=== PATIENT | male | born 1960 | race Caucasian/White ===

== ENCOUNTER → 2021-06-18 09:34 | Outpatient (CLI) | payer MEDICARE, MEDICAID, SELFPAY ==
--- NOTE | 2021-06-18 10:00 | CT_ITS ---
PROCEDURE: CT ABDOMEN PELVIS WO CON CLINICAL INDICATION: incarcerated umbilical hernia COMPARISON: No exams were available for comparison TECHNIQUE: Axial images obtained with sagittal and coronal reformats. All CT scans at the facility use one or more dose reduction, viz: automated exposure control, ma/kV adjustment per patient size (including targeted exams where dose is matched to indication, i.e. head), or iterative reconstruction technique. FINDINGS: LOWER THORAX: Coronary artery calcifications noted.4 mm noncalcified nodule right middle lobe posteriorly. The 5 mm noncalcified nodule right lower lobe laterally. 4 mm noncalcified nodule left lower lobe. ABDOMEN & PELVIS: Liver margin is somewhat irregular suggesting cirrhosis. Spleen is enlarged at 16 cm. There has been a prior cholecystectomy with intra and extrahepatic biliary ductal dilatation. Nodular opacities are present in the paraesophageal region suggesting varices. Numerous nodular opacities are present in the perigastric region and within the mesenteries suggestive collateral vessels which could be confirmed with enhanced CT. No renal or ureteral calculi. No hydronephrosis. No intestinal obstruction or free air. No evidence of appendicitis. There is thickening of the gastric wall proximally which could be due to nondistention or underlying gastritis. There is mild diffuse haziness of the peritoneal fat and there is a small amount of ascites. The haziness of the fat could be related to portal venous hypertension. There is mild thickening of the rectosigmoid. There is a small umbilical hernia containing fat there is mild haziness of the fat within the hernia and focal thickening along the anterior wall the hernia. The hernia does not contain bowel. The haziness of the fat within the hernia is not greater than the remaining peritoneum. There are osteoarthritic changes of the hips right greater than left. Degenerative changes of the spine. IMPRESSION: 1. Cirrhosis with findings consistent with portal hypertension with splenomegaly and numerous varices along with a small amount of ascites and mild edematous appearance of the peritoneal fat 2. Small umbilical hernia containing fat with some thickening of the wall the hernia anteriorly. No bowel evident within the hernia. There is some edema of the fat within the hernia however this is not greater than the remaining peritoneal fat 3. Nonspecific gastric wall thickening 4. Other nonacute findings as described above. Dictated by: Roberto Cortes MD 06/18/2021 10:48 Roberto Cortes MD in [place] 06/18/2021 10:48
== END ==
PROVIDERS: PCP Family Medicine; Visit Provider Family Medicine
DX: K42.0 Umbilical hernia with obstruction, without gangrene (principal)
CPT/HCPCS: 74176

== ENCOUNTER 2021-07-23 15:41 | Inpatient (IN) | payer MEDICARE, MEDICAID, SELFPAY ==
[2021-07-23] VITALS (18 sets, daily range): BP systolic 134–158; BP diastolic 88–102; PULSE 90–130; RESP 12–22; TEMP 36.4–36.9; O2SAT 94–100; BMI 32.5; BMI 31.6
--- NOTE | 2021-07-23 15:38 | ECG_ITS ---
APPROVED REPORT Exam: Resting ECG HR:132 bpm ECG Measurements Heart Rate 132 AXES QRSd 92 QRS 77 QT 300 T -14 QTc 444 Conclusion Atrial fibrillation with rapid ventricular response with premature ventricular or aberrantly conducted complexes Late R wave progression Isolated Q wave in III Abnormal ECG Electronically signed by : Alex Durham MD 07/23/2021 17:29:40
--- NOTE | 2021-07-23 15:46 | XR_ITS ---
FINAL REPORT TECHNIQUE: Single view chest CLINICAL HISTORY: chest pain FINDINGS: A single view of the chest was obtained. The heart is enlarged. The lungs are clear. There is no pneumothorax. Osseous structures are unremarkable. IMPRESSION: No acute cardiopulmonary process. Reviewed, Interpreted and Dictated by Alton Leach III, MD Transcribed by Janay Herrera Authenticated by Alton Leach III, MD on 07/23/2021 04:53:02 PM [facility]
[2021-07-23 16:01] LABS: Basophils # 0.1 K/mm3 (0-0.2); Basophils % 0.9 % (0.1-2.0); Eosinophils # 0.1 K/mm3 (0.0-0.4); Eosinophils % 1.1 % (0.1-12.0); Hematocrit 44.1 % (42.0-52.0); Hemoglobin 15.2 g/dL (14.1-18.0); Lymphocytes # 1.3 K/mm3 (0.7-4.5); Lymphocytes % 19.7 % (10-50); Mean Corpuscular HGB Conc 34.4 g/dL (31.8-35.4); Mean Corpuscular Hemoglobin 34.2 pg (27.0-31.2); Mean Corpuscular Volume 99.3 fl (80-94); Mean Platelet Volume 8.7 fl (7.4-10.4); Monocytes # 0.4 K/mm3 (0.1-1.0); Monocytes % 5.7 % (1.7-9.3); Neutrophils # 4.8 K/mm3 (1.8-7.8); Neutrophils % 72.6 % (37.0-80.0); Platelet Count 131 K/mm3 (142-424); Red Blood Count 4.44 M/mm3 (4.60-6.20); Red Cell Distribution Width 14.7 % (11.5-17.5); White Blood Count 6.6 K/mm3 (4.8-10.8)
[2021-07-23 16:09] LABS: Anion Gap 11.6 mEq/L (5-15); Blood Urea Nitrogen 10 mg/dl (9-20); Calcium 9.4 mg/dl (8.4-10.2); Carbon Dioxide 29 mmol/L (22.0-30.0); Chloride 102 mmol/L (98-107); Creatinine Clearance Estimated 202 mL/min (50-200); Estimated Glomerular Filt Rate 137 ml/min (>60); GFR (African American) 166 ML/MIN (>60); Glucose 91 mg/dl (74-100); Potassium 3.6 mmoL/L (3.5-5.1); Sodium 139 mmol/L (136-145)
--- NOTE | 2021-07-23 16:13 | HMH.EDGENADL ---
ED Disposition Clinical Impression: Atrial fibrillation, new onset, Atrial fibrillation with rapid ventricular response, Hypomagnesemia Disposition: Admitted as Observation Condition on Discharge: Fair Referrals: Yunier Barrett MD [Primary Care Provider] - - Critical Care Critical Care Time: Yes Attestation: On 07/23/21, the high probability of a clinically significant, sudden or life threatening deterioration of the following system(s) required my full and direct attention, intervention and personal management. The time I documented below is in addition to time spent performing reported procedures but includes the following listed in this critical care notation. Total Critical Care Time: 30 Vital system(s) involved:: Circulatory Failure My critical care processes included: Assessment & monitoring of V/S, Initial and Re-exams, Data Review/Interpretation, Coordinating Care, Medication Orders and management, Documentation Medical Decision Making - Marshal Inquiry Pt receiving controlled substance: No Vital Signs: 07/23/21 15:44 07/23/21 16:31 07/23/21 16:50 Temperature 98.5 F Temperature Source Oral Pulse Rate 103 H 91 H Pulse Rate [Right] 125 H Respiratory Rate 16 22 21 Blood Pressure 146/95 H 134/93 H Blood Pressure [Right Arm] 136/92 H Blood Pressure Mean [Right Arm] 106 Blood Pressure Source [Right Arm] Automatic Cuff Blood Pressure Position [Right Arm] Sitting 02 Sat by Pulse Oximetry 98 98 98 Oxygen Delivery Method Room Air - Lab Data Lab Results 07/23/21 15:45: WBC 6.6, RBC 4.44 L, Hgb 15.2, Hct 44.1, MCV 99.3 H, MCH 34.2 H, MCHC 34.4, RDW 14.7, Plt Count 131 L, MPV 8.7, Neut % (Auto) 72.6, Lymph % (Auto) 19.7, [place] % (Auto) 5.7, Eos % (Auto) 1.1, Baso % (Auto) 0.9, Neut # (Auto) 4.8, Lymph # (Auto) 1.3, [place] # (Auto) 0.4, Eos # (Auto) 0.1, Baso # (Auto) 0.1 07/23/21 15:45: Sodium 139, Potassium 3.6, Chloride 102, Carbon Dioxide 29, Anion Gap 11.6, BUN 10, Creatinine 0.60 L, Estimated Creat Clear 202, Estimated GFR 137, Est GFR ( Amer) 166, Glucose 91, Calcium 9.4, Troponin I < 0.01 07/23/21 15:59: Magnesium 1.4 L, NT-Pro-B Natriuret Pep 548 H 07/23/21 15:59: TSH 0.84, Free T4 Index 2.3 L, Thyroxine (T4) 8.5, T3 Uptake 27 07/23/21 15:59: PT 13.4 H, INR 1.20 H, APTT 27.7 07/23/21 16:57: SARS-CoV-2 (PCR) Not detected, Influenza A Untype (PCR) Not detected, Influenza Type B (PCR) Not detected Result diagrams: 07/23/21 15:45 07/23/21 15:45 Orders (Tests/Meds): ED MEDICATIONS Generic Name Dose Route Start Last Admin Trade Name Freq PRN Reason Stop Dose Admin Diltiazem HCl 100 mg/ Sodium 100 mls @ 10 mls/hr 07/23/21 16:30 07/23/21 16:34 Chloride IV 08/22/21 16:29 10 mls/hr .Q10H RADHA Administration Protocol Magnesium Sulfate 2 gm/ Sodium 104 mls @ 100 mls/hr 07/23/21 17:07 Chloride IV 07/23/21 18:09 ONCE ONE Discontinued Medications Generic Name Dose Route Start Last Admin Trade Name Freq PRN Reason Stop Dose Admin Diltiazem HCl 20 mg 07/23/21 16:21 07/23/21 16:33 Diltiazem 25mg/5ml Vial IV 07/23/21 16:22 20 mg ONCE ONE Administration ORDERS Category Date Time Status Troponin I Q3H Lab 07/23/21 19:00 Ordered Troponin I Q3H Lab 07/23/21 22:00 Ordered - Radiology Data #1 Image(s): Chest Image Reviewed: Yes I reviewed the patient's radiology image, Yes I have reviewed radiologist's interpretation Preliminary Findings: Normal/NAD Patient: Liz Ruiz#: [id number] : 1960 Acct:[id number] Age/Sex: 60 / M ADM Date: 07/23/21 Loc: ER Attending Dr: Ordering Physician: Lior Hill MD Date of Service: 07/23/21 Procedure(s): XR chest portable Accession Number(s): [id number] cc: Alton Leach MD; Yunier Barrett MD~ FINAL REPORT TECHNIQUE: Single view chest CLINICAL HISTORY: chest pain FINDINGS: A single view of the chest was obtained. The heart is enl
[2021-07-23 16:31] LABS: Troponin I < 0.01 ng/ml (0.00-0.034)
[2021-07-23 16:48] LABS: Magnesium 1.4 mg/dl (1.6-2.3)
[2021-07-23 16:53] LABS: Activated Partial Thrombo Time 27.7 seconds (22.8-30.6); Prothrombin Time 13.4 seconds (10.1-12.5)
[2021-07-23 16:59] LABS: NT Pro Brain Natriuretic Pep. 548 pg/mL (0-125)
[2021-07-23 17:03] LABS: Coronavirus 19, PCR Not Detected (NotDetected); Influenza A, PCR Not Detected (NotDetected); Influenza B, PCR Not Detected (NotDetected)
[2021-07-23 17:06] LABS: Free Thyroxine Index 2.3 ug/dL (5.93-13.13); T4 (Thyroxine) 8.5 ug/dl (5.53-11.0); Triiodothryronine (T3) Uptake 27 % (23.5-40.5)
[2021-07-23 17:20] LABS: Thyroid Stimulating Hormone 0.84 uIU/mL (0.465-4.68)
--- NOTE | 2021-07-23 17:39 | PC.NURSE ---
notified powerhouse operator
--- NOTE | 2021-07-23 18:05 | PC.NURSE ---
1740 bed assignment requested, room 219SD, all staff notified
--- NOTE | 2021-07-23 19:13 | PC.NURSE ---
drip rate up to chair heart rate up to 140s drip turned up to 15
[2021-07-23 19:36] LABS: Troponin I < 0.01 ng/ml (0.00-0.034)
--- NOTE | 2021-07-23 21:55 | PC.NURSE ---
PT ARRIVED TO FLOOR VIA W/C FROM ED W/STAFF @ [id number]
[2021-07-23 23:08] LABS: Troponin I < 0.01 ng/ml (0.00-0.034)
[2021-07-24] VITALS (14 sets, daily range): BP systolic 119–148; BP diastolic 78–95; PULSE 77–110; RESP 10–22; TEMP 36.6–37.2; O2SAT 93–98; BMI 31.5; BMI 31.3
--- NOTE | 2021-07-24 05:33 | PC.NURSE ---
pt has rested intermittently t/o shift, cardizem at 15 upon arrival to floor, cardizem currently infusing at 5, no complaints of chest pain or SOA since arriving to floor, has ambulated to with a standby assist, BM this shift, remains on room air
[2021-07-24 07:39] LABS: Magnesium 1.7 mg/dl (1.6-2.3)
--- NOTE | 2021-07-24 11:31 | PC.NURSE ---
Notified Dr. Cain about consult on patient.
--- NOTE | 2021-07-24 13:20 | HMH.HP ---
*Admission Date: 07/23/21 *Chief complaint: new onset afib *History of present illness: Patient presented to the office for follow-up from [place]. On examination he was found to be in atrial fib with a rapid response. He was unable to be directly admitted from the office, he had to go home and take care of his children and subsequently returned to the emergency room. At that point KG showed A. fib with a rapid response. Initial steps included Cardizem for rate control. He was found to have low magnesium, normal thyroid function, normal troponins. Patient has no history of arrythmia, was having no ischemic chest pain but did notice dyspnea on exertion. He had recently been discharged from [place] few days prior to this admission. Patient was recently diagnosed with cirrhosis. He had experienced some rectal bleeding prompting his valuation at [place]. He underwent EGD, some esophageal varices were noted not ligated. He has had no further bleeding. His abdomen is distended, there is some ascites. There is no jaundice. I do not know the extent of his work-up to date, but he has not yet had a liver biopsy. [facility] History Medical History: Reports:: Cerebrovascular Accident, Deep Vein Thrombosis, Hyperlipidemia, Hypertension, Myocardial Infarction Denies:: Cancer, Diabetes Mellitus Type 1, Diabetes Mellitus Type 2, MRSA *Have you ever received a pneumonia vaccine?: No *Have you received a flu vaccine this season?: No Laterality Cases: Left: Arthroscopy Knee Other Surgeries: Yes: No Previous Surgery, Colonoscopy Amputation: No Fractures: No - *Social History Last grade of school completed: 9th or 10th Smoking Status: Never smoker Alcohol Intake: never Substance Use Type: denies use *Occupational Status:: disabled Housing: other Household Members: children *Travel in the last 8 weeks: None Family Hx:: Cancer, Heart Attack Review of Systems - Constitutional Reports lack of energy, Reports weakness - Eyes Denies change in vision - ENT Denies abnormal hearing Meds Home Medications Medication Instructions Recorded Confirmed Type aspirin 325 mg tablet 325 mg PO HS 08/15/19 07/23/21 History chlordiazepoxide-clidinium 5 1 cap PO BID PRN #60 cap 07/05/21 07/23/21 Rx mg-2.5 mg capsule oxycodone-acetaminophen 10 mg-325 1 tab PO QID PRN #28 tab 07/16/21 07/23/21 Rx mg tablet Rosuvastatin Calcium 20 mg PO HS 07/23/21 07/23/21 History lisinopriL [Lisinopril] 10 mg PO HS 07/23/21 07/23/21 History Allergies Allergy/AdvReac Type Severity Reaction Status Date / Time morphine Allergy hives Verified 07/23/21 22:11 codeine AdvReac Vomiting/Na Verified 07/23/21 22:11 usea cortisone AdvReac Hives Verified 07/23/21 22:11 Iodinated Contrast Media AdvReac Swelling Verified 07/23/21 22:11 Exam Vital signs and Labs for Last 24 Hours: Temp Pulse Resp BP Pulse Ox 97.9 F 93 H 16 127/85 94 L 07/24/21 04:00 07/24/21 06:00 07/24/21 06:00 07/24/21 06:00 07/24/21 06:00 Laboratory Results - last 24 hr 07/23/21 15:45: WBC 6.6, RBC 4.44 L, Hgb 15.2, Hct 44.1, MCV 99.3 H, MCH 34.2 H, MCHC 34.4, RDW 14.7, Plt Count 131 L, MPV 8.7, Neut % (Auto) 72.6, Lymph % (Auto) 19.7, [place] % (Auto) 5.7, Eos % (Auto) 1.1, Baso % (Auto) 0.9, Neut # (Auto) 4.8, Lymph # (Auto) 1.3, [place] # (Auto) 0.4, Eos # (Auto) 0.1, Baso # (Auto) 0.1 07/23/21 15:45: Sodium 139, Potassium 3.6, Chloride 102, Carbon Dioxide 29, Anion Gap 11.6, BUN 10, Creatinine 0.60 L, Estimated Creat Clear 202, Estimated GFR 137, Est GFR ( Amer) 166, Glucose 91, Calcium 9.4, Troponin I < 0.01 07/23/21 15:59: Magnesium 1.4 L, NT-Pro-B Natriuret Pep 548 H 07/23/21 15:59: TSH 0.84, Free T4 Index 2.3 L, Thyroxine (T4) 8.5, T3 Uptake 27 07/23/21 15:59: PT 13.4 H, INR 1.20 H, APTT 27.7 07/23/21 16:57: SARS-CoV-2 (PCR) Not detected, Influenza A Untype (PCR) Not detected, Influenza Type B (PCR) Not detected 07/23/21 19:00: Troponin I < 0.01
--- NOTE | 2021-07-24 13:44 | CT_ITS ---
PROCEDURE INFORMATION: Exam: CT Abdomen Without Contrast Exam date and time: 07/24/2021 1:44 PM Age: 60 years old Clinical indication: Bloating; Additional info: Cirrhosis, ascites TECHNIQUE: Imaging protocol: Computed tomography images of the abdomen without contrast. Radiation optimization: All CT scans at this facility use at least one of these dose optimization techniques: automated exposure control; mA and/or kV adjustment per patient size (includes targeted exams where dose is matched to clinical indication); or iterative reconstruction. COMPARISON: CT ABDOMEN PELVIS WO CON 06/18/2021 10:19 AM FINDINGS: Liver: Cirrhotic changes of the liver present. Gallbladder and bile ducts: There has been a cholecystectomy. Pancreas: Normal. No ductal dilation. Spleen: Mild splenomegaly. The spleen demonstrates punctate calcifications, consistent with remote granulomatous organism exposure. Adrenals: Normal. No mass. Kidneys and ureters: Normal. No hydronephrosis. Stomach and bowel: Thickening of the ellison of the stomach and duodenum consistent with gastroduodenitis. Intraperitoneal space: There is a moderate amount of free intraperitoneal fluid present. Lymph nodes: There are multiple nonspecific nonpathologic but prominent lymph nodes in the mesentery. There are no mesenteric lymph nodes of pathologic dimensions. Vasculature: Gastroesophageal varices are present. Haziness of the peritoneal fat is again noted which may be related to portal venous hypertension. Bones/joints: The lumbar spine demonstrates moderate degenerative changes at multiple levels. Soft tissues: There is a fat-containing umbilical hernia. Fluid filled left inguinal hernia. Other findings: Lack of IV contrast limits the study as well as decreases sensitivity and specificity. IMPRESSION: 1. There is a moderate amount of free intraperitoneal fluid present. 2. Cirrhotic changes of the liver present. 3. Mild splenomegaly. 4. Gastroesophageal varices are present. 5. Thickening of the ellison of the stomach and duodenum consistent with gastroduodenitis.
--- NOTE | 2021-07-24 13:45 | CT_ITS ---
PROCEDURE INFORMATION: Exam: CT Head Without Contrast Exam date and time: 07/24/2021 1:45 PM Age: 60 years old Clinical indication: Other: Afib; Additional info: New onset afib, history of stroke TECHNIQUE: Imaging protocol: Computed tomography of the head without contrast. Radiation optimization: All CT scans at this facility use at least one of these dose optimization techniques: automated exposure control; mA and/or kV adjustment per patient size (includes targeted exams where dose is matched to clinical indication); or iterative reconstruction. COMPARISON: No relevant prior studies available. FINDINGS: Brain: Normal. No hemorrhage. Unremarkable white matter. No mass effect. Cerebral ventricles: No ventriculomegaly. Paranasal sinuses: Visualized sinuses are unremarkable. No fluid levels. Mastoid air cells: Visualized mastoid air cells are well aerated. Bones/joints: No acute fracture. Soft tissues: No acute changes IMPRESSION: No acute intracranial abnormality.
--- NOTE | 2021-07-24 15:08 | P.CONPHA_ITS ---
[facility] Pharm[facility] VTE Monitoring - Patient Demographics Admission date: 07/24/21 Report Date: 07/24/21 Time: 15:09 Allergies/Adverse Reactions: Patient Allergies morphine Allergy (Verified 07/23/21 22:11) hives codeine Adverse Reaction (Verified 07/23/21 22:11) Vomiting/Nausea cortisone Adverse Reaction (Verified 07/23/21 22:11) Hives Iodinated Contrast Media Adverse Reaction (Verified 07/23/21 22:11) Swelling Height: 1.83 m Weight: 105.715 kg Patient Problems: Current Active Problems Atrial fibrillation, new onset (Acute) Atrial fibrillation with rapid ventricular response (Acute) Hypomagnesemia (Acute) Cirrhosis (Acute) Abdominal pain (Acute) Hyperlipidemia (Acute) Chronic back pain greater than 3 months duration (Acute) Family history of heart disease (Acute) History of CVA (cerebrovascular accident) (Acute) HTN (hypertension) (Acute) Hx of myocardial infarction (Acute) Dyspnea (Acute) - VTE Risk Labs: VTE Related Lab Results Hgb 15.2 g/dL (14.1-18.0) 07/23/21 15:45 Hct 44.1 % (42.0-52.0) 07/23/21 15:45 Plt Count 131 K/mm3 (142-424) L 07/23/21 15:45 PT 13.4 seconds (10.1-12.5) H 07/23/21 15:59 INR 1.20 (0.9-1.1) H 07/23/21 15:59 APTT 27.7 seconds (22.8-30.6) 07/23/21 15:59 BUN 10 mg/dl (9-20) 07/23/21 15:45 Creatinine 0.60 mg/dl (0.66-1.25) L 07/23/21 15:45 Estimated Creat Clear 202 mL/min (50-200) 07/23/21 15:45 Was VTE Risk Assessment Performed: Yes VTE Score: 3 VTE Risk Level: Low Risk - Prophylaxis Location of Applied Device: Refused Pharmacologic Type: Enoxaparin (LOVENOX)
[2021-07-24 16:20] LABS: Ammonia < 9 umol/L (9-30)
[2021-07-25] VITALS (12 sets, daily range): BP systolic 110–136; BP diastolic 70–91; PULSE 76–100; RESP 13–19; TEMP 36.8–37.2; O2SAT 92–96; BMI 31.3
[2021-07-25 06:35] LABS: Basophils % 0.3 % (0.1-2.0); Eosinophils # 0.1 K/mm3 (0.0-0.4); Eosinophils % 1.8 % (0.1-12.0); Hematocrit 38.5 % (42.0-52.0); Hemoglobin 12.8 g/dL (14.1-18.0); Lymphocytes # 1.3 K/mm3 (0.7-4.5); Lymphocytes % 22.7 % (10-50); Mean Corpuscular HGB Conc 33.2 g/dL (31.8-35.4); Mean Corpuscular Hemoglobin 33.7 pg (27.0-31.2); Mean Corpuscular Volume 101.5 fl (80-94); Mean Platelet Volume 8.3 fl (7.4-10.4); Monocytes # 0.4 K/mm3 (0.1-1.0); Monocytes % 6.5 % (1.7-9.3); Neutrophils # 3.9 K/mm3 (1.8-7.8); Neutrophils % 68.6 % (37.0-80.0); Platelet Count 97 K/mm3 (142-424); Red Blood Count 3.79 M/mm3 (4.60-6.20); Red Cell Distribution Width 14.8 % (11.5-17.5); White Blood Count 5.6 K/mm3 (4.8-10.8)
[2021-07-25 07:13] LABS: Alanine Aminotransferase 26 U/L (12-78); Albumin Level 3.3 g/dl (3.5-5.0); Albumin/Globulin Ratio 1.3 (1.1-1.8); Alkaline Phosphatase 133 U/L (38-126); Anion Gap 6.3 mEq/L (5-15); Aspartate Amino Transferase 44 U/L (17-59); Bilirubin,Total 1.7 mg/dl (0.2-1.3); Blood Urea Nitrogen 14 mg/dl (9-20); Calcium 8.6 mg/dl (8.4-10.2); Carbon Dioxide 32 mmol/L (22.0-30.0); Chloride 102 mmol/L (98-107); Creatinine Clearance Estimated 194 mL/min (50-200); Estimated Glomerular Filt Rate 137 ml/min (>60); GFR (African American) 166 ML/MIN (>60); Globulin 2.6 g/dL (1.3-3.2); Glucose 91 mg/dl (74-100); Magnesium 1.5 mg/dl (1.6-2.3); Potassium 3.3 mmoL/L (3.5-5.1); Sodium 137 mmol/L (136-145); Total Protein,Serum 5.9 g/dl (6.3-8.2)
--- NOTE | 2021-07-25 12:20 | HMH.ACPN2 ---
Internal Medicine - PN: Subj *Date: 07/25/21 *Time: 12:21 Interval history: Patient remains in A. fib on the monitor. Good rate control he is in the 80s. Echo is planned for tomorrow. CT of the brain showed no acute changes CT of the abdomen showed cirrhosis, esophageal varices, and some ascites. We will consider ultrasound-guided paracentesis tomorrow. Is having some increased back and leg pain from laying in the bed. He is having no active chest pain. His potassium is a little low today at 3.3, magnesium still a little low at 1.5. Cardiology is on the case. Exam Vital signs and Labs for Last 24 Hours: Temp Pulse Resp BP Pulse Ox 98.6 F 88 14 110/76 95 07/25/21 08:00 07/25/21 10:00 07/25/21 10:00 07/25/21 10:00 07/25/21 10:00 Laboratory Results - last 24 hr 07/24/21 15:40: Ammonia < 9 L 07/25/21 05:28: WBC 5.6, RBC 3.79 L, Hgb 12.8 L, Hct 38.5 L, MCV 101.5 H, MCH 33.7 H, MCHC 33.2, RDW 14.8, Plt Count 97 L D, MPV 8.3, Neut % (Auto) 68.6, Lymph % (Auto) 22.7, [place] % (Auto) 6.5, Eos % (Auto) 1.8, Baso % (Auto) 0.3, Neut # (Auto) 3.9, Lymph # (Auto) 1.3, [place] # (Auto) 0.4, Eos # (Auto) 0.1, Baso # (Auto) 0.0 07/25/21 05:28: Sodium 137, Potassium 3.3 L, Chloride 102, Carbon Dioxide 32 H, Anion Gap 6.3, BUN 14 D, Creatinine 0.60 L, Estimated Creat Clear 194, Estimated GFR 137, Est GFR ( Amer) 166, Glucose 91, Calcium 8.6, Magnesium 1.5 L D, Total Bilirubin 1.7 H, AST 44, ALT 26, Alkaline Phosphatase 133 H, Total Protein 5.9 L, Albumin 3.3 L, Globulin 2.6, Albumin/Globulin Ratio 1.3 I & O for Last 24 hours: Intake & Output 07/22/21 07/23/21 07/24/21 07/25/21 23:59 23:59 23:59 23:59 Intake Total 1359 / 1359 480 / 480 Balance 1359 / 1359 480 / 480 Weight 233 lb 1.6 oz 231 lb 7.766 oz 231 lb 7.766 oz - Constitutional no acute distress - *Routine HEENT Exam Head: Present: normocephalic Eye: Present: EOMI, PERRL ENT: Present: mucous membranes moist - *Routine Neck Exam Present: supple. Absent: lymphadenopathy - *Routine Respiratory Exam Present: CTA bilaterally - *Routine Cardiovascular Exam Present: RRR, irregularly irregular. Absent: murmur - *Routine Abdominal Exam Present: soft, distended, obese. Absent: tenderness, guarding - *Routine Extremities Exam Absent: cyanosis, clubbing, edema - *Routine Skin Exam Present: warm. Absent: jaundice, rash - *Routine Neurological Exam Present: alert, oriented X3 Assessment and Plan (1) Atrial fibrillation with rapid ventricular response Status: Acute Category: Medical Code(s): I48.91 - Unspecified atrial fibrillation (2) Atrial fibrillation, new onset Status: Acute Category: Medical Code(s): I48.91 - Unspecified atrial fibrillation (3) Hypomagnesemia Status: Acute Category: Medical Code(s): E83.42 - Hypomagnesemia (4) Abdominal pain Status: Acute Qualifiers: Abdominal location: periumbilical Qualified Code(s): R10.33 - Periumbilical pain Category: Medical Code(s): R10.9 - Unspecified abdominal pain (5) Chronic back pain greater than 3 months duration Status: Acute Category: Medical Code(s): M54.9 - Dorsalgia, unspecified; G89.29 - Other chronic pain (6) Cirrhosis Status: Acute Qualifiers: Hepatic cirrhosis type: unspecified hepatic cirrhosis Ascites presence: unspecified Qualified Code(s): K74.60 - Unspecified cirrhosis of liver Category: Medical Code(s): K74.60 - Unspecified cirrhosis of liver (7) Dyspnea Status: Acute Qualifiers: Dyspnea type: dyspnea on exertion Qualified Code(s): R06.09 - Other forms of dyspnea Category: Medical Code(s): R06.00 - Dyspnea, unspecified (8) Family history of heart disease Status: Acute Category: Medical Code(s): Z82.49 - Family history of ischemic heart disease and other diseases of the circulatory system (9) HTN (hypertension) Status: Acute Qualifiers: Hypertension type: primary h
--- NOTE | 2021-07-25 12:50 | HMH.ITSTN ---
spoke to second floor Carissa she spoke to Dr. Barrett he is aware this has to be done tomorrow with a radiologist. He just put the order in for today. Advised I will modify to tomorrows date.
[2021-07-26] VITALS (7 sets, daily range): BP systolic 119–150; BP diastolic 74–92; PULSE 80–97; RESP 17–24; TEMP 36.7–37; O2SAT 93–97
--- NOTE | 2021-07-26 05:56 | PC.NURSE ---
PA. JOSHI NOTIFIED OF CONSULT
--- NOTE | 2021-07-26 08:00 | US_ITS ---
FINAL REPORT CLINICAL HISTORY: ascites -- performed by jevon 1650 ml FINDINGS: ULTRASOUND-GUIDED PARACENTESIS HISTORY:Ascites ATTENDING PHYSICIAN:Dr. Leach PHYSICIAN TURBINE ATTENDANT: Caleb Phillips PA-C FINDINGS: After informed consent was obtained and timeout procedure performed, fluid was localized in the right lower quadrant under ultrasound guidance and marked on the skin appropriately. The patient was then prepped and draped in the usual sterile fashion and the skin was anesthetized with 1% lidocaine. An ultrasound guided paracentesis was then performed using a Turkel needle. Approximately 1.6 liters of clear yellow fluid was removed. No fluid was sent to lab. The patient tolerated the procedure well and there were no immediate complications. IMPRESSION: Ultrasound guided right lower quadrant 1.6 liters of Clear yellow fluid was removed. Films reviewed , interpreted and dictated by Dr. Leach Transcribed by Caleb Phillips PA-C. Reviewed, Interpreted and Dictated by Alton Leach III, MD Transcribed by JOHN Fragoso Authenticated by Alton Leach III, MD on 07/26/2021 12:29:00 PM [facility]
--- NOTE | 2021-07-26 08:15 | CT_ITS ---
FINAL REPORT TECHNIQUE: Axial imaging of the chest was obtained without contrast. Reformatted images were also obtained and reviewed.This study was performed with techniques to keep radiation doses as low as reasonably achievable, (ALARA). Individualized dose reduction technique using automated exposure control or adjustment of mA and/or kV according to the patient's size were employed. CLINICAL HISTORY: Constrictive pericarditis. COMPARISON: 07/24/2021 FINDINGS: There are severe coronary artery calcifications. There is no pericardial thickening, pericardial fluid or pericardial calcification. There is no axillary adenopathy. There is no hilar or mediastinal mass or adenopathy. There is no pleural effusion. Several calcified granulomas are seen in the left lung base. There are small pulmonary nodules measuring less than 5 mm, unchanged from prior exam. There is a small to moderate amount of ascites. The spleen is enlarged. Presumed paraesophageal varices are present. Liver is mildly lobular which could represent cirrhosis. There is mild anasarca. Patient is status post cholecystectomy. IMPRESSION: Severe coronary artery calcifications. No pericardial thickening, pericardial fluid or pericardial calcification. Small to moderate ascites, paraesophageal varices and mild anasarca. Reviewed, Interpreted and Dictated by Alton Leach III, MD Transcribed by Janay Herrera Authenticated by Alton Leach III, MD on 07/26/2021 10:29:50 AM [facility]
--- NOTE | 2021-07-26 08:18 | HMH.CNCARD ---
History of Present Illness Consult date: 07/26/21 Requesting physician: Yunier Barrett Consult reason: atrial fibrillation Chief complaint: Shortness of breath Additional Medical History:: 1. Remote history of MD x2 in his 20s treated medically A. Preliminary echocardiogram 07/26/2021, normal ejection fraction with only mild valvular insufficiencies. 2. Coronary artery calcifications noted on abdominal CT, 06/2021 3. Cirrhosis of the liver with no history of significant alcohol use or illegal drug use per patient 4. Hypertension 5. Hyperlipidemia 6. History of CVA 7. History of DVT History of present illness: Patient presented to the office for follow-up from [place]. On examination he was found to be in atrial fib with a rapid response. He was unable to be directly admitted from the office, he had to go home and take care of his children and subsequently returned to the emergency room. At that point EKG showed A. fib with a rapid response. Initial steps included Cardizem for rate control. He was found to have low magnesium, normal thyroid function, normal troponins. Patient has no history of arrythmia, was having no ischemic chest pain but did notice dyspnea on exertion. He had recently been discharged from [place] few days prior to this admission. Patient was recently diagnosed with cirrhosis. He had experienced some rectal bleeding prompting his valuation at [place]. He underwent EGD, some esophageal varices were noted not ligated. He has had no further bleeding. His abdomen is distended, there is some ascites. There is no jaundice. I do not know the extent of his work-up to date, but he has not yet had a liver biopsy. The above per Dr. Barrett Patient confirms above events. He denies any recent cardiac evaluation. He does relate having 2 MIs in his 20s which was treated medically. He has no prior history of atrial fibrillation to his knowledge. Denies significant alcohol use or illegal drug use. No history of tobacco use or diabetes cirrhosis of the liver diagnosis is new. He has 2 children living at home ages 5 and 7 that he takes care of. 1 has Down syndrome. [facility] History Medical History: Reports:: Cerebrovascular Accident, Deep Vein Thrombosis, Hyperlipidemia, Hypertension, Myocardial Infarction Denies:: Cancer, Diabetes Mellitus Type 1, Diabetes Mellitus Type 2, MRSA *Have you ever received a pneumonia vaccine?: No *Have you received a flu vaccine this season?: No Laterality Cases: Left: Arthroscopy Knee Other Surgeries: Yes: No Previous Surgery, Colonoscopy Amputation: No Fractures: No - *Social History Last grade of school completed: 9th or 10th Smoking Status: Never smoker Alcohol Intake: never Substance Use Type: denies use *Occupational Status:: employed, disabled Housing: other Household Members: children *Travel in the last 8 weeks: None Family Hx:: Cancer, Heart Attack Meds Home Medications Medication Instructions Recorded Confirmed Type aspirin 325 mg tablet 325 mg PO HS 08/15/19 07/23/21 History Rosuvastatin Calcium 20 mg PO HS 07/23/21 07/23/21 History lisinopriL [Lisinopril] 10 mg PO HS 07/23/21 07/23/21 History Chlordiazepoxide/Clidinium Br 1 each PO BIDP PRN 07/25/21 07/25/21 History [Librax Capsule] Oxycodone HCl/Acetaminophen 1 each PO QIDP PRN 07/25/21 07/25/21 History [Oxycodone-Acetaminophen 10-325] Allergies Allergy/AdvReac Type Severity Reaction Status Date / Time morphine Allergy hives Verified 07/23/21 22:11 codeine AdvReac Vomiting/Na Verified 07/23/21 22:11 usea cortisone AdvReac Hives Verified 07/23/21 22:11 Iodinated Contrast Media AdvReac Swelling Verified 07/23/21 22:11 Exam Vital signs and Labs for Last 24 Hours: Temp Pulse Resp BP Pulse Ox 98.6 F 91 H 19 142/81 H 93 L 07/26/21 04:00 07/26/21 07:50 07/26/21 06:00 07/26/21 06:00 07/26/21 07:50 I & O for Last 24 hours: Intake & Output 07/23/21
--- NOTE | 2021-07-26 09:07 | PC.NURSE ---
Off unit at 0903 for paracentesis with Radiology. Diltiazem drip dc by Peace Adam RN at 0900, 30 minutes after po Diltiazem given
[2021-07-26 09:59] LABS: Appearance,Body Fld. Normal; Source, Body Fld. Paracentesis Fluid
[2021-07-26 10:08] LABS: RBC,Body Fluid < 10 cells/uL (< 10 X 10^3); TNC,Body Fluid 149 cells/uL (< 1000)
[2021-07-26 10:19] LABS: Chloride 102 mmol/L (98-107); Potassium 3.9 mmoL/L (3.5-5.1); Sodium 138 mmol/L (136-145)
[2021-07-26 10:21] LABS: Alanine Aminotransferase 32 U/L (12-78); Aspartate Amino Transferase 52 U/L (17-59); Blood Urea Nitrogen 13 mg/dl (9-20); Creatinine Clearance Estimated 194 mL/min (50-200); Estimated Glomerular Filt Rate 137 ml/min (>60); GFR (African American) 166 ML/MIN (>60)
[2021-07-26 10:22] LABS: Albumin Level 3.9 g/dl (3.5-5.0); Albumin/Globulin Ratio 1.2 (1.1-1.8); Alkaline Phosphatase 158 U/L (38-126); Anion Gap 11.9 mEq/L (5-15); Calcium 9.2 mg/dl (8.4-10.2); Carbon Dioxide 28 mmol/L (22.0-30.0); Globulin 3.3 g/dL (1.3-3.2); Glucose 98 mg/dl (74-100); Total Protein,Serum 7.2 g/dl (6.3-8.2)
[2021-07-26 10:32] LABS: Lactate Dehydrogenase 216 U/L (313-618)
[2021-07-26 11:13] LABS: Mononuclear WBCs,Body Fluid 93 %; Polynuclear WBC,Body Fluid 7 %
[2021-07-26 11:14] LABS: Volume,Body Fld. 1672 mL
--- NOTE | 2021-07-26 13:01 | HMH.DCSUM ---
General - General Admission date:: 07/24/21 Discharge date: 07/26/21 HPI HPI: Patient presented to the office for follow-up from [place]. On examination he was found to be in atrial fib with a rapid response. He was unable to be directly admitted from the office, he had to go home and take care of his children and subsequently returned to the emergency room. At that point KG showed A. fib with a rapid response. Initial steps included Cardizem for rate control. He was found to have low magnesium, normal thyroid function, normal troponins. Patient has no history of arrythmia, was having no ischemic chest pain but did notice dyspnea on exertion. He had recently been discharged from [place] few days prior to this admission. Patient was recently diagnosed with cirrhosis. He had experienced some rectal bleeding prompting his valuation at [place]. He underwent EGD, some esophageal varices were noted not ligated. He has had no further bleeding. His abdomen is distended, there is some ascites. There is no jaundice. I do not know the extent of his work-up to date, but he has not yet had a liver biopsy. Hospital Course Hospital Course: Laboratory Tests 07/23/21 07/23/21 07/23/21 15:45 15:45 15:59 WBC 6.6 RBC 4.44 L Hgb 15.2 Hct 44.1 MCV 99.3 H MCH 34.2 H MCHC 34.4 RDW 14.7 Plt Count 131 L MPV 8.7 Neut % (Auto) 72.6 Lymph % (Auto) 19.7 [place] % (Auto) 5.7 Eos % (Auto) 1.1 Baso % (Auto) 0.9 Neut # (Auto) 4.8 Lymph # (Auto) 1.3 [place] # (Auto) 0.4 Eos # (Auto) 0.1 Baso # (Auto) 0.1 PT INR APTT Sodium 139 Potassium 3.6 Chloride 102 Carbon Dioxide 29 Anion Gap 11.6 BUN 10 Creatinine 0.60 L Estimated Creat Clear 202 Estimated GFR 137 Est GFR ( Amer) 166 Glucose 91 Calcium 9.4 Magnesium 1.4 L Total Bilirubin AST ALT Alkaline Phosphatase Ammonia Lactate Dehydrogenase Troponin I < 0.01 NT-Pro-B Natriuret Pep 548 H Total Protein Albumin Globulin Albumin/Globulin Ratio TSH Free T4 Index Thyroxine (T4) T3 Uptake Fluid Source Fluid Volume Fluid Appearance Fluid RBC (Auto) Fld Tot Nucleated Cell Fld Polynuclear WBCs % Fld Mononuclear WBCs % SARS-CoV-2 (PCR) Influenza A Untype (PCR) Influenza Type B (PCR) 07/23/21 07/23/21 07/23/21 15:59 15:59 16:57 WBC RBC Hgb Hct MCV MCH MCHC RDW Plt Count MPV Neut % (Auto) Lymph % (Auto) [place] % (Auto) Eos % (Auto) Baso % (Auto) Neut # (Auto) Lymph # (Auto) [place] # (Auto) Eos # (Auto) Baso # (Auto) PT 13.4 H INR 1.20 H APTT 27.7 Sodium Potassium Chloride Carbon Dioxide Anion Gap BUN Creatinine Estimated Creat Clear Estimated GFR Est GFR ( Amer) Glucose Calcium Magnesium Total Bilirubin AST ALT Alkaline Phosphatase Ammonia Lactate Dehydrogenase Troponin I NT-Pro-B Natriuret Pep Total Protein Albumin Globulin Albumin/Globulin Ratio TSH 0.84 Free T4 Index 2.3 L Thyroxine (T4) 8.5 T3 Uptake 27 Fluid Source Fluid Volume Fluid Appearance Fluid RBC (Auto) Fld Tot Nucleated Cell Fld Polynuclear WBCs % Fld Mononuclear WBCs % SARS-CoV-2 (PCR) Not detected Influenza A Untype (PCR) Not detected Influenza Type B (PCR) Not detected 07/23/21 07/23/21 07/24/21 19:00 22:18 05:44 WBC RBC Hgb Hct MCV MCH MCHC RDW Plt Count MPV Neut % (Auto) Lymph % (Auto) [place] % (Auto) Eos % (Auto) Baso % (Auto) Neut # (Auto) Lymph # (Auto) [place] # (Auto) Eos # (Auto) Baso # (Auto) PT INR APTT Sodium Potassium Chloride Carbon Dioxide Anion Gap BUN
--- NOTE | 2021-07-26 13:21 | CA_ITS ---
APPROVED REPORT EXAM: Comprehensive 2D, Doppler, and color-flow Echocardiogram [employer] Tractor Operator: Catherine Pa CRT Ht: 6 ft 0 in Wt: 233lbs BSA: 2.27 BP: 142/81 mmHg Indications: Shortness of Breath, CVA/TIA, Hyperlipidemia, Hypertension/HDD, DVT, OLD NE, CIRRHOSIS 2D Dimensions LVOT 1.82 cm (M/F) 1.5-2.5 LA Volume 89.70 mL LA Volume Index 39.50 mL/m2 (M/F) 16-34 M-Mode Dimensions RVDd 3.75 cm (0.9-2.6) LA Diam 5.04 cm (1.9-4.0) LVDd 5.04 cm (3.5-5.7) Ao Diam 4.04 cm (2.0-3.7) LVDs 3.29 cm (3.5-5.7) IVSd 1.68 cm (0.6-1.1) PWd 1.25 cm (0.6-1.1) EF (Teich) 63.70% FS 34.70% EDV (Teich) 120.50 mL TAPSE 2.73 (<1.7) ESV (Teich) 43.80 mL LV Diastology E Decel Time 177.00 (160-240 msec) E/A Ratio 0.34 Aortic Valve AO Peak GR. 10.50 mmHg Mitral Valve MV E Max Jaime. 100.00 (40-130 cm/s) MV A Velocity 295.00 (40-130 cm/s) E/A Ratio 0.34 MV Decel. Time 177.00 (160-240 ms) MV PHT 52.00 ms Pulmonary Valve PV Peak Velocity 119.00 (50-150 cm/s) Tricuspid Valve TR P. Velocity 289.00 cm/s RAP Estimate 10.00 mmHg RVSP 43.30 mmHg Left Ventricle Technically difficult study because of the patient factors and poor acoustic windows, left atrium is mildly enlarged, left ventricle is normal size, mild concentric left ventricular hypertrophy, visually estimated ejection fraction 55% with no regional wall motion abnormality, endocardial surfaces are poorly visualized, diastolic parameters are inconclusive. Right Ventricle Right atrium and right ventricle are mildly enlarged with normal contractility. Aortic Valve Aortic valve is thickened and calcified without Doppler evidence of aortic stenosis or significant aortic insufficiency. Mitral Valve Mitral valve is grossly normal, there is mild mitral regurgitation. Tricuspid Valve Tricuspid valve is grossly normal, there is mild tricuspid regurgitation, tricuspid regurgitation jet velocity is inadequate for calculation of the right ventricular systolic pressure. Pulmonic Valve Pulmonic valve is poorly visualized. Great Vessels Aortic root is normal size. Inferior vena cava is normal size with normal inspiratory collapse. Pericardium No significant pericardial effusion noted. Conclusion 1. Mild biatrial enlargement, normal left ventricular size, mild concentric left ventricular hypertrophy, visually estimated ejection fraction 55% with no regional wall motion abnormality, diastolic parameters are inconclusive. Endocardial surfaces are poorly visualized. 2. Mildly enlarged right ventricle with normal contractility. 3. Thickened and calcified aortic valve without significant aortic stenosis or aortic insufficiency. 4. Mild mitral and tricuspid regurgitation. 5. No significant pericardial effusion noted. 6. Inferior vena cava is normal size with normal inspiratory collapse. 7. No acute echocardiographic findings to suggest constrictive pericarditis. Electronically signed by : Kumar James MD 07/26/2021 12:35:32
--- NOTE | 2021-07-26 14:45 | HMH.PHAINT ---
DISCHARGE MEDICATION COUNSELING PROVIDED. DISCUSSED THE DILTIAZEM AND XARLETO, HOW TO TAKE, POSSIBLE SIDE EFFECTS. BRUISING RISK AND BLEED RISK WITH XARELTO, WHEN TO SEEK CARE, IF YOU BUMP HEAD NEED TO BE SEEN TO RULE OUT HEAD BLEED. PATIENT RECEPTIVE AND ENDORSED NO QUESTIONS AT THIS TIME.
[2021-07-27 06:12] LABS: Hep A Ab, IgM Negative (Negative); Hepatitis B Core Antibody IgM Negative (Negative); Hepatitis B Surface Antigen Negative (Negative); Hepatitis C Antibody <0.1 s/co ratio (0.0-0.9)
[2021-07-27 10:12] LABS: Albumin, Body Fluid 0.4 g/dL (Not Estab.); Glucose, Body Fluid 102 mg/dL (.); LD, Body Fluid 31 IU/L (.); Protein, Body Fluid 0.6 g/dL (.)
== END 2021-07-26 15:25 | disposition home or self-care (01) | DRG 309 ==
LOC: ER 17:09 → 2ND 18:16
PROVIDERS: Nurse Practitioner Family; Admitting Provider Family Medicine; Emergency Provider Emergency Medicine; PCP Family Medicine; Visit Provider Family Medicine
DX: I48.91 Unspecified atrial fibrillation (principal); I85.10 Secondary esophageal varices without bleeding; K74.60 Unspecified cirrhosis of liver; E83.42 Hypomagnesemia; Z86.73 Personal history of transient ischemic attack (TIA), and cerebral infarction without residual deficits; Z20.822 Contact with and (suspected) exposure to COVID-19; E78.5 Hyperlipidemia, unspecified; I10 Essential (primary) hypertension; I25.2 Old myocardial infarction; G89.29 Other chronic pain; M54.9 Dorsalgia, unspecified; Z86.718 Personal history of other venous thrombosis and embolism; I25.10 Atherosclerotic heart disease of native coronary artery without angina pectoris; Z79.01 Long term (current) use of anticoagulants
CPT/HCPCS: 49083; 36415; 70450; 71045; 71250; 74150; 80048; 80053; 80074; 82042; 82140; 82945; 83615; 83735; 83880; 84155; 84436; 84443; 84479; 84484; 85025; 85610; 85730; 87070; 87205; 89051; 93005; 93306; 96365; 96375; 99284; C9803; G0378; U0003; U0005

== ENCOUNTER 2021-09-03 07:50 | Day surgery (SDC) | payer MEDICARE, MEDICAID, SELFPAY ==
[2021-09-03 08:01] VITALS: BMI 30.5
[2021-09-03 08:47] VITALS: BP 117/63; PULSE 100; RESP 17; TEMP 36.7; O2SAT 98
--- NOTE | 2021-09-03 08:54 | ECG_ITS ---
APPROVED REPORT Exam: Resting ECG HR:73 bpm ECG Measurements Heart Rate 73 AXES MD 165 P 74 QRSd 99 QRS 35 QT 407 T 31 QTc 433 Conclusion SINUS RHYTHM POSSIBLE LEFT ATRIAL abnormality BORDERLINE ECG UNCONFIRMED REPORT Electronically signed by : Alex Durham MD 09/03/2021 19:18:18
[2021-09-03 09:17] VITALS: BP 113/63; PULSE 68; RESP 20; O2SAT 99
--- NOTE | 2021-09-03 12:05 | HMH.CARDIO ---
[facility] Cardioversion Date: 09/03/21 Provider:: JOHN Rodríguez Procedure Performed:: Synchronized electrical cardioversion Diagnosis:: Atrial fibrillation Procedure Summary:: Patient was brought to the cardiac Lead Network Architect as an outpatient. After informed consent was obtained, patient received combination of Versed and fentanyl for sedation prior to receiving 3 separate 200 J shocks to convert and maintain sinus rhythm from atrial fibrillation. Patient tolerated the procedure without complications. Complications:: None Conculsion:: Successful electrical cardioversion from atrial fibrillation to normal sinus rhythm.
== END 2021-09-03 09:21 | disposition home or self-care (01) ==
LOC: CATHLAB 07:51
PROVIDERS: PCP Family Medicine; Visit Provider Internal Medicine
PROC: 5A2204Z Restoration of Cardiac Rhythm, Single (ICD-10-PCS; principal; 2021-09-03 08:15)
DX: I48.0 Paroxysmal atrial fibrillation (principal); I10 Essential (primary) hypertension; Z82.49 Family history of ischemic heart disease and other diseases of the circulatory system; I25.10 Atherosclerotic heart disease of native coronary artery without angina pectoris; K74.60 Unspecified cirrhosis of liver; M54.50 Low back pain, unspecified; Z79.899 Other long term (current) drug therapy
CPT/HCPCS: 92960; 93005; 99152

== ENCOUNTER → 2021-09-07 07:21 | Outpatient (CLI) | payer MEDICARE, MEDICAID, SELFPAY ==
--- NOTE | 2021-09-07 | CA_ITS ---
APPROVED REPORT Exam: Pharmacologic Technologist: Ning Villagomez Ht: 6 ft 0 in Wt: 222 lbs BSA: 2.23 m2 HR: 85 bpm BP: 124/103 mmHg Indications: Atrial Fibrillation, Abnormal CT Medical History Medications: Lisinopril,,,,, Aspirin,,,,, PERCOCET,,,,, XaRELTO,,,,, RoSUVASTATIN,,,,, DilTiazem HCI,,,,, Stress Test Details Test: LEXISCAN HR Resting HR: 96 bpm Max Heart Rate (APMHR): 160.354241 bpm Max HR Achieved: 121 bpm Target HR (85% APMHR): 136.386915 bpm % of APMHR: 75.63 Recovery HR: 97 bpm BP Resting BP: 124.0/103.0 mmHg Max BP: 139.0/76.0 mmHg Recovery BP: 139.0/76.0 mmHg ECG Resting ECG: Atrial fibrillation with controlled Ventricular response, NS T wave abnormalities inferiorly. Clinical Exercise duration: 04:03 min Highest Stage Achieved: Stress ECG Conclusion Symptoms: Mild head discomfort. No other symptoms. Arrhythmias/Ectopy: Atrial fibrillation throught with some mild tachycardia. ST-T Changes: No significant changes. Conclusion: Non-diagnostic Lexiscan stress. Myoview images reported separately. Test Summary RECOVERY 03:00 . . 101 . 139/ 76 . . REST 03:52 . . 96 . 124/103 . . Stage 1 . . . . . . . Myoview Injected Stage 1 01:00 . . 105 . . . . Stage 2 01:00 . . 105 . . . . Stage 3 01:00 . . 109 . . . . Stage 4 01:00 . . 103 . 134/ 93 . . Stage 4 01:03 . . 105 . 134/ 93 . Stop exercise at 04:03 RECOVERY 01:00 . . 99 . 133/ 76 . . RECOVERY 02:00 . . 95 . 133/ 76 . . RECOVERY 03:00 . . 101 . 139/ 76 . . RECOVERY 03:20 . . 98 . 139/ 76 . . Electronically signed by : Kumar James MD 09/07/2021 19:23:25
--- NOTE | 2021-09-07 07:23 | NM_ITS ---
APPROVED REPORT Exam: Nuclear Stress Test Indication: CAD, Hx of AK, HTN, High cholesterol, Family history, Afib Patient Location: Outpatient Stress Tech: Ning Villagomez NM Tech:Nurys Allen, ARRT, RT (R)(N) Ht: 6 ft 0 in Wt: 220 lbs HR: 96 bpm BP: 124/103 mmHg BSA: 2.22 m2 History: CAD, Hx of [place], HTN, High cholesterol, Family history, Afib Procedure: Patient received a 0.4 mg of intravenous Lexiscan, resting heart rate 96 bpm, resting blood pressure 124/103 mmHg, with Lexiscan maximum heart rate achived was 121 bpm which is Less than 85 % of the maximum predicted heart rate and blood pressure was 139/76 mmHg. With Lexiscan, patient denied any complaint of chest pain. Electrocardiogram Resting electrocardiogram shows sinus rhythm, with Lexiscan there is less than 1.[address] segment depression noted from the baseline EKG. The EKG portion of the Lexiscan is nondiagnostic. Cardiac Stress and Resting SPECT Images: Cardiac Stress and Resting SPECT images were obtained using technetium 99m Myoview 32.7 mCi stress and 10.87 mCi at rest. Gated SPECT analysis of segmental wall motion and calculation of the ejection fraction also done. Cardiac stress and resting SPECT images show uniform myocardial activity without segmental perfusion abnormality, computer derived ejection fraction is 44% with no regional wall motion abnormality, right ventricle is mildly enlarged with normal contractility. Conclusion: 1. The EKG portion of the Lexiscan is nondiagnostic. 2. No scintigraphic evidence of reversible ischemia seen, compared right ejection fraction 44% with no regional wall motion abnormality, right ventricle is mildly enlarged with normal contractility. Electronically signed by : Kumar James MD 09/07/2021 19:34:25
--- NOTE | 2021-09-07 09:13 | HMH.ITSHM ---
Current Home Medications as stated by this patient Brandyn Ruiz or front office representative. []RIVAROXABAN OXYCODONE LISINOPRIL DILTIAZEM ASA ROSUVASTATIN
== END ==
PROVIDERS: PCP Family Medicine; Visit Provider Urology
DX: E78.5 Hyperlipidemia, unspecified (principal); I10 Essential (primary) hypertension; I25.10 Atherosclerotic heart disease of native coronary artery without angina pectoris; I25.2 Old myocardial infarction; I48.20 Chronic atrial fibrillation, unspecified; K74.60 Unspecified cirrhosis of liver; Z82.49 Family history of ischemic heart disease and other diseases of the circulatory system; Z86.73 Personal history of transient ischemic attack (TIA), and cerebral infarction without residual deficits
CPT/HCPCS: 78452; 93017; A9502; J2785

== ENCOUNTER 2021-11-23 12:07 | Emergency (ER) | payer MEDICARE, MEDICAID, SELFPAY ==
[2021-11-23 12:08] VITALS: BP 155/101; PULSE 72; RESP 18; TEMP 36.8; O2SAT 98; BMI 30.5
--- NOTE | 2021-11-23 12:19 | XR_ITS ---
FINAL REPORT CLINICAL HISTORY: injury x 2 days ago. large object fell on foot. FINDINGS: RIGHT ANKLE 3 views of the right ankle were obtained. There is no acute fracture or dislocation. The mortise is intact. There is mild degenerative change. Calcaneal spurs are identified. Soft tissues are unremarkable. IMPRESSION: Degenerative change with no acute bony abnormality. Reviewed, Interpreted and Dictated by Alton Leach III, MD Transcribed by Quiana Alva Authenticated by Alton Leach III, MD on 11/23/2021 01:36:[address] [facility]
--- NOTE | 2021-11-23 12:19 | XR_ITS ---
FINAL REPORT CLINICAL HISTORY: injury x 2 days ago. large object fell on foot. FINDINGS: RIGHT FOOT: Three views of the right foot were obtained. There is no acute fracture or dislocation. There are [id number] degenerative changes, worst at the 1st metatarsal/phalangeal joint. There is no soft tissue abnormality. IMPRESSION: Degenerative changes with no acute bony abnormality. Reviewed, Interpreted and Dictated by Alton Leach III, MD Transcribed by Quiana Alva Authenticated by Alton Leach III, MD on 11/23/2021 01:36:02 PM [facility]
--- NOTE | 2021-11-23 12:19 | HMH.EDGENADL ---
ED Disposition Clinical Impression: Contusion of right foot Qualifiers: Encounter type: initial encounter Qualified Code(s): S90.31XA - Contusion of right foot, initial encounter Disposition: Home, Self-Care Condition on Discharge: Good Instructions: DI for Foot Pain, How to Use a Walking Boot Additional Instructions: Continue ice 20 minutes 4 times a day to reduce swelling and pain. Continue to elevate foot. Orthopedic boot. Follow-up with podiatry, Dr. Carmona, call for appointment. Continue taking your usual pain medication. Referrals: Yunier Barrett MD [Primary Care Provider] - - Critical Care Critical Care Time: No Attestation: On 11/23/21, the high probability of a clinically significant, sudden or life threatening deterioration of the following system(s) required my full and direct attention, intervention and personal management. The time I documented below is in addition to time spent performing reported procedures but includes the following listed in this critical care notation. Medical Decision Making - Marshal Inquiry Pt receiving controlled substance: No Marshal was queried for this patient: Yes Vital Signs: 11/23/21 12:08 Temperature 98.2 F Temperature Source Oral Pulse Rate [Left Radial] 72 Respiratory Rate 18 Blood Pressure [Right Arm] 155/101 H Blood Pressure Mean [Right Arm] 119 Blood Pressure Source [Right Arm] Automatic Cuff Blood Pressure Position [Right Arm] Sitting 02 Sat by Pulse Oximetry 98 Oxygen Delivery Method Room Air Orders (Tests/Meds): ORDERS Category Date Time Status XR ankle RT min 3V Stat Exams 11/23/21 12:19 Taken XR foot RT min 3V Stat Exams 11/23/21 12:19 Taken - Radiology Data #1 Image(s): Ankle, Foot/Toes Image Reviewed: Yes I reviewed the patient's radiology image Preliminary Findings: Normal/NAD General Adult HPI - General Stated complaint: AO 11/23 lt foot injury Time Seen by Provider: 11/23/21 12:19 - History of Present Illness HPI narrative: Dropped a 600 pound trailer on his right foot on Monday 2 days ago. Complains of diffuse pain of the midfoot and forefoot, worse in the forefoot. Mild ankle pain. He is able to ambulate. He sent a picture to his primary care provider, Dr. Barrett, who advised him to come the emergency department. He has been icing and elevating his foot. He is on Xarelto for atrial fibrillation. - Related Data Home Medications Medication Instructions Recorded Confirmed aspirin 325 mg tablet 325 mg PO HS 08/15/19 11/16/21 dicyclomine 20 mg tablet 20 mg PO ONCE tab 10/27/21 11/16/21 Previous Rx's Medication Instructions Recorded diltiazem HCl 180 mg 180 mg PO DAILY #90 cap 11/16/21 capsule,extended release 24 hr lisinopril 10 mg tablet 10 mg PO HS #90 tab 11/16/21 oxycodone-acetaminophen 10 mg-325 1 tab PO QIDP PRN #60 tab 11/16/21 mg tablet rivaroxaban 20 mg tablet See Rx Instructions .ROUTE 11/16/21 .COMPLEX #30 tab rosuvastatin 20 mg tablet 20 mg PO HS #90 tab 11/16/21 spironolactone 50 mg tablet 50 mg PO DAILY #90 tab 11/16/21 Allergies Allergy/AdvReac Type Severity Reaction Status Date / Time morphine Allergy hives Verified 11/16/21 15:41 codeine AdvReac Vomiting/Na Verified 11/16/21 15:41 usea cortisone AdvReac Hives Verified 11/16/21 15:41 Iodinated Contrast Media AdvReac Swelling Verified 11/16/21 15:41 [facility] History - Hepatitis A Screen Attestation statement:: This patient has been screened for Hepatitis A risk factors. I have reviewed the patient's past medical history: Yes Medical History: Reports:: Atrial Fibrillation, Cerebrovascular Accident, Deep Vein Thrombosis, Hyperlipidemia, Hypertension, Myocardial Infarction Denies:: Cancer, Diabetes Mellitus Type 1, Diabetes Mellitus Type 2, MRSA Laterality Cases: Left: Arthroscopy Knee Other Surgeries: Yes: No Previous Surgery, Cardiac Catheterization, Colonoscopy Amputation: No Fractures: No - Social Hi
[2021-11-23 12:56] VITALS: BP 158/110; PULSE 100; RESP 18; TEMP 36.8; O2SAT 97
== END 2021-11-23 12:56 | disposition home or self-care (01) ==
PROVIDERS: Emergency Provider Emergency Medicine; PCP Family Medicine
DX: S90.31XA Contusion of right foot, initial encounter (principal); I48.91 Unspecified atrial fibrillation; Z79.01 Long term (current) use of anticoagulants; E78.5 Hyperlipidemia, unspecified; I10 Essential (primary) hypertension; I25.2 Old myocardial infarction; Z79.82 Long term (current) use of aspirin; Z79.899 Other long term (current) drug therapy; Z88.5 Allergy status to narcotic agent; Z88.8 Allergy status to other drugs, medicaments and biological substances; Z91.041 Radiographic dye allergy status; Z86.73 Personal history of transient ischemic attack (TIA), and cerebral infarction without residual deficits; Z86.718 Personal history of other venous thrombosis and embolism
CPT/HCPCS: 73610; 73630; 99283

== ENCOUNTER 2022-08-18 16:37 | Observation (INO) | payer MEDICARE, MEDICAID, SELFPAY ==
[2022-08-18] VITALS (22 sets, daily range): BP systolic 123–186; BP diastolic 79–119; PULSE 77–134; RESP 12–20; TEMP 36.5; O2SAT 97–99; BMI 30.5; BMI 67.2
--- NOTE | 2022-08-18 16:40 | ECG_ITS ---
APPROVED REPORT Exam: Resting ECG HR:126 bpm ECG Measurements Heart Rate 126 AXES QRSd 96 QRS 42 QT 308 T -5 QTc 383 Conclusion ATRIAL FIBRILLATION WITH RAPID VENTRICULAR RESPONSE NONSPECIFIC ST & T-WAVE ABNORMALITY ABNORMAL RHYTHM ECG UNCONFIRMED REPORT Electronically signed by : Alex Durham MD 08/20/2022 12:11:05
--- NOTE | 2022-08-18 16:48 | XR_ITS ---
FINAL REPORT TECHNIQUE: Single view chest CLINICAL HISTORY: Midsternal chest pain COMPARISON: 07/26/2021 FINDINGS: A single view of the chest was obtained. The heart and mediastinum are within normal limits. The lungs are clear. There is no pneumothorax. Osseous structures are unremarkable. IMPRESSION: No acute cardiopulmonary process. Reviewed, Interpreted and Dictated by Tello Reeves MD Transcribed by Janay Herrera Authenticated and [facility]
[2022-08-18 17:09] LABS: Basophils % 0.6 % (0.1-2.0); Eosinophils % 0.4 % (0.1-12.0); Hematocrit 42.9 % (42.0-52.0); Hemoglobin 13.8 g/dL (14.1-18.0); Lymphocytes # 0.9 K/mm3 (0.7-4.5); Lymphocytes % 14.5 % (10-50); Mean Corpuscular HGB Conc 32.2 g/dL (31.8-35.4); Mean Corpuscular Hemoglobin 31.4 pg (27.0-31.2); Mean Corpuscular Volume 97.6 fl (80-94); Mean Platelet Volume 8.5 fl (7.4-10.4); Monocytes # 0.3 K/mm3 (0.1-1.0); Monocytes % 5.5 % (1.7-9.3); Neutrophils # 4.8 K/mm3 (1.8-7.8); Neutrophils % 78.9 % (37.0-80.0); Platelet Count 109 K/mm3 (142-424); Red Cell Distribution Width 14.7 % (11.5-17.5); White Blood Count 6.1 K/mm3 (4.8-10.8)
--- NOTE | 2022-08-18 17:11 | PC.NURSE ---
7/10 midsternum chest pain. 9/10 RUQ abd pain. Hx of Liver cirrhosis. 10/10 general headache with blurred vision. Reduced environmental stimuli for comfort measures. No neuro deficits noted. PERRLA 2.5 mm.
[2022-08-18 17:17] LABS: Alanine Aminotransferase 36 U/L (12-78); Albumin Level 3.9 g/dl (3.5-5.0); Albumin/Globulin Ratio 1.1 (1.1-1.8); Alkaline Phosphatase 265 U/L (38-126); Anion Gap 9.2 mEq/L (5-15); Aspartate Amino Transferase 54 U/L (17-59); Bilirubin,Total 1.1 mg/dl (0.2-1.3); Blood Urea Nitrogen 14 mg/dl (9-20); Calcium 8.9 mg/dl (8.4-10.2); Carbon Dioxide 27 mmol/L (22.0-30.0); Chloride 109 mmol/L (98-107); Creatinine Clearance Estimated 85 mL/min (50-200); Estimated Glomerular Filt Rate 86 ml/min (>60); GFR (African American) 104 ML/MIN (>60); Globulin 3.5 g/dL (1.3-3.2); Glucose 179 mg/dl (74-100); Potassium 3.2 mmoL/L (3.5-5.1); Sodium 142 mmol/L (136-145); Total Protein,Serum 7.4 g/dl (6.3-8.2)
[2022-08-18 17:30] LABS: Troponin I < 0.01 ng/ml (0.00-0.034)
--- NOTE | 2022-08-18 18:05 | HMH.EDGENADL ---
Discharge Plan Disposition Patient Disposition: Admitted as Observation Condition: Fair Prescriptions Prescriptions: No Action aspirin [Cynthia Aspirin] 325 mg tablet 325 mg PO HS lactulose [Enulose] 10 gram/15 mL solution 15 ml PO Q8H Xifaxan 550 mg tablet 550 mg PO BID oxycodone-acetaminophen 10-325 mg tablet 1 tab PO QIDP PRN (Reason: PAIN) Qty: 60 0RF diltiazem HCl 180 mg capsule,extended release 24hr 180 mg PO DAILY Qty: 90 3RF lisinopril 10 mg tablet 10 mg PO HS Qty: 90 3RF Xarelto 20 mg tablet See Rx Instructions .ROUTE .COMPLEX Qty: 30 10RF Dose Instruction: TAKE 1 TABLET BY MOUTH ONCE A DAY Rx Instructions: TAKE 1 TABLET BY MOUTH ONCE A DAY rosuvastatin 20 mg tablet 20 mg PO HS Qty: 90 3RF spironolactone [Aldactone] 50 mg tablet 50 mg PO DAILY Qty: 90 3RF dicyclomine 20 mg tablet See Rx Instructions .ROUTE .COMPLEX Qty: 90 0RF Dose Instruction: TAKE 1 TABLET BY MOUTH 3 TIMES A DAY NEEDED FOR ABDOMINAL DISCOMFORT Rx Instructions: TAKE 1 TABLET BY MOUTH 3 TIMES A DAY NEEDED FOR ABDOMINAL DISCOMFORT oxycodone 10 mg tablet 10 mg PO Q8H PRN (Reason: pain) Qty: 45 0RF Clinical Impressions Clinical Impression: Abdominal pain, Chest pain, Cirrhosis, Atrial fibrillation with rapid ventricular response, Headache, Acute hypokalemia Discharge ED Provider: [facility] HPI General Chief complaint: Chest Pain Stated complaint: chest pain Time Seen by Provider: 08/18/22 18:04 Mode of Arrival: Ambulatory Source of Information: Patient Limitations: No Limitations Description of Symptoms (Recalled from ER Triage Doc. by RN): Presents via POV d/t onset of RUQ abd pain (Hx of liver cirrosis) accompanied by a 10/10 general headache with blurred vision that started earlier today. Pt called a friend which encouraged to check BP; home BP 207/146. +Xarelto and Asa 325mg. Pt also reports 8/10 midsternum stabbing cp. No neuro deficits noted. History of Present Illness HPI narrative: The patient has multiple complaints. States that his liver is hurting for the past several days. Also states that he has a severe headache that started today. Accompanied by blurry vision. Also states that his blood pressure was high at home. He has a history of atrial fibrillation and is on Xarelto and aspirin. He has failed cardioversion. He has cirrhosis. He says he gets severe pain in his liver from time to time. The last time he was treated was at [facility] and he said he received Dilaudid which worked well. Says that he cannot take morphine or codeine. He is requesting Dilaudid. I reviewed the patient's most recent primary care provider note and cardiology clinic note it appears he is supposed to be on diltiazem for rate control, but I do not see that on his current medication list. The patient says he has been compliant with all of his medications. Related Data Home Medications Medication Instructions Recorded Confirmed aspirin 325 mg tablet (Cynthia 325 mg PO HS Blood thinner 08/15/19 06/09/22 Aspirin) lactulose 10 gram/15 mL oral 15 ml PO Q8H 03/17/22 06/09/22 solution (Enulose) rifaximin 550 mg tablet (Xifaxan) 550 mg PO BID 03/17/22 06/09/22 Previous Rx's Medication Instructions Recorded oxycodone-acetaminophen 10 mg-325 1 tab PO QIDP PRN PAIN #60 tabs 11/16/21 mg tablet dicyclomine 20 mg tablet See Rx Instructions .Route 12/14/21 .COMPLEX #90 tabs oxycodone 10 mg tablet 10 mg PO Q8H PRN pain #45 tabs 04/14/22 diltiazem HCl 180 mg 180 mg PO DAILY #90 caps 06/09/22 capsule,extended release 24 hr lisinopril 10 mg tablet 10 mg PO HS bp #90 tabs 06/09/22 rivaroxaban 20 mg tablet (Xarelto) See Rx Instructions .Route 06/09/22 .COMPLEX #30 tabs rosuvastatin 20 mg tablet 20 mg PO HS Cholesterol #90 tabs 06/09/22 spironolactone 50 mg tablet 50 mg PO DAILY #90 tabs 06/09/22 (Aldactone)
[2022-08-18 18:19] LABS: Magnesium 1.8 mg/dl (1.6-2.3)
--- NOTE | 2022-08-18 18:27 | CT_ITS ---
PROCEDURE INFORMATION: Exam: CT Head Without Contrast Exam date and time: 08/18/2022 6:41 PM Age: 61 years old Clinical indication: Pain; Headache not specified TECHNIQUE: Imaging protocol: Computed tomography of the head without contrast. Radiation optimization: All CT scans at this facility use at least one of these dose optimization techniques: automated exposure control; mA and/or kV adjustment per patient size (includes targeted exams where dose is matched to clinical indication); or iterative reconstruction. Other protocol: This patient has received [address] and 0 known cardiac nuclear medicine studies in the 12 months prior to the current study. COMPARISON: CT HEAD/BRAIN WO CON 07/24/2021 2:18 PM FINDINGS: Brain: Normal. No hemorrhage. Unremarkable white matter. No mass effect. Cerebral ventricles: No ventriculomegaly. Paranasal sinuses: Visualized sinuses are unremarkable. No fluid levels. Mastoid air cells: Small right mastoid effusion unchanged. Bones/joints: Unremarkable. No acute fracture. Soft tissues: Unremarkable. IMPRESSION: No acute intracranial abnormality.
--- NOTE | 2022-08-18 18:28 | CT_ITS ---
PROCEDURE INFORMATION: Exam: CT Abdomen And Pelvis Without Contrast Exam date and time: 08/18/2022 6:44 PM Age: 61 years old Clinical indication: Abdominal pain; Other: Liver hurts TECHNIQUE: Imaging protocol: Computed tomography of the abdomen and pelvis without contrast. Radiation optimization: All CT scans at this facility use at least one of these dose optimization techniques: automated exposure control; mA and/or kV adjustment per patient size (includes targeted exams where dose is matched to clinical indication); or iterative reconstruction. Other protocol: This patient has received [address] and 0 known cardiac nuclear medicine studies in the 12 months prior to the current study. COMPARISON: CT ABDOMEN WO CON 07/24/2021 2:23 PM FINDINGS: Lungs: 4 mm solid nodule lateral right lower lobe series 3 image 7 unchanged. Calcified granuloma medial left lower lobe unchanged. Mediastinal space: There is reflux of oral contrast or hyperdense food into the lower thoracic esophagus. Liver: Cirrhotic morphology of the liver is unchanged. Gallbladder and bile ducts: Stable post cholecystectomy changes. Pancreas: Normal. No ductal dilation. Spleen: Mild splenomegaly with 16.6 cm spleen is similar to previous study. Splenic granulomata are also unchanged. Adrenal glands: Normal. No mass. Kidneys and ureters: Normal. No hydronephrosis. Stomach and bowel: Scattered bowel wall thickening is seen, likely secondary to the ascites. Appendix: No evidence of appendicitis. Intraperitoneal space: Small volume ascites is similar to the previous study. Vasculature: Paraesophageal varices are unchanged. Lymph nodes: Multiple subcentimeter mesenteric lymph nodes and retroperitoneal lymph nodes are again present, which are nonspecific and may be reactive. Urinary bladder: Unremarkable as visualized. Reproductive: Unremarkable as visualized. Bones/joints: Unremarkable. No acute fracture. Soft tissues: Left-sided large inguinal hernia with fluid in the hernia sac and fat, increased since previous. Small fat containing umbilical hernia is also unchanged. IMPRESSION: 1. Stable liver cirrhosis with stable findings of portal hypertension including paraesophageal varices small volume ascites and splenomegaly. 2. Scattered bowel wall thickening is seen, likely secondary to ascites. Correlate for possible enterocolitis which could appear similar. No obstruction. 3. Increasing large fluid containing left inguinal hernia.
--- NOTE | 2022-08-18 18:38 | PC.NURSE ---
Patient to CT.
[2022-08-18 19:30] LABS: INR 1.32 (0.9-1.1)
--- NOTE | 2022-08-18 19:45 | PC.NURSE ---
speaking to hospitalist for pt admission
[2022-08-18 19:47] LABS: Coronavirus 19, PCR Not Detected (NotDetected); Influenza A, PCR Not Detected (NotDetected); Influenza B, PCR Not Detected (NotDetected)
--- NOTE | 2022-08-18 20:37 | EXP.HP ---
History of Present Illness *Admission Date: 08/18/22 *Reason for visit:: Elevated blood pressures, headache, blurred vision *History of present illness: Mr. 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 He presents to [facility] ER due to several days abdominal pain, 1 day of high blood pressure readings associated with chest pain, dizziness and blurred vision. In the ER he underwent a CT of the head that showed no acute intracranial abnormalities. EKG showed Atrial Fibrillation with rate of [address] segment elevation or depression. Troponin was <0.01. CT of the abdomen and pelvis showed a large inguinal hernia on the left and thickening of the bowel and small amount of ascites. In the ER the patient was given Cardizem 10 mg iv followed by a Cardizem gtt at 10ml/hr. The patient was also noted to have blood pressure readings in the 180 range systolic. The patient will be admitted with initial impression: Atrial Fibrillation with rapid ventricular response, HTN urgency. Cardiology will be consulted to see the patient. The plan of care was discussed with the patient and on admission. Both verbalized understanding and agreement with the plan of care. [facility] Disclaimer: The information contained in this section may have been updated after the patient was seen, as this information can be updated by other users. Medical History (Updated 08/18/22 @ 20:56 by Pelon Sandoval DNP) Atrial fibrillation Chest pain Dyspnea Esophageal varices Family history of heart disease History of cardioversion History of CVA (cerebrovascular accident) HTN (hypertension) Hx of myocardial infarction Liver cirrhosis secondary to SORENSON Surgical History (Updated 08/18/22 @ 20:53 by Pelon Sandoval DNP) Knee joint replacement status Social History Smoking Status: Never smoker alcohol intake: never substance use type: denies use current occupational status: disabled Travel in the last 8 weeks: None household members: children housing: other caffeine: Yes Review of Systems Review of Systems Review of systems:: pertinent systems reviewed and negative unless documented below Constitutional Constitutional: Reports headache(s) and Denies weakness Eyes Eyes: Reports blurry vision and Reports change in vision ENT Ears, Nose, Mouth, and Throat: Reports system reviewed and no additional complaints, except as documented and Reports headache(s) *Cardiovascular Cardiovascular: Reports system reviewed and no additional complaints, except as documented *Respiratory Respiratory: Reports system reviewed and no additional complaints, except as documented *Gastrointestinal Gastrointestinal: Reports system reviewed and no additional complaints, except as documented *Genitourinary Genitourinary: Reports system reviewed and no additional complaints, except as documented *Musculoskeletal Musculoskeletal: Reports system reviewed and no additional complaints, except as documented and Denies numbness Integumentary/Breasts Skin/Breast: Reports system reviewed and no additional complaints, except as documented *Neurologic Neurologic: Reports headache(s), Denies numbness and Denies weakness Psychiatric Psychiatric: Reports system reviewed and no additional complaints, except as documented Endocrine Endocrine: Reports system reviewed and no additional complaints, except as documented Hematologic/Lymphatic Hematologic/Lymphatic: Reports system reviewed and no additional complaints, except as documented Allergic/Immunologic Allergic/Immunologic: Reports system reviewed and no additional complaints, except as documented Meds Home Medications and Allergies Home Medications Medication Instructio
--- NOTE | 2022-08-18 20:43 | PC.NURSE ---
Cardizem increased to 15ml/hr
[2022-08-18 21:30] LABS: Troponin I < 0.01 ng/ml (0.00-0.034)
--- NOTE | 2022-08-18 23:55 | PC.NURSE ---
Report called to Delmy Moscoso RN at this time
[2022-08-19] VITALS (12 sets, daily range): BP systolic 125–136; BP diastolic 63–97; PULSE 70–90; RESP 16–20; TEMP 36.6–36.9; O2SAT 94–99; BMI 30.2
[2022-08-19 00:06] LABS: Troponin I < 0.01 ng/ml (0.00-0.034)
--- NOTE | 2022-08-19 00:20 | PC.NURSE ---
Verbal orders form Pelon to give 180mg cardizem PO then wait 30 min to turn cardizem gtt off.
--- NOTE | 2022-08-19 01:07 | PC.NURSE ---
PT IN ROOM FROM ED
[2022-08-19 06:59] LABS: Basophils % 0.3 % (0.1-2.0); Eosinophils # 0.1 K/mm3 (0.0-0.4); Hematocrit 37.2 % (42.0-52.0); Lymphocytes # 1.1 K/mm3 (0.7-4.5); Neutrophils % 72.3 % (37.0-80.0)
[2022-08-19 07:07] LABS: Chloride 111 mmol/L (98-107); Potassium 3.6 mmoL/L (3.5-5.1); Sodium 143 mmol/L (136-145)
[2022-08-19 07:10] LABS: Alanine Aminotransferase 28 U/L (12-78); Albumin Level 3.3 g/dl (3.5-5.0); Alkaline Phosphatase 243 U/L (38-126); Anion Gap 8.6 mEq/L (5-15); Aspartate Amino Transferase 44 U/L (17-59); Bilirubin,Total 1.2 mg/dl (0.2-1.3); Blood Urea Nitrogen 17 mg/dl (9-20); Calcium 8.4 mg/dl (8.4-10.2); Carbon Dioxide 27 mmol/L (22.0-30.0); Creatinine Clearance Estimated 111 mL/min (50-200); Estimated Glomerular Filt Rate 98 ml/min (>60); GFR (African American) 119 ML/MIN (>60); Globulin 3.3 g/dL (1.3-3.2); Glucose 107 mg/dl (74-100); Total Protein,Serum 6.6 g/dl (6.3-8.2)
[2022-08-19 07:14] LABS: Eosinophils % 1.4 % (0.1-12.0); Lymphocytes % 20.2 % (10-50); Mean Corpuscular HGB Conc 33.1 g/dL (31.8-35.4); Mean Corpuscular Hemoglobin 31.5 pg (27.0-31.2); Mean Corpuscular Volume 95.3 fl (80-94); Mean Platelet Volume 8.8 fl (7.4-10.4); Monocytes # 0.3 K/mm3 (0.1-1.0); Monocytes % 5.8 % (1.7-9.3); Platelet Count 100 K/mm3 (142-424); Red Cell Distribution Width 14.8 % (11.5-17.5); White Blood Count 5.5 K/mm3 (4.8-10.8)
--- NOTE | 2022-08-19 07:40 | HMH.PHAINT1 ---
Pharmacy Intervention Comments: MEDICATION RECONCILIATION COMPLETED ON PATIENT USING EXTERNAL FILL HISTORY FROM PHARMACY, PHILIPPE REPORT, AND LIST FROM PCP OFFICE. -GERARDO GARCIAD
--- NOTE | 2022-08-19 07:41 | EXP.PN ---
Subjective *Date: 08/19/22 *Time: 07:41 Interval history: Date of service August 19, 2022 The patient reports improved abdominal pain since admission. Nursing staff report that he remains afebrile with improved heart rates, stable blood pressures and saturating appropriately on room air. We have reviewed and discussed his morning labs. I have personally interpreted his labs and identified a CBC with a normal white blood cell count, stable hemoglobin and platelet count of 100 which is consistent with the splenomegaly identified on CT scan of the abdomen. CT scan of the abdomen also identifies cirrhosis, absent gallbladder, portal hypertension with ascites varices and splenomegaly. His liver function studies identified total bilirubin 1.2 with normal AST and ALT. His INR is 1.32 and his sodium is 143. Calculated MELD=10. The rest of his electrolytes are normal with a BUN of 17 and creatinine 0.8. His glucose are under 180. His magnesium is 1.8. Troponin trend x3 is negative. Chest x-ray identifies no acute disease. CT scan of the head identifies no acute disease. Cardiology and general surgery are due to see the patient. Exam Data for Last 24 hours Vital signs and Labs for Last 24 Hours: Temp Pulse Resp BP Pulse Ox 98.2 F 89 18 125/97 H 95 08/19/22 04:00 08/19/22 06:00 08/19/22 06:00 08/19/22 06:00 08/19/22 06:00 Laboratory Results - last 24 hr 08/18/22 16:55: WBC 6.1, RBC 4.40 L, Hgb 13.8 L, Hct 42.9, MCV 97.6 H, MCH 31.4 H, MCHC 32.2, RDW 14.7, Plt Count 109 L, MPV 8.5, Neut % (Auto) 78.9, Lymph % (Auto) 14.5, Hand % (Auto) 5.5, Eos % (Auto) 0.4, Baso % (Auto) 0.6, Neut # (Auto) 4.8, Lymph # (Auto) 0.9, Hand # (Auto) 0.3, Eos # (Auto) 0.0, Baso # (Auto) 0.0 08/18/22 16:55: Sodium 142, Potassium 3.2 L, Chloride 109 H, Carbon Dioxide 27, Anion Gap 9.2, BUN 14, Creatinine 0.90, Estimated Creat Clear 85, Estimated GFR 86, Est GFR ( Amer) 104, Glucose 179 H, Calcium 8.9, Total Bilirubin 1.1, AST 54, ALT 36, Alkaline Phosphatase 265 H, Troponin I < 0.01, Total Protein 7.4, Albumin 3.9, Globulin 3.5 H, Albumin/Globulin Ratio 1.1 08/18/22 16:55: Magnesium 1.8 08/18/22 16:55: PT 14.0 H, INR 1.32 H 08/18/22 19:44: SARS-CoV-2 (PCR) Not detected, Influenza A Untype (PCR) Not detected, Influenza Type B (PCR) Not detected 08/18/22 20:18: Troponin I < 0.01 08/18/22 23:16: Troponin I < 0.01 08/19/22 06:43: WBC 5.5, RBC 3.90 L, Hct 37.2 L, MCV 95.3 H, MCH 31.5 H, MCHC 33.1, RDW 14.8, Plt Count 100 L, MPV 8.8, Neut % (Auto) 72.3, Lymph % (Auto) 20.2, Hand % (Auto) 5.8, Eos % (Auto) 1.4, Baso % (Auto) 0.3, Neut # (Auto) 4.0, Lymph # (Auto) 1.1, Hand # (Auto) 0.3, Eos # (Auto) 0.1, Baso # (Auto) 0.0 08/19/22 06:43: Sodium 143, Potassium 3.6, Chloride 111 H, Carbon Dioxide 27, Anion Gap 8.6, BUN 17, Creatinine 0.80, Estimated Creat Clear 111, Estimated GFR 98, Est GFR ( Amer) 119, Glucose 107 H D, Calcium 8.4, Total Bilirubin 1.2, AST 44, ALT 28, Alkaline Phosphatase 243 H, Total Protein 6.6, Albumin 3.3 L D, Globulin 3.3 H, Albumin/Globulin Ratio 1.0 L I & O for Last 24 hours: Intake & Output 08/16/22 08/17/22 08/18/22 08/19/22 23:59 23:59 23:59 23:59 Weight 225 kg 101.287 kg Constitutional Constitutional: no acute distress *Routine HEENT Exam Head: Present normocephalic Eye: Present EOMI and PERRL ENT: Present mucous membranes moist *Routine Neck Exam Neck: Present supple; Absent lymphadenopathy *Routine Respiratory Exam Respiratory: Present CTA bilaterally *Routine Cardiovascular Exam Cardiovascular: Present RRR *Routine Abdominal Exam Abdominal: Present soft and normoactive bowel sounds; Absent tenderness *Routine Extremities Exam Extremities: Absent cyanosis, clubbing or edema *Routine Skin Exam Skin: Present warm; Absent rash *Routine Neurological Exam Neurological: Present alert and oriented X3 Assessment and Plan *Assessment and plan (1) Atrial fibrillation with rapid ventricular response:
--- NOTE | 2022-08-19 08:15 | EXP.SURG.CON ---
History of Present Illness *Admission Date: 08/18/22 *Reason for visit:: Left inguinal hernia *History of present illness: This is a 61-year-old gentleman seen in consultation from the hospitalist service for evaluation regarding left inguinal hernia. He states that he feels much better right now . He wishes to go home. From an inguinal hernia standpoint he states that he has never really had trouble down there . He is aware of his hernia but states that it never really causes too much trouble . Please see HPI from admission H&P forwarded below. Forwarded from admission H&P: Mr. 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 He presents [facility] ER due to several days abdominal pain, 1 day of high blood pressure readings associated with chest pain, dizziness and blurred vision. In the ER he underwent a CT of the head that showed no acute intracranial abnormalities. EKG showed Atrial Fibrillation with rate of [address] segment elevation or depression. Troponin was <0.01. CT of the abdomen and pelvis showed a large inguinal hernia on the left and thickening of the bowel and small amount of ascites. In the ER the patient was given Cardizem 10 mg iv followed by a Cardizem gtt at 10ml/hr. The patient was also noted to have blood pressure readings in the 180 range systolic. The patient will be admitted with initial impression: Atrial Fibrillation with rapid ventricular response, HTN urgency. Cardiology will be consulted to see the patient. The plan of care was discussed with the patient and on admission. Both verbalized understanding and agreement with the plan of care. [facility] Disclaimer: The information contained in this section may have been updated after the patient was seen, as this information can be updated by other users. Medical History (Updated 08/19/22 @ 08:17 by Rich Berry MD) Atrial fibrillation Chest pain Dyspnea Esophageal varices Family history of heart disease History of cardioversion History of CVA (cerebrovascular accident) HTN (hypertension) Hx of myocardial infarction Liver cirrhosis secondary to SORENSON Surgical History Knee joint replacement status Social History Smoking Status: Never smoker alcohol intake: never substance use type: denies use current occupational status: disabled Travel in the last 8 weeks: None household members: children housing: other caffeine: Yes Review of Systems Constitutional Constitutional: Reports headache(s) and Denies weakness ENT Ears, Nose, Mouth, and Throat: Reports headache(s) *Musculoskeletal Musculoskeletal: Denies numbness *Neurologic Neurologic: Reports headache(s), Denies numbness and Denies weakness Meds Home Medications and Allergies Home Medications Medication Instructions Recorded Confirmed Type aspirin 325 mg tablet (Cynthia 325 mg PO HS HEART HEALTH 08/15/19 08/19/22 History Aspirin) lactulose 10 gram/15 mL oral 15 ml PO Q8H cirrhosis 03/17/22 08/19/22 History solution (Enulose) rifaximin 550 mg tablet (Xifaxan) 550 mg PO BID cirrhosis 03/17/22 08/19/22 History lisinopril 10 mg tablet 10 mg PO HS bp #90 tabs 06/09/22 08/19/22 Rx rosuvastatin 20 mg tablet 20 mg PO HS Cholesterol #90 tabs 06/09/22 08/19/22 Rx diltiazem HCl 180 mg 180 mg PO DAILY afib 08/19/22 08/19/22 History capsule,extended release 24 hr oxycodone-acetaminophen 10 mg-325 1 tab PO TIDP PRN Moderate Pain 08/19/22 08/19/22 History mg tablet (Scale Score 5-6) rivaroxaban 20 mg tablet (Xarelto) 20 mg PO DAILY AFIB 08/19/22 08/19/22 History spironolactone 50 mg tablet 50 mg PO DAILY Fluid 08/19/22 08/19/22 History ([place]
[2022-08-19 08:30] LABS: Hemoglobin 12.2 g/dL (14.1-18.0)
--- NOTE | 2022-08-19 10:34 | EXP.CARD.CON ---
History of Present Illness History of Present Illness Consult date: 08/19/22 Requesting physician: Je Harper Consult reason: atrial fibrillation Chief complaint: elevated blood pressure, headache History of present illness: This is a 61-year-old white gentleman who presented to the emergency department with complaints of an elevated blood pressure. He states that he was having a little bit of abdominal discomfort and chest pain with the high blood pressure. He states that he got really dizzy and his vision started to blur. He states that he just did not feel right so he came into the emergency department. The patient was found to be in atrial fibrillation with RVR. His troponin was negative. He did have a CT of the abdomen which showed a large inguinal hernia on the left. The patient was started on a diltiazem drip and then converted to sinus rhythm. He was given oral diltiazem and has maintained sinus rhythm since that time. This morning he denies any chest pain or pressure. He denies any shortness of breath or edema. He denies any fever, chills, nausea, vomiting, diarrhea, PND or orthopnea. The patient states that he is ready to be discharged home today and needs to be home before 3 PM so he can get his children off of the schoolbus. [facility] Disclaimer: The information contained in this section may have been updated after the patient was seen, as this information can be updated by other users. Medical History (Updated 08/19/22 @ 08:32 by Avis Queen RN) Atrial fibrillation Chest pain DVT (deep venous thrombosis) Dyspnea Esophageal varices Family history of heart disease History of cardioversion History of CVA (cerebrovascular accident) History of left heart catheterization HTN (hypertension) Hx of myocardial infarction Liver cirrhosis secondary to SORENSON Myocardial infarction SORENSON (nonalcoholic steatohepatitis) Surgical History Knee joint replacement status Social History Smoking Status: Never smoker alcohol intake: never substance use type: denies use current occupational status: disabled Travel in the last 8 weeks: None household members: children housing: other caffeine: Yes Review of Systems Review of Systems Review of systems:: pertinent systems reviewed and negative unless documented below Constitutional Constitutional: Reports system reviewed and no additional complaints, except as documented, Reports headache(s) and Denies weakness Eyes Eyes: Reports system reviewed and no additional complaints, except as documented and Reports blurry vision ENT Ears, Nose, Mouth, and Throat: Reports system reviewed and no additional complaints, except as documented, Reports dizziness and Reports headache(s) *Cardiovascular Cardiovascular: Reports system reviewed and no additional complaints, except as documented, Reports chest pain and Denies dyspnea *Respiratory Respiratory: Reports system reviewed and no additional complaints, except as documented and Denies dyspnea *Gastrointestinal Gastrointestinal: Reports system reviewed and no additional complaints, except as documented *Genitourinary Genitourinary: Reports system reviewed and no additional complaints, except as documented *Musculoskeletal Musculoskeletal: Reports system reviewed and no additional complaints, except as documented and Denies numbness Integumentary/Breasts Skin/Breast: Reports system reviewed and no additional complaints, except as documented *Neurologic Neurologic: Reports system reviewed and no additional complaints, except as documented, Reports dizziness, Reports headache(s), Denies numbness and Denies weakness Psychiatric Psychiatric: Reports system reviewed and no additional complaints, except as documented Endocrine Endocrine: Reports system reviewed and no additional complaints, except as documented Hematologic/Lymphat
--- NOTE | 2022-08-19 11:59 | EXP.DC.SUM ---
General Admission date:: 08/19/22 Discharge date: 08/19/22 HPI HPI HPI: This is a 61-year-old gentleman seen in consultation from the hospitalist service for evaluation regarding left inguinal hernia. He states that he feels much better right now . He wishes to go home. From an inguinal hernia standpoint he states that he has never really had trouble down there . He is aware of his hernia but states that it never really causes too much trouble . Please see HPI from admission H&P forwarded below. Forwarded from admission H&P: Mr. 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 He presents to [facility] due to several days abdominal pain, 1 day of high blood pressure readings associated with chest pain, dizziness and blurred vision. In the ER he underwent a CT of the head that showed no acute intracranial abnormalities. EKG showed Atrial Fibrillation with rate of [address] segment elevation or depression. Troponin was <0.01. CT of the abdomen and pelvis showed a large inguinal hernia on the left and thickening of the bowel and small amount of ascites. In the ER the patient was given Cardizem 10 mg iv followed by a Cardizem gtt at 10ml/hr. The patient was also noted to have blood pressure readings in the 180 range systolic. The patient will be admitted with initial impression: Atrial Fibrillation with rapid ventricular response, HTN urgency. Cardiology will be consulted to see the patient. The plan of care was discussed with the patient and on admission. Both verbalized understanding and agreement with the plan of care. Hospital Course Hospital Course Hospital Course: The patient was admitted to the medical unit with telemetry monitoring. IV diltiazem was to be started when the patient returned to controlled rhythm and improved heart rates. His oral diltiazem was increased. His Sorenson cirrhosis identified a MELD= 10 and his medications were optimized to include a daily diuretic and beta-shanell with findings on CT scan of the abdomen identifying ascites, portal hypertension, esophageal varices and splenomegaly. He will continue with aldosterone antagonist therapy, rifaximin, lactulose and routine follow-up with his GI specialist in [facility]. With his elevated Binu score he will continue with anticoagulation therapy. His laboratory studies and inflammatory markers were trended and identified stability. He has a mild thrombocytopenia related to his cirrhosis and splenomegaly. His troponin trend was negative x3 and his chest x-ray identified no acute disease. Cardiology evaluated the patient and recommended outpatient follow-up. The patient identified improvement and inquired about discharge home. We will discharge the patient home with instructions to see his PCP in 1 week and follow-up with cardiology as scheduled. I spent 35 minutes in [id number] time with the patient and nursing staff concerning the discharge process. We discussed the admitting diagnoses and hospital course. We discussed identified improvement and the patient's desire to be discharged. We reviewed inpatient studies and imaging. The patient voiced understanding on the importance of follow-up with his primary care provider and specialist(s). The patient plans to be compliant with the medication regimen prescribed and follow-up appointments. He understands that he can return to the emergency department with any sudden changes or concerns. Exam Data for Last 24 hours Vital signs and Labs for Last 24 Hours: Temp Pulse Resp BP Pulse Ox 98.0 F 86 18 130/91 H 95 08/19/22 08:00 08/19/22 10:00 08/19/22 10:00 08/19/22 10:00 08/19/22 10:00 Laboratory Results - last 24 hr 08/18/22 16:55: WBC 6.1, RBC 4.40 L, Hgb 13.8 L, Hct 42.9, MCV 97.
--- NOTE | 2022-08-19 20:59 | CA_ITS ---
APPROVED REPORT EXAM: Comprehensive 2D, Doppler, and color-flow Echocardiogram [employer]: Janee Griffiths RDCS Ht: 6 ft 0 in Wt: 225lbs BSA: 2.24 BP: 178/95 mmHg Indications: AF HTN 2D Dimensions LVOT 2.04 cm (M/F) 1.5-2.5 M-Mode Dimensions RVDd 3.03 cm (0.9-2.6) LA Diam 4.31 cm (1.9-4.0) LVDd 5.42 cm (3.5-5.7) Ao Diam 3.24 cm (2.0-3.7) LVDs 4.10 cm (3.5-5.7) IVSd 0.87 cm (0.6-1.1) PWd 0.87 cm (0.6-1.1) EF (Teich) 47.90% FS 24.40% EDV (Teich) 142.50 mL TAPSE 3.19 (<1.7) ESV (Teich) 74.20 mL LV Diastology E Decel Time 133.00 (160-240 msec) E/A Ratio 2.9 Mitral Valve MV E Max Jaime. 79.00 (40-130 cm/s) MV A Velocity 27.00 (40-130 cm/s) E/A Ratio 2.96 MV Decel. Time 133.00 (160-240 ms) MV PHT 39.00 ms Tricuspid Valve TR P. Velocity 209.00 cm/s RAP Estimate 10.00 mmHg RVSP 27.40 mmHg Left Ventricle Left atrium is moderately enlarged, left ventricle is normal size mild concentric left ventricular hypertrophy, estimated ejection fraction 50% with no regional wall motion abnormality, diastolic parameters are inconclusive. Right Ventricle Right atrium and right ventricle moderately enlarged with normal contractility. Aortic Valve Aortic valve is minimally thickened and fibrosed there is no aortic stenosis or aortic insufficiency. Mitral Valve Mitral valve grossly normal, there is trace mitral regurgitation. Tricuspid Valve Tricuspid valve grossly normal, there is trace tricuspid regurgitation, tricuspid regurgitation jet plasty is inadequate for calculation of the right ventricular systolic pressure. Pulmonic Valve Pulmonic valve is poorly visualized. Great Vessels Aortic root is normal size. Inferior vena cava is poorly visualized. Pericardium No significant pericardial effusion noted. Conclusion 1. Moderate biatrial enlargement, normal left ventricular size, estimated ejection fraction 50% with no regional wall motion abnormality, diastolic parameters are inconclusive. 2. Moderately enlarged right atrium and right ventricle, contractility of the right ventricle is normal. 3. Trace mitral and tricuspid regurgitation. 4. No significant pericardial effusion noted. 5. Inferior vena cava is poorly visualized. Electronically signed by : Kumar James MD 08/19/2022 18:25:19
--- NOTE | 2022-08-22 13:41 | CARE MANAGER ---
Spoke with patient for post-discharge phone interview, no issues noted.
== END 2022-08-19 12:25 | disposition home or self-care (01) ==
LOC: ER 20:33 → ICU 21:41
PROVIDERS: Nurse Practitioner Family; Admitting Provider Family Medicine; Emergency Provider Emergency Medicine; PCP Family Medicine; Visit Provider Family Medicine
DX: I16.0 Hypertensive urgency (principal); K75.81 Nonalcoholic steatohepatitis (NASH); E87.6 Hypokalemia; I48.91 Unspecified atrial fibrillation; I10 Essential (primary) hypertension; K40.90 Unilateral inguinal hernia, without obstruction or gangrene, not specified as recurrent; I85.00 Esophageal varices without bleeding; Z79.01 Long term (current) use of anticoagulants; Z86.73 Personal history of transient ischemic attack (TIA), and cerebral infarction without residual deficits; Z79.899 Other long term (current) drug therapy
CPT/HCPCS: G0378; 36415; 70450; 71045; 74176; 80053; 83735; 84484; 85025; 85610; 93005; 93306; 99291; C9803; U0003; U0005

== ENCOUNTER 2022-10-31 18:42 | Emergency (ER) | payer OTHER, MEDICARE, MEDICAID, SELFPAY ==
[2022-10-31 18:43] VITALS: BP 94/73; PULSE 68; RESP 18; TEMP 36.9; O2SAT 99; BMI 29.8
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
[2022-10-31 19:23] VITALS: BP 112/74; PULSE 70; RESP 18; TEMP 36.9; O2SAT 99
== END 2022-10-31 19:24 | disposition home or self-care (01) ==
LOC: ER 19:18
PROVIDERS: Emergency Provider Family Medicine; PCP Family Medicine
DX: M25.512 Pain in left shoulder; S16.1XXA Strain of muscle, fascia and tendon at neck level, initial encounter; V49.40XA Driver injured in collision with unspecified motor vehicles in traffic accident, initial encounter
CPT/HCPCS: 99283; 99284

== ENCOUNTER → 2023-01-02 23:23 | Outpatient (CLI) | payer MEDICARE, MEDICAID, SELFPAY ==
[2023-01-02 19:18] LABS: Basophils % 0.1 % (0.1-2.0); Eosinophils # 0.1 K/mm3 (0.0-0.4); Eosinophils % 0.6 % (0.1-12.0); Hematocrit 38.9 % (42.0-52.0); Hemoglobin 12.3 g/dL (14.1-18.0); Lymphocytes # 0.9 K/mm3 (0.7-4.5); Lymphocytes % 10.1 % (10-50); Mean Corpuscular HGB Conc 31.5 g/dL (31.8-35.4); Mean Corpuscular Hemoglobin 32.5 pg (27.0-31.2); Mean Platelet Volume 9.9 fl (7.4-10.4); Monocytes # 0.6 K/mm3 (0.1-1.0); Neutrophils # 7.1 K/mm3 (1.8-7.8); Neutrophils % 82.1 % (37.0-80.0); Platelet Count 122 K/mm3 (142-424); Red Blood Count 3.78 M/mm3 (4.60-6.20); Red Cell Distribution Width 14.1 % (11.5-17.5); White Blood Count 8.7 K/mm3 (4.8-10.8)
[2023-01-02 19:47] LABS: Alanine Aminotransferase 50 U/L (12-78); Albumin Level 3.7 g/dl (3.5-5.0); Albumin/Globulin Ratio 1.2 (1.1-1.8); Alkaline Phosphatase 279 U/L (38-126); Anion Gap 13.4 mEq/L (5-15); Aspartate Amino Transferase 63 U/L (17-59); Bilirubin,Total 2.1 mg/dl (0.2-1.3); Blood Urea Nitrogen 17 mg/dl (9-20); Calcium 8.8 mg/dl (8.4-10.2); Carbon Dioxide 30 mmol/L (22.0-30.0); Chloride 92 mmol/L (98-107); Chol/HDL Ratio 2.1 (1-3.5); Cholesterol 162 mg/dl (140-200); Estimated Glomerular Filt Rate 86 ml/min (>60); GFR (African American) 103 ML/MIN (>60); Glucose 156 mg/dl (74-100); HDL Cholesterol 77 mg/dl (40-60); Potassium 4.4 mmoL/L (3.5-5.1); Sodium 131 mmol/L (136-145); Total Protein,Serum 6.7 g/dl (6.3-8.2); Triglycerides 66 mg/dl (30-150); VLDL Cholesterol 13 mg/dL (0-40)
[2023-01-02 19:58] LABS: Direct LDL Cholesterol 58.31 mg/dL (100-129)
[2023-01-02 20:16] LABS: Prostate Specific Ag Screen < 0.1 ng/ml (0.0-4.0)
== END ==
PROVIDERS: PCP Family Medicine; Visit Provider Family Medicine
DX: M79.604 Pain in right leg (principal); M79.605 Pain in left leg; I25.10 Atherosclerotic heart disease of native coronary artery without angina pectoris; Z12.5 Encounter for screening for malignant neoplasm of prostate
CPT/HCPCS: 80053; 80061; 85025; G0103

== ENCOUNTER → 2023-03-21 11:37 | Outpatient (CLI) | payer MEDICARE, MEDICAID, SELFPAY ==
[2023-03-21 12:13] LABS: Basophils % 0.4 % (0.1-2.0); Eosinophils # 0.1 K/mm3 (0.0-0.4); Eosinophils % 1.7 % (0.1-12.0); Hematocrit 35.2 % (42.0-52.0); Hemoglobin 11.3 g/dL (14.1-18.0); Lymphocytes # 0.8 K/mm3 (0.7-4.5); Lymphocytes % 17.5 % (10-50); Mean Corpuscular HGB Conc 32.1 g/dL (31.8-35.4); Mean Corpuscular Hemoglobin 31.9 pg (27.0-31.2); Mean Corpuscular Volume 99.3 fl (80-94); Mean Platelet Volume 9.1 fl (7.4-10.4); Monocytes # 0.3 K/mm3 (0.1-1.0); Monocytes % 6.7 % (1.7-9.3); Neutrophils # 3.5 K/mm3 (1.8-7.8); Neutrophils % 73.7 % (37.0-80.0); Platelet Count 123 K/mm3 (142-424); Red Blood Count 3.55 M/mm3 (4.60-6.20); Red Cell Distribution Width 13.7 % (11.5-17.5); White Blood Count 4.8 K/mm3 (4.8-10.8)
[2023-03-21 12:37] LABS: Alanine Aminotransferase 28 U/L (12-78); Albumin Level 3.4 g/dl (3.5-5.0); Alkaline Phosphatase 389 U/L (38-126); Aspartate Amino Transferase 47 U/L (17-59); Bilirubin,Direct 0.3 mg/dl (0.0-0.4); Bilirubin,Indirect 1.1 mg/dL (0.0-0.9); Bilirubin,Total 1.4 mg/dl (0.2-1.3); Blood Urea Nitrogen 10 mg/dl (9-20); Calcium 8.7 mg/dl (8.4-10.2); Carbon Dioxide 29 mmol/L (22.0-30.0); Chloride 100 mmol/L (98-107); Chol/HDL Ratio 2.8 (1-3.5); Cholesterol 166 mg/dl (140-200); Estimated Glomerular Filt Rate 86 ml/min (>60); GFR (African American) 103 ML/MIN (>60); Glucose 113 mg/dl (74-100); HDL Cholesterol 60 mg/dl (40-60); Sodium 135 mmol/L (136-145); Total Protein,Serum 6.2 g/dl (6.3-8.2); Triglycerides 83 mg/dl (30-150); VLDL Cholesterol 17 mg/dL (0-40)
[2023-03-21 12:48] LABS: Direct LDL Cholesterol 63.35 mg/dL (100-129)
[2023-03-21 12:53] LABS: Free T4 (Free Thyroxine) 1.31 ng/dl (0.78-2.19)
== END ==
PROVIDERS: PCP Family Medicine; Visit Provider Physician Assistant
DX: E78.5 Hyperlipidemia, unspecified (principal); I10 Essential (primary) hypertension; I48.20 Chronic atrial fibrillation, unspecified; R06.09 Other forms of dyspnea; E11.9 Type 2 diabetes mellitus without complications; I11.9 Hypertensive heart disease without heart failure
CPT/HCPCS: 36415; 80048; 80061; 80076; 84439; 84443; 85025

== ENCOUNTER → 2023-03-31 10:21 | Outpatient (CLI) | payer MEDICARE, MEDICAID, SELFPAY ==
[2023-03-31 11:41] LABS: Blood Urea Nitrogen 11 mg/dl (9-20); Calcium 8.7 mg/dl (8.4-10.2); Carbon Dioxide 29 mmol/L (22.0-30.0); Chloride 101 mmol/L (98-107); Estimated Glomerular Filt Rate 86 ml/min (>60); GFR (African American) 103 ML/MIN (>60); Glucose 120 mg/dl (74-100); Sodium 136 mmol/L (136-145)
== END ==
PROVIDERS: PCP Family Medicine; Visit Provider Physician Assistant
DX: E78.5 Hyperlipidemia, unspecified (principal); R60.9 Edema, unspecified; I11.9 Hypertensive heart disease without heart failure; R06.00 Dyspnea, unspecified; I48.20 Chronic atrial fibrillation, unspecified
CPT/HCPCS: 36415; 80048

== ENCOUNTER → 2023-04-07 09:23 | Outpatient (CLI) | payer MEDICARE, MEDICAID, SELFPAY ==
--- NOTE | 2023-04-07 09:28 | CA_ITS ---
APPROVED REPORT EXAM: Limited 2D Echocardiogram [employer] Operator: Magaly Gallardo RCS, RVS Ht: 6 ft 0 in Wt: 232lbs BSA: 2.27 HR: 121 bpm BP: 100/57 mmHg Rhythm: Atrial Fibrillation Indications: Afib, SOA, CAD 2D Dimensions IVSd 0.91 cm M: 0.6-1.2 LVEF (Visual) 49.30 % PWd 1.09 cm M: 0.6 - 1.2 LVDd 5.14 cm M: 4.2 - 5.9 LVDs 3.88 cm M: 2.5 - 4.0 M-Mode Dimensions RVDd 2.22 cm (0.9-2.6) LA Diam 5.49 cm (1.9-4.0) LVDd 5.75 cm (3.5-5.7) Ao Diam 3.70 cm (2.0-3.7) LVDs 3.88 cm (3.5-5.7) IVSd 0.88 cm (0.6-1.1) PWd 0.84 cm (0.6-1.1) EF (Teich) 60.10% EPSs 0.53 cm FS 32.50% EDV (Teich) 163.30 mL ESV (Teich) 65.10 mL Other Information Study Quality: Fair Conclusion This is a limited study to evaluate for LVEF. Limited windows were obtained. Grossly, the LV appears normal in size and function. There are no regional wall motion abnormalities. LVEF is 55%. The RV appears moderately dilated with mild reduction in RV function. The LA is moderately dilated. The RA is mildly dilated. The AV is mildly thickened, but grossly opens well. Transaortic spectral Doppler evaluation is not performed in this study. The MV is mildly thickened. Trace MR is present. Compared to prior study from 08/19/2022, there are overall no significant changes. Of note, the patient is in AFib during the acquisition of the study images. Electronically signed by : Jayla Rasheed MD 04/07/2023 17:31:29
== END ==
PROVIDERS: PCP Family Medicine; Visit Provider Physician Assistant
DX: E78.5 Hyperlipidemia, unspecified (principal); I10 Essential (primary) hypertension; I48.20 Chronic atrial fibrillation, unspecified; R60.9 Edema, unspecified
CPT/HCPCS: 93308

== ENCOUNTER 2023-10-23 10:54 | Outpatient (CLI) | payer MEDICARE, SELFPAY | END 2023-10-23 23:59 | LOC: LAB.DROPOF 10-24 10:55 | PROVIDERS: PCP Family Medicine; Visit Provider Family Medicine | DX: M79.671 Pain in right foot (principal); T81.40XA Infection following a procedure, unspecified, initial encounter; B96.1 Klebsiella pneumoniae [K. pneumoniae] as the cause of diseases classified elsewhere; B96.89 Other specified bacterial agents as the cause of diseases classified elsewhere | CPT/HCPCS: 87070; 87205 ==

== ENCOUNTER 2023-11-02 09:14 | Outpatient (CLI) | payer MEDICARE, SELFPAY ==
--- NOTE | 2023-11-02 09:14 | CA_ITS ---
FINAL REPORT TECHNIQUE: Multiple transverse and longitudinal images were performed of the right femoral-popliteal deep venous system with augmentation and compression maneuvers. CLINICAL HISTORY: Localized edema and pain of RT leg-4 weeks post total right hip FINDINGS: Right lower extremity duplex ultrasound demonstrates normal flow in the deep venous system. There is no abnormal echogenicity to suggest thrombus. There is normal compression and augmentation. IMPRESSION: No evidence of right DVT. Reviewed, Interpreted and Dictated by Nikhil Beal MD Transcribed by Judith Chung Authenticated and [facility]
== END 2023-11-02 23:59 | disposition home or self-care (01) ==
LOC: RT 09:14
PROVIDERS: PCP Family Medicine; Visit Provider Family Medicine
DX: R22.41 Localized swelling, mass and lump, right lower limb; Z96.641 Presence of right artificial hip joint; M79.604 Pain in right leg
CPT/HCPCS: 93971

== ENCOUNTER 2023-12-20 15:21 | Outpatient (CLI) | payer MEDICARE, MEDICAID, SELFPAY ==
[2023-12-20 19:35] LABS: Alanine Aminotransferase 22 U/L (12-78); Albumin Level 3.4 g/dl (3.5-5.0); Albumin/Globulin Ratio 1.1 (1.1-1.8); Alkaline Phosphatase 207 U/L (38-126); Anion Gap 8.1 mEq/L (5-15); Aspartate Amino Transferase 36 U/L (17-59); Bilirubin,Total 0.9 mg/dl (0.2-1.3); Blood Urea Nitrogen 13 mg/dl (9-20); Calcium 8.9 mg/dl (8.4-10.2); Carbon Dioxide 29 mmol/L (22.0-30.0); Chloride 98 mmol/L (98-107); Estimated Glomerular Filt Rate 98 ml/min (>60); GFR (African American) 118 ML/MIN (>60); Globulin 3.1 g/dL (1.3-3.2); Glucose 106 mg/dl (74-100); Potassium 4.1 mmoL/L (3.5-5.1); Sodium 131 mmol/L (136-145); Total Protein,Serum 6.5 g/dl (6.3-8.2)
== END 2023-12-20 23:59 | disposition home or self-care (01) ==
LOC: LAB.DROPOF 12-21 15:22
PROVIDERS: PCP Family Medicine; Visit Provider Family Medicine
DX: K74.60 Unspecified cirrhosis of liver (principal)
CPT/HCPCS: 80053

== ENCOUNTER 2024-01-14 15:48 | Observation (INO) | payer MEDICARE, SELFPAY ==
[2024-01-14] VITALS (7 sets, daily range): BP systolic 132–145; BP diastolic 76–97; PULSE 76–111; RESP 16–20; TEMP 36.6–37.3; O2SAT 97–99; BMI 33.0; BMI 32.5
--- NOTE | 2024-01-14 16:05 | ECG_ITS ---
APPROVED REPORT Exam: Resting ECG HR:98 bpm ECG Measurements Heart Rate 98 AXES QRSd 103 QRS 50 QT 364 T 30 QTc 419 Conclusion ATRIAL FIBRILLATION LOW QRS VOLTAGE IN PRECORDIAL LEADS [QRS DEFLECTION < 1.0 mV IN CHEST LEADS] ABNORMAL RHYTHM ECG Electronically signed by : IGGY RAMSEY, 01/14/2024 23:25:54
--- NOTE | 2024-01-14 16:16 | CT_ITS ---
PROCEDURE INFORMATION: Exam: CT Abdomen And Pelvis Without Contrast Exam date and time: 01/14/2024 4:44 PM Age: 63 years old Clinical indication: Abdominal pain; Periumbilical; Additional info: Liver failure, periumbilical hernia TECHNIQUE: Imaging protocol: Computed tomography of the abdomen and pelvis without contrast. Radiation optimization: All CT scans at this facility use at least one of these dose optimization techniques: automated exposure control; mA and/or kV adjustment per patient size (includes targeted exams where dose is matched to clinical indication); or iterative reconstruction. COMPARISON: CT ABDOMEN PELVIS WO CON 08/18/2022 6:44 PM FINDINGS: Lungs: See Pleural spaces finding. Pleural spaces: Interval development of small left pleural effusion. Stable 4 mm nodule anterolateral right lower lobe on image 13 of series 3 and 3 mm subpleural nodule in the posterolateral left lower lobe on image 11 and 4 mm nodule posterior left costophrenic angle on image [address] of 08/18/2022. No follow-up advised. Liver: Cirrhosis of the liver redemonstrated. Liver otherwise unremarkable. Gallbladder and biliary ducts: Dilated extrahepatic CBD measuring up to 22 mm thought to extend to the ampulla level with and previously measured 14 mm. Associated dilated intrahepatic bile ducts mildly increased in the interval. Pancreas: Normal. No ductal dilation. Spleen: Mild splenomegaly measuring 15.2 cm similar to previous. Adrenal glands: Normal. No mass. Kidneys and ureters: Normal. No hydronephrosis. Stomach and bowel: Unremarkable. No obstruction. No mucosal thickening. Appendix: Appendix is normal. No evidence of appendicitis. Intraperitoneal space: [id number]-[id number] amount of free fluid with interval worsening. Vasculature: Recanalized umbilical vein and upper abdomen varices including paraesophageal varices redemonstrated. Lymph nodes: Mildly prominent right pericardial lymph nodes similar to previous. Mild mesenteric and retroperitoneal adenopathy redemonstrated and similar to previous. Urinary bladder: Unremarkable as visualized. Reproductive: Unremarkable as visualized. Bones/joints: Unremarkable. No acute fracture. Soft tissues: [id number] body wall edema and edema of the intra-abdominal fat tissues compatible with anasarca increased in the interval. Moderate size fat containing umbilical hernia measuring 5.8 cm that previously measured 2.6 cm. Large fluid containing left inguinal hernia measuring up to 11.5 cm in transverse in 23 cm in length may be increased in the interval but the hernia was not incompletely included in field of view previously and exact comparison is not possible. IMPRESSION: 1. Cirrhosis. Associated splenomegaly and varices compatible with portal venous hypertension. [id number] amount of ascites and gzmr-[id number] anasarca changes with interval worsening. 2. Large left inguinal hernia measuring 23 cm in length containing ascites with potential interval increase in size. 3. Moderate-sized fat containing umbilical hernia increased in the interval. 4. Mild mesenteric and retroperitoneal adenopathy similar to previous. 5. Dilated bile ducts with interval increase. This may reflect progressive physiologic dilatation related to prior cholecystectomy if no clinical findings of developing bile duct obstruction. If indicated consider further assessment with nonemergent MRCP with and without contrast.. 6. Additional nonemergent findings as above.
--- NOTE | 2024-01-14 16:18 | HMH.EDGENADL ---
Discharge Plan Disposition Patient Disposition: Admitted Chief Complaint: Recheck/Abnormal Lab/Rx Prescriptions Prescriptions: No Action lactulose [Enulose] 10 gram/15 mL solution 30 ml PO Q8H furosemide 20 mg tablet 40 mg PO DAILY PRN oxycodone 10 mg tablet 10 mg PO TID PRN enoxaparin [Lovenox] 100 mg/mL syringe 100 mg SQ BID 6 Days Qty: 12 0RF Xifaxan 550 mg tablet See Rx Instructions .ROUTE .COMPLEX Qty: 60 11RF Dose Instruction: TAKE 1 TABLET BY MOUTH 2 TIMES A DAY FOR CIRRHOSIS Rx Instructions: TAKE 1 TABLET BY MOUTH 2 TIMES A DAY FOR CIRRHOSIS spironolactone [Aldactone] 50 mg tablet 50 mg PO DAILY Qty: 90 3RF pantoprazole 40 mg tablet,delayed release (DR/EC) See Rx Instructions .ROUTE .COMPLEX Qty: 90 3RF Dose Instruction: TAKE 1 TABLET BY MOUTH AT BEDTIME Rx Instructions: TAKE 1 TABLET BY MOUTH AT BEDTIME diltiazem HCl 240 mg capsule,extended release 24 hr 240 mg PO DAILY 90 Days Qty: 90 1RF Xarelto 20 mg tablet See Rx Instructions .ROUTE .COMPLEX Qty: 30 3RF Dose Instruction: TAKE 1 TABLET BY MOUTH ONCE DAILY FOR AFIB Rx Instructions: TAKE 1 TABLET BY MOUTH ONCE DAILY FOR AFIB Referrals Follow up/Referrals: Yunier Barrett MD [Primary Care Provider] - See instructions Clinical Impressions Clinical Impression: Abdominal wall cellulitis, Inguinal hernia Discharge ED Provider: Roger Thomason General Adult HPI General Chief complaint: Recheck/Abnormal Lab/Rx Stated complaint: drainage below navel Time Seen by Provider: 01/14/24 15:50 Mode of Arrival: Ambulatory Source of Information: Patient Limitations: No Limitations Description of Symptoms (Recalled from ER Triage Doc. 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 Patient states that it has leaked before and he has an extensive inguinal hernia as well as periumbilical hernia that is less became a severe problem multiple surgeons will not operate due to his comorbidities. It has began leaking more over the last 48 hours and he has developed redness over his lower abdominal wall causing him to become concerned and present here for continued evaluation. Related Data Home Medications Medication Instructions Recorded Confirmed lactulose 10 gram/15 mL oral 30 ml PO Q8H cirrhosis 03/23/23 12/21/23 solution (Enulose) oxycodone 10 mg tablet 10 mg PO TID PRN 09/11/23 12/21/23 furosemide 20 mg tablet 40 mg PO DAILY PRN 12/13/23 12/21/23 Previous Rx's Medication Instructions Recorded enoxaparin 100 mg/mL subcutaneous 100 mg SQ BID 6 days #12 mL 09/12/23 syringe (Lovenox) rifaximin 550 mg tablet (Xifaxan) See Rx Instructions .Route 10/03/23 .COMPLEX #60 tabs diltiazem HCl 240 mg capsule,24 240 mg PO DAILY 90 days #90 caps 10/16/23 hr,extended release pantoprazole 40 mg tablet,delayed See Rx Instructions .Route 10/16/23 release .COMPLEX #90 tabs spironolactone 50 mg tablet 50 mg PO DAILY Fluid #90 tabs 10/16/23 (Aldactone) rivaroxaban 20 mg tablet (Xarelto) See Rx Instructions .Route 10/19/23 .COMPLEX #30 tabs Allergies Allergy/AdvReac Type Severity Reaction Status Date / Time morphine Allergy hives Verified 12/21/23 09:40 codeine AdvReac Vomiting/Na Verified 12/21/23 09:40 usea cortisone AdvReac Hives Verified 12/21/23 09:40 Iodinated Contrast Media AdvReac Swelling Verified 12/21/23 09:40 [facility] Disclaimer: The information contained in this section may have been updated after the patient was seen, as this information can be updated by other users. Medical History (Updated 01/14/24 @ 18:27 by Roger Thomason MD) DVT (deep venous thrombosis) Myocardial infarction BARROSO (nonalcoholic steatohepatitis) History of left heart catheterization Esophageal varices Liver cirrhosis secondary to BARROSO History of cardioversion Atrial fibrillation Family history of heart disease History of CVA (cerebrovascular accident) HTN (hypertension) Hx of myocardial infarction Surgical History History of total hip replacement History of colonoscopy Knee joint replacement status Social History Smoking Status: Never smoker alcohol intake: never substance use type: denies use current occupational status: disabled Travel in the last 8 weeks: None household members: children housing: other caffeine: Yes ROS Obtained: Yes Systems reviewed as appropriate & no additional complaints except as documented Physical Exam General General appearance: alert and in no apparent distress Head Head exam: atraumatic and normocephalic Eye Eye exam: Present PERRL ENT ENT exam: Present mucous membranes moist Neck Neck exam: Present normal inspection Chest Chest inspection: Present normal inspection and symmetric chest wall rise Respiratory Respiratory exam: Present normal lung sounds bilaterally; Absent respiratory distress Cardiovascular Cardiovascular exam: Present normal rhythm and tachycardia Abdominal Exam Abdominal exam: Present soft, distention, tenderness (Mild periumbilical) and other (Erythema over the lower abdominal wall, weeping clearish yellow fluid around the umbilicus.); Absent rebound exam: Present other (Large left-sided inguinal hernia extending into his scrotum, no overlying skin changes, nontender. Employee Development Specialist present.) Extremities Exam Extremities exam: Present normal inspection Neurological Exam Neurological exam: Present alert Psychiatric Psychiatric exam: Present normal affect Skin Skin exam: Present warm and dry Medical Decision Making Marshal Inquiry Pt receiving controlled substance: No Vital Signs: 01/14/24 15:50 01/14/24 16:00 Temperature 99.1 F Temperature Source Oral Pulse Rate 96 H Pulse Rate [Right] 111 H Respiratory Rate 20 Blood Pressure 132/84 Blood Pressure [Right Arm] 145/97 H Blood Pressure Mean [Right Arm] 113 02 Sat by Pulse Oximetry 97 97 Oxygen Delivery Method Room Air Room Air Lab Data Lab Results 01/14/24 16:10: WBC 3.0 L, RBC 3.15 L, Hgb 8.5 L, Hct 27.0 L, MCV 85.8, MCH 27.0, MCHC 31.5 L, RDW 15.9, Plt Count 127 L, MPV 9.3, Neut % (Auto) 71.0, Lymph % (Auto) 18.3, [place] % (Auto) 9.1, Eos % (Auto) 1.3, Baso % (Auto) 0.3, Neut # (Auto) 2.1, Lymph # (Auto) 0.5 L, [place] # (Auto) 0.3, Eos # (Auto) 0.0, Baso # (Auto) 0.0, PT 20.9 H, INR 2.00 H, Sodium 133 L, Potassium 4.1, Chloride 101, Carbon Dioxide 27, Anion Gap 9.1, BUN 12, Creatinine 0.80, Estimated Creat Clear 112, Estimated GFR 98, Est GFR ( Amer) 118, Glucose 170 H, Calcium 8.9, Total Bilirubin 1.8 H, AST 84 H, ALT 32, Alkaline Phosphatase 220 H, Total Protein 7.4, Albumin 3.7, Globulin 3.7 H, Albumin/Globulin Ratio 1.0 L, Lipase 160 01/14/24 16:35: Ammonia 22 01/14/24 17:13: Fluid Source Paracentesis fluid, Fluid Volume 30, Fluid Appearance Slightly cloudy, Fluid RBC (Auto) < 10, Fld Tot Nucleated Cell 186 01/14/24 16:10 01/14/24 16:10 Orders (Tests/Meds): ED MEDICATIONS Generic Name Dose Route Start Last Admin Trade Name Freq PRN Reason Stop Dose Admin Vancomycin HCl 2,000 mg/ 500 mls @ 250 mls/hr 01/14/24 18:30 Sodium Chloride IV 01/14/24 20:29 ONCE ONE Miscellaneous 1 each 01/14/24 18:30 01/14/24 18:22 Vancomycin Consult Request NOTAPPLIC 02/13/24 18:29 1 each CONSULT PHARMACY RADHA Administration ORDERS Category Date Time Status CT abdomen pelvis wo con Stat Cat Scan 01/14/24 16:16 Completed POCUS Point of Care (ER Only) Stat Exams 01/14/24 16:16 Completed Ammonia Stat Lab 01/14/24 16:35 Completed Body Fluid: Cell Count w/ Diff Stat Lab 01/14/24 17:13 Results CBC w/Auto Diff [Complete Blood Count Auto Diff] Stat Lab 01/14/24 16:10 Completed CMP [Comprehensive Metabolic Panel] Stat Lab 01/14/24 16:10 Completed INR [Prothrombin Time INR] Stat Lab 01/14/24 16:10 Completed Lipase Stat Lab 01/14/24 16:10 Completed Blood Culture Stat Micro 01/14/24 16:41 Received Body Fluid Cult & Gram Stain Stat Micro 01/14/24 17:13 Received Body Fluid Culture, Sterile Stat Micro 01/14/24 17:13 Received ECG Data Tracing #1: Independently interpreted by me rate is 98, rhythm is irregular, atrial fibrillation, no ST elevation in anatomical contiguous leads, QTc 4 9. Medical Decision Narrative: In summary patient is 63-year-old male past medical history described above presents emergency department for evaluation of abdominal swelling and redness in the setting of decompensated Barroso cirrhosis. Patient is hemodynamically stable nontoxic-appearing upon arrival, tachycardic. Differential includes spontaneous bacterial peritonitis, significant ascites with weeping, abdominal wall cellulitis, among others. Clinically patient has abdominal wall cellulitis. Workup will be conducted with hematologic labs, CT abdomen pelvis without IV contrast given the patient has anaphylaxis and has been pretreated and still had anaphylaxis previously. He has a periumbilical hernia that is reducible and mildly tender, his bowel movements are normal. [id number] ultrasound will be attempted to identify fluid pocket for paracentesis. Initial workup reviewed by me, pancytopenia, INR 2.0, no KIRT or critical electrolyte abnormality. Total bilirubin 1.8. Paracentesis fluid total nucleated cells 186 given that he is not peritoneal dialysis dependent does not meet criteria for SBP. Given this patient be treated empirically for abdominal wall cellulitis with vancomycin. CT imaging consistent with both suspected, patient has a large left inguinal hernia, evidence of cirrhosis with anasarca and ascites. Given the patient is not tender in his right upper quadrant although his dilated bile ducts are increased in size with normal lipase and transaminitis no concern for hepatobiliary obstruction. The case was discussed with hospital medicine regarding management and antibiotics will be broadened to cefepime for gram-negative coverage. Sepsis bolus fluids will be deferred given that patient appears volume overloaded given his anasarca. Patient was admitted in stable condition. Procedures Miscellaneous Procedure Procedure Performed: Ultrasound-guided fluid drainage Indication: -Ascites and need to rule out spontaneous bacterial peritonitis Identified structures: -Ascites with fluid pocket in the right lower quadrant greater than 4 cm with underlying bowel Location/access site: -Right lower quadrant Fluid character: -Hypoechoic Direct visualization? -No Impression: Identified fluid pocket right lower quadrant with margin of safety for diagnostic paracentesis to be performed. Images were saved to permanent archive The study was technically adequate CPT Code fluid removal: 20859 Thoracentesis: 84303-47 Paracentesis: 15475-77 Abscess: 17808-36 (simple), 78584-66 (complex) Peritonsillar: 82629-68 Suprapubic aspiration: Joint: small , large Pericardiocentesis: This study was performed by me, and I personally interpreted all images/videos. Based on my clinical judgement, these images were [adequate/inadequate] and [did/did not] necessitate further imaging Critical Care Critical Care Time Critical Care Time: No
[2024-01-14 16:34] LABS: Basophils % 0.3 % (0.1-2.0); Eosinophils % 1.3 % (0.1-12.0); Hemoglobin 8.5 g/dL (14.1-18.0); Lymphocytes # 0.5 K/mm3 (0.7-4.5); Lymphocytes % 18.3 % (10-50); Mean Corpuscular HGB Conc 31.5 g/dL (31.8-35.4); Mean Corpuscular Volume 85.8 fl (80-94); Mean Platelet Volume 9.3 fl (7.4-10.4); Monocytes # 0.3 K/mm3 (0.1-1.0); Monocytes % 9.1 % (1.7-9.3); Neutrophils # 2.1 K/mm3 (1.8-7.8); Platelet Count 127 K/mm3 (142-424); Red Blood Count 3.15 M/mm3 (4.60-6.20); Red Cell Distribution Width 15.9 % (11.5-17.5)
[2024-01-14 16:41] LABS: Prothrombin Time 20.9 seconds (10.1-12.5)
[2024-01-14 16:44] LABS: Chloride 101 mmol/L (98-107); Potassium 4.1 mmoL/L (3.5-5.1); Sodium 133 mmol/L (136-145)
--- NOTE | 2024-01-14 16:44 | PC.NURSE ---
leaving with radiology
[2024-01-14 16:46] LABS: Blood Urea Nitrogen 12 mg/dl (9-20); Creatinine Clearance Estimated 112 mL/min (50-200); Estimated Glomerular Filt Rate 98 ml/min (>60); GFR (African American) 118 ML/MIN (>60)
[2024-01-14 16:47] LABS: Alanine Aminotransferase 32 U/L (12-78); Albumin Level 3.7 g/dl (3.5-5.0); Alkaline Phosphatase 220 U/L (38-126); Anion Gap 9.1 mEq/L (5-15); Aspartate Amino Transferase 84 U/L (17-59); Bilirubin,Total 1.8 mg/dl (0.2-1.3); Calcium 8.9 mg/dl (8.4-10.2); Carbon Dioxide 27 mmol/L (22.0-30.0); Globulin 3.7 g/dL (1.3-3.2); Glucose 170 mg/dl (74-100); Lipase 160 U/L (23-300); Total Protein,Serum 7.4 g/dl (6.3-8.2)
[2024-01-14 16:57] LABS: Ammonia 22 umol/L (9-30)
[2024-01-14 17:48] LABS: Appearance,Body Fld. Slightly cloudy; RBC,Body Fluid < 10 cells/uL (< 10 X 10^3); Source, Body Fld. Paracentesis Fluid; TNC,Body Fluid 186 cells/uL (< 1000); Volume,Body Fld. 30 mL
[2024-01-14] MEDS: VANCOMYCIN CONSULT REQUEST 1 EACH NOTAPPLIC ×2 (18:22→23:09)
[2024-01-14] MEDS: CEFEPIME HCL 2 GM in 0.9 % SODIUM CHLORIDE 100 ML IV (18:46)
[2024-01-14 18:48] LABS: Mononuclear WBCs,Body Fluid 91 %; Polynuclear WBC,Body Fluid 9 %
[2024-01-14] MEDS: OXYCODONE 5MG IMMEDIATE RELEASE TABLET 5 MG PO (19:55)
[2024-01-14] MEDS: VANCOMYCIN HCL 2,000 MG in 0.9 % SODIUM CHLORIDE 500 ML 250 MG IV (19:55)
--- NOTE | 2024-01-14 20:20 | P.HP_ITS ---
History of Present Illness *Admission Date: 01/14/24 *Reason for visit:: Abdominal wall cellulitis *History of present illness: Brandyn Ruiz is a 63-year-old male past medical history significant for SORENSON with liver cirrhosis, inguinal hernia, A-fib on Xarelto, HTN, HLD, CAD who presents emergency room tonight with complaints of fluid weeping from his abdomen. Patient states that his leak before, does have a pretty extensive inguinal hernia as well as a periumbilical hernia. Reports that surgeons declined to operate on him due to his multiple comorbidities. Patient reports it leaks fluid frequently from his umbilical region but it is leaking quite a bit more over the last 48 hours or so. He reports he has developed new redness over his lower abdomen with some tenderness associated with it. Denies any fever. No purulent drainage noted, just reports clear fluid. Does not require regular paracentesis. Does follow with the transplant team at [place], next appointment is actually scheduled for the end of this month. Denies tobacco use, alcohol use, illicit drug use. Takes care of his 2 children who are younger, spouse 6 years ago. Workup in ER showed patient be pancytopenic, WBC is at 3, H&H of 8.5 and 27, platelet count 127, INR elevated at 2. T. bili elevated slightly at 1.8, AST at 84. Ammonia level is 22. Bedside paracentesis done, did not meet criteria for SBP. CT of the abdomen pelvis showed cirrhosis with splenomegaly and varices compatible with portal hypertension, moderate to large amount ascites and moderate anasarca changes noted. Also notable for a large left inguinal hernia, moderate size fat-containing umbilical hernia, dilated bile ducts with slight interval increase. Patient was given cefepime and vancomycin in the ER. He will be admitted for for abdominal wall cellulitis. [facility] Disclaimer: The information contained in this section may have been updated after the patient was seen, as this information can be updated by other users. Medical History (Updated 01/14/24 @ 18:27 by Roger Thomason MD) DVT (deep venous thrombosis) Myocardial infarction SORENSON (nonalcoholic steatohepatitis) History of left heart catheterization Esophageal varices Liver cirrhosis secondary to SORENSON History of cardioversion Atrial fibrillation Family history of heart disease History of CVA (cerebrovascular accident) HTN (hypertension) Hx of myocardial infarction Surgical History History of total hip replacement History of colonoscopy Knee joint replacement status Social History Smoking Status: Never smoker alcohol intake: never substance use type: denies use current occupational status: disabled Travel in the last 8 weeks: None household members: children housing: other caffeine: Yes Review of Systems Constitutional Constitutional: Reports system reviewed and no additional complaints, except as documented *Cardiovascular Cardiovascular: Reports system reviewed and no additional complaints, except as documented *Respiratory Respiratory: Reports system reviewed and no additional complaints, except as documented *Gastrointestinal Gastrointestinal: Reports abdominal pain *Genitourinary Genitourinary: Reports system reviewed and no additional complaints, except as documented *Musculoskeletal Musculoskeletal: Reports system reviewed and no additional complaints, except as documented Integumentary/Breasts Comments: Clear fluid weeping from umbilical area *Neurologic Neurologic: Reports system reviewed and no additional complaints, except as documented Meds Home Medications and Allergies Home Medications Medication Instructions Recorded Confirmed Type lactulose 10 gram/15 mL oral 30 ml PO Q8H cirrhosis 03/23/23 12/21/23 History solution (Enulose) oxycodone 10 mg tablet 10 mg PO TID PRN 09/11/23 12/21/23 History enoxaparin 100 mg/mL subcutaneous 100 mg SQ BID 6 days #12 mL 09/12/23 12/21/23 Rx syringe (Lovenox) rifaximin 550 mg tablet (Xifaxan) See Rx Instructions .Route 10/03/23 12/21/23 Rx .COMPLEX #60 tabs diltiazem HCl 240 mg capsule,24 240 mg PO DAILY 90 days #90 caps 10/16/23 12/21/23 Rx hr,extended release pantoprazole 40 mg tablet,delayed See Rx Instructions .Route 10/16/23 12/21/23 Rx release .COMPLEX #90 tabs spironolactone 50 mg tablet 50 mg PO DAILY Fluid #90 tabs 10/16/23 12/21/23 Rx (Aldactone) rivaroxaban 20 mg tablet (Xarelto) See Rx Instructions .Route 10/19/23 12/21/23 Rx .COMPLEX #30 tabs furosemide 20 mg tablet 40 mg PO DAILY PRN 12/13/23 12/21/23 History New Prescriptions to Start Prescriptions: Allergies Allergy/AdvReac Type Severity Reaction Status Date / Time morphine Allergy hives Verified 12/21/23 09:40 codeine AdvReac Vomiting/Na Verified 12/21/23 09:40 usea cortisone AdvReac Hives Verified 12/21/23 09:40 Iodinated Contrast Media AdvReac Swelling Verified 12/21/23 09:40 Exam Data for Last 24 hours Vital signs and Labs for Last 24 Hours: Temp Pulse Resp BP Pulse Ox O2 Del Method 99.1 F 80 20 144/88 H 98 Room Air 01/14/24 15:50 01/14/24 18:30 01/14/24 15:50 01/14/24 18:30 01/14/24 18:30 01/14/24 18:30 Laboratory Results - last 24 hr 01/14/24 16:10: WBC 3.0 L, RBC 3.15 L, Hgb 8.5 L, Hct 27.0 L, MCV 85.8, MCH 27.0, MCHC 31.5 L, RDW 15.9, Plt Count 127 L, MPV 9.3, Neut % (Auto) 71.0, Lymph % (Auto) 18.3, [place] % (Auto) 9.1, Eos % (Auto) 1.3, Baso % (Auto) 0.3, Neut # (Auto) 2.1, Lymph # (Auto) 0.5 L, [place] # (Auto) 0.3, Eos # (Auto) 0.0, Baso # (Auto) 0.0, PT 20.9 H, INR 2.00 H, Sodium 133 L, Potassium 4.1, Chloride 101, Carbon Dioxide 27, Anion Gap 9.1, BUN 12, Creatinine 0.80, Estimated Creat Clear 112, Estimated GFR 98, Est GFR ( Amer) 118, Glucose 170 H, Calcium 8.9, Total Bilirubin 1.8 H, AST 84 H, ALT 32, Alkaline Phosphatase 220 H, Total Protein 7.4, Albumin 3.7, Globulin 3.7 H, Albumin/Globulin Ratio 1.0 L, Lipase 160 01/14/24 16:35: Ammonia 22 01/14/24 17:13: Fluid Source Paracentesis fluid, Fluid Volume 30, Fluid Appearance Slightly cloudy, Fluid RBC (Auto) < 10, Fld Tot Nucleated Cell 186, Fld Polynuclear WBCs % 9, Fld Mononuclear WBCs % 91 I & O for Last 24 hours: Intake & Output 01/11/24 01/12/24 01/13/24 01/14/24 23:59 23:59 23:59 23:59 Weight 104.326 kg Microbiology Reports for the Last 24 Hours: Microbiology 01/14/24 17:13 Peritoneal Fluid Gram Stain - Final *Routine HEENT Exam Head: Present normocephalic and atraumatic Eye: Present EOMI and PERRL ENT: Present mucous membranes moist *Routine Neck Exam Neck: Present supple and full ROM *Routine Respiratory Exam Respiratory: Present CTA bilaterally *Routine Cardiovascular Exam Cardiovascular: Present RRR *Routine Abdominal Exam Abdominal: Present soft, tenderness and distended Comments: Mild tender to palpation over the entire abdomen, erythema noted on the lower abdominal wall, warm to touch *Routine Rectal Exam Rectal:: deferred *Routine Genitalia Exam Genitalia:: other Comment:: Large inguinal hernia noted *Routine Extremities Exam Extremities: Present pulses intact and normal capillary refill *Routine Skin Exam Comments: Erythema noted to lower abdominal wall skin *Routine Neurological Exam Neurological: Present alert and oriented X3 Assessment and Plan *Assessment and plan (1) Abdominal wall cellulitis: Status: Acute Category: Medical Code(s): L03.311 - Cellulitis of abdominal wall (2) Liver cirrhosis secondary to SORENSON: Status: Acute Category: Medical Code(s): K75.81 - Nonalcoholic steatohepatitis (SORENSON); K74.60 - Unspecified cirrhosis of liver (3) Umbilical hernia: Status: Acute Category: Medical Code(s): K42.9 - Umbilical hernia without obstruction or gangrene (4) Inguinal hernia: Status: Acute Category: Medical Code(s): K40.90 - Unilateral inguinal hernia, without obstruction or gangrene, not s pecified as recurrent (5) Hyperlipidemia: Status: Chronic Qualifiers: Hyperlipidemia type: unspecified Qualified Code(s): E78.5 - Hyperlipidemia, unspecified Category: Medical Code(s): E78.5 - Hyperlipidemia, unspecified (6) Chronic a-fib: Status: Chronic Category: Medical Code(s): I48.20 - Chronic atrial fibrillation, unspecified (7) HTN (hypertension): Status: Chronic Qualifiers: Hypertension type: primary hypertension Qualified Code(s): I10 - Essential (primary) hypertension Category: Medical Code(s): I10 - Essential (primary) hypertension Plan Assessment: This is a 63-year-old male who is being admitted for abdominal wall cellulitis. On my exam, patient is lying in bed in no acute distress. No complaints at this time. Plan: Admit to inpatient-MedSurg Abdominal wall cellulitis 2/2 opening from umbilical hernia? -Continue Vanco and cefepime -Monitor drainage coming from umbilical hernia -Consider consult to general surgery, patient has not been a surgical candidate in the past -Pain management as needed Cirrhosis secondary to SORENSON -Continue rifaximin, lactulose -Will give a dose of Lasix as patient looked overloaded on CT -Patient has an appointment with the transplant team at [facility] at the end of this month -Avoid hepatotoxic medications A-fib -Continue diltiazem, Xarelto HTN HLD -Patient's Coreg and lisinopril were recently stopped by cardiology due to hypotension, continue to monitor blood pressure while inpatient GERD -Continue Protonix DVT prophylaxis: Xarelto CODE STATUS: Full code Surrogate decision maker: Roxy [phone] Skin: Low risk
--- NOTE | 2024-01-14 21:10 | PC.NURSE ---
Patient arrived to floor via wheelchair from ED at 21:00.
[2024-01-14] MEDS: OXYCODONE 10MG W/APAP 325MG TABLET 1 EACH PO (23:01)
[2024-01-15] VITALS (7 sets, daily range): BP systolic 100–117; BP diastolic 57–77; PULSE 80–102; RESP 15–18; TEMP 36.6–37; O2SAT 95–97; BMI 32.5
[2024-01-15] MEDS: PANTOPRAZOLE 40MG TABLET 40 MG PO ×2 (00:16→21:03)
[2024-01-15] MEDS: LACTULOSE 30 EACH PO (00:17)
[2024-01-15] MEDS: MELATONIN 5MG TABLET 5 MG PO (00:30)
--- NOTE | 2024-01-15 05:19 | PC.NURSE ---
Patient alert and oriented x4 throughout shift. Tolerating room air well. Has complained of abdominal pain and a headache this shift, treated per MAR. Abdomen round, tender, and distended with erythema noted to lower abdomen. Lung sounds WDL. +1 edema noted to BLE. Gauze and tegaderm present to right abdomen from paracentesis prior to admission in ER. Patient tolerating ambulation to and from restroom independently. VSS. Call light within reach.
[2024-01-15] MEDS: OXYCODONE 10MG W/APAP 325MG TABLET 1 EACH PO ×3 (06:15→21:03)
[2024-01-15 07:01] LABS: Basophils % 0.8 % (0.1-2.0); Eosinophils # 0.1 K/mm3 (0.0-0.4); Hemoglobin 7.7 g/dL (14.1-18.0); Lymphocytes # 0.7 K/mm3 (0.7-4.5); Lymphocytes % 29.1 % (10-50); Mean Corpuscular HGB Conc 30.7 g/dL (31.8-35.4); Mean Corpuscular Hemoglobin 26.4 pg (27.0-31.2); Mean Corpuscular Volume 85.9 fl (80-94); Mean Platelet Volume 9.7 fl (7.4-10.4); Monocytes # 0.2 K/mm3 (0.1-1.0); Monocytes % 10.1 % (1.7-9.3); Neutrophils # 1.3 K/mm3 (1.8-7.8); Neutrophils % 57.1 % (37.0-80.0); Platelet Count 106 K/mm3 (142-424); Red Blood Count 2.91 M/mm3 (4.60-6.20); Red Cell Distribution Width 15.7 % (11.5-17.5); White Blood Count 2.3 K/mm3 (4.8-10.8)
[2024-01-15 07:02] LABS: Alanine Aminotransferase 21 U/L (12-78); Albumin Level 2.8 g/dl (3.5-5.0); Albumin/Globulin Ratio 0.9 (1.1-1.8); Alkaline Phosphatase 202 U/L (38-126); Anion Gap 4.5 mEq/L (5-15); Aspartate Amino Transferase 37 U/L (17-59); Bilirubin,Total 1.5 mg/dl (0.2-1.3); Blood Urea Nitrogen 10 mg/dl (9-20); Calcium 8.5 mg/dl (8.4-10.2); Carbon Dioxide 31 mmol/L (22.0-30.0); Chloride 102 mmol/L (98-107); Creatinine Clearance Estimated 110 mL/min (50-200); Estimated Glomerular Filt Rate 98 ml/min (>60); GFR (African American) 118 ML/MIN (>60); Globulin 3.1 g/dL (1.3-3.2); Glucose 98 mg/dl (74-100); Potassium 3.5 mmoL/L (3.5-5.1); Sodium 134 mmol/L (136-145); Total Protein,Serum 5.9 g/dl (6.3-8.2)
--- NOTE | 2024-01-15 07:47 | HMH.PHAINT1 ---
Pharmacy Intervention Comments: HOME MEDICATION LIST VERIFIED USING LIST FROM OUTPATIENT PHARMACY
--- NOTE | 2024-01-15 07:56 | EXP.PN ---
Subjective *Date: 01/15/24 *Time: 14:09 Interval history: The patient is seen and examined today at bedside. I am accompanied by his nurse Cristal. The patient reports that he is feeling better. He denies dyspnea, fever or chills. Nursing staff report that he remains afebrile with stable vital signs and saturating appropriately on room air. His morning WBC is 2.3 and his hemoglobin is 7.7 with platelet count 106. His INR is 2.0. His sodium is 134 with creatinine 0.8. His total bilirubin is stable at 1.5. His calculated MELD-Na=19. He is tolerating his IV antibiotic therapy. He reports he typically follows with [facility] liver transplant for his SORENSON cirrhosis. Exam Data for Last 24 hours Vital signs and Labs for Last 24 Hours: Temp Pulse Resp BP Pulse Ox O2 Del Method 98.0 F 80 15 103/67 L 95 Room Air 01/15/24 04:00 01/15/24 04:00 01/15/24 04:00 01/15/24 04:00 01/15/24 04:00 01/15/24 06:52 Laboratory Results - last 24 hr 01/14/24 16:10: WBC 3.0 L, RBC 3.15 L, Hgb 8.5 L, Hct 27.0 L, MCV 85.8, MCH 27.0, MCHC 31.5 L, RDW 15.9, Plt Count 127 L, MPV 9.3, Neut % (Auto) 71.0, Lymph % (Auto) 18.3, [place] % (Auto) 9.1, Eos % (Auto) 1.3, Baso % (Auto) 0.3, Neut # (Auto) 2.1, Lymph # (Auto) 0.5 L, [place] # (Auto) 0.3, Eos # (Auto) 0.0, Baso # (Auto) 0.0, PT 20.9 H, INR 2.00 H, Sodium 133 L, Potassium 4.1, Chloride 101, Carbon Dioxide 27, Anion Gap 9.1, BUN 12, Creatinine 0.80, Estimated Creat Clear 112, Estimated GFR 98, Est GFR ( Amer) 118, Glucose 170 H, Calcium 8.9, Total Bilirubin 1.8 H, AST 84 H, ALT 32, Alkaline Phosphatase 220 H, Total Protein 7.4, Albumin 3.7, Globulin 3.7 H, Albumin/Globulin Ratio 1.0 L, Lipase 160 01/14/24 16:35: Ammonia 22 01/14/24 17:13: Fluid Source Paracentesis fluid, Fluid Volume 30, Fluid Appearance Slightly cloudy, Fluid RBC (Auto) < 10, Fld Tot Nucleated Cell 186, Fld Polynuclear WBCs % 9, Fld Mononuclear WBCs % 91 01/15/24 06:10: WBC 2.3 L, RBC 2.91 L, Hgb 7.7 L, Hct 25.0 L, MCV 85.9, MCH 26.4 L, MCHC 30.7 L, RDW 15.7, Plt Count 106 L, MPV 9.7, Neut % (Auto) 57.1, Lymph % (Auto) 29.1, [place] % (Auto) 10.1 H, Eos % (Auto) 3.0, Baso % (Auto) 0.8, Neut # (Auto) 1.3 L, Lymph # (Auto) 0.7, [place] # (Auto) 0.2, Eos # (Auto) 0.1, Baso # (Auto) 0.0, Sodium 134 L, Potassium 3.5, Chloride 102, Carbon Dioxide 31 H, Anion Gap 4.5 L, BUN 10, Creatinine 0.80, Estimated Creat Clear 110, Estimated GFR 98, Est GFR ( Amer) 118, Glucose 98 D, Calcium 8.5, Total Bilirubin 1.5 H, AST 37 D, ALT 21 D, Alkaline Phosphatase 202 H, Total Protein 5.9 L, Albumin 2.8 L D, Globulin 3.1, Albumin/Globulin Ratio 0.9 L I & O for Last 24 hours: Intake & Output 01/12/24 01/13/24 01/14/24 01/15/24 23:59 23:59 23:59 23:59 Intake Total 292 / 292 Output Total 0 / 0 0 / 0 Balance 292 / 292 0 / 0 Weight 103.102 kg 103.102 kg Microbiology Reports for the Last 24 Hours: Microbiology 01/14/24 17:13 Peritoneal Fluid Gram Stain - Final Constitutional Constitutional: no acute distress, obese and chronically ill appearing *Routine HEENT Exam Head: Present normocephalic Eye: Present EOMI ENT: Present mucous membranes moist *Routine Neck Exam Neck: Present supple; Absent lymphadenopathy *Routine Respiratory Exam Respiratory: Present rhonchi, normal respiratory effort and symmetric chest movement *Routine Cardiovascular Exam Cardiovascular: Present RRR *Routine Abdominal Exam Abdominal: Present soft, normoactive bowel sounds and distended; Absent tenderness *Routine Extremities Exam Extremities: Present edema *Routine Skin Exam Skin: Present intact; Absent jaundice or rash *Routine Neurological Exam Neurological: Present alert, oriented X3, moving all extremities, vision grossly intact, hearing grossly intact and normal speech; Absent sensory deficit or motor deficit Routine Psychiatric Exam Psychiatric: Present normal affect, normal thought process, cooperative, good insight and good judgment Assessment and Plan *Assessment and plan (1) Abdominal wall cellulitis: Status: Acute Category: Medical Code(s): L03.311 - Cellulitis of abdominal wall (2) Liver cirrhosis secondary to SORENSON: Status: Acute Category: Medical Code(s): K75.81 - Nonalcoholic steatohepatitis (SORENSON); K74.60 - Unspecified cirrhosis of liver (3) Umbilical hernia: Status: Acute Category: Medical Code(s): K42.9 - Umbilical hernia without obstruction or gangrene (4) Inguinal hernia: Status: Acute Category: Medical Code(s): K40.90 - Unilateral inguinal hernia, without obstruction or gangrene, not specified as recurrent (5) Hyperlipidemia: Status: Chronic Qualifiers: Hyperlipidemia type: unspecified Qualified Code(s): E78.5 - Hyperlipidemia, unspecified Category: Medical Code(s): E78.5 - Hyperlipidemia, unspecified (6) Chronic a-fib: Status: Chronic Category: Medical Code(s): I48.20 - Chronic atrial fibrillation, unspecified (7) HTN (hypertension): Status: Chronic Qualifiers: Hypertension type: primary hypertension Qualified Code(s): I10 - Essential (primary) hypertension Category: Medical Code(s): I10 - Essential (primary) hypertension Plan This is a 63-year-old male who is being admitted for abdominal wall cellulitis. He normally follows with healthcare concerning his chronic SORENSON cirrhosis diagnoses. 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 Abdominal wall cellulitis Umbilical hernia Blood cultures no growth to date Wound cultures no growth to date CT abdomen pelvis with ascites, EV and splenomegaly, enlarging chronic umbilical hernia Trending labs and inflammatory markers MRSA screen pending IV vancomycin Drug therapy requiring intensive monitoring for toxicity Routine peak and trough IV cefepime Accurate I's and O's Pain control SORENSON cirrhosis with a ascites and portal hypertension ED ammonia level normal CT abdomen pelvis with a ascites, EV, splenomegaly, portal hypertension Diagnostic paracentesis with cultures no growth to date Accurate I's and O's Sodium and fluid restriction Loop diuretic therapy Beta-shanell therapy Aldosterone to agonist therapy Lactulose therapy Rifaximin therapy PPI therapy Trending labs and inflammatory markers A-fib Telemetry monitoring Follows with [facility] Beta-shanell therapy Calcium channel shanell therapy Factor Xa inhibitor therapy Hypertension Routine blood pressure monitoring Beta-shanell therapy Calcium channel shanell therapy Loop diuretic therapy Aldosterone antagonist therapy DVT prophylaxis: Xarelto CODE STATUS: Full code Surrogate decision maker: Roxy [phone] Skin: Low risk The patient is hospitalized day 1 with above diagnoses complicated by his poor prognoses with MELD-Na=19. He is tolerating his IV antibiotic therapy for his abdominal wall cellulitis. He reports upcoming appointment with [facility] concerning his chronic liver disease. Case management is assisting with discharge needs. Barriers to discharge currently include IV antibiotic therapy for his abdominal wall cellulitis and trending cultures. Expected day of discharge over the next day or 2.
--- NOTE | 2024-01-15 08:42 | P.CONPHA_ITS ---
Pharmacy Consult Date: 01/15/24 Time: 08:42 Referring provider: DR. ASTORGA Reason for Consult:: VANCOMYCIN DOSING Allergies Allergy/AdvReac Type Severity Reaction Status Date / Time morphine Allergy hives Verified 12/21/23 09:40 codeine AdvReac Vomiting/Na Verified 12/21/23 09:40 usea cortisone AdvReac Hives Verified 12/21/23 09:40 Iodinated Contrast Media AdvReac Swelling Verified 12/21/23 09:40 Home Medications Medication Instructions Recorded Confirmed Type lactulose 10 gram/15 mL oral 30 ml PO Q8H cirrhosis 03/23/23 01/14/24 History solution (Enulose) diltiazem HCl 240 mg capsule,24 240 mg PO DAILY 90 days #90 caps 10/16/23 01/14/24 Rx hr,extended release spironolactone 50 mg tablet 50 mg PO DAILY Fluid #90 tabs 10/16/23 01/14/24 Rx (Aldactone) furosemide 20 mg tablet 40 mg PO DAILYP PRN Fluid 12/13/23 01/15/24 History oxycodone-acetaminophen 10 mg-325 1 tab PO TIDP PRN Pain (Scale 01/14/24 01/15/24 History mg tablet Score 4-6) carvedilol 3.125 mg tablet 3.125 mg PO BID 01/15/24 01/15/24 History pantoprazole 40 mg tablet,delayed 40 mg PO HS 01/15/24 01/15/24 History release rifaximin 550 mg tablet 550 mg PO BID 01/15/24 01/15/24 History rivaroxaban 20 mg tablet 20 mg PO QPMWITHMEAL ATRIAL FIB 01/15/24 01/15/24 History tizanidine 4 mg tablet 4 mg PO TID 01/15/24 01/15/24 History New Prescriptions to Start Prescriptions: Height: 1.78 m Weight: 103.102 kg Laboratory Results:: Laboratory Results - last 24 hr 01/14/24 16:10: WBC 3.0 L, RBC 3.15 L, Hgb 8.5 L, Hct 27.0 L, MCV 85.8, MCH 27.0, MCHC 31.5 L, RDW 15.9, Plt Count 127 L, MPV 9.3, Neut % (Auto) 71.0, Lymph % (Auto) 18.3, [place] % (Auto) 9.1, Eos % (Auto) 1.3, Baso % (Auto) 0.3, Neut # (Auto) 2.1, Lymph # (Auto) 0.5 L, [place] # (Auto) 0.3, Eos # (Auto) 0.0, Baso # (Auto) 0.0, PT 20.9 H, INR 2.00 H, Sodium 133 L, Potassium 4.1, Chloride 101, Carbon Dioxide 27, Anion Gap 9.1, BUN 12, Creatinine 0.80, Estimated Creat Clear 112, Estimated GFR 98, Est GFR ( Amer) 118, Glucose 170 H, Calcium 8.9, Total Bilirubin 1.8 H, AST 84 H, ALT 32, Alkaline Phosphatase 220 H, Total Protein 7.4, Albumin 3.7, Globulin 3.7 H, Albumin/Globulin Ratio 1.0 L, Lipase 160 01/14/24 16:35: Ammonia 22 01/14/24 17:13: Fluid Source Paracentesis fluid, Fluid Volume 30, Fluid Appearance Slightly cloudy, Fluid RBC (Auto) < 10, Fld Tot Nucleated Cell 186, Fld Polynuclear WBCs % 9, Fld Mononuclear WBCs % 91 01/15/24 06:10: WBC 2.3 L, RBC 2.91 L, Hgb 7.7 L, Hct 25.0 L, MCV 85.9, MCH 26.4 L, MCHC 30.7 L, RDW 15.7, Plt Count 106 L, MPV 9.7, Neut % (Auto) 57.1, Lymph % (Auto) 29.1, [place] % (Auto) 10.1 H, Eos % (Auto) 3.0, Baso % (Auto) 0.8, Neut # (Auto) 1.3 L, Lymph # (Auto) 0.7, [place] # (Auto) 0.2, Eos # (Auto) 0.1, Baso # (Auto) 0.0, Sodium 134 L, Potassium 3.5, Chloride 102, Carbon Dioxide 31 H, Anion Gap 4.5 L, BUN 10, Creatinine 0.80, Estimated Creat Clear 110, Estimated GFR 98, Est GFR ( Amer) 118, Glucose 98 D, Calcium 8.5, Total Bilirubin 1.5 H, AST 37 D, ALT 21 D, Alkaline Phosphatase 202 H, Total Protein 5.9 L, Albumin 2.8 L D, Globulin 3.1, Albumin/Globulin Ratio 0.9 L Medical History: Medical History (Updated 01/15/24 @ 00:59 by Kena Arroyo RN) 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 DVT (deep venous thrombosis) Myocardial infarction SORENSON (nonalcoholic steatohepatitis) History of left heart catheterization Esophageal varices Liver cirrhosis secondary to SORENSON History of cardioversion Atrial fibrillation Family history of heart disease History of CVA (cerebrovascular accident) HTN (hypertension) Hx of myocardial infarction Assessment and Plan Assessment and plan all Dx Assessment and Plan for all problems:: Pharmacokinetic dosing service Objective: Patient: Floor: Age: 63 yo Serum creatinine: 0.80 mg/dL Height: 70.1 Inches Weight (kg): 103.1 Assessment: IBW (kg): 73.23 Dosing wt(kg): 103.1 Estimated Creatinine clearance (ml/min): 97.9 CRCL method: Cockcroft and Gault using ibw(default). Drug selected: Vancomycin Loading dose (mg): Vd (liters): 82.5 (factor used: 0.8 L/kg) Ean (hr-1): 0.086 Half life (hrs): 8.06 CLvanco=?? 7.095 L/hr Recommended dose: 2000 mg Interval: 12 hrs Infusion time (hrs): 2.0 Predicted peak (mcg/mL): 34.6 Predicted trough (mcg/mL): 14.64 Total body weight is being used for vancomycin dosing. Recommendations: Give Vancomycin 2000 mg q 12 hrs with an expected Cpeak of 34.6 mcg/ml and an expected Ctrough of 14.64 mcg/ml AUC 0-24 /FERNANDA Data: FERNANDA 0.5 mcg/mL:?? AUC/FERNANDA:? 1127.6 FERNANDA 1.0 mcg/mL:?? AUC/FERNANDA:? 563.8 --------- FERNANDA 1.5 mcg/mL:?? AUC/FERNANDA:? 375.9 FERNANDA 2.0 mcg/mL:?? AUC/FERNANDA:? 281.9 Thank you for the consult, will continue to follow. -YANIRA METCALF, GERARDOD
[2024-01-15] MEDS: LACTULOSE 20GM/30ML UDC 20 GM PO ×3 (08:49→23:59)
[2024-01-15] MEDS: CEFEPIME HCL 2 GM in 0.9 % SODIUM CHLORIDE 100 ML IV ×3 (08:49→23:59)
[2024-01-15] MEDS: RIFAXIMIN 550MG TABLET 550 MG PO ×2 (08:50→21:03)
[2024-01-15] MEDS: SPIRONOLACTONE 25MG TABLET 50 MG PO (08:50)
[2024-01-15] MEDS: FUROSEMIDE 40 MG TABLET PO (08:51)
[2024-01-15] MEDS: dilTIAZem HCL 180MG CAP.ER.24H 180 MG PO (08:51)
[2024-01-15] MEDS: CARVEDILOL 3.125MG TABLET 3.125 MG PO ×2 (08:52→21:03)
[2024-01-15] MEDS: VANCOMYCIN HCL 2,000 MG in 0.9 % SODIUM CHLORIDE 250 ML 125 MG IV ×2 (09:52→21:03)
[2024-01-15] MEDS: RIVAROXABAN 10MG TABLET 20 MG PO (16:48)
[2024-01-16] VITALS: BP 105/64; PULSE 81; RESP 16; TEMP 36.9; O2SAT 93
[2024-01-16] MEDS: OXYCODONE 10MG W/APAP 325MG TABLET 1 EACH PO ×2 (03:07→10:06)
[2024-01-16 04:00] VITALS: BP 108/63; PULSE 82; RESP 16; TEMP 36.8; O2SAT 95; BMI 32.3
--- NOTE | 2024-01-16 04:10 | PC.NURSE ---
Patient alert and oriented x4 throughout shift. Tolerating room air well. Erythema noted around abdomen with distention and tenderness. No acute changes from previous night. Call light within reach.
[2024-01-16 06:00] LABS: Basophils % 0.7 % (0.1-2.0); Eosinophils # 0.1 K/mm3 (0.0-0.4); Eosinophils % 2.3 % (0.1-12.0); Hematocrit 26.4 % (42.0-52.0); Hemoglobin 7.9 g/dL (14.1-18.0); Lymphocytes # 0.5 K/mm3 (0.7-4.5); Lymphocytes % 19.6 % (10-50); Mean Corpuscular HGB Conc 29.8 g/dL (31.8-35.4); Mean Corpuscular Hemoglobin 26.8 pg (27.0-31.2); Mean Corpuscular Volume 89.8 fl (80-94); Mean Platelet Volume 8.6 fl (7.4-10.4); Monocytes # 0.2 K/mm3 (0.1-1.0); Monocytes % 8.7 % (1.7-9.3); Neutrophils # 1.8 K/mm3 (1.8-7.8); Neutrophils % 68.8 % (37.0-80.0); Platelet Count 100 K/mm3 (142-424); Red Blood Count 2.94 M/mm3 (4.60-6.20); Red Cell Distribution Width 15.8 % (11.5-17.5); White Blood Count 2.7 K/mm3 (4.8-10.8)
[2024-01-16 06:10] LABS: Alanine Aminotransferase 19 U/L (12-78); Albumin Level 2.8 g/dl (3.5-5.0); Albumin/Globulin Ratio 0.8 (1.1-1.8); Alkaline Phosphatase 227 U/L (38-126); Anion Gap 4.5 mEq/L (5-15); Aspartate Amino Transferase 37 U/L (17-59); Bilirubin,Total 1.6 mg/dl (0.2-1.3); Blood Urea Nitrogen 11 mg/dl (9-20); Calcium 8.4 mg/dl (8.4-10.2); Carbon Dioxide 29 mmol/L (22.0-30.0); Chloride 103 mmol/L (98-107); Creatinine Clearance Estimated 110 mL/min (50-200); Estimated Glomerular Filt Rate 98 ml/min (>60); GFR (African American) 118 ML/MIN (>60); Globulin 3.3 g/dL (1.3-3.2); Glucose 102 mg/dl (74-100); Potassium 3.5 mmoL/L (3.5-5.1); Sodium 133 mmol/L (136-145); Total Protein,Serum 6.1 g/dl (6.3-8.2)
[2024-01-16 08:00] VITALS: BP 127/60; PULSE 94; RESP 19; TEMP 36.4; O2SAT 95
[2024-01-16] MEDS: CARVEDILOL 3.125MG TABLET 3.125 MG PO (08:20)
[2024-01-16] MEDS: SPIRONOLACTONE 25MG TABLET 50 MG PO (08:20)
[2024-01-16] MEDS: dilTIAZem HCL 180MG CAP.ER.24H 180 MG PO (08:20)
[2024-01-16] MEDS: RIFAXIMIN 550MG TABLET 550 MG PO (08:20)
[2024-01-16] MEDS: FUROSEMIDE 40 MG TABLET PO (08:20)
[2024-01-16] MEDS: LACTULOSE 20GM/30ML UDC 20 GM PO (08:21)
[2024-01-16] MEDS: CEFEPIME HCL 2 GM in 0.9 % SODIUM CHLORIDE 100 ML IV (08:24)
--- NOTE | 2024-01-16 09:52 | EXP.PHA.CONS ---
Pharmacy Consult Date: 01/16/24 Time: 09:52 Referring provider: DR. ASTORGA Reason for Consult:: VANCOMYCIN LEVEL Allergies Allergy/AdvReac Type Severity Reaction Status Date / Time morphine Allergy hives Verified 12/21/23 09:40 codeine AdvReac Vomiting/Na Verified 12/21/23 09:40 usea cortisone AdvReac Hives Verified 12/21/23 09:40 Iodinated Contrast Media AdvReac Swelling Verified 12/21/23 09:40 Home Medications Medication Instructions Recorded Confirmed Type lactulose 10 gram/15 mL oral 30 ml PO Q8H cirrhosis 03/23/23 01/14/24 History solution (Enulose) diltiazem HCl 240 mg capsule,24 240 mg PO DAILY 90 days #90 caps 10/16/23 01/14/24 Rx hr,extended release spironolactone 50 mg tablet 50 mg PO DAILY Fluid #90 tabs 10/16/23 01/14/24 Rx (Aldactone) furosemide 20 mg tablet 40 mg PO DAILYP PRN Fluid 12/13/23 01/15/24 History oxycodone-acetaminophen 10 mg-325 1 tab PO TIDP PRN Pain (Scale 01/14/24 01/15/24 History mg tablet Score 4-6) carvedilol 3.125 mg tablet 3.125 mg PO BID 01/15/24 01/15/24 History pantoprazole 40 mg tablet,delayed 40 mg PO HS 01/15/24 01/15/24 History release rifaximin 550 mg tablet 550 mg PO BID 01/15/24 01/15/24 History rivaroxaban 20 mg tablet 20 mg PO QPMWITHMEAL ATRIAL FIB 01/15/24 01/15/24 History tizanidine 4 mg tablet 4 mg PO TID 01/15/24 01/15/24 History New Prescriptions to Start Prescriptions: Height: 1.78 m Weight: 102.693 kg Laboratory Results:: Laboratory Results - last 24 hr 01/16/24 05:52: WBC 2.7 L, RBC 2.94 L, Hgb 7.9 L, Hct 26.4 L, MCV 89.8, MCH 26.8 L, MCHC 29.8 L, RDW 15.8, Plt Count 100 L, MPV 8.6, Neut % (Auto) 68.8, Lymph % (Auto) 19.6, [place] % (Auto) 8.7, Eos % (Auto) 2.3, Baso % (Auto) 0.7, Neut # (Auto) 1.8, Lymph # (Auto) 0.5 L, [place] # (Auto) 0.2, Eos # (Auto) 0.1, Baso # (Auto) 0.0, Sodium 133 L, Potassium 3.5, Chloride 103, Carbon Dioxide 29, Anion Gap 4.5 L, BUN 11, Creatinine 0.80, Estimated Creat Clear 110, Estimated GFR 98, Est GFR ( Amer) 118, Glucose 102 H, Calcium 8.4, Total Bilirubin 1.6 H, AST 37, ALT 19, Alkaline Phosphatase 227 H, Total Protein 6.1 L, Albumin 2.8 L, Globulin 3.3 H, Albumin/Globulin Ratio 0.8 L 01/16/24 08:10: Vancomycin Trough 16.0 H Medical History: Medical History (Updated 01/15/24 @ 00:59 by Kena Arroyo RN) 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 RECOMMEND CONTINUING WITH VANCOMYCIN 2000 MG Q12H AT THIS TIME.
[2024-01-16] MEDS: VANCOMYCIN HCL 2,000 MG in 0.9 % SODIUM CHLORIDE 250 ML 125 MG IV (10:02)
[2024-01-16 12:00] VITALS: BP 114/68; PULSE 81; RESP 18; TEMP 36.8; O2SAT 97
[2024-01-16 13:32] LABS: Vancomycin,Peak 34.6 ug/ml (11-39)
--- NOTE | 2024-01-16 14:09 | EXP.DC.SUM ---
General Admission date:: 01/14/24 HPI HPI HPI: Brandyn Ruiz is a 63-year-old male past medical history significant for SORENSON with liver cirrhosis, inguinal hernia, A-fib on Xarelto, HTN, HLD, CAD who presents emergency room tonight with complaints of fluid weeping from his abdomen. Patient states that his leak before, does have a pretty extensive inguinal hernia as well as a periumbilical hernia. Reports that surgeons declined to operate on him due to his multiple comorbidities. Patient reports it leaks fluid frequently from his umbilical region but it is leaking quite a bit more over the last 48 hours or so. He reports he has developed new redness over his lower abdomen with some tenderness associated with it. Denies any fever. No purulent drainage noted, just reports clear fluid. Does not require regular paracentesis. Does follow with the transplant team at [place], next appointment is actually scheduled for the end of this month. Denies tobacco use, alcohol use, illicit drug use. Takes care of his 2 children who are younger, spouse 6 years ago. Workup in ER showed patient be pancytopenic, WBC is at 3, H&H of 8.5 and 27, platelet count 127, INR elevated at 2. T. bili elevated slightly at 1.8, AST at 84. Ammonia level is 22. Bedside paracentesis done, did not meet criteria for SBP. CT of the abdomen pelvis showed cirrhosis with splenomegaly and varices compatible with portal hypertension, moderate to large amount ascites and moderate anasarca changes noted. Also notable for a large left inguinal hernia, moderate size fat-containing umbilical hernia, dilated bile ducts with slight interval increase. Patient was given cefepime and vancomycin in the ER. He will be admitted for for abdominal wall cellulitis. Hospital Course Hospital Course Hospital Course: Patient admitted to the hospital for abdominal discomfort and diagnosed with abdominal wall cellulitis/chronic ascites due to cirrhosis. Patient placed on broad-spectrum antibiotics, and rapidly improved during hospitalization. Patient reports therapeutic paracentesis done in emergency room at time of admission. By 01/16/2024, patient appropriate for hospital disposition. Patient sent home on additional 8 days of cefdinir/doxycycline therapy. Patient advised to follow-up with primary care physician and [facility] for further outpatient management. Patient sees [facility] for SORENOSN/cirrhosis management. Patient states he is currently being evaluated by [facility] for liver transplant. Patient also gets routine outpatient paracentesis procedures. Patient states he plans to follow-up with general surgery as outpatient for inguinal hernia evaluation. Exam Data for Last 24 hours Vital signs and Labs for Last 24 Hours: Temp Pulse Resp BP Pulse Ox O2 Del Method 98.2 F 81 18 114/68 97 Room Air 01/16/24 12:00 01/16/24 12:00 01/16/24 12:00 01/16/24 12:00 01/16/24 12:00 01/16/24 13:45 Laboratory Results - last 24 hr 01/16/24 05:52: WBC 2.7 L, RBC 2.94 L, Hgb 7.9 L, Hct 26.4 L, MCV 89.8, MCH 26.8 L, MCHC 29.8 L, RDW 15.8, Plt Count 100 L, MPV 8.6, Neut % (Auto) 68.8, Lymph % (Auto) 19.6, [place] % (Auto) 8.7, Eos % (Auto) 2.3, Baso % (Auto) 0.7, Neut # (Auto) 1.8, Lymph # (Auto) 0.5 L, [place] # (Auto) 0.2, Eos # (Auto) 0.1, Baso # (Auto) 0.0, Sodium 133 L, Potassium 3.5, Chloride 103, Carbon Dioxide 29, Anion Gap 4.5 L, BUN 11, Creatinine 0.80, Estimated Creat Clear 110, Estimated GFR 98, Est GFR ( Amer) 118, Glucose 102 H, Calcium 8.4, Total Bilirubin 1.6 H, AST 37, ALT 19, Alkaline Phosphatase 227 H, Total Protein 6.1 L, Albumin 2.8 L, Globulin 3.3 H, Albumin/Globulin Ratio 0.8 L 01/16/24 08:10: Vancomycin Trough 16.0 H 01/16/24 13:02: Vancomycin Peak 34.6 I & O for Last 24 hours: Intake & Output 01/13/24 01/14/24 01/15/24 01/16/24 23:59 23:59 23:59 23:59 Intake Total 292 / 292 540 / 540 890 / 890 Output Total 0 / 0 0 / 0 0 / 0 Balance 292 / 292 540 / 540 890 / 890 Weight 103.102 kg 103.102 kg 102.693 kg Microbiology Reports for the Last 24 Hours: Microbiology 01/14/24 17:13 Peritoneal Fluid Gram Stain - Final 01/14/24 17:13 Peritoneal Fluid Body Fluid Culture - Preliminary NO GROWTH AFTER 24 HOURS 01/14/24 16:35 Blood Blood Culture - Preliminary NO GROWTH AFTER 24 HOURS 01/14/24 16:41 Blood Blood Culture - Preliminary NO GROWTH AFTER 24 HOURS Constitutional Constitutional: no acute distress *Routine HEENT Exam Head: Present normocephalic Eye: Present EOMI *Routine Neck Exam Neck: Present supple and full ROM *Routine Respiratory Exam Respiratory: Present accessory muscle use and diminished air movement *Routine Cardiovascular Exam Cardiovascular: Present RRR, Normal S1 and Normal S2 *Routine Abdominal Exam Abdominal: Present soft and distended (With positive fluid wave) *Routine Extremities Exam Extremities: Present full ROM and normal capillary refill Routine Back/Spine/Pelvis Exam Back/Spine: Present full ROM *Routine Skin Exam Skin: Present intact and dry Results Data Completed and Pending Labs on day of discharge: Labs from last 24 hours 01/16/24 01/16/24 01/16/24 13:02 08:10 05:52 WBC 2.7 L RBC 2.94 L Hgb 7.9 L Hct 26.4 L MCV 89.8 MCH 26.8 L MCHC 29.8 L RDW 15.8 Plt Count 100 L MPV 8.6 Neut % (Auto) 68.8 Lymph % (Auto) 19.6 [place] % (Auto) 8.7 Eos % (Auto) 2.3 Baso % (Auto) 0.7 Neut # (Auto) 1.8 Lymph # (Auto) 0.5 L [place] # (Auto) 0.2 Eos # (Auto) 0.1 Baso # (Auto) 0.0 Sodium 133 L Potassium 3.5 Chloride 103 Carbon Dioxide 29 Anion Gap 4.5 L BUN 11 Creatinine 0.80 Estimated Creat Clear 110 Estimated GFR 98 Est GFR ( Amer) 118 Glucose 102 H Calcium 8.4 Total Bilirubin 1.6 H AST 37 ALT 19 Alkaline Phosphatase 227 H Total Protein 6.1 L Albumin 2.8 L Globulin 3.3 H Albumin/Globulin Ratio 0.8 L Vancomycin Peak 34.6 Vancomycin Trough 16.0 H Preliminary micro results at discharge 01/14/24 17:13 Body Fluid Culture - Preliminary Peritoneal Fluid NO GROWTH AFTER 24 HOURS 01/14/24 16:35 Blood Culture - Preliminary Blood NO GROWTH AFTER 24 HOURS 01/14/24 16:41 Blood Culture - Preliminary Blood NO GROWTH AFTER 24 HOURS Imaging and Cardiology TESTING: Status: image reviewed by me Additional comments: Ordering Physician: Roger Thomason MD Date of Service: 01/14/24 Procedure(s): CT abdomen pelvis wo con Accession Number(s): [id number] cc: Roger Thomason MD; Yunier Barrett MD; Walter Tesfaye MD~ PROCEDURE INFORMATION: Exam: CT Abdomen And Pelvis Without Contrast Exam date and time: 01/14/2024 4:44 PM Age: 63 years old Clinical indication: Abdominal pain; Periumbilical; Additional info: Liver failure, periumbilical hernia TECHNIQUE: Imaging protocol: Computed tomography of the abdomen and pelvis without contrast. Radiation optimization: All CT scans at this facility use at least one of these dose optimization techniques: automated exposure control; mA and/or kV adjustment per patient size (includes targeted exams where dose is matched to clinical indication); or iterative reconstruction. COMPARISON: CT ABDOMEN PELVIS WO CON 08/18/2022 6:44 PM FINDINGS: Lungs: See Pleural spaces finding. Pleural spaces: Interval development of small left pleural effusion. Stable 4 mm nodule anterolateral right lower lobe on image 13 of series 3 and 3 mm subpleural nodule in the posterolateral left lower lobe on image 11 and 4 mm nodule posterior left costophrenic angle on image [address] of 08/18/2022. No follow-up advised. Liver: Cirrhosis of the liver redemonstrated. Liver otherwise unremarkable. Gallbladder and biliary ducts: Dilated extrahepatic CBD measuring up to 22 mm thought to extend to the ampulla level with and previously measured 14 mm. Associated dilated intrahepatic bile ducts mildly increased in the interval. Pancreas: Normal. No ductal dilation. Spleen: Mild splenomegaly measuring 15.2 cm similar to previous. Adrenal glands: Normal. No mass. Kidneys and ureters: Normal. No hydronephrosis. Stomach and bowel: Unremarkable. No obstruction. No mucosal thickening. Appendix: Appendix is normal. No evidence of appendicitis. Intraperitoneal space: Aaylcjoz-hy-exmgg amount of free fluid with interval worsening. Vasculature: Recanalized umbilical vein and upper abdomen varices including paraesophageal varices redemonstrated. Lymph nodes: Mildly prominent right pericardial lymph nodes similar to previous. Mild mesenteric and retroperitoneal adenopathy redemonstrated and similar to previous. Urinary bladder: Unremarkable as visualized. Reproductive: Unremarkable as visualized. Bones/joints: Unremarkable. No acute fracture. Soft tissues: Rnfm-ea-urwafegs body wall edema and edema of the intra-abdominal fat tissues compatible with anasarca increased in the interval. Moderate size fat containing umbilical hernia measuring 5.8 cm that previously measured 2.6 cm. Large fluid containing left inguinal hernia measuring up to 11.5 cm in transverse in 23 cm in length may be increased in the interval but the hernia was not incompletely included in field of view previously and exact comparison is not possible. IMPRESSION: 1. Cirrhosis. Associated splenomegaly and varices compatible with portal venous hypertension. Svtkbqcz-ln-wfsnt amount of ascites and twre-oh-czozvsge anasarca changes with interval worsening. 2. Large left inguinal hernia measuring 23 cm in length containing ascites with potential interval increase in size. 3. Moderate-sized fat containing umbilical hernia increased in the interval. 4. Mild mesenteric and retroperitoneal adenopathy similar to previous. 5. Dilated bile ducts with interval increase. This may reflect progressive physiologic dilatation related to prior cholecystectomy if no clinical findings of developing bile duct obstruction. If indicated consider further assessment with nonemergent MRCP with and without contrast.. 6. Additional nonemergent findings as above. DS: Diagnosis Discharge Diagnosis (1) Abdominal wall cellulitis: Status: Acute Code(s): L03.311 - Cellulitis of abdominal wall (2) Liver cirrhosis secondary to SORENSON: Status: Acute Code(s): K75.81 - Nonalcoholic steatohepatitis (SORENSON); K74.60 - Unspecified cirrhosis of liver (3) Umbilical hernia: Status: Acute Code(s): K42.9 - Umbilical hernia without obstruction or gangrene (4) Inguinal hernia: Status: Acute Code(s): K40.90 - Unilateral inguinal hernia, without obstruction or gangrene, not specified as recurrent (5) Hyperlipidemia: Status: Chronic Code(s): E78.5 - Hyperlipidemia, unspecified Qualifiers: Hyperlipidemia type: unspecified Qualified Code(s): E78.5 - Hyperlipidemia, unspecified (6) Chronic a-fib: Status: Chronic Code(s): I48.20 - Chronic atrial fibrillation, unspecified (7) HTN (hypertension): Status: Chronic Code(s): I10 - Essential (primary) hypertension Qualifiers: Hypertension type: primary hypertension Qualified Code(s): I10 - Essential (primary) hypertension Meds Home Medications and Allergies Home Medications Medication Instructions Recorded Confirmed Type lactulose 10 gram/15 mL oral 30 ml PO Q8H cirrhosis 03/23/23 01/14/24 History solution (Enulose) diltiazem HCl 240 mg capsule,24 240 mg PO DAILY 90 days #90 caps 10/16/23 01/14/24 Rx hr,extended release spironolactone 50 mg tablet 50 mg PO DAILY Fluid #90 tabs 10/16/23 01/14/24 Rx (Aldactone) furosemide 20 mg tablet 40 mg PO DAILYP PRN Fluid 12/13/23 01/15/24 History oxycodone-acetaminophen 10 mg-325 1 tab PO TIDP PRN Pain (Scale 01/14/24 01/15/24 History mg tablet Score 4-6) carvedilol 3.125 mg tablet 3.125 mg PO BID 01/15/24 01/15/24 History pantoprazole 40 mg tablet,delayed 40 mg PO HS 01/15/24 01/15/24 History release rifaximin 550 mg tablet 550 mg PO BID 01/15/24 01/15/24 History rivaroxaban 20 mg tablet 20 mg PO QPMWITHMEAL ATRIAL FIB 01/15/24 01/15/24 History tizanidine 4 mg tablet 4 mg PO TID 01/15/24 01/15/24 History cefdinir 300 mg capsule 300 mg PO BID #16 caps 01/16/24 Rx doxycycline hyclate 100 mg capsule 100 mg PO BID #16 caps 01/16/24 Rx New Prescriptions to Start Prescriptions: cefdinir [place] doxycycline hyclate [place],[address] [place] [address] Allergies Allergy/AdvReac Type Severity Reaction Status Date / Time morphine Allergy hives Verified 12/21/23 09:40 codeine AdvReac Vomiting/Na Verified 12/21/23 09:40 usea cortisone AdvReac Hives Verified 12/21/23 09:40 Iodinated Contrast Media AdvReac Swelling Verified 12/21/23 09:40 Discharge Plan Disposition Patient Disposition: Home, Self-Care Condition: Fair Follow up Plan Follow up with: Yunier Barrett MD [Primary Care Provider] - 01/25/24 8:45 am Prescriptions/Medication Reconciliation: New doxycycline hyclate 100 mg capsule 100 mg PO BID Qty: 16 0RF cefdinir 300 mg capsule 300 mg PO BID Qty: 16 0RF Continued lactulose [Enulose] 10 gram/15 mL solution 30 ml PO Q8H furosemide 20 mg tablet 40 mg PO DAILYP PRN (Reason: Fluid) spironolactone [Aldactone] 50 mg tablet 50 mg PO DAILY Qty: 90 3RF diltiazem HCl 240 mg capsule,extended release 24 hr 240 mg PO DAILY 90 Days Qty: 90 1RF oxycodone-acetaminophen 10-325 mg tablet 1 tab PO TIDP PRN (Reason: Pain (Scale Score 4-6)) Patient Comments: TAKE ONE (1) TABLET THREE (3) TIMES A DAY BY ORAL ROUTE FOR 30 DAYS. Rx Instructions: Take one tablet by mouth three times a day rifaximin 550 mg Tablet 550 mg PO BID rivaroxaban 20 mg Tablet 20 mg PO QPMWITHMEAL pantoprazole 40 mg Tablet,Delayed Release (Dr/Ec) 40 mg PO HS tizanidine 4 mg tablet 4 mg PO TID Patient Comments: TAKE ONE (1) TO THREE (3) TABLETS BY MOUTH EVERY DAY carvedilol 3.125 mg tablet 3.125 mg PO BID Problem Reconciliation Problems Reviewed?: Yes Patient Discharge Instructions ACTIVITY: Continue current activity DIET: continue same diet Patient Instructions: DI for Cellulitis -- Adult, Groin Hernia -- Adult, DI for Abdominal Paracentesis, DI for Cirrhosis, DI for Surgical Site Infection Print Language: Chadian Providers Primary Care Provider: Yunier Barrett Admit Provider: Je Harper Attending Provider: Je Harper
--- NOTE | 2024-01-18 13:41 | CARE MANAGER ---
Contacted patient related to hospital discharge. He states he doesn't feel much different than he did. He already followed up with his PCP and goes to in a couple of weeks for a specialists appointment. He was very complimentary of his night nurse, but did have some concerns regarding IV care and the air filter system in the hospital. I have forwarded concerns to 2nd slot floorperson L[place]to. VALENTINA Leavitt
== END 2024-01-16 15:57 | disposition home or self-care (01) ==
LOC: ER 18:27 → 2ND 22:01
PROVIDERS: Nurse Practitioner Acute Care; Admitting Provider Family Medicine; Emergency Provider Emergency Medicine; PCP Family Medicine; Visit Provider Family Medicine
DX: L03.311 Cellulitis of abdominal wall (principal); K75.81 Nonalcoholic steatohepatitis (NASH); K42.9 Umbilical hernia without obstruction or gangrene; K40.90 Unilateral inguinal hernia, without obstruction or gangrene, not specified as recurrent; E78.5 Hyperlipidemia, unspecified; I48.20 Chronic atrial fibrillation, unspecified; I10 Essential (primary) hypertension; Z79.01 Long term (current) use of anticoagulants; Z79.899 Other long term (current) drug therapy
CPT/HCPCS: 36415; 49083; 74176; 80053; 80202; 82140; 83690; 85025; 85610; 87040; 87070; 87081; 87205; 89051; 93005; 99221; 99285; G0378; J3370

== ENCOUNTER 2024-02-03 11:25 | Emergency (ER) | payer MEDICARE, MEDICAID, SELFPAY ==
[2024-02-03 11:26] VITALS: BP 133/106; PULSE 75; RESP 16; TEMP 36.6; O2SAT 98; BMI 32.3
--- NOTE | 2024-02-03 11:39 | PC.NURSE ---
DR CROOK AT BEDSIDE
--- NOTE | 2024-02-03 11:49 | HMH.EDGENADL ---
Discharge Plan Disposition Patient Disposition: Home, Self-Care Chief Complaint: PAIN Prescriptions Prescriptions: No Action lactulose [Enulose] 10 gram/15 mL solution 30 ml PO Q8H oxycodone 5 mg tablet 5 mg PO TID PRN (Reason: pain) Qty: 45 0RF Rx Instructions: until he can establish with new pain clinic diltiazem HCl 240 mg capsule,extended release 24 hr 240 mg PO DAILY 90 Days Qty: 90 1RF furosemide 20 mg tablet 40 mg PO DAILYP PRN (Reason: Fluid) Qty: 60 3RF spironolactone [Aldactone] 50 mg tablet 50 mg PO DAILY Qty: 90 3RF oxycodone-acetaminophen 10-325 mg tablet 1 tab PO TIDP PRN (Reason: Pain (Scale Score 4-6)) Patient Comments: TAKE ONE (1) TABLET THREE (3) TIMES A DAY BY ORAL ROUTE FOR 30 DAYS. Rx Instructions: Take one tablet by mouth three times a day rifaximin 550 mg Tablet 550 mg PO BID rivaroxaban 20 mg Tablet 20 mg PO QPMWITHMEAL pantoprazole 40 mg Tablet,Delayed Release (Dr/Ec) 40 mg PO HS tizanidine 4 mg tablet 4 mg PO TID Patient Comments: TAKE ONE (1) TO THREE (3) TABLETS BY MOUTH EVERY DAY carvedilol 3.125 mg tablet 3.125 mg PO BID Referrals Follow up/Referrals: Yunier Barrett MD [Primary Care Provider] - See instructions Activity Restrictions/Add. Instructions Additional Instructions/Restrictions: Call your family doctor to establish care for this visit to the emergency department and schedule follow-up as needed. Clinical Impressions Clinical Impression: Encounter for medication refill Print Language Print Language: Malawian Discharge ED Provider: Arron Lima General Adult HPI General Chief complaint: PAIN Stated complaint: hernia in groin and abdomen Time Seen by Provider: 02/03/24 11:33 Mode of Arrival: Ambulatory Source of Information: Patient Limitations: No Limitations Description of Symptoms (Recalled from ER Triage Doc. by RN): Patient states he ran out of his pain medications and was told to come to the ER for a refill until his next visit. History of Present Illness HPI narrative: Please note that above description of symptoms, in this electronic medical record under categorization of recalled from ER triage doctor by RN are reflective of an initial nursing assessment, however, is not reflective of my full history and physical exam that was personally taken and clarified. Consequentially, this preceding description of symptoms, which may include the patient's categorized chief complaint in the EMR, do not reflect my personal clinical impression, and the ultimate description of history of present illness and patient stated complaints should be deferred to this section of the note. Unless stated otherwise or congruent with this section of the note, additional signs, symptoms, or incongruence should be interpreted as inaccurate with my clinical impression. Related Data Home Medications ?Medication ?Instructions ?Recorded ?Confirmed lactulose 10 gram/15 mL oral 30 ml PO Q8H cirrhosis 03/23/23 01/25/24 solution (Enulose) oxycodone-acetaminophen 10 mg-325 1 tab PO TIDP PRN Pain (Scale 01/14/24 01/25/24 mg tablet Score 4-6) carvedilol 3.125 mg tablet 3.125 mg PO BID 01/15/24 01/25/24 pantoprazole 40 mg tablet,delayed 40 mg PO HS 01/15/24 01/25/24 release rifaximin 550 mg tablet 550 mg PO BID 01/15/24 01/25/24 rivaroxaban 20 mg tablet 20 mg PO QPMWITHMEAL ATRIAL FIB 01/15/24 01/25/24 tizanidine 4 mg tablet 4 mg PO TID 01/15/24 01/25/24 Previous Rx's ?Medication ?Instructions ?Recorded diltiazem HCl 240 mg capsule,24 240 mg PO DAILY 90 days #90 caps 10/16/23 hr,extended release oxycodone 5 mg tablet 5 mg PO TID PRN pain #45 tabs 01/18/24 furosemide 20 mg tablet 40 mg (2 x 20 mg) PO DAILYP PRN 01/31/24 Fluid #60 tabs spironolactone 50 mg tablet 50 mg PO DAILY Fluid #90 tabs 01/31/24 (Aldactone) Allergies Allergy/AdvReac Type Severity Reaction Status Date / Time morphine Allergy hives Verified 01/25/24 08:23 codeine AdvReac Vomiting/Na Verified 01/25/24 08:23 usea cortisone AdvReac Hives Verified 01/25/24 08:23 Iodinated Contrast Media AdvReac Swelling Verified 01/25/24 08:23 [facility] Disclaimer: The information contained in this section may have been updated after the patient was seen, as this information can be updated by other users. 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 DVT (deep venous thrombosis) Myocardial infarction SORENSON (nonalcoholic steatohepatitis) History of left heart catheterization Esophageal varices Liver cirrhosis secondary to SORENSON History of cardioversion Atrial fibrillation Family history of heart disease History of CVA (cerebrovascular accident) HTN (hypertension) Hx of myocardial infarction Surgical History History of total hip replacement History of colonoscopy Knee joint replacement status Social History Smoking Status: Never smoker alcohol intake: never substance use type: denies use current occupational status: disabled Travel in the last 8 weeks: None household members: children housing: other caffeine: Yes ROS Obtained: Yes All systems reviewed & no additional complaints except as documented Physical Exam General General appearance: alert and in no apparent distress Eye Eye exam: Absent scleral icterus Respiratory Respiratory exam: Absent respiratory distress Cardiovascular Cardiovascular exam: Present regular rate and normal rhythm Abdominal Exam Abdominal exam: Present soft, distention and hernia; Absent tenderness, guarding, rebound or rigidity exam: Present other (Hernia) Neurological Exam Neurological exam: Present alert, oriented X3 and normal gait Medical Decision Making Medical Records Medical records reviewed: Yes I reviewed the patient's medical records. Marshal Inquiry Pt receiving controlled substance: No Marshal was queried for this patient: No Vital Signs: 02/03/24 11:26 Temperature 97.9 F Temperature Source Oral Pulse Rate [Radial] 75 Respiratory Rate 16 Blood Pressure [Right Arm] 133/106 H Blood Pressure Mean [Right Arm] 115 Blood Pressure Source [Right Arm] Automatic Cuff Blood Pressure Position [Right Arm] Sitting 02 Sat by Pulse Oximetry 98 Oxygen Delivery Method Room Air Medical Decision Narrative: 63-year-old male history of chronic back and abdominal pain, cirrhosis following with hepatology in [place] for potential transplant on chronic Percocet presenting with request for medication refill. Patient states that he usually gets Percocet from pain clinic, no longer seeing the pain clinic. Had his medications refilled recently by his primary care physician, states that he ran out 2 days ago. States that he was unable to get into his primary care's office to have them refilled until he follows up with pain clinic and hepatology this coming week, so he alleges his primary care physician told him to come to the emergency department for pain medication refills. No acute on chronic pain, just his chronic back and abdominal pain. Still passing gas, tolerating p.o. intake without issue, no yellowing of the skin or eyes or darkening of urine. No other acute symptoms. History obtained with patient. On arrival, patient very well-appearing, abdomen is soft, distended, but nontender. Hernias are both reducible. No signs of obstruction. Prolonged discussion had with patient regarding hospital and emergency department policy on not treating chronic pain with opiates, especially not with home-going medications. He voiced his understanding. I also recommended he follow-up with his family doctor to prevent issues with prescribing in the future at risk of having multiple prescriptions from multiple doctors. He voices understanding of this process. Message sent to patient's primary care physician discussing this visit and readdressing emergency department policy. Because patient at baseline without signs or symptoms of clinical decompensation, deemed appropriate for discharge. I discussed my clinical impression with patient and answered all questions. At this time, the evidence for any other entities in the differential is insufficient to warrant any further testing or ED observation. This was explained as well. Advisory was given that persistent or worsening symptoms require further evaluation. I confirmed the understanding of this discussion. Critical Care Critical Care Time Critical Care Time: No
[2024-02-03 12:07] VITALS: BP 120/80; PULSE 80; RESP 18; TEMP 36.6; O2SAT 98
== END 2024-02-03 12:08 | disposition home or self-care (01) ==
PROVIDERS: Emergency Provider Emergency Medicine; PCP Family Medicine
DX: Z00.8 Encounter for other general examination (principal)
CPT/HCPCS: 99281

== ENCOUNTER 2024-05-17 09:13 | Outpatient (CLI) | payer MEDICARE, SELFPAY ==
--- NOTE | 2024-05-17 09:15 | US_ITS ---
FINAL REPORT CLINICAL HISTORY: ASCITES- 6300 ml removed -- lt side -- jorge marcus FINDINGS: ULTRASOUND-GUIDED PARACENTESIS HISTORY: Ascites ATTENDING PHYSICIAN: Dr. Leach PHYSICIAN MANAGER SUSTAINABILITY: Jorge Lee PA-C FINDINGS: After informed consent was obtained and timeout procedure performed, fluid was localized in the left lower quadrant under ultrasound guidance and marked on the skin appropriately. The patient was then prepped and draped in the usual sterile fashion and the skin was anesthetized with 1% lidocaine. An ultrasound guided paracentesis was then performed using a Turkel needle. Approximately 6.3 liters of clear yellow fluid was removed. The patient tolerated the procedure well and there were no immediate complications. IMPRESSION: Ultrasound guided left lower quadrant paracentesis as discussed above. Films reviewed , interpreted and dictated by Dr. Leach. Transcribed by Jorge Lee PA-C. Reviewed, Interpreted and Dictated by Alton Leach III, MD Transcribed by JOHN Barrios Authenticated and [facility]
[2024-05-17] MEDS: ALBUMIN HUMAN 37.5 GM/150 ML BAG IV (10:47)
[2024-05-17] MEDS: SODIUM CHLORIDE 0.9% 50ML BAG 50 ML IV (10:47)
[2024-05-17 10:50] VITALS: BP 103/61; PULSE 83; RESP 17; O2SAT 98
[2024-05-17 11:19] VITALS: BP 96/59; PULSE 77; RESP 16
[2024-05-17 11:45] LABS: Source, Body Fld. Peritoneal Fluid
[2024-05-17 11:46] LABS: Appearance,Body Fld. Cloudy; Mononuclear WBCs,Body Fluid 84 %; Polynuclear WBC,Body Fluid 16 %; RBC,Body Fluid < 10 cells/uL (< 10 X 10^3); TNC,Body Fluid 146 cells/uL (< 1000); Volume,Body Fld. 6300 mL
[2024-05-17 12:20] VITALS: BP 97/61; PULSE 88; RESP 16
== END 2024-05-17 12:30 | disposition home or self-care (01) ==
LOC: RAD 09:13 → INF 10:31
PROVIDERS: PCP Family Medicine; Visit Provider Physician Assistant
DX: K74.60 Unspecified cirrhosis of liver (principal)
CPT/HCPCS: 49083; 89051; 96365; P9047

== ENCOUNTER 2024-05-24 07:24 | Outpatient (CLI) | payer MEDICARE, SELFPAY ==
[2024-05-24 09:28] VITALS: BP 117/61; PULSE 100; RESP 22; TEMP 36.6; O2SAT 100
[2024-05-24] MEDS: SODIUM CHLORIDE 0.9% 50ML BAG 50 ML IV (09:28)
[2024-05-24] MEDS: ALBUMIN HUMAN 50 GM/200 ML BAG IV (09:28)
[2024-05-24] MEDS: SODIUM CHLORIDE 0.9% 10ML FLUSH SYRINGE 10 ML IV (09:29)
[2024-05-24 10:07] VITALS: BP 113/66; PULSE 102; RESP 22; O2SAT 100
[2024-05-24 10:29] VITALS: BP 111/54; PULSE 105; RESP 22; O2SAT 99
[2024-05-24 10:50] VITALS: BP 109/59; PULSE 104; RESP 22; O2SAT 100
[2024-05-24 11:32] VITALS: BP 107/57; PULSE 99; RESP 22; O2SAT 100
[2024-05-24 11:47] LABS: Appearance,Body Fld. Normal; RBC,Body Fluid < 10 cells/uL (< 10 X 10^3); Source, Body Fld. Paracentesis Fluid; TNC,Body Fluid 103 cells/uL (< 1000); Volume,Body Fld. 8150 mL
[2024-05-24 14:04] LABS: Mononuclear WBCs,Body Fluid 98 %; Polynuclear WBC,Body Fluid 2 %
== END 2024-05-24 11:34 | disposition home or self-care (01) ==
LOC: RAD 07:24 → INF 09:13
PROVIDERS: PCP Family Medicine; Visit Provider Physician Assistant
DX: K74.69 Other cirrhosis of liver (principal); R18.8 Other ascites
CPT/HCPCS: 49083; 89051; 96365; 96366; P9047

== ENCOUNTER 2024-06-03 07:58 | Outpatient (CLI) | payer MEDICARE, SELFPAY ==
--- NOTE | 2024-06-03 08:00 | US_ITS ---
FINAL REPORT CLINICAL HISTORY: ASCITES -- JORGE LOPEZ - RT SIDE -- 7100 ML REMOVED FINDINGS: ULTRASOUND-GUIDED PARACENTESIS HISTORY: Ascites ATTENDING PHYSICIAN: Dr. Madrid PHYSICIAN TEAM MANAGER: Jorge Lee PA-C FINDINGS: After informed consent was obtained and timeout procedure performed, fluid was localized in the right lower quadrant under ultrasound guidance and marked on the skin appropriately. The patient was then prepped and draped in the usual sterile fashion and the skin was anesthetized with 1% lidocaine. An ultrasound guided paracentesis was then performed using a Turkel needle. Approximately 7.1 liters of clear yellow fluid was removed. The patient tolerated the procedure well and there were no immediate complications. IMPRESSION: Ultrasound guided right lower quadrant paracentesis as discussed above. Sample fluid was sent to lab. Films reviewed , interpreted and dictated by Dr. Yuridia Madrid. Transcribed by Jorge Lee PA-C. Reviewed, Interpreted and Dictated by Yuridia Madrid MD Transcribed by JOHN Barrios Authenticated and [facility]
[2024-06-03] MEDS: SODIUM CHLORIDE 0.9% 10ML FLUSH SYRINGE 10 ML IV (09:43)
[2024-06-03] MEDS: SODIUM CHLORIDE 0.9% 50ML BAG 50 ML IV (09:44)
[2024-06-03] MEDS: ALBUMIN HUMAN 37.5 GM/150 ML BAG IV (09:44)
[2024-06-03 10:16] VITALS: BP 108/55; PULSE 81; RESP 16; TEMP 36.4; O2SAT 97
[2024-06-03 10:44] VITALS: BP 103/54; PULSE 74; RESP 18; O2SAT 96
[2024-06-03 11:20] VITALS: BP 105/69; PULSE 75; RESP 16; TEMP 36.6; O2SAT 97
[2024-06-03 11:41] LABS: Source, Body Fld. Paracentesis Fluid
[2024-06-03 11:42] LABS: Appearance,Body Fld. Hazy; RBC,Body Fluid < 10 cells/uL (< 10 X 10^3); TNC,Body Fluid 74 cells/uL (< 1000); Volume,Body Fld. 7100 mL
[2024-06-03 14:34] LABS: Mononuclear WBCs,Body Fluid 95 %; Polynuclear WBC,Body Fluid 5 %
== END 2024-06-03 11:40 | disposition home or self-care (01) ==
LOC: RAD 07:59 → INF 09:07
PROVIDERS: PCP Family Medicine; Visit Provider Physician Assistant
DX: R18.8 Other ascites (principal)
CPT/HCPCS: 49083; 89051; 96365; P9047

== ENCOUNTER 2024-06-11 08:52 | Outpatient (CLI) | payer MEDICARE, SELFPAY ==
--- NOTE | 2024-06-11 08:55 | US_ITS ---
FINAL REPORT CLINICAL HISTORY: ASCITES -- paracentesis -- kaitlynn LOPEZ -- 5650 ml FINDINGS: ULTRASOUND-GUIDED PARACENTESIS HISTORY:Ascites ATTENDING PHYSICIAN: Dr. Leach PHYSICIAN CARGO SERVICE AGENT: Kaitlynn Phillips PA-C FINDINGS: After informed consent was obtained and timeout procedure performed, fluid was localized in the right lower quadrant under ultrasound guidance and marked on the skin appropriately. The patient was then prepped and draped in the usual sterile fashion and the skin was anesthetized with 1% lidocaine. An ultrasound guided paracentesis was then performed using a Turkel needle. Approximately 5.65 liters of fluid was removed. No fluid was sent to lab. The patient tolerated the procedure well and there were no immediate complications. IMPRESSION: Ultrasound guided right lower quadrant paracentesis as discussed above. Films reviewed , interpreted and dictated by Dr. Leach Transcribed by Kaitlynn Phillips PA-C. Reviewed, Interpreted and Dictated by Alton Leach III, MD Transcribed by JOHN Fragoso Authenticated and [facility]
[2024-06-11] MEDS: SODIUM CHLORIDE 0.9% 50ML BAG 50 ML IV (10:15)
[2024-06-11] MEDS: ALBUMIN HUMAN 37.5 GM/150 ML BAG IV (10:15)
[2024-06-11] MEDS: SODIUM CHLORIDE 0.9% 10ML FLUSH SYRINGE 10 ML IV (10:16)
[2024-06-11 10:24] VITALS: BP 92/71; PULSE 110; RESP 16; TEMP 36.3; O2SAT 99
[2024-06-11 10:31] VITALS: BMI 34.4
[2024-06-11 10:55] VITALS: BP 114/62; PULSE 85; RESP 16; TEMP 36.4; O2SAT 96
[2024-06-11 10:57] LABS: Appearance,Body Fld. Slightly hazy; Source, Body Fld. Peritoneal Fluid
[2024-06-11 10:58] LABS: RBC,Body Fluid < 10 cells/uL (< 10 X 10^3); TNC,Body Fluid 137 cells/uL (< 1000); Volume,Body Fld. 5650 mL
[2024-06-11 11:27] VITALS: BP 110/61; PULSE 88; RESP 18; O2SAT 98
[2024-06-11 12:14] VITALS: BP 111/60; PULSE 95; RESP 16; O2SAT 96
[2024-06-11 13:37] LABS: Mononuclear WBCs,Body Fluid 92 %; Polynuclear WBC,Body Fluid 8 %
== END 2024-06-11 12:15 | disposition home or self-care (01) ==
PROVIDERS: PCP Family Medicine; Visit Provider Physician Assistant
DX: R18.8 Other ascites (principal); K74.69 Other cirrhosis of liver
CPT/HCPCS: 49083; 89051; 96365; P9047

== ENCOUNTER 2024-06-17 07:44 | Outpatient (CLI) | payer MEDICARE, SELFPAY ==
--- NOTE | 2024-06-17 07:47 | US_ITS ---
FINAL REPORT CLINICAL HISTORY: ASCITES-- llq -- jorge jimenez-- 1488 FINDINGS: ULTRASOUND-GUIDED PARACENTESIS HISTORY: Ascites ATTENDING PHYSICIAN: Dr. Leach PHYSICIAN FISCAL ANALYST: Jorge Jimenez PA-C FINDINGS: After informed consent was obtained and timeout procedure performed, fluid was localized in the right lower quadrant under ultrasound guidance and marked on the skin appropriately. The patient was then prepped and draped in the usual sterile fashion and the skin was anesthetized with 1% lidocaine. An ultrasound guided paracentesis was then performed using a Turkel needle. Approximately 4.7 liters of clear yellow fluid was removed. Sample of the fluid was sent to lab. The patient tolerated the procedure well and there were no immediate complications. IMPRESSION: Ultrasound guided right lower quadrant paracentesis as discussed above. Films reviewed , interpreted and dictated by Dr. Leach. Transcribed by Jorge Jimenez PA-C. Reviewed, Interpreted and Dictated by Alton Leach III, MD Transcribed by JOHN Fragoso Authenticated and [facility]
[2024-06-17] MEDS: ALBUMIN HUMAN 25 GM/100 ML BAG IV (09:04)
[2024-06-17] MEDS: SODIUM CHLORIDE 0.9% 10ML FLUSH SYRINGE 10 ML IV (09:04)
[2024-06-17] MEDS: SODIUM CHLORIDE 0.9% 50ML BAG 50 ML IV (09:04)
[2024-06-17 09:10] VITALS: BP 89/58; PULSE 81; RESP 18; TEMP 36.4; O2SAT 96
[2024-06-17 09:40] VITALS: BP 93/45; PULSE 78
[2024-06-17 10:30] VITALS: BP 95/35; PULSE 76
[2024-06-17 10:38] LABS: Appearance,Body Fld. CLEAR; Source, Body Fld. Peritoneal Fluid
[2024-06-17 10:39] LABS: Mononuclear WBCs,Body Fluid 88 %; Polynuclear WBC,Body Fluid 12 %; RBC,Body Fluid < 10 cells/uL (< 10 X 10^3); TNC,Body Fluid 128 cells/uL (< 1000); Volume,Body Fld. 4650 mL
== END 2024-06-17 10:30 | disposition home or self-care (01) ==
LOC: RAD 07:45
PROVIDERS: PCP Family Medicine; Visit Provider Physician Assistant
DX: K74.69 Other cirrhosis of liver (principal); R18.8 Other ascites
CPT/HCPCS: 49083; 89051; 96365; P9047

== ENCOUNTER 2024-06-25 07:49 | Outpatient (CLI) | payer MEDICARE, SELFPAY ==
--- NOTE | 2024-06-25 08:02 | US_ITS ---
FINAL REPORT CLINICAL HISTORY: ASCITES -- PARACENTESIS -- VANDANA LOPEZ -- 6550ML FINDINGS: ULTRASOUND-GUIDED PARACENTESIS HISTORY:Ascites ATTENDING PHYSICIAN: Dr. Reeves PHYSICIAN PHARMACY TECH: Vandana Phillips PA-C FINDINGS: After informed consent was obtained and timeout procedure performed, fluid was localized in the left lower quadrant under ultrasound guidance and marked on the skin appropriately. The patient was then prepped and draped in the usual sterile fashion and the skin was anesthetized with 1% lidocaine. An ultrasound guided paracentesis was then performed using a Turkel needle. Approximately 6.5 liters of fluid was removed. a portion of the fluid was sent to lab. The patient tolerated the procedure well and there were no immediate complications. IMPRESSION: Ultrasound guided left lower quadrant paracentesis as discussed above. Films reviewed , interpreted and dictated by Dr. Reeves. Transcribed by Vandana Phillips PA-C. Reviewed, Interpreted and Dictated by Tello Reeves MD Transcribed by JOHN Fragoso Authenticated and [facility]
[2024-06-25 09:50] VITALS: BP 116/66; PULSE 108; RESP 16; TEMP 36.8; O2SAT 97
[2024-06-25] MEDS: SODIUM CHLORIDE 0.9% 50ML BAG 50 ML IV (09:50)
[2024-06-25] MEDS: ALBUMIN HUMAN 37.5 GM/150 ML BAG IV (09:50)
[2024-06-25] MEDS: SODIUM CHLORIDE 0.9% 10ML FLUSH SYRINGE 10 ML IV (09:50)
[2024-06-25 10:50] VITALS: BP 93/45; PULSE 100; RESP 14
[2024-06-25 11:35] VITALS: BP 110/64; PULSE 97; RESP 14; TEMP 36.8; O2SAT 98
[2024-06-25 12:46] LABS: Appearance,Body Fld. Hazy; Mononuclear WBCs,Body Fluid 96 %; Polynuclear WBC,Body Fluid 4 %; Source, Body Fld. Peritoneal Fluid; Volume,Body Fld. 6550 mL
[2024-06-25 12:47] LABS: RBC,Body Fluid < 10 cells/uL (< 10 X 10^3); TNC,Body Fluid 97 cells/uL (< 1000)
== END 2024-06-25 11:40 | disposition home or self-care (01) ==
LOC: RAD 07:50
PROVIDERS: PCP Family Medicine; Visit Provider Physician Assistant
DX: K74.69 Other cirrhosis of liver (principal); R18.8 Other ascites
CPT/HCPCS: 49083; 89051; 96365; P9047

== ENCOUNTER 2024-06-26 10:37 | Outpatient (CLI) | payer MEDICARE, SELFPAY ==
[2024-06-26 18:36] LABS: INR 1.25 (0.9-1.1); Prothrombin Time 13.7 seconds (10.1-12.5)
[2024-06-26 18:43] LABS: Hematocrit 24.7 % (42.0-52.0); Hemoglobin 7.1 g/dL (14.1-18.0); Mean Corpuscular Hemoglobin 24.1 pg (27.0-31.2); Red Blood Count 2.94 M/mm3 (4.60-6.20)
[2024-06-26 18:44] LABS: Eosinophils # 0.1 K/mm3 (0.0-0.4); Eosinophils % 5.9 % (0.1-12.0); Lymphocytes # 0.4 K/mm3 (0.7-4.5); Lymphocytes % 17.2 % (10-50); Mean Corpuscular HGB Conc 28.7 g/dL (31.8-35.4); Mean Platelet Volume 10.9 fl (7.4-10.4); Monocytes # 0.3 K/mm3 (0.1-1.0); Monocytes % 15.2 % (1.7-9.3); Neutrophils # 1.2 K/mm3 (1.8-7.8); Neutrophils % 60.2 % (37.0-80.0); Platelet Count 93 K/mm3 (142-424); Red Cell Distribution Width 17.6 % (11.5-17.5)
[2024-06-26 18:47] LABS: Alanine Aminotransferase 18 U/L (12-78); Alkaline Phosphatase 263 U/L (38-126); Aspartate Amino Transferase 46 U/L (17-59); Bilirubin,Total 1.2 mg/dl (0.2-1.3); Blood Urea Nitrogen 13 mg/dl (9-20); Calcium 8.1 mg/dl (8.4-10.2); Carbon Dioxide 37 mmol/L (22.0-30.0); Chloride 97 mmol/L (98-107); Estimated Glomerular Filt Rate 98 ml/min (>60); GFR (African American) 118 ML/MIN (>60); Glucose 104 mg/dl (74-100); Sodium 135 mmol/L (136-145)
[2024-06-26 19:17] LABS: Thyroid Stimulating Hormone 2.04 uIU/mL (0.465-4.68)
[2024-06-26 23:17] LABS: HIV Combo NEGATIVE (Negative)
[2024-06-28 09:10] LABS: HCV Ab Non Reactive (Non Reactive)
== END 2024-06-26 23:59 | disposition home or self-care (01) ==
LOC: LAB.DROPOF 06-27 12:02
PROVIDERS: PCP Family Medicine; Visit Provider Family Medicine
DX: E78.5 Hyperlipidemia, unspecified (principal); D68.9 Coagulation defect, unspecified; I16.0 Hypertensive urgency; I10 Essential (primary) hypertension; Z11.59 Encounter for screening for other viral diseases; K74.60 Unspecified cirrhosis of liver; K40.91 Unilateral inguinal hernia, without obstruction or gangrene, recurrent; R60.9 Edema, unspecified; K75.81 Nonalcoholic steatohepatitis (NASH); K42.9 Umbilical hernia without obstruction or gangrene; I48.20 Chronic atrial fibrillation, unspecified
CPT/HCPCS: 80053; 84443; 85025; 85610; 86803; 87389

== ENCOUNTER 2024-06-28 07:45 | Outpatient (CLI) | payer MEDICARE, SELFPAY ==
[2024-06-28] VITALS (18 sets, daily range): BP systolic 119–144; BP diastolic 64–87; PULSE 111–128; RESP 18; TEMP 36.3–36.9; O2SAT 96–98; BMI 34.4
[2024-06-28 09:22] LABS: Iron 35 ug/dL (49-181)
[2024-06-28] MEDS: diphenhydrAMINE 25MG CAPSULE 50 MG PO (09:22)
[2024-06-28] MEDS: ACETAMINOPHEN 325MG TAB 650 MG PO (09:22)
[2024-06-28] MEDS: 0.9 % SODIUM CHLORIDE 250 ML 25 ML IV (09:23)
[2024-06-28 09:33] LABS: Total Iron Binding Capacity 337 ug/dL (261-462)
[2024-06-28] MEDS: FUROSEMIDE 20 MG/2 ML VIAL IV (12:30)
[2024-06-28] MEDS: FUROSEMIDE 20 MG/2 ML VIAL (14:38)
== END 2024-06-28 14:39 | disposition home or self-care (01) ==
LOC: INF 07:45
PROVIDERS: PCP Family Medicine; Visit Provider Family Medicine
DX: D68.9 Coagulation defect, unspecified (principal)
CPT/HCPCS: 36415; 83540; 83550; 86850; P9016

== ENCOUNTER 2024-07-24 18:12 | Outpatient (CLI) | payer MEDICARE, SELFPAY | END 2024-07-24 23:59 | disposition home or self-care (01) | LOC: LAB.DROPOF 18:13 | PROVIDERS: PCP Family Medicine; Visit Provider Family Medicine | DX: Z02.9 Encounter for administrative examinations, unspecified (principal) ==

== ENCOUNTER 2024-07-26 08:37 | Outpatient (CLI) | payer MEDICARE, SELFPAY ==
--- NOTE | 2024-07-26 08:41 | US_ITS ---
FINAL REPORT CLINICAL HISTORY: ASCITES -- paracentesis -- kaitlynn marcus -- 7000 ml FINDINGS: ULTRASOUND-GUIDED PARACENTESIS HISTORY:Ascites ATTENDING PHYSICIAN: Dr. Reeves PHYSICIAN SLAG DUMPER: Kaitlynn Phillips PA-C FINDINGS: After informed consent was obtained and timeout procedure performed, fluid was localized in the left lower quadrant under ultrasound guidance and marked on the skin appropriately. The patient was then prepped and draped in the usual sterile fashion and the skin was anesthetized with 1% lidocaine. An ultrasound guided paracentesis was then performed using a Turkel needle. Approximately 7 liters of fluid was removed. No fluid was sent to lab. The patient tolerated the procedure well and there were no immediate complications. IMPRESSION: Ultrasound guided paracentesis as discussed above. Films reviewed , interpreted and dictated by Dr. Reeves. Transcribed by Kaitlynn Phillips PA-C. Reviewed, Interpreted and Dictated by Tello Reeves MD Transcribed by JOHN Fragoso Authenticated and [facility]
[2024-07-26] MEDS: SODIUM CHLORIDE 0.9% 50ML BAG 50 ML IV (10:35)
[2024-07-26] MEDS: ALBUMIN HUMAN 37.5 GM/150 ML BAG IV (10:35)
[2024-07-26 10:40] VITALS: BP 108/62; PULSE 88; RESP 16; O2SAT 98
[2024-07-26 11:03] LABS: Appearance,Body Fld. Slightly cloudy; Source, Body Fld. Paracentesis Fluid; Volume,Body Fld. 7000 mL
[2024-07-26 11:10] VITALS: BP 114/65; PULSE 98; RESP 16
[2024-07-26 11:11] LABS: RBC,Body Fluid < 10 cells/uL (< 10 X 10^3); TNC,Body Fluid 106 cells/uL (< 1000)
[2024-07-26 11:40] VITALS: BP 117/61; PULSE 102; RESP 16
[2024-07-26 12:10] VITALS: BP 101/59; PULSE 104; RESP 17
[2024-07-26 15:17] LABS: Mononuclear WBCs,Body Fluid 90 %; Polynuclear WBC,Body Fluid 10 %
== END 2024-07-26 12:30 | disposition home or self-care (01) ==
LOC: RAD 09:37 → INF 10:11
PROVIDERS: PCP Family Medicine; Visit Provider Physician Assistant
DX: K74.60 Unspecified cirrhosis of liver (principal)
CPT/HCPCS: 49083; 89051; 96365; P9047

== ENCOUNTER 2024-08-02 07:36 | Outpatient (CLI) | payer MEDICARE, SELFPAY ==
--- NOTE | 2024-08-02 07:42 | US_ITS ---
FINAL REPORT CLINICAL HISTORY: ASCITES-- 4700 ML-- RT SIDE-- JORGE LOPEZ FINDINGS: ULTRASOUND-GUIDED PARACENTESIS HISTORY: Ascites ATTENDING PHYSICIAN: Dr. Beal PHYSICIAN FRACTIONATING STILL OPERATOR: Jorge Lee PA-C FINDINGS: After informed consent was obtained and timeout procedure performed, fluid was localized in the right lower quadrant under ultrasound guidance and marked on the skin appropriately. The patient was then prepped and draped in the usual sterile fashion and the skin was anesthetized with 1% lidocaine. An ultrasound guided paracentesis was then performed using a Turkel needle. Approximately 4.7 liters of clear yellow fluid was removed. No fluid was sent to lab. The patient tolerated the procedure well and there were no immediate complications. IMPRESSION: Ultrasound guided right lower quadrant paracentesis as discussed above. Films reviewed, interpreted and dictated by Dr. Beal. Transcribed by Jorge Lee PA-C. Reviewed, Interpreted and Dictated by Nikhil Beal MD Transcribed by JOHN Barrios Authenticated and [facility]
[2024-08-02 09:20] VITALS: BP 106/70; PULSE 71; RESP 18; TEMP 36.6; O2SAT 97
[2024-08-02] MEDS: ALBUMIN HUMAN 25 GM/100 ML BAG IV ×2 (09:20→09:50)
[2024-08-02 09:50] VITALS: BP 98/64; PULSE 75
[2024-08-02] MEDS: SODIUM CHLORIDE 0.9% 50ML BAG 50 ML IV (10:20)
[2024-08-02] MEDS: SODIUM CHLORIDE 0.9% 10ML FLUSH SYRINGE 10 ML IV (10:20)
[2024-08-02 10:25] VITALS: BP 100/68; PULSE 72
[2024-08-02 11:13] LABS: Source, Body Fld. Peritoneal Fluid
[2024-08-02 11:14] LABS: Appearance,Body Fld. Slightly cloudy; TNC,Body Fluid 99 cells/uL (< 1000); Volume,Body Fld. 4700 mL
[2024-08-02 11:15] LABS: RBC,Body Fluid < 10 cells/uL (< 10 X 10^3)
[2024-08-02 11:53] LABS: Mononuclear WBCs,Body Fluid 96 %; Polynuclear WBC,Body Fluid 4 %
== END 2024-08-02 10:35 | disposition home or self-care (01) ==
LOC: RAD 08:12 → INF 10:39
PROVIDERS: PCP Family Medicine; Visit Provider Physician Assistant
DX: K74.69 Other cirrhosis of liver (principal); R18.8 Other ascites
CPT/HCPCS: 49083; 89051; 96365; P9047

== ENCOUNTER 2024-08-09 07:50 | Outpatient (CLI) | payer MEDICARE, SELFPAY ==
--- NOTE | 2024-08-09 07:53 | US_ITS ---
FINAL REPORT CLINICAL HISTORY: ASCITES -- PARACENTESIS -- CAMACHO LOPEZ -- 6850ML FINDINGS: ULTRASOUND-GUIDED PARACENTESIS HISTORY:Ascites ATTENDING PHYSICIAN: Dr. Beal PHYSICIAN ROLL SHEETING CUTTER: Caleb Phillips PA-C FINDINGS: After informed consent was obtained and timeout procedure performed, fluid was localized in the left lower quadrant under ultrasound guidance and marked on the skin appropriately. The patient was then prepped and draped in the usual sterile fashion and the skin was anesthetized with 1% lidocaine. An ultrasound guided paracentesis was then performed using a Turkel needle. Approximately 6.8 liters of fluid was removed. A portion of the fluid was sent to lab. The patient tolerated the procedure well and there were no immediate complications. IMPRESSION: Ultrasound guided left lower quadrant paracentesis as discussed above. Films reviewed , interpreted and dictated by Dr. Beal. Transcribed by Caleb Phillips PA-C. Reviewed, Interpreted and Dictated by Nikhil Beal MD Transcribed by JOHN Fragoso Authenticated and [facility]
[2024-08-09 09:22] LABS: Basophils % 0.4 % (0.1-2.0); Eosinophils # 0.1 K/mm3 (0.0-0.4); Eosinophils % 3.6 % (0.1-12.0); Hematocrit 28.3 % (42.0-52.0); Hemoglobin 8.7 g/dL (14.1-18.0); Lymphocytes # 0.4 K/mm3 (0.7-4.5); Lymphocytes % 16.6 % (10-50); Mean Corpuscular HGB Conc 30.7 g/dL (31.8-35.4); Mean Corpuscular Hemoglobin 27.3 pg (27.0-31.2); Mean Corpuscular Volume 88.7 fl (80-94); Mean Platelet Volume 10.4 fl (7.4-10.4); Monocytes # 0.3 K/mm3 (0.1-1.0); Neutrophils # 1.5 K/mm3 (1.8-7.8); Neutrophils % 66.4 % (37.0-80.0); Platelet Count 103 K/mm3 (142-424); Red Blood Count 3.19 M/mm3 (4.60-6.20); Red Cell Distribution Width 18.6 % (11.5-17.5); White Blood Count 2.2 K/mm3 (4.8-10.8)
[2024-08-09 09:25] VITALS: BP 131/73; PULSE 122; RESP 18; TEMP 36.7; O2SAT 97
[2024-08-09] MEDS: ALBUMIN HUMAN 37.5 GM/150 ML BAG IV (09:25)
[2024-08-09] MEDS: SODIUM CHLORIDE 0.9% 50ML BAG 50 ML IV (09:25)
[2024-08-09 09:32] LABS: Alanine Aminotransferase 24 U/L (12-78); Alkaline Phosphatase 333 U/L (38-126); Anion Gap 9.5 mEq/L (5-15); Aspartate Amino Transferase 49 U/L (17-59); Bilirubin,Total 1.6 mg/dl (0.2-1.3); Blood Urea Nitrogen 16 mg/dl (9-20); Calcium 8.3 mg/dl (8.4-10.2); Carbon Dioxide 32 mmol/L (22.0-30.0); Chloride 98 mmol/L (98-107); Estimated Glomerular Filt Rate 114 ml/min (>60); GFR (African American) 138 ML/MIN (>60); Glucose 95 mg/dl (74-100); Potassium 3.5 mmoL/L (3.5-5.1); Sodium 136 mmol/L (136-145)
[2024-08-09 09:33] LABS: INR 1.24 (0.9-1.1); Prothrombin Time 13.3 seconds (9.2-12.1)
[2024-08-09 10:31] LABS: Appearance,Body Fld. Slightly cloudy; Source, Body Fld. Paracentesis Fluid
[2024-08-09 10:32] LABS: RBC,Body Fluid 1000 cells/uL (< 10 X 10^3); TNC,Body Fluid 76 cells/uL (< 1000); Volume,Body Fld. 6890 mL
[2024-08-09 10:34] LABS: Total Iron Binding Capacity 298 ug/dL (261-462)
[2024-08-09 10:40] LABS: Iron 49 ug/dL (49-181)
[2024-08-09 10:58] VITALS: BP 123/75; PULSE 126; RESP 18; O2SAT 96
[2024-08-09 11:28] LABS: Mononuclear WBCs,Body Fluid 100 %; Polynuclear WBC,Body Fluid 0 %
== END 2024-08-09 10:58 | disposition home or self-care (01) ==
LOC: RAD 07:51 → INF 09:51
PROVIDERS: PCP Family Medicine; Visit Provider Physician Assistant
DX: D68.9 Coagulation defect, unspecified (principal); E78.5 Hyperlipidemia, unspecified
CPT/HCPCS: 49083; 80053; 83540; 83550; 85025; 85610; 89051; 96365; P9047

== ENCOUNTER 2024-08-30 08:34 | Outpatient (CLI) | payer MEDICARE, SELFPAY ==
--- NOTE | 2024-08-30 08:42 | US_ITS ---
FINAL REPORT CLINICAL HISTORY: ascites -- paracentesis -- jorge marcus -- 7200 ml FINDINGS: ULTRASOUND-GUIDED PARACENTESIS HISTORY: Ascites ATTENDING PHYSICIAN: Dr. Madrid PHYSICIAN RATE REVIEWER: Jorge Lee PA-C FINDINGS: After informed consent was obtained and timeout procedure performed, fluid was localized in the right lower quadrant under ultrasound guidance and marked on the skin appropriately. The patient was then prepped and draped in the usual sterile fashion and the skin was anesthetized with 1% lidocaine. An ultrasound guided paracentesis was then performed using a Turkel needle. Approximately 7.2 liters of clear yellow fluid was removed. Sample of the fluid was sent to lab. The patient tolerated the procedure well and there were no immediate complications. IMPRESSION: Ultrasound guided left lower quadrant paracentesis as discussed above. Films reviewed , interpreted and dictated by Dr. Yuridia Madrid. Transcribed by Jorge Lee PA-C. Reviewed, Interpreted and Dictated by Yuridia Madrid MD Transcribed by JOHN Barrios Authenticated and . [facility]
[2024-08-30 11:27] LABS: Appearance,Body Fld. Normal; Source, Body Fld. Paracentesis Fluid
[2024-08-30 11:28] LABS: RBC,Body Fluid 1000 cells/uL (< 10 X 10^3); TNC,Body Fluid 458 cells/uL (< 1000); Volume,Body Fld. 2700 mL
[2024-08-30 13:27] LABS: Mononuclear WBCs,Body Fluid 65 %; Polynuclear WBC,Body Fluid 35 %
== END 2024-08-30 23:59 | disposition home or self-care (01) ==
LOC: RAD 08:35
PROVIDERS: PCP Family Medicine; Visit Provider Physician Assistant
DX: R18.8 Other ascites (principal); K74.69 Other cirrhosis of liver
CPT/HCPCS: 49083; 89051

== ENCOUNTER 2024-09-06 07:48 | Outpatient (CLI) | payer MEDICARE, SELFPAY ==
--- NOTE | 2024-09-06 07:50 | US_ITS ---
FINAL REPORT CLINICAL HISTORY: ASCITES -- YOHANNES LOPEZ -- PARACENTESIS -- 400ML FINDINGS: ULTRASOUND-GUIDED PARACENTESIS HISTORY: Ascites. ATTENDING PHYSICIAN: Dr. Reeves PHYSICIAN DIRECTOR OF CARDIAC CATH LAB: Maranda Madera PA-C TECHNIQUE: Informed consent was obtained from the patient. A time-out procedure was performed prior to beginning. Appropriate pocket was localized for drainage. The patient was prepped and draped in a routine sterile fashion. Local anesthesia was achieved with 1% lidocaine. Using imaging guidance with images acquired, an 18-gauge sheath needle was directed into the peritoneal fluid. Approximately 400 mL of clear yellow fluid was aspirated. Following this, the fluid stopped flowing. By ultrasound, the catheter appeared to be looped within the fluid collection. The catheter was flushed with sterile saline. The catheter flushed easily. However, no significant further fluid could be aspirated. The patient requested not to be re-stuck. Therefore, the procedure was terminated. 60 mL of fluid was sent to the lab for analysis. The patient tolerated the procedure well and left the department in good condition. Ultrasound guidance was utilized for this procedure. IMPRESSION: Successful ultrasound guided diagnostic paracentesis as above. Only 400 mL of fluid could be removed, despite appropriate position of the catheter. The patient requested not to be re-stuck. Therefore, this was all of the fluid that could be removed. Reviewed, Interpreted and Dictated by Tello Reeves MD Transcribed by Maranda Madera PA-C Authenticated and [facility]
[2024-09-06 12:04] LABS: Appearance,Body Fld. Normal; Mononuclear WBCs,Body Fluid 92 %; Polynuclear WBC,Body Fluid 8 %; RBC,Body Fluid 1000 cells/uL (< 10 X 10^3); Source, Body Fld. Peritoneal Fluid; TNC,Body Fluid 103 cells/uL (< 1000); Volume,Body Fld. 400 mL
== END 2024-09-06 23:59 | disposition home or self-care (01) ==
LOC: RAD 07:48
PROVIDERS: PCP Family Medicine; Visit Provider Physician Assistant
DX: R18.8 Other ascites (principal); K74.69 Other cirrhosis of liver
CPT/HCPCS: 49083; 89051

== ENCOUNTER 2024-10-16 12:33 | Outpatient (CLI) | payer MEDICARE, SELFPAY ==
[2024-10-16 18:47] LABS: Basophils % 0.5 % (0.1-2.0); Eosinophils # 0.1 K/mm3 (0.0-0.4); Eosinophils % 3.7 % (0.1-12.0); Lymphocytes # 0.4 K/mm3 (0.7-4.5); Lymphocytes % 19.4 % (10-50); Mean Corpuscular HGB Conc 31.3 g/dL (31.8-35.4); Mean Corpuscular Hemoglobin 30.4 pg (27.0-31.2); Mean Corpuscular Volume 97.3 fl (80-94); Mean Platelet Volume 11.2 fl (7.4-10.4); Monocytes # 0.2 K/mm3 (0.1-1.0); Monocytes % 10.5 % (1.7-9.3); Neutrophils # 1.3 K/mm3 (1.8-7.8); Neutrophils % 65.9 % (37.0-80.0); Platelet Count 78 K/mm3 (142-424); Red Blood Count 2.63 M/mm3 (4.60-6.20); Red Cell Distribution Width 15.9 % (11.5-17.5)
[2024-10-16 19:02] LABS: White Blood Count 1.9 K/mm3 (4.8-10.8)
[2024-10-16 19:03] LABS: Hematocrit 25.6 % (42.0-52.0)
[2024-10-16 19:10] LABS: Alanine Aminotransferase 19 U/L (12-78); Albumin Level 2.9 g/dl (3.5-5.0); Albumin/Globulin Ratio 0.8 (1.1-1.8); Alkaline Phosphatase 288 U/L (38-126); Aspartate Amino Transferase 48 U/L (17-59); Bilirubin,Total 1.3 mg/dl (0.2-1.3); Blood Urea Nitrogen 8 mg/dl (9-20); Calcium 8.2 mg/dl (8.4-10.2); Carbon Dioxide 28 mmol/L (22.0-30.0); Chloride 99 mmol/L (98-107); Estimated Glomerular Filt Rate 98 ml/min (>60); GFR (African American) 118 ML/MIN (>60); Globulin 3.6 g/dL (1.3-3.2); Glucose 133 mg/dl (74-100); Sodium 135 mmol/L (136-145); Total Protein,Serum 6.5 g/dl (6.3-8.2)
[2024-10-16 20:17] LABS: MANUAL DIFFERENTIAL MANUAL DIFFERENTIAL (MANUAL DIFF)
[2024-10-16 20:22] LABS: Eosinophils % 5 % (0-3); Hypochromasia 2+; Lymphocytes % 22 % (10-50); Monocytes % 6 % (2-9); Neutrophils % 64 % (42-76); Total Cells Counted 100
[2024-10-16 20:23] LABS: Platelet Estimate Moderate Decrease; Poikilocytosis 1+
== END 2024-10-16 23:59 | disposition home or self-care (01) ==
LOC: LAB.DROPOF 10-17 11:08
PROVIDERS: PCP Family Medicine; Visit Provider Family Medicine
DX: E78.5 Hyperlipidemia, unspecified (principal)
CPT/HCPCS: 80053; 85007; 85014; 85018; 85048; 85049

== ENCOUNTER 2024-10-23 09:59 | Outpatient (CLI) | payer MEDICARE, SELFPAY ==
--- NOTE | 2024-10-23 10:13 | ECG_ITS ---
APPROVED REPORT Exam: Resting ECG HR:96 bpm ECG Measurements Heart Rate 96 AXES QRSd 98 QRS 55 QT 363 T 30 QTc 417 Conclusion ATRIAL FIBRILLATION MINIMAL ST DEPRESSION [0.025+ mV ST DEPRESSION] ABNORMAL RHYTHM ECG UNCONFIRMED REPORT Electronically signed by : Alex [place] MD 10/24/2024 08:42:46
== END 2024-10-23 23:59 | disposition home or self-care (01) ==
LOC: RT 10:00
PROVIDERS: PCP Family Medicine; Visit Provider Internal Medicine
DX: I48.20 Chronic atrial fibrillation, unspecified (principal)
CPT/HCPCS: 93005

== ENCOUNTER 2024-11-18 09:19 | Outpatient (CLI) | payer MEDICARE, SELFPAY ==
[2024-11-18 18:50] LABS: Basophils % 0.5 % (0.1-2.0); Eosinophils # 0.1 Kmm3 (0.0-0.4); Eosinophils % 3.7 % (0.1-12.0); Hemoglobin 7.9 g/dL (14.1-18.0); Immature Granulocytes # 0.01 10^3uL; Immature Granulocytes % 0.5 %; Lymphocytes # 0.4 K/mm3 (0.7-4.5); Lymphocytes % 20.2 % (10-50); Mean Corpuscular HGB Conc 30.4 g/dL (31.8-35.4); Mean Corpuscular Hemoglobin 29.5 pg (27.0-31.2); Mean Platelet Volume 11.3 fl (7.4-10.4); Monocytes # 0.3 K/mm3 (0.1-1.0); Monocytes % 12.8 % (1.7-9.3); Neutrophils # 1.4 K/mm3 (1.8-7.8); Neutrophils % 62.3 % (37.0-80.0); Nucleated Red Blood Cells # 0 10^3/uL; Nucleated Red Blood Cells % 0 %; Platelet Count 78 K/mm3 (142-424); Red Blood Count 2.68 M/mm3 (4.60-6.20); Red Cell Distribution Width 14.6 % (11.5-17.5); Red Cell Distribution Width-SD 51.7 fL; White Blood Count 2.2 K/mm3 (4.8-10.8)
[2024-11-18 18:53] LABS: INR 1.19 (0.9-1.1); Prothrombin Time 13.1 seconds (10.1-12.5)
[2024-11-18 18:59] LABS: MANUAL DIFFERENTIAL MANUAL DIFFERENTIAL (MANUAL DIFF)
[2024-11-18 19:58] LABS: Albumin Level 2.9 g/dl (3.5-5.0); Chloride 106 mmol/L (98-107); Potassium 4.6 mmoL/L (3.5-5.1); Sodium 134 mmol/L (136-145)
[2024-11-18 20:01] LABS: Alanine Aminotransferase 17 U/L (12-78); Albumin/Globulin Ratio 0.8 (1.1-1.8); Alkaline Phosphatase 218 U/L (38-126); Anion Gap 4.6 mEq/L (5-15); Aspartate Amino Transferase 58 U/L (17-59); Blood Urea Nitrogen 16 mg/dl (9-20); Carbon Dioxide 28 mmol/L (22.0-30.0); Estimated Glomerular Filt Rate 98 ml/min (>60); GFR (African American) 118 ML/MIN (>60); Globulin 3.7 g/dL (1.3-3.2); Iron 49 ug/dL (49-181); Total Protein,Serum 6.6 g/dl (6.3-8.2)
[2024-11-18 20:02] LABS: Calcium 8.3 mg/dl (8.4-10.2); Glucose 103 mg/dl (74-100)
[2024-11-18 20:11] LABS: Total Iron Binding Capacity 353 ug/dL (261-462)
[2024-11-18 21:03] LABS: Digoxin < 0.40 ng/ml (0.2-2.00)
[2024-11-18 21:55] LABS: Eosinophils % 7 % (0-3); Lymphocytes % 32 % (10-50); Monocytes % 8 % (2-9); Neutrophils % 53 % (42-76); RBC Morphology Normal; Total Cells Counted 100
[2024-11-18 21:56] LABS: Basophilic Stippling 1+; Platelet Estimate Slight Decrease
== END 2024-11-18 23:59 | disposition home or self-care (01) ==
LOC: LAB.DROPOF 11-19 13:04
PROVIDERS: PCP Family Medicine; Visit Provider Family Medicine
DX: K74.69 Other cirrhosis of liver (principal); R18.8 Other ascites; R53.83 Other fatigue
CPT/HCPCS: 80053; 80162; 83540; 83550; 85007; 85025; 85027; 85610

== ENCOUNTER 2024-12-16 10:55 | Outpatient (CLI) | payer MEDICARE, SELFPAY ==
[2024-12-16 18:16] LABS: Basophils % 0.5 % (0.1-2.0); Eosinophils # 0.1 Kmm3 (0.0-0.4); Eosinophils % 5.1 % (0.1-12.0); Hematocrit 27.4 % (42.0-52.0); Hemoglobin 8.3 g/dL (14.1-18.0); Immature Granulocytes # 0 10^3uL; Immature Granulocytes % 0 %; Lymphocytes # 0.5 K/mm3 (0.7-4.5); Lymphocytes % 24.4 % (10-50); Mean Corpuscular HGB Conc 30.3 g/dL (31.8-35.4); Mean Corpuscular Hemoglobin 28.8 pg (27.0-31.2); Mean Corpuscular Volume 95.1 fl (80-94); Mean Platelet Volume 10.7 fl (7.4-10.4); Monocytes # 0.3 K/mm3 (0.1-1.0); Monocytes % 14.2 % (1.7-9.3); Neutrophils # 1.1 K/mm3 (1.8-7.8); Neutrophils % 55.8 % (37.0-80.0); Nucleated Red Blood Cells # 0 10^3/uL; Nucleated Red Blood Cells % 0 %; Platelet Count 69 K/mm3 (142-424); Red Blood Count 2.88 M/mm3 (4.60-6.20); Red Cell Distribution Width 15.5 % (11.5-17.5); Red Cell Distribution Width-SD 53.5 fL
[2024-12-16 18:38] LABS: MANUAL DIFFERENTIAL MANUAL DIFFERENTIAL (MANUAL DIFF)
[2024-12-16 19:19] LABS: Eosinophils % 9 % (0-3); Lymphocytes % 24 % (10-50); Monocytes % 14 % (2-9); Neutrophils % 43 % (42-76); Total Cells Counted 100
[2024-12-16 19:20] LABS: Alanine Aminotransferase 14 U/L (12-78); Albumin Level 2.9 g/dl (3.5-5.0); Albumin/Globulin Ratio 0.8 (1.1-1.8); Alkaline Phosphatase 257 U/L (38-126); Anion Gap 5.5 mEq/L (5-15); Aspartate Amino Transferase 41 U/L (17-59); Bilirubin,Total 1.1 mg/dl (0.2-1.3); Blood Urea Nitrogen 14 mg/dl (9-20); Calcium 8.6 mg/dl (8.4-10.2); Carbon Dioxide 31 mmol/L (22.0-30.0); Chloride 100 mmol/L (98-107); Estimated Glomerular Filt Rate 85 ml/min (>60); GFR (African American) 103 ML/MIN (>60); Globulin 3.5 g/dL (1.3-3.2); Glucose 97 mg/dl (74-100); Platelet Estimate Moderate Decrease; Potassium 4.5 mmoL/L (3.5-5.1); RBC Morphology Normal; Sodium 132 mmol/L (136-145); Total Protein,Serum 6.4 g/dl (6.3-8.2)
[2024-12-16 20:22] LABS: Iron 39 ug/dL (49-181)
[2024-12-16 20:35] LABS: Total Iron Binding Capacity 343 ug/dL (261-462)
--- OUTSIDE RECORDS SUMMARY | 2024-12-17 15:21 | XMS_ITS | Clinical Summary ---
Author Organization [facility] Address [address] [facility] [address] [place] [address] Phone Care Team Providers Care Printer Small Print Shop Name Role Phone Jeff Gallardo MD Conditions or Problems Problem Name Problem Code Onset Date Status Entry Date Provider Comment Standard Description Annotate SPINAL STENOSIS, CERVICAL REGION M48.02 (ICD-10-CM ) Active Jeff Gallardo MD Spinal stenosis, cervical region SPONDYLOSIS WITHOUT MYELOPATHY OR RADICULOPATHY, CERVICAL REGION M47.812 (ICD-10-CM ) Active Jeff Gallardo MD Spondylosis without myelopathy or radiculopathy , cervical region Medications Medication Instructions Start Date Stop Date Generic Name NDC Provider IBUPROFEN 800 MG TABS 1 po tid prn pain 8 IBUPROFEN [id number] Jeff Gallardo MD FENOFIBRIC ACID 135 MG CPDR 1 daily Non-Moon 8 CHOLINE FENOFIBRATE [id number] Jeff Gallardo MD CRESTOR 20 MG TABS 1 daily Non-Moon 8 ROSUVASTATIN CALCIUM [id number] Jeff Gallardo MD LISINOPRIL 10 MG TABS 1 daily Non-[place] 8 LISINOPRIL [id number] Jeff Gallardo MD GABAPENTIN 400 MG CAPS 1 po five times per day [facility] 8 GABAPENTIN [id number] Jeff Gallardo MD SOMA 350 MG TABS 1 qid Non-[place] 8 CARISOPRODOL 12043340391 Jeff Gallardo MD PERCOCET 10-325 MG TABS 1 qid [facility] 8 OXYCODONE-ACETA MINOPHEN [id number] Jeff Gallardo MD Medications Administered No information available. Allergies, Adverse Reactions, Alerts Allergy Name Reaction Description Start Date Severity Statu s Provider CORTISONE Hives Efrain nixon MD CONTRAST DYE Efrain berg MD MORPHINE Hives Efrain nixon MD Results No information available. Plan of Care Type Date Detail Pending order X-Ray Cervical F lexion/Extension Pending order X-Ray Cervical A P & Lateral Patient education cervical%20spi nal%20stenosis Procedures Code Procedure Name Date Entry Date [facility]-[id number] Medications Documented 1124F No ACP/POA documented but discussed 10/15 G8483 No flu shot received; allergy etc. 10/15 7026S3X No pneumococcal vaccine received; no reas on 1036F No tobacco use currently 201 12/12/07 G8417 BMI above normal, f/u plan documented 201 12/12/07 G8730 Pain Assessment posi tive with follow up plan G8427 Medication Reconcili ation Completed CPT-G8427 Vital Signs Date Name Value Unit Description BMI (Body Mass Index) 29.83 kg/m2 Bod y Mass Index (Ratio) BP Diastolic 61 mm[Hg] blood pressu re, diastolic BP Systolic 106 mm[Hg] blood pressur e, systolic Heart Rate 76 /min pulse rate Height 72 [in_us] height E&M Weight Measured 220 [lb_av] weight E& M Weight Measured 220 [lb_av] weight E& M Immunizations No information available. Advance Directives No information available.
--- OUTSIDE RECORDS SUMMARY | 2024-12-17 15:22 | XMS_ITS | Encounter Summary ---
Author Organization [facility] Address [address] [place] [address] Care Team Providers Care Automatic Casting Machine Operator Name Role Phone Roni Burciaga MD Primary Care Provider [phone] Yunier Barrett MD Primary Care Provider [phone] Roni Burciaga MD Unavailable [phone] Ace Campbell DO Unavailable [phone] Reema Sanchez RN Unavailable [phone] Keesha Love Unavailable [phone] Miracle Villanueva LPN Unavailable Unavailable Encounter Details Date Type Department Care Team (Late st Contact Info) Description 03/07/2022 Orders Only External Location [address] [place] [address] Provider, External Social History Tobacco Use Types Packs/Day Years Used Date Smoking Tobacco: Never Assessed Sex and Gender Information Value Date Recorded Sex Assigned at Not on file Legal Sex Male 8:07 PM EDT Gender Identity Not on file Sexual Orientation Not on file documented as of this encounter Plan of Treatment Not on file documented as of this encounter Procedures Procedure Name Priority Date/Time Associated Diagnosis Comments US ABDOMEN OUTSIDE IMAGES 03/07/2022 7:48 AM EDT documented in this encounter Results * US ABDOMEN OUTSIDE IMAGES (03/07/2022 7:48 AM EDT) Anatomical Region Laterality Modality Ultrasound 03/07/2022 7:48 AM EDT us External Provider IMG US PROCEDURES Final Result documented in this encounter Visit Diagnoses Not on filedocumented in this encounter Care Teams Automatic Casting Machine Operator Relationship Specialty Start Date End Date Roni Burciaga MD [address] [place] [address] PCP - General 09/23/22 10/03/22 Yunier Barrett MD [address] [place] [address] PCP - General 10/04/22 Roni Burciaga MD [address] [place] [address] Referring Physician Gastroenterology 10/04/22 Ace Campbell DO [address] [place] [address] [place] [address] Referring Physician General Surgery 05/15/24 Reema Sanchez RN [facility] [address] [place] [address] Registered Nurse Transplant Surgery 05/15/24 [place] [address] Registered Nurse Transplant Surgery 05/15/24 Miracle Villanueva LPN VALUE-[place]ED [place] [address] TCM Nurse 08/28/24 09/25/24 documented as of this encounter
--- OUTSIDE RECORDS SUMMARY | 2024-12-17 15:22 | XMS_ITS | Encounter Summary ---
Author Organization [facility] Address [address] [place] [address] Care Team Providers Care Senior Java Web Application Developer Name Role Phone Yunier Barrett MD Primary Care Provider [phone] Roni Burciaga MD Unavailable [phone] Adrian Ace A DO Unavailable [phone] Reema Sanchez RN Unavailable [phone] Keesha Love Unavailable [phone] Encounter Details Date Type Department Care Team (Late st Contact Info) Description 10/23/2024 Telephone [facility] Radiology [address] [place] [id number] Shanice Nowak, RN [facility] Social History Tobacco Use Types Packs/Day Years Used Date Smoking Tobacco: Never Passive Smoke Exposure: Never Smokeless Tobacco: Never Alcohol Use Standard Drinks/Week Comments Never 0 (1 standard drink = 0.6 oz pur e alcohol) Humiliation, Afraid, Rape, and Kick questionnair e Answer Date Recorded Within the last year, have y ou been afraid of your partner or ex-partner? No 08/26/2024 Within the last year, have y ou been humiliated or emotionally abused in other ways by your partner or ex-partner? No Within the last year, have y ou been kicked, hit, slapped, or otherwise physically hurt by your partner or ex-partner? No 08/26/2024 Within the last year, have y ou been raped or forced to have any kind of sexual activity by your partner or ex-partner? No 08/26/2024 PHQ-2 Answer Date Recorded Patient Health Questionnaire-2 Score 0 10/09/2024 Hunger Vital Sign Answer Date Recorded Within the past 12 months, y ou worried that your food would run out before you got the money to buy more. Never true 08/26/19 Within the past 12 months, t he food you bought just didn't last and you didn't have money to get more. Never true 08/26/2024 PRAPARE - Transportation Answer Date Re corded In the past 12 months, has l ack of transportation kept you from medical appointments or from getting medications? No 08/10 In the past 12 months, has l ack of transportation kept you from meetings, work, or from getting things needed for daily living? No 08/26/2024 PHQ-9 Answer Date Recorded Patient Health Questionnaire-9 Score 0 10/09/2024 Housing Stability Vital Sign Answer Bert e Recorded In the last 12 months, was t here a time when you were not able to pay the mortgage or rent on time? No 08/26/2024 In the past 12 months, how m any times have you moved where you were living? 0 08/26/2024 At any time in the past 12 m [facility], were you homeless or living in a halfway (including now)? No 08/26/2024 Utilities Answer Date Recorded In the past 12 months has th e electric, gas, oil, or water company threatened to shut off services in your home? No 08/26/2024 PHQ-2A Answer Date Recorded Depression Risk 0 03/18/2024 Sex and Gender Information Value Date Recorded Sex Assigned at Not on file Legal Sex Male 8:07 PM EDT Gender Identity Not on file Sexual Orientation Not on file documented as of this encounter Plan of Treatment Not on file documented as of this encounter Visit Diagnoses Not on filedocumented in this encounter Additional Health Concerns Assessment Noted Time PHQ-9 Depression Total Score: 0 10/10/19 25 10:46 AM EDT A fall risk assessment has been complete d for the patient 10/09/2024 10:46 AM EDT A Body Mass Index follow-up plan has been documented for the patient 10/09/2024 11:29 AM EDT documented as of this encounter Care Teams Senior Java Web Application Developer Relationship Specialty Start Date End Date Yunier Barrett MD PCP - General 10/04/22 Roni Burciaga MD [address] [place], [place] [id number] Referring Physician Gastroenterology 10/04/22 Ace Campbell DO [address] [place] [address] Referring Physician General Surgery 05/15/24 Reema Sanchez, RN [facility] [address] [place] [address] Registered Nurse Transplant Surgery 05/15/24 Keesha Love [place] [id number] Registered Nurse Transplant Surgery 05/15/24 documented as of this encounter
--- OUTSIDE RECORDS SUMMARY | 2024-12-17 15:22 | XMS_ITS ---
Author Organization [facility] Address [address] [place] [address] Care Team Providers Care Communications Billing Analyst Name Role Phone Yunier Barrett MD Primary Care Provider [phone] Roni Burciaga MD Unavailable [phone] Adrian Ace A DO Unavailable [phone] Reema Sanchez RN Unavailable [phone] Keesha Love Unavailable [phone] Transplant Episode Liver Candidate 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
--- OUTSIDE RECORDS SUMMARY | 2024-12-17 15:22 | XMS_ITS | Encounter Summary ---
Author Organization [facility] Address [address] [place] [address] Care Team Providers Care Car Tester Name Role Phone Yunier Barrett MD Primary Care Provider [phone] Roni Burciaga MD Unavailable [phone] Ace Campbell DO Unavailable [phone] Reema Sanchez RN Unavailable [phone] Keesha Love Unavailable [phone] Reason for Visit * Reason Comments Med Refill Encounter Details Date Type Department Care Team (Late st Contact Info) Description 11/15/2024 Refill [facility] [place] [address] [facility] [place] [address] Sowmya Doe, JOHN [address] [place] [address] Social History Tobacco Use Types Packs/Day Years [...] money to buy more. Never true 08/26/19 25 Within the past 12 months, t he [...] any time in the past 12 m onths, were you homeless or living in a fdc (including now)? No 08/26/2024 Utilities Answer Date Recorded In the past 12 months has e General Compression, gas, oil, or water [employer] threatened to shut off services in your [...] documented as of this encounter Care Teams Car Tester Relationship Specialty Start Date End Date Yunier Barrett MD PCP - General 10/04/22 Roni Burciaga MD [address] [place] [address] Referring Physician Gastroenterology 10/04/22 Aec Campbell DO [address] [place] [address] Referring Physician General Surgery 05/15/24 Reema Sanchez, RN [facility] [address] [place] [address] Registered Nurse Transplant Surgery 05/15/24 [place] [address] Registered Nurse Transplant Surgery 05/15/24 documented as of this encounter
--- OUTSIDE RECORDS SUMMARY | 2024-12-17 15:22 | XMS_ITS | Clinical Summary ---
Author Organization [facility] Address [address] [place] [id number] Care Team Providers Care Riveter Portable Machine Name Role Phone Yunier Barrett MD Primary Care Provider [phone] Source Comments This information has been disclosed to you from confidential records protectedfrom disclosure by state law. You shall make no further disclosure of thisinformation without the specific, written, and informed release of theindividual to whom it pertains, or as otherwise permitted by law. A generalauthorization for the release of medical or other information is not sufficientfor the purposes of therelease of HIV test results or diagnoses. [id number] Allergies Active Allergy Reactions Criticality Noted Date Comments Clobetasol Propionate 04/08/2013 Throat swelling Cortisone 02/06/2013 Iodinated Contrast Media 02/06/2013 Morphine 02/06/2013 Medications rosuvastatin (CRESTOR) 10 MG tabletIndicatio ns:hypercholest erolemia Take 10 mg by mouth daily. Active clobetasol (TEMOVATE) 0.05 % ointmentIndicat ions:Granuloma annulare apply to affected areas bid prn for maximum of 3 weeks on, 1 week off, repeat prn 30 g 0 02/06/2013 Active fenofibric acid, choline, (TRILIPIX) 135 mg capsule Take 135 mg by mouth daily. Active oxyCODONE-aceta minophen (PERCOCET) 10-325 mg per tabletIndicatio ns:Pain Take 1 tablet by mouth every 6 hours as needed. Active gabapentin (NEURONTIN) 300 MG capsule Take 300 mg by mouth 3 times a day. Active carisoprodol (SOMA) 350 MG tabletIndicatio ns:muscle spasm Take 350 mg by mouth 4 times a day. 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 AK (actinic keratosis) 02/06/2013 Hypercholesteremia Back pain Family History Medical History Relation Comments Cancer Mother lung Melanoma Neg Hx Relation Status Comments Mother Social History Tobacco Use Types Packs/Day Years Used Date Smoking Tobacco: Never Smokeless Tobacco: Never Alcohol Use Standard Drinks/Week Comments No 0 (1 standard drink = 0.6 oz pur e alcohol) Sex and Gender Information Value Date Recorded Sex Assigned at Not on file Legal Sex Male 9:16 PM EST Gender Identity Not on file Sexual Orientation Not on file Last Filed Vital Signs Vital Sign Reading Time Taken Comments Blood Pressure - - Pulse - - Temperature - - Respiratory Rate - - Oxygen Saturation - - Inhaled Oxygen Concentration - - Weight 106.6 kg (235 lb) 05/08/2013 8:19 AM EDT Height 182.9 cm (6') 05/08/2013 8:19 AM EDT Body Mass Index 31.87 05/08/2013 8:19 AM EDT Plan of Treatment Not on file Insurance MEDICARE A AND B MEDICAID [place] MEDICARE A AND B MEDICAID [place] Care Teams Riveter Portable Machine Relationship Specialty Start Date End Date Yunier Barrett MD [address] [place] [address] PCP - General Family Medicine 12/17/12
--- OUTSIDE RECORDS SUMMARY | 2024-12-17 15:22 | XMS_ITS | Encounter Summary ---
Author Organization [facility] Address [address] [place] [address] Care Team Providers Care Bank Appraiser Name Role Phone Yunier Barrett MD Primary Care Provider [phone] Roni Burciaga MD Unavailable [phone] Ace Campbell DO Unavailable [phone] Reema Sanchez RN Unavailable [phone] Keesha Love Unavailable [phone] Encounter Details Date Type Department Care Team (Late st Contact Info) Description 12/04/2024 Telephone [facility] [address] [facility] [place] [address] Bonifacio Pratt, PharmD [address] [place] [address] Social History Tobacco Use Types [...] any time in the past 12 m [facility], were you homeless or living in a [place] [facility] facility (including now)? No 08/26/2024 Utilities Answer Date Recorded In the past 12 months has th e General [employer], gas, oil, or water company threatened to shut off services in your home? No 08/26/2024 PHQ-2A Answer Date Recorded Depression Risk 0 03/18/2024 Sex and Gender Information Value Date Recorded Sex Assigned at Not on file Legal Sex Male 8:07 PM EDT Gender Identity Not on file Sexual Orientation Not on file documented as of this encounter Miscellaneous Notes * Telephone Encounter - Bonifacio Pratt, PharmD - 12/04/2024 11:52 AM EDT Mr. Ruiz was contacted today to follow up on medication changes as discussed 11/26/24. Patient decreased carvedilol to 12.5 mg BID and restarted digoxin. Since medication changes he reports a worsening in fatigue that he states is the same that occurred with prior trial of digoxin and feeling sore due to being less active due fatigue. He also reports experiencing intermittent low blood pressures.D/t symptoms patient did not take dose of digoxin last night. Home reported blood pressure readings: From log, today 12/05 -> 11/26 117 77 88 111 73 92 114 73 96 89 48 107 97 59 103 103 70 107 111 74 109 113 [address] Smith, will stop digoxin. Reviewed limited options with patient including increasing carvedilol back to 25 mg BID (as previously tolerated) or considering addition of diltiazem as was on prior and stopped at time of initiation of carvedilol though concerned for hypotension. As patient stopped digoxin last night he prefers to monitor for an additional 1-2 weeks and reevaluate medications and vitals at follow up. documented in this encounter Plan of Treatment Not on [...] documented as of this encounter Care Teams Bank Appraiser Relationship Specialty Start Date End Date Yunier Barrett MD PCP - General 10/04/22 Roni Burciaga MD [address] [place] [phone] Referring Physician Gastroenterology 10/04/22 Ace Campbell DO [address] [place] [address] [address] [place] [address] Referring Physician General Surgery 05/15/24 Reema Sanchez, RN [facility] [address] [place] [address] Registered Nurse Transplant Surgery 05/15/24 [place] [address] Registered Nurse Transplant Surgery 05/15/24 documented as of this encounter
--- OUTSIDE RECORDS SUMMARY | 2024-12-17 15:22 | XMS_ITS | Clinical Summary ---
Author Organization [id number] Address [address], [address] [place] [address] Care Team Providers Care Substation Maintenance Technician Name Role Phone Yunier Barrett MD Primary Care Provider [phone] Allergies Active Allergy Reactions Criticality Noted Date Comments Codeine Nausea And Vomiting Medium 04/25/2011 Cortisone Hives Low 04/25/2011 Iodinated Contrast Media Swelling Low 04/25/2011 Per patient throat swelled cant breathe even wit pre medication Morphine Hives Low 07/05/2021 Medications LISINOPRIL ORAL Take 10 mg by mouth daily. Active XARELTO 20 mg Oral Tablet Take 20 mg by mouth daily. 2 Active rosuvastatin (CRESTOR) 20 mg Oral Tablet Take 20 mg by mouth daily. 2 Active dicyclomine (BENTYL) 20 mg Oral Tablet Take 20 mg by mouth 3 times daily. 2 Active spironolactone (ALDACTONE) 50 mg Oral Tablet Take 50 mg by mouth daily. 2 Active dilTIAZem 180 mg Oral Capsule, Sust. Release 24 hr Take 180 mg by mouth daily. 2 Active oxyCODONE-acetam inophen (PERCOCET) 10-325 mg Oral Tablet Take 1 Tablet by mouth every 8 hours. Active ONE DAILY MULTIVITAMIN ORAL Take 1 Tablet by mouth daily. Active aspirin 325 mg Oral Tablet Take 325 mg by mouth daily. Active ENULOSE 10 gram/15 mL Oral Solution TAKE 10 ML BY MOUTH EVERY 8 HOURS 450 mL 3 3 Active Additional Information Patient not taking.Reported on 12/08/2023 [id number] -C (PLENVU) 140-9-5.2 gram Oral Powder in Packet, SequentialIndica tions:Esophageal varices without bleeding, unspecified esophageal varices type (HCC),Personal history of colonic polyps Take 3 Packets by mouth Preprocedure for up to 1 dose. Take 1 kit per physician instructions 3 Packet 3 Active Additional Information Patient not taking.Reported on 12/08/2023 carvediloL (COREG) 3.125 mg Oral Tablet Take 3.125 mg by mouth daily. 4 Active pregabalin (LYRICA) 50 mg Oral Capsule 4 Active dilTIAZem 240 mg Oral Capsule, Sust. Release 24 hr Take 240 mg by mouth daily. Active rifAXIMin (XIFAXAN) 550 mg Oral Tablet Take 550 mg by mouth 2 times daily. Active fUROsemide (LASIX) 20 mg Oral Tablet Take 20 mg by mouth daily. Active pantoprazole (PROTONIX) 40 mg Oral Tablet, Delayed Release (E.C.) Take 40 mg by mouth daily. Active enoxaparin (LOVENOX) SubQ Syringe 100 mg/1 mL 4 Active aspirin 81 mg Oral Tablet, Chewable Take 1 Tablet by mouth daily. 30 Tablet 11 10/04/2023 4:13 PM EDT 4 Active Additional Information Patient not taking.Reported on 12/08/2023 oxyCODONE (ROXICODONE) 5 mg Oral TabletIndication s:Status post total hip replacement, right TAKE 1 TABLET BY MOUTH EVERY 4 HOURS NEEDED FOR ACUTE PAIN > 3 DAYS MEDICALLY NECESSARY (R52). 40 Tablet 4 Active Additional Information Patient not taking.Reported on 12/08/2023 lactulose (ENULOSE) 10 gram/15 mL Oral Solution Take 10 mL by mouth 3 times daily as needed. 450 mL 3 4 Active Active Problems Problem Noted Date Diagnosed Date Umbilical hernia without obstruction and without gangrene 12/08/2023 Assessment & Plan (12/08/2023 10:13 AM EDT): Patient has an umbilical hernia. We discussed umbilical hernias, their natural progression, and surgical options for treatment. We reviewed robotic and open approaches. We discussed the use of mesh in repairs. We discussed the risk of mónica-operative complications and mortality in the setting of cirrhosis. He is established with the transplant program at . I encouraged him to discuss elective surgery with their surgeons. He was agreeable to that plan. We reviewed warning signs and symptoms that should prompt urgent evaluation. he stated his understanding and agreement with this plan. Non-recurrent unilateral ing uinal hernia without obstruction or gangrene 12/08/2023 Assessment & Plan (12/08/2023 10:14 AM EDT): Patient has a left inguinal hernia on exam. I reviewed his surgical options including open or robotic approaches. We discussed the relative pros and cons of each approach. We discussed the difference between reducible, incarcerated, and strangulated hernias. I answered all of his questions regarding his options. As with his umbilical hernia, I have recommended that he discuss surgery with the transplant team at Primary osteoarthritis of right hip 07/26/2023 Elevated CA 19-9 level 02/27/2023 Assessment & Plan (02/27/2023 10:17 AM EDT): He was assessed with an MR of the abdomen that demonstrated narrowing along the common bile duct. He had a follow-up endoscopic ultrasound with Dr. Brantley in November 2022. There was no identifiable lesion seen. I will repeat his labs at this time. He is asymptomatic. Coronary arteriosclerosis 11/25/2021 Herniated lumbar intervertebral disc 11/25/2021 Hyperlipidemia 09/21/2021 Irritable bowel syndrome 09/21/2021 Liver disease 09/21/2021 Overview (09/21/2021): fatty liver [place] (myocardial infarction) 09/21/2021 Overview (09/21/2021): X2 when in 20's Esophageal varices 09/08/2021 Assessment & Plan (09/08/2021 9:17 AM EST): Repeat EGD in 1 year for ongoing esophageal variceal surveillance. Melena 09/08/2021 Assessment & Plan (09/08/2021 9:19 AM EST): He denies any further melena. I will obtain a CBC, CMP today. I will also consider obtaining a colonoscopy if his melena were to change or his hemoglobin were to be lower. He describes having a colonoscopy in [place] less than 5 years ago and was normal. Cirrhosis of liver with ascites 09/08/2021 Assessment & Plan (12/08/2023 10:16 AM EDT): MELD 3.0: 15 at 09/05/2023 10:47 AM MELD-Na: 18 at 09/05/2023 10:47 AM Calculated from: Serum Creatinine: 1.09 mg/dL at 09/05/2023 10:47 AM Serum Sodium: 137 mmol/L at 09/05/2023 10:47 AM Total Bilirubin: 0.9 mg/dL (Using min of 1 mg/dL) at 09/05/2023 10:47 AM Serum Albumin: 3.5 gm/dL at 09/05/2023 10:47 AM INR(ratio): 2.51 (ratio) at 09/05/2023 10:47 AM Age at listing (hypothetical): 62 years Sex: Male at 09/05/2023 10:47 AM We discussed the perioperative risks of surgery in the setting of cirrhosis. I explained that my recommendation would be surgery with the transplant team to minimize his risks and be in the hands of the team that would treat any complications relating to his liver. He stated his understanding and appreciation for that advice. He will reach out to the [facility] program. Assessment & Plan (03/01/2023 8:24 AM EDT): His last MELD score was 19 however it is affected by his anticoagulation. I will repeat his labs at this time. He needs to follow-up with [facility]. His right upper quadrant ultrasound is due, I will order that at this time. He also needs to be vaccinated against hepatitis B. He has immunity to hepatitis A. I am concerned about his social status in regards to his transplant. Unfortunately we cannot have him see [facility] given his insurance provided by the [facility]. I will repeat his EGD at this time. He is doing stably well on his current dose of spironolactone, Lasix, lactulose and Xifaxan. I will see him back in the office in 3 months. Patient to scheduled ov for Hep B vax. Assessment & Plan (02/22/2022 9:19 AM EDT): I would prefer that he is not on anticoagulation due to elevated INR, low platelet count and the presence of grade 1 esophageal varices seen back in 2019. He is due for a right upper quadrant ultrasound as well as additional laboratory which I will obtain today including a CBC, CMP, PT/INR and alpha-fetoprotein. I will also place him on Xifaxan as well as lactulose to help titrate his bowel movements to 2-3 bowel once daily. This is in efforts to avoid him from having portal systemic encephalopathy. I will also have him see [facility] transplant center. I will also perform an EGD and colonoscopy. I have discussed the risk and benefits of the procedure including medication reaction, infection, bleeding, perforation that may require surgery to correct, aspiration pneumonia, possible missed lesion. I have discussed the benefits, risks and possible complications of the procedure which includes a possible infection, bleeding, medication reaction, perforation that may require surgery to correct with a possible ostomy/bag, missed lesion, splenic injury and aspiration pneumonia. I will have him continue on a 2 g sodium diet. I will also have him avoid alcohol. Assessment & Plan (09/08/2021 9:19 AM EST): He had small volume ascites seen at the time of his last CT scan. He does not use alcohol. He denies any family history of liver disease. His autoimmune, infectious, hereditary and metabolic work-up was all negative. At this point I am leaning toward obtaining a liver biopsy however I am not sure how it would change our overall management. I will discuss this further with him at the time of his next office visit in 3 months. His last imaging of his liver was obtained during his hospitalization June and was without hepatoma. He will need a repeat right upper quadrant ultrasound in December. I have stressed to him the avoidance of salt and for him not to ingest more than 3 g of Tylenol daily nor more than 2 g of salt daily. He denies any current issues with memory or confusion. 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 Chronic atrial fibrillation History of CVA (cerebrovascular accident) Surgical History Surgery Date Site/Laterality Comments HAND SURGERY 03/10/2011 - 04/08/2011 put screw in r wrist CHOLECYSTECTOMY, LAPAROSCOPIC 05/06/2011 Abdomen/N/A LAPAROSCOPIC CHOLECYSTECTOMY ; Surgeon: Edith Mata MD; Location: [facility]; Service: General JOINT REPLACEMENT Left knee FINGER SURGERY Left index UPPER GASTROINTESTINAL ENDOSCOPY 07/07/2021 N/A ESOPHAGOGASTRODUODENOSCOPY with biopsy; Surgeon: Lamonte Villatoro MD; Location: [facility]; Service: Endoscopy COLONOSCOPY HIP ARTHROPLASTY 10/04/2023 Hip/Right RIGHT TOTAL HIP REPLACEMENT; Surgeon: Mikal Toney MD; Location: [facility] OR; Service: Orthopedics Medical devices from this surgery are in the Medical Devices section. 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, had guillain barre Allergy Chronic atrial fibrillation (HCC) History of CVA (cerebrovascu lar accident) Cardiac dysrhythmia a fib Cirrhosis (HCC) on [facility] list Encounter for blood transfusion 1991 related to Guillain [place] Family History Medical History Relation Name Comments Early Father Heart Disease Father Arthritis Mother Asthma Mother Cancer Mother Stroke Mother Relation Name Status Comments Brother Alive Father Maternal Grandfather Maternal Grandmother Mother Paternal Grandfather Paternal Grandmother Sister 1 Sister 2 Alive Social History Tobacco Use Types Packs/Day Years Used Date Smoking Tobacco: Never Smokeless Tobacco: Never Tobacco Cessation:Counseling Given: Not Answered Alcohol Use Standard Drinks/Week Comments No 0 (1 standard drink = 0.6 oz pur e alcohol) Sexually Active Control Partners Comments Yes Sex and Gender Information Value Date Recorded Sex Assigned at Not on file Legal Sex Male 6:23 PM EDT Gender Identity Not on file Sexual Orientation Not on file Obstetrics History Last Filed Vital Signs Vital Sign Reading Time Taken Comments Blood Pressure 110/74 12/08/2023 9:01 AM EDT Pulse 98 12/08/2023 9:01 AM EDT Temperature 36.6 C (97.8 F) 12/08/2023 9:01 AM EDT Respiratory Rate 18 12/08/2023 9:01 AM EDT Oxygen Saturation 100% 10/04/2023 5:15 PM EDT Inhaled Oxygen Concentration - - Weight 100.2 kg (221 lb) 12/08/2023 9:01 AM EDT Height 179.1 cm (5' 10.5 ) 12/08/2023 9:01 AM ED T Body Mass Index 31.26 12/08/2023 9:01 AM EDT Plan of Treatment Health Maintenance Due Date Last Done Comments Wellness Exam Medicare 11/30/1963 Pneumococcal Vaccine 50+ (1 of 2 - PCV) 11/30/1979 Cologuard 2005 FIT 2005 Sigmoidoscopy 2005 Virtual Colonography 2005 Zoster (1 of 2) 2010 Hepatitis B Vaccine (1 of 3 - Risk 3-dose series) 2020 RSV or 60+ (1 - Ris k 60-74 years 1-dose series) 2020 DTaP/TDaP/Td (2 - Td or Tdap) 10/26/2023 10/25/2013 COVID-19 Vaccine (3 - 2023-2 5 season) 2024 11/04/2020, 10/02/2020 Colon Cancer Screening 04/26/2024 Colonoscopy 04/26/2024 04/27/2023, 03/30/2022 Hepatitis C Screening Completed 07/06/2021 , 07/06/2021 Meningococcal B Vaccine Aged Out No l onger eligible based on patient's age to complete this topic Medical Devices Implanted Type Area Treasury Associate Device Identifier Shelf Expiration Date Model / Serial / Lot Left Knee Replacement Insert O Degree Trident X 3 36mm Code F - [id number] Implanted:Qty: 1 on 10/04/2023 by Mikal Toney MD at [facility] Right: Hip EDUARDO:[employer] [id number] 05/15/2028 723-00-36 F / / [id number] Cup Actb Trident Ii Sz-F 56mm Clstr Scr 5hl Tritan Hap Prim - [id number] Implanted:Qty: 1 on 10/04/2023 by Mikal Toney MD at [facility] Right: Hip EDUARDO:[employer]TH[employer] [id number] 07/24/2028 702-04-56 F / / [id number] Head Fem V-40 36mm-2.5mm Nk Biolox Delta Cerm Tapr Prim Mod - [id number] Implanted:Qty: 1 on 10/04/2023 by Mikal Toney MD at [facility] Right: Hip EDUARDO:[employer]TH[employer] [id number] 05/11/2028 6570-0-43 6 / / [id number] Stem Hip Insignia High Offset 38.5mm X 107mm Size 6 - [id number] Implanted:Qty: 1 on 10/04/2023 by Mikal Toney MD at [facility] Right: Hip EDUARDO:ORTH[employer]ED ICS [id number] 07/16/2028 5570-4383 / / [id number] Procedures Procedure Name Priority Date/Time Associated Diagnosis Comments COLONOSCOPY Routine 04/27/2023 10:08 AM EDT Esophageal varices without bleeding, unspecified esophageal varices type (HCC) Personal history of colonic polyps HEPATITIS C ANTIBODY IGM + IGG Routine 07/06/2021 7:47 PM EST from Last 3 Months or Most Recently Relevant to Health Maintenance Results * COLONOSCOPY (04/27/2023 10:08 AM EDT) Anatomical Region Laterality Modality Endoscopy Narrative 04/27/2023 10:22 AM EDT Table formatting from the original result was not included. Findings Localized erythematous and granular mucosa in the ascending colon; performed cold forceps biopsy. Area of inflammatory polyp vs adenoma, difficult to position, initially was attempting to remove with hot snare but due to difficulty, area was biopsied. One polyp measuring smaller than 5 mm in the ascending colon; performed cold forceps biopsy. Area appears to be adenoma vs inflammatory, area is separate from second area listed above. One sessile, adenomatous-appearing polyp measuring 5-9 mm in the descending colon; performed cold snare with complete en bloc removal and retrieved specimen Recommendation Repeat colonoscopy in 1 year pending today's pathology Recommend a high fiber diet. Follow up with pathology results. If no results in 4 weeks, please call the office at [phone]. Hold anticoagulation for now, may resume on 04/30. Indication Personal history of colonic polyps, Esophageal varices without bleeding, unspecified esophageal varices type (HCC) Staff Staff Role Lenin Agarwal CRNA SERVICE ASSOCIATE Roni Burciaga MD Performing Provider Nima Melton, VALENTINA Nurse Nusrat Cunha RN Nurse Medications See Anesthesia Record. Preprocedure A history and physical has been performed, and patient medication allergies have been reviewed. The patient's tolerance of previous anesthesia has been reviewed. The risks and benefits of the procedure and the sedation options and risks were discussed with the patient. All questions were answered and informed consent obtained. ASA 3 - Patient with severe systemic disease Details of the Procedure The patient underwent monitored anesthesia care, which was administered by an anesthesia professional. The patient's blood pressure, heart rate, level of consciousness, oxygen, respirations, ECG and ETCO2 were monitored throughout the procedure. A digital rectal exam was performed. The scope was introduced through the anus and advanced to the cecum. Retroflexion was performed in the rectum. Bowel prep was not adequate. The patient experienced no blood loss. The procedure was difficult due to loops in the digestive tract and fair prep. The patient tolerated the procedure well. There were no apparent adverse events. Fair prep. Patient provided education and educated on specific discharge instructions. Patient educated on medications given during the procedure and new medications for discharge. Patient verbalizes understanding of discharge education. Patient stable and awaiting transport for discharge. Events Procedure Events Event Event Time ENDO SCOPE IN TIME 04/27/2023 9:21 AM ENDO SCOPE OUT TIME 04/27/2023 9:26 AM ENDO SCOPE IN TIME 04/27/2023 9:35 AM ENDO CECUM REACHED 04/27/2023 9:49 AM ENDO SCOPE WITHDRAW BEGIN 04/27/2023 9:49 AM TSG LUME TI REACHED 04/27/2023 9:49 AM ENDO SCOPE OUT TIME 04/27/2023 10:07 AM Specimens ID Type Source Tests Collected by Time 1 : r/o h pylori Tissue Gastric [facility] PATHOLOGY ORDER Roni Burciaga MD 04/27/2023 0931 2 : ascending colon Tissue Colon [facility] PATHOLOGY ORDER Roni Burciaga MD 04/27/2023 1011 3 : descending polyp Tissue Colon [facility] PATHOLOGY ORDER Roni Burciaga MD 04/27/2023 1011 Roni Burciaga MD ENDOSCOPY PROCEDURE ORDERAB LES Final Result * HEPATITIS C ANTIBODY IGM + IGG (07/06/2021 7:47 PM EST) Hep C Ab Non-Reactiv e Non-Reacti ve 07/06/2021 9:08 PM EST PREFERRED [facility] Blood Venipuncture / Unknown 07/06/2021 7:47 PM EST 07/06/2021 7:58 PM EST us Isauro Hector TEACHER [facility] IMMUNOLOGY ORDERABLES Fin al Result PREFERRED [facility] [address] [facility] , [address] [place] [id number] from Last 3 Months or Most Recently Relevant to Health Maintenance Insurance [facility] [place] [place] [facility] [place] Advance Directives For more information, please contact: [phone] * Full Code (Latest Code Status on File) Date Activated Date Inactivated Comments 07/07/2021 6:11 AM 07/07/2021 8:29 PM Care Teams Substation Maintenance Technician Relationship Specialty Start Date End Date Yunier Barrett MD PCP - General Family Medicine 07/10/00
--- OUTSIDE RECORDS SUMMARY | 2024-12-17 15:22 | XMS_ITS | Encounter Summary ---
Author Organization [facility] Address [address] [place] [address] Care Team Providers Care Gas Meter Mechanic Name Role Phone Yunier Barrett MD Primary Care Provider [phone] Roni Burciaga MD Unavailable [phone] Ace Campbell DO Unavailable [phone] Reema Sanchez RN Unavailable [phone] Keesha Love Unavailable [phone] Miracle Villanueva MODEL AND DYE PERSON Unavailable Unavailable Reason for Visit * Reason Comments Med Refill Encounter Details Date Type Department Care Team (Late st Contact Info) Description 11/20/2023 Refill [place] [facility] [address] [place] [address] Addie Hall, ADVERTISING OPERATIONS COORDINATOR, DNP [address] [place] [address] Social History Tobacco Use Types Packs/Day Years Used Date Smoking Tobacco: Never Passive Smoke Exposure: Never Smokeless Tobacco: Never Alcohol Use Standard Drinks/Week Comments Never 0 (1 standard drink = 0.6 oz pur e alcohol) PHQ-2 Answer Date Recorded Patient Health Questionnaire-2 Score 0 05/09/2023 PHQ-2A Answer Date Recorded Patient Health Questionnaire-2 Score 0 05/09/2023 Sex and Gender Information Value Date Recorded Sex Assigned at Not on file Legal Sex Male 8:07 PM EDT Gender Identity Not on file Sexual Orientation Not on file documented as of this encounter Miscellaneous Notes * Telephone Encounter - Funmi Betancourt, PharmD - 11/20/2023 11:06 AM EDT Refill request does not meet protocol. Sending to clinic for review. Additional info: Clarification required: Now following in Txp. * Telephone Encounter - Obie Segovia PharmD - 11/20/2023 10:59 AM EDT Routing refill request to appropriate in-basket for review. documented in this encounter Plan of Treatment Not on file documented as of this encounter Visit Diagnoses Not on filedocumented in this encounter Additional Health Concerns Assessment Noted Time A fall risk assessment has been complete d for the patient 05/09/2023 11:30 AM EDT A Body Mass Index follow-up plan has been documented for the patient 05/10/2023 12:12 PM EDT documented as of this encounter Care Teams Gas Meter Mechanic Relationship Specialty Start Date End Date Yunier Barrett MD PCP - General 10/04/22 Roni Burciaga MD [address] [place] [id number] Referring Physician Gastroenterology 10/04/22 Ace Campbell DO [address] [place] [address] Referring Physician General Surgery 05/15/24 Reema Sanchez RN [facility] [address] [place] [address] Registered Nurse Transplant Surgery 05/15/24 [place] [address] Registered Nurse Transplant Surgery 05/15/24 Miracle Villanueva LPN [employer]UE[employer]ED [place] [address] TCM Nurse 08/28/24 09/25/24 documented as of this encounter
--- OUTSIDE RECORDS SUMMARY | 2024-12-17 15:22 | XMS_ITS | Encounter Summary ---
Author Organization [facility] Address [address] [place] [address] Care Team Providers Care Shape Carver Name Role Phone Yunier Barrett MD Primary Care Provider [phone] Roni Burciaga MD Unavailable [phone] Adrian Ace A DO Unavailable [phone] Reema Sanchez RN Unavailable [phone] Keesha Love Unavailable [phone] Encounter Details Date Type Department Care Team (Late st Contact Info) Description 10/21/2024 Orders Only [facility] [address] [place] [address] Diana Arriola, RN [facility] Chronic atrial fibrillation (CMS/HCC) (Primary Dx) Social History Tobacco Use Types Packs/Day Years [...] any time in the past 12 m [facility], were you homeless or living in a senior care (including now)? No 08/26/2024 Utilities Answer Date [...] as of this encounter Plan of Treatment Scheduled Orders Name Type Priority Associated Diagnoses Orde r Schedule ECG - Outside Read ECG Today Chronic atrial fibrillation (CMS/HCC) Expected: 10/21/2024, Expires: 10/21/2025 documented as of this encounter Visit Diagnoses Diagnosis Chronic atrial fibrillation (CMS/HCC)- Primary Atrial fibrillation documented in this encounter Additional Health Concerns Assessment Noted Time PHQ-9 Depression Total Score: 0 10/10/19 25 10:46 AM EDT A fall risk assessment has been complete d for the patient 10/09/2024 10:46 AM EDT A Body Mass Index follow-up plan has been documented for the patient 10/09/2024 11:29 AM EDT documented as of this encounter Care Teams Shape Carver Relationship Specialty Start Date End Date Yunier Barrett MD PCP - General 10/04/22 Roni Burciaga MD [address] [place], [place] [phone] Referring Physician Gastroenterology 10/04/22 Ace Campbell DO [address] [place] [address] Referring Physician General Surgery 05/15/24 Reema Sanchez, RN [facility] [address] [place] [address] Registered Nurse Transplant Surgery 05/15/24 [place] [address] Registered Nurse Transplant Surgery 05/15/24 documented as of this encounter
--- OUTSIDE RECORDS SUMMARY | 2024-12-17 15:22 | XMS_ITS | Encounter Summary ---
Author Organization [facility] Address [address] [place] [address] Care Team Providers Care Barrel Lathe Operator Inside Name Role Phone Yunier Barrett MD Primary Care Provider [phone] Roni Burciaga MD Unavailable [phone] Ace Campbell DO Unavailable [phone] Reema Sanchez RN Unavailable [phone] Keesha Love Unavailable [phone] Encounter Details Date Type Department Care Team (Late st Contact Info) Description 10/25/2024 Telephone [facility] [place] [address] [facility] [place] [address] Ayde Jeter, PharmD [address] [place] [address] Social History Tobacco Use Types [...] any time in the past 12 m [facility], were you homeless or living in a detention (including now)? No 08/26/2024 Utilities Answer Date [...] as of this encounter Miscellaneous Notes * Addendum Note - Ayde Jeter, PharmD - 10/29/2024 12:55 PM EDTAddended by: AYDE JETER on: 10/29/2024 12:55 PM Modules accepted: Orders * Telephone Encounter - Ayde Jeter PharmD - 10/29/2024 12:37 PM EDT Mr. Ruiz was contacted today to follow up medical therapy. ECG results reviewed and in afib with pulse of 96 bpm. Patient has been checking pulse BID but not at home at time of call and unable to review log. He reports pulse is consistently in the low 90s. Per recommendations from Dr. Smith, will start on digoxin with a target pulse of <80 bpm. Kidney function and potassium wnl last check 09/20/24. Start digoxin LOAD of 2 tablets (500 mcg) x1 dose, then 6 hours later take 250 mcg, then 6 hours later take 250 mcg, then take 125 mcg daily thereafter. To start maintenance dosing the following day Recommended to continue to monitor pulse and record in log Follow up: ~1 week to assess medication changes * Telephone Encounter - Ayde Jeter PharmD - 10/25/2024 2:10 PM EDT Mr. Ruiz was contacted today to follow up on medication changes discussed 10/09/24. Patient increased carvedilol to 25 mg BID and stopped Xarelto as instructed with no problems tolerating. He completed ECG this week and results have not been received. Will reach out for ECG results and follow up at that time. documented in this encounter Plan of Treatment Not on file documented as of this encounter Visit Diagnoses Not on filedocumented in this encounter Additional Health Concerns Assessment Noted Time PHQ-9 Depression Total Score: 0 10/10/19 10:46 AM EDT A fall risk assessment has been complete d for the patient 10/09/2024 10:46 AM EDT A Body Mass Index follow-up plan has been documented for the patient 10/09/2024 11:29 AM EDT documented as of this encounter Care Teams Barrel Lathe Operator Inside Relationship Specialty Start Date End Date Yunier Barrett MD PCP - General 10/04/22 Roni Burciaga MD [address] [place] [phone] Referring Physician Gastroenterology 10/04/22 Ace Campbell DO [address] [place] [address] Referring Physician General Surgery 05/15/24 Reema Sanchez RN [facility] [address] [place] [address] Registered Nurse Transplant Surgery 05/15/24 [place] [address] Registered Nurse Transplant Surgery 05/15/24 documented as of this encounter
--- OUTSIDE RECORDS SUMMARY | 2024-12-17 15:22 | XMS_ITS | Encounter Summary ---
Author Organization [facility] Address [address] [place] [address] Care Team Providers Care Actionscript Developer Name Role Phone Roni Burciaga MD Primary Care Provider [phone] Yunier Barrett MD Primary Care Provider [phone] Roni Burciaga MD Unavailable [phone] Ace Campbell DO Unavailable [phone] Reema Sanchez RN Unavailable [phone] Keesha Love Unavailable [phone] Miracle Villanueva LPN Unavailable Unavailable Encounter Details Date Type Department Care Team (Late st Contact Info) Description 07/13/2022 Orders Only External Location [address] [place] [address] Provider, External Social History Tobacco Use Types [...] Procedure Name Priority Date/Time Associated Diagnosis Comments MR OUTSIDE IMAGES 07/13/2022 7:52 AM EST documented in this encounter Results * MR transfer of outside films (07/13/2022 7:52 AM EST) Anatomical Region Laterality Modality Magnetic Resonan ce 07/13/2022 7:52 AM EST us External Provider IMG MRI PROCEDURES Final Resul t documented in this encounter Visit Diagnoses Not on filedocumented in this encounter Care Teams Actionscript Developer Relationship Specialty Start Date End Date Roni Burciaga MD [address] [place] [address] PCP - General 09/23/22 10/03/22 Yunier Barrett MD [address] [place] [address] PCP - General 10/04/22 Roni Burciaga MD [address] [place] [address] Referring Physician Gastroenterology 10/04/22 Ace Campbell DO [address] [place] [address] [address] [place] [address] Referring Physician General Surgery 05/15/24 Reema Sanchez RN [facility] [address] [place] [address] Registered Nurse Transplant Surgery 05/15/24 [place] [address] Registered Nurse Transplant Surgery 05/15/24 Miracle Villanueva LPN [employer] [place] [address] TCM Nurse 08/28/24 09/25/24 documented as of this encounter
--- OUTSIDE RECORDS SUMMARY | 2024-12-17 15:22 | XMS_ITS | Encounter Summary ---
Author Organization [facility] Address [address] [place] [address] Care Team Providers Care Assembler Metal Building Name Role Phone Yunier Barrett MD Primary Care Provider [phone] Roni Burciaga MD Unavailable [phone] Ace Campbell DO Unavailable [phone] Reema Sanchez RN Unavailable [phone] Keesha Love Unavailable [phone] Miracle Villanueva CHEMICAL LIBRARIAN Unavailable Unavailable Reason for Referral * Consultation (Routine) - Closed Specialty Diagnoses / Procedures Referred By Osbaldo archer Referred To Contact Cardiology Diagnoses Coagulation defect (CMS/HCC) Yunier Barrett MD [address] [place] [address] Phone: tel: fax: Referral ID Status Reason Start Date Expiration Date V isits Requested Visits Authorized [id number] Closed Specialty Services Required 01/19/2024 07/20/2025 1 1 Encounter Details Date Type Department Care Team (Late st Contact Info) Description 01/19/2024 Community [facility] [address] [place] [address] Yunier Barrett MD [address] [place] [address] Coagulation defect (CMS/HCC) (Primary Dx) Social History Tobacco Use [...] of this encounter Plan of Treatment Scheduled Referrals Name Type Priority Associated Diagnoses Order Schedule Ambulatory referral to Cardiology Outpatient Referral Routine Coagulation defect (CMS/HCC) Expected: 01/19/2024 (Approximate), Expires: 07/21/2025 documented as of this encounter Visit Diagnoses Diagnosis Coagulation defect (CMS/HCC)- Primary Other and unspecified coagulation defects documented in this encounter Additional Health Concerns Assessment Noted Time A fall risk assessment has been complete d for the patient 05/09/2023 11:30 AM EDT A Body Mass Index follow-up plan has been documented for the patient 05/10/2023 12:12 PM EDT documented as of this encounter Care Teams Assembler Metal Building Relationship Specialty Start Date End Date Yunier Barrtet MD PCP - General 10/04/22 Roni Burciaga MD [address] [place] [phone] Referring Physician Gastroenterology 10/04/22 Ace Campbell DO [address] [place] [address] Referring Physician General Surgery 05/15/24 Reema Sanchez, RN [facility] [address] [place] [address] Registered Nurse Transplant Surgery 05/15/24 [place] [address] Registered Nurse Transplant Surgery 05/15/24 Miracle Villanueva LPN [employer] [place] [address] TCM Nurse 08/28/24 09/25/24 documented as of this encounter
--- OUTSIDE RECORDS SUMMARY | 2024-12-17 15:22 | XMS_ITS | Encounter Summary ---
Author Organization [facility] Address [address] [place] [address] Care Team Providers Care Mailing Machine Helper Name Role Phone Yunier Barrett MD Primary Care Provider [phone] Roni Burciaga MD Unavailable [phone] Ace Campbell DO Unavailable [phone] Reema Sanchez RN Unavailable [phone] Keesha Love Unavailable [phone] Miracle Villanueva LPN Unavailable Unavailable Encounter Details Date Type Department Care Team (Late st Contact Info) Description 05/18/2023 Orders Only External Location [address] [place] [address] Provider, External Social History Tobacco Use Types [...] Name Priority Date/Time Associated Diagnosis Comments MR MSK OUTSIDE IMAGES 05/18/2023 8:44 AM EST documented in this encounter Results * MR MSK OUTSIDE IMAGES (05/18/2023 8:44 AM EST) Anatomical Region Laterality Modality Magnetic Resonan ce 05/18/2023 8:44 AM EST us External Provider IMG MRI [...] documented as of this encounter Care Teams Mailing Machine Helper Relationship Specialty Start Date End Date Yunier Barrett MD PCP - General 10/04/22 Roni Burciaga MD [address] [place] [phone] Referring Physician Gastroenterology 10/04/22 Ace Campbell DO [address] [place] [address] Referring Physician General Surgery 05/15/24 Reema Sanchez, RN [facility] [address] [place], [place] [id number] Registered Nurse Transplant Surgery 05/15/24 [place] [address] Registered Nurse Transplant Surgery 05/15/24 Miracle Villanueva LPN [employer] [place] [address] TCM Nurse 08/28/24 09/25/24 documented as of this encounter
--- OUTSIDE RECORDS SUMMARY | 2024-12-17 15:22 | XMS_ITS | Encounter Summary ---
Author Organization [facility] Address [address] [place] [address] Care Team Providers Care Valve Fitter Name Role Phone Roni Burciaga MD Primary Care Provider [phone] Yunier Barrett MD Primary Care Provider [phone] Roni Burciaga MD Unavailable [phone] Ace Campbell DO Unavailable [phone] Reema Sanchez RN Unavailable [phone] Keesha Love Unavailable [phone] Miracle Villanueva LPN Unavailable Unavailable Encounter Details Date Type Department Care Team (Late st Contact Info) Description 05/12/2022 Orders Only External Location [address] [place] [address] Provider, External Social History Tobacco Use Types [...] Procedure Name Priority Date/Time Associated Diagnosis Comments XR OUTSIDE IMAGES 05/12/2022 7:54 AM EDT documented in this encounter Results * XR OUTSIDE IMAGES (05/12/2022 7:54 AM EDT) Anatomical Region Laterality Modality Radiographic Dorothy ging 05/12/2022 7:54 AM EDT us External Provider IMG XR PROCEDURES Final Result documented in this encounter Visit Diagnoses Not on filedocumented in this encounter Care Teams Valve Fitter Relationship Specialty Start Date End Date Roni Burciaga MD [address] [place] [address] PCP - General 09/23/22 10/03/22 Yunier Barrett MD [address] [place] [address] PCP - General 10/04/22 Roni Burciaga MD [address] [place] [address] Referring Physician Gastroenterology 10/04/22 Ace Campbell DO [address] [place] [address] [address] [place] [address] Referring Physician General Surgery 05/15/24 Reema Sanchez RN [facility] [address] [place] [address] Registered Nurse Transplant Surgery 05/15/24 [place] [address] Registered Nurse Transplant Surgery 05/15/24 Miracle Villanueva LPN [employer] [place] [address] TCM Nurse 08/28/24 09/25/24 documented as of this encounter
--- OUTSIDE RECORDS SUMMARY | 2024-12-17 15:22 | XMS_ITS | Data Portability ---
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 02:21:49 Influenza, split virus, quadrivalent, preservative 07/24/19 18 cancelled patient objection Not Available [facility] 07/27/2019 03:54:49 Past Encounters Encounter ID Performer Location Encounter Start Date Encounter Closed Date Diagnosis/Indication Diagnosis SNOMED-CT Code Diagnosis ICD10 Code Diagnosis Note [id number] [facility] [address] [place] [address] 11/14/2012 00:00:00 [id number] [facility] [address] [address] 02/13/2013 00:00:00 [id number] [facility] [address] [address] 06/30/2014 00:00:00 [id number] [facility] [address] [address] 5 07/28/2014 00:00:00 [id number] [facility] [address] [address] 05/14/2013 00:00:00 [id number] [facility] [address] [address] 11/07/2014 00:00:00 [id number] [facility] [address] [address] 06/18/2013 00:00:00 [id number] [facility] [address] [address] 5 02/24/2015 00:00:00 [id number] [facility] [address] [address] 5 10/07/2013 00:00:00 [id number] [facility] [address] [address] 5 10/25/2013 00:00:00 [id number] [facility] [address] [place] [address] 06/15/2015 00:00:00 [id number] [facility] [address] [address] 01/28/2014 00:00:00 [id number] [facility] [address] [address] 5 07/07/2015 00:00:00 [id number] [facility] [address] [place] [address] 05/19/2014 00:00:00 [id number] [facility] [address] [place] [address] 08/31/2015 00:00:00 [id number] [facility] [address] [place] [address] 06/30/2014 00:00:00 [id number] [facility] [address] [place] [address] 01/01/2016 00:00:00 [id number] [facility] [address] [place] [address] 04/02/2012 00:00:00 [id number] [facility] [address] [place] [address] 06/26/2012 00:00:00 [id number] [facility] [address] [place] [address] 08/08/2012 00:00:00 [id number] [facility] [address] [place] [address] 09/18/2012 00:00:00 [id number] [facility] [address] [place] [address] 10/24/2012 00:00:00 [id number] [facility] [address] [address] 5 03/16/2010 00:00:00 [id number] [facility] [address] [place] [address] 10/03/2007 00:00:00 [id number] [facility] [address] [address] 5 10/24/2012 00:00:00 [id number] [facility] [address] [address] 11/02/2007 00:00:00 [id number] [facility] [address] [address] 11/14/2012 00:00:00 [id number] [facility] [address] [place] [address] 5 12/05/2007 00:00:00 [id number] [facility] [address] [place] [address] 03/07/2011 00:00:00 [id number] [facility] [address] [address] 04/12/2011 00:00:00 [id number] [facility] [address] [place] [address] 01/07/2008 00:00:00 [id number] [facility] [address] [place] [address] 05/25/2011 00:00:00 [id number] [facility] [address] [place] [address] 08/23/2010 00:00:00 [id number] [facility] [address] [place] [address] 05/26/2008 00:00:00 [id number] [facility] [address] [place] [address] 08/05/2011 00:00:00 [id number] [facility] [address] [place] [address] 10/05/2010 00:00:00 [id number] [facility] [address] [place] [address] 10/29/2010 00:00:00 [id number] [facility] [address] [place] [address] 06/03/2008 00:00:00 [id number] [facility] [address] [place] [address] 01/11/2011 00:00:00 [id number] [facility] [address] [place] [address] 08/27/2008 00:00:00 [id number] [facility] [address] [place] [address] 01/18/2011 00:00:00 [id number] [facility] [address] [place] [address] 10/07/2008 00:00:00 [id number] [facility] [address] [place] [address] 08/12/2009 00:00:00 [id number] [facility] [address] [place] [address] 11/12/2008 00:00:00 [id number] [facility] [address] [place] [address] 09/22/2009 00:00:00 [id number] [facility] [address] [place] [address] 12/30/2008 00:00:00 [id number] [facility] [address] [place] [address] 09/28/2009 00:00:00 [id number] [facility] [address] [place] [address] 04/17/2009 00:00:00 [id number] [facility] [address] [address] 06/03/2009 00:00:00 [id number] [facility] [address] [address] 09/16/2011 00:00:00 [id number] [facility] [address] [address] 5 07/27/2009 00:00:00 [id number] [facility] [address] [address] 11/25/2011 00:00:00 [id number] [facility] [address] [address] 12/19/2011 00:00:00 [id number] [facility] [address] [place] [address] 07/31/2009 00:00:00 [id number] [facility] [address] [place] [address] 08/12/2009 00:00:00 [id number] [facility] [address] [address] 02/07/2011 00:00:00 [id number] [facility] [address] [place] [address] 02/21/2011 00:00:00 [id number] [facility] [address] [place] [address] 11/10/2009 00:00:00 [id number] [facility] [address] [place] [address] 04/05/2010 00:00:00 [id number] [facility] [address] [place] [address] 12/16/2009 00:00:00 [id number] [facility] [address] [place] [address] 01/06/2010 00:00:00 [id number] [facility] [address] [place] [address] 02/01/2010 00:00:00 [id number] [facility] [address] [place] [address] 03/16/2010 00:00:00 [id number] Yunier Barrett MD [address] [place] [address] 04/26/2016 14:30:42 04/26/2016 17:13:49 Pain in left knee [id number] 06756 M25.562 Neuropathy 359619935 G62 .9 Pain in limb 16035162 M7 9.609 Hyperlipidemia 24991662 E78.5 Chronic back pain 073415 002 G89.29 Pre-surger y evaluation 207189690 Z01.766 [id number] Rashida Horton APRN [address] [place] [address] 08/24/2016 10:26:20 08/25/2016 08:47:17 Hyperlipidemia 26165651 E78.5 Chronic back pain 035568 002 R52 Pain of joint 92199382 M 25.50 Renewal of prescription 054090189 Z76.0 [id number] Yunier Barrett MD [address] [place] [address] 09/28/2016 16:04:57 09/29/2016 10:07:43 Upper respiratory infection 58344617 J06.9 Mixed hyperlipidemia 267 454971 E78.2 Delay when starting to pass urine 9267886 R39.11 [id number] Yunier Barrett MD [address] [place] [address] 11/21/2016 10:31:01 11/21/2016 12:02:34 Pain of joint 14498288 M25.50 Chronic back pain 031661 002 G89.29 Renewal of prescription 751950781 Z76.0 Spasm of back muscles 20 1782107 M62.830 Essential hypertension 92638204 I10 [id number] Yunier Barrett MD [address] [place] [address] 02/10/2017 15:13:27 02/10/2017 17:04:27 Spasm of back muscles 889657998 M62.830 Mixed hyperlipidemia 267 221438 E78.2 Essential hypertension 54395561 I10 Pain of joint 86429999 M 25.50 [id number] Yunier Barrett MD [address] [place] [address] 06/07/2017 17:38:31 06/07/2017 19:27:24 Pain of joint 53926862 M25.50 Chronic back pain 579866 002 G89.29 Spasm of back muscles 20 0342869 M62.283 [id number] Yunier Barrett MD [address] [place] [address] 07/24/2017 09:16:12 07/24/2017 11:13:42 Administration of influenza vaccine 36501837 Z23 Pain in limb 82617260 M7 9.829 [id number] Yunier Barrett MD [address] [place] [address] 08/09/2017 14:43:08 08/09/2017 16:49:38 Essential hypertension 89179637 I10 Anxiety 27727042 F41.9 Bereavement 63461674 Z63 .4 [id number] Yunier Barrett MD [address] [place] [address] 10/03/2017 16:37:09 10/03/2017 18:24:52 Spasm of back muscles 174021360 M62.830 Essential hypertension 42367502 I10 Mixed hyperlipidemia 267 729987 E78.2 Pain of joint 27647519 M 25.50 Anxiety 41166623 F41.9 Health Concerns Section Related Observation LastModified by Organization Detai ls LastModified Time None Recorded Concern Status LastModified by Organization Details LastModified Time None Recorded Advance Directives Directive None Recorded Payers Insurance Date Sequence Insurance Name Policy Number Policy Whitt Covered Member ID Whitt Member ID Guarantor Name 02/18/2018 [employer] [id number]ARE[place] Brandyn Ruiz [id number] Brandyn Ruiz 12/07/2016 [employer]STIC Brandyn Ruiz 02/18/2018 1 [place] Brandyn Ruiz [id number] Brandyn Ruiz 02/18/2018 2 [place] [employer] [place] FFS/TRADITIO NAL Brandyn Ruiz [id number] Brandyn Ruiz Notes Date Note Type Note Provider Name and Address Organization Details Recorded Time 7 text/html Care Management - HyperlipidemiaReported bypatient.Prognosis:expecte d outcome: improve; prognosis: guarded Self Care:using Viagra, Levitra, or Cialis; using an KATHLEEN inhibitor Control:not at goal; states medication may be causing increased muscle pain wants to discuss medications Complications:no coronary artery disease; no heart attack; no cardiovascular disease; no pancreatitis; no strokeHypertension F/UReported bypatient.Medications:takin g medications as directed; no side effects from medication Associated Symptoms:no lightheadedness; no chest pain; no shortness of breath; no palpitations; no edema; no calf pain with exertion; no headacheMusculoskeletal PainReported bypatient.Location:chronic joint and back pain Quality:varies Severity:same Duration:present for >12 months Timing:chronic with intermittent worsening Context:prior back problems; used medication for back pain Alleviating factors:rest Aggravating factors:bending over; twisting Associated Symptoms:no fever; on incontinence ADL (Activities of Daily Living)improve with medication Yunier quintero [facility] 03/01/2017 14:30:58 7 text/html Musculoskeletal PainReported bypatient.Location:chronic joint and back pain with knee worsening since replacement and defective joint L knee Quality:varies Severity:chronic back pain and joint pain but since L knee replacement worsening L knee pain Duration:chronic Context:prior back problems; used medication for back pain Alleviating factors:rest Aggravating factors:movement/positionin g; bending over; twisting ADL (Activities of Daily Living)improve with medication Juanis quintero [facility] 06/12/2017 13:55:25 8 text/html Left knee and thigh pain Juanis quintero [facility] 07/24/2017 14:05:35 8 text/html Anxiety/DepressionReported bypatient.Quality:mood worse;increased anxiety Severity:denies suicidal ideations; able to maintain relationships; recent of spouse Duration:symptoms started after of spouse Onset/Timing:sudden Context:major life stressors;bereavement Associated Symptoms:denies homicidal ideations; no significant weight gain; no significant weight loss; no visual/auditory hallucinations; no delusions; no shortness of breath;anxiety;depression;g rievingCare Management - HypertensionReported bypatient.Prognosis:expecte d outcome: no change; prognosis: good Self Care:using an KATHLEEN inhibitor Severity:no change since last visit Associated Symptoms:no dizziness; no lightheadedness; no chest pain; no shortness of breath; no palpitations; no edema; no calf muscle cramps; no blurred vision; no confusion; no headaches; no fatigue [address] [facility] 08/11/2017 10:44:23 8 text/html Care Management - HypertensionReported bypatient.Prognosis:expecte d outcome: improve; prognosis: good Self Care:not under emotional stress; using an KATHLEEN inhibitor Severity:does not interfere with daily activities Associated Symptoms:no dizziness; no lightheadedness; no chest pain; no shortness of breath; no palpitations; no edema; no calf muscle cramps; no blurred vision; no confusion; no headaches; no fatigueMusculoskeletal PainReported bypatient.Location:chronic joint and back pain Quality:varies Severity:same Duration:present for >12 months Timing:chronic with intermittent worsening Context:prior back problems; used medication for back pain; had evaluations by back specialist; previous epidural; sees pain management with epidurals as needed and allowed Alleviating factors:rest; relieved by changing position Aggravating factors:bending over; twisting Associated Symptoms:tingling; some neuropathy and muscle spasmns [address] [facility] 10/16/2017 09:29:18
--- OUTSIDE RECORDS SUMMARY | 2024-12-17 15:22 | XMS_ITS | Encounter Summary ---
Author Organization [facility] Address [address] [place] [address] Care Team Providers Care [facility] Name Role Phone Yunier Barrett MD Primary Care Provider [phone] Roni Burciaga MD Unavailable [phone] Ace Campbell DO Unavailable [phone] Reema Sanchez RN Unavailable [phone] Keesha Love Unavailable [phone] Encounter Details Date Type Department Care Team (Late st Contact Info) Description 10/30/2024 Orders Only [facility] [place] [address] [facility] [place] [id number] Bonifacio Pratt, PharmD [address] [place] [address] Social History Tobacco Use Types [...] in the past 12 m [facility], were you homeless or living in a prison (including now)? No 08/26/2024 Utilities Answer Date Recorded In the past 12 months has th e ANPI, gas, oil, or water [employer] threatened to shut off services in your home? No 08/26/2024 PHQ-2A Answer Date Recorded Depression Risk 0 03/18/2024 Sex and Gender Information Value Date Recorded Sex Assigned at Not on file Legal Sex Male 8:07 PM EDT Gender Identity Not on file Sexual Orientation Not on file documented as of this encounter Miscellaneous Notes * Progress Notes - Bonifacio Pratt, PharmD - 10/30/2024 10:35 AM EDT Patient contacted clinic to request order for blood pressure monitor. Order sent to [facility] per patient request. documented in this encounter Plan of Treatment [...] documented as of this encounter Care Teams [facility] Relationship Specialty Start Date End Date Yunier Barrett MD PCP - General 10/04/22 Roni Burciaga MD [address] [place] [phone] Referring Physician Gastroenterology 10/04/22 Ace Campbell DO [address] [place] [address] Referring Physician General Surgery 05/15/24 Reema Sanchez RN [facility] [address] [place] [address] Registered Nurse Transplant Surgery 05/15/24 [place] [address] Registered Nurse Transplant Surgery 05/15/24 documented as of this encounter
--- OUTSIDE RECORDS SUMMARY | 2024-12-17 15:22 | XMS_ITS | Clinical Summary ---
Author Organization [facility] Address [address] [place] [address] Care Team Providers Care Ell Teacher Name Role Phone Yunier Barrett MD Primary Care Provider [phone] Roni Burciaga MD Unavailable [phone] Adrian Ace A DO Unavailable [phone] Reema Sanchez RN Unavailable Keesha Love Unavailable [phone] Allergies Active Allergy Reactions Criticality Noted Date Comments Clobetasol Rash Low 04/08/2013 Throat swelling Codeine Nausea And Vomiting Medium 04/25/2011 Cortisone Hives High 04/25/2011 Iodinated Contrast Media Swelling High 04/25/2011 Per patient throat swelled cant breathe even wit pre medication Morphine Hives High 02/06/2013 Medications Xifaxan 550 MG tablet Take 1 tablet (550 mg) by mouth 2 (two) times a day. 023 Active Multiple Vitamin (multivitamin) tablet Take 1 tablet by mouth daily. Active nutrional drink glucose control (Boost Glucose Control) liquid liquid Take 237 mL by mouth 4 (four) times a day. Drink 1 supplement up to 3 times a day or As Directed as a nutritional supplement. Flavor preference: per patient. Please dispense up to 4 cases at a time per patient request [id number] mL 3 024 2024 Active ciprofloxacin (Cipro) 500 MG tabletIndications :SBP (spontaneous bacterial peritonitis) (CMS/HCC) Take 1 tablet (500 mg) by mouth 1 (one) time each day. 90 tablet 3 024 2024 Active furosemide (Lasix) 20 MG tablet Take 3 tablets (60 mg) by mouth daily. 90 tablet 2 Active lactulose (Chronulac) 10 GM/15ML oral solutionIndicatio ns:Decompensated hepatic cirrhosis (CMS/HCC),Hepatic encephalopathy (CMS/HCC) Take 15 mL (10 g) by mouth 3 (three) times a day. Titrate to goal 2-3 bowel movements a day 4050 mL 3 025 2025 Active aMILoride (Midamor) 5 MG tablet Take 4 tablets (20 mg) by mouth daily. 120 tablet 2 Active naloxone (Narcan) 4 mg/0.1 mL nasal spray 1. Give 1 spray in nostril for no/slow breathing or cannot wake after opioid use 2. Call 911 3. Repeat in other nostril if symptoms continue 1 each Active Blood Pressure Monitoring (Advanced One Step BP Monitor) [facility] 1 each daily. Use to check blood pressure once daily as instructed. 1 each Active carvedilol (Coreg) 12.5 MG tablet Take 1 tablet by mouth 2 times a day with meals. 60 tablet 11 Active digoxin (Lanoxin) 125 MCG tablet Take 1 tablet by mouth daily. 30 tablet 11 025 2025 Active pantoprazole (Protonix) 40 MG EC tablet Take 1 tablet (40 mg) by mouth 2 (two) times a day. Do not crush, chew, or split. 60 tablet 2 025 2024 carvedilol (Coreg) 12.5 MG tablet Take 2 tablets by mouth in the morning and 2 tablets before bedtime. 60 tablet 2 025 2024 Discontinued carvedilol (Coreg) 12.5 MG tablet TAKE 2 TABLETS BY MOUTH EVERY MORNING AND TAKE 2 TABLETS BY MOUTH EVERY NIGHT AT BEDTIME 360 tablet 025 2024 Discontinued(R eorder) Active Problems Problem Noted Date Diagnosed Date Persistent atrial fibrillation 09/30/2024 Obesity (BMI 35.0-39.9 without comorbidity) 07/11 Severe obesity (BMI 35.0-39.9) with comorbidity 07/31/2024 Acute cervical myofascial strain 02/21/2024 Atrial fibrillation with rapid ventricular respo nse 02/21/2024 Chronic atrial fibrillation 02/21/2024 Abdominal wall cellulitis 02/21/2024 Gynecomastia 02/21/2024 Liver cirrhosis secondary to SORENSON 02/21/2024 HTN (hypertension) 02/21/2024 Hx of myocardial infarction 02/21/2024 Hypercholesteremia 02/21/2024 Hypertensive urgency 02/21/2024 Hypokalemia 02/21/2024 Hypomagnesemia 02/21/2024 Inguinal hernia 12/08/2023 Overview (02/21/2024): Last Assessment & Plan: Patient has a left inguinal hernia on [...] discuss surgery with the transplant team at Umbilical hernia 12/08/2023 Overview (02/21/2024): Last Assessment & Plan: Patient has an umbilical hernia. We discussed [...] his understanding and agreement with this plan. Myalgia, other site 10/25/2023 Spondylosis without myelopat hy or radiculopathy, lumbar region 10/25/2023 Infection following a proced ure, unspecified, initial encounter 10/23/2023 Presence of right artificial hip joint 04/09/202 4 Unilateral primary osteoarthritis, right hip Edema 09/11/2023 Other ascites 09/05/2023 Pain in left hip 07/18/2023 Bilateral primary osteoarthritis of hip 06/20/20 23 End-stage liver disease 05/10/2023 Benign neoplasm of ascending colon 04/27/2023 Benign neoplasm of descending colon 04/27/2023 Other diseases of stomach and duodenum 3 Elevated CA 19-9 level 02/27/2023 Overview (02/21/2024): Last Assessment & Plan: He was assessed with an MR of the abdomen that demonstrated narrowing along the common bile duct. He had a follow-up endoscopic ultrasound with Dr. Brantley in November 2022. There was no identifiable lesion seen. I will repeat his labs at this time. He is asymptomatic. Other abnormal tumor markers 02/27/2023 Lumbar spondylosis 02/23/2023 Myofascial pain 12/22/2022 Degeneration of lumbar intervertebral disc 04/18 Herniated lumbar intervertebral disc 11/25/2021 Coronary arteriosclerosis 11/25/2021 Irritable bowel syndrome 09/21/2021 Liver disease 09/21/2021 Overview (02/21/2024): fatty liver MN (myocardial infarction) 09/21/2021 Overview (02/21/2024): X2 when in 20's Esophageal varices 09/08/2021 Overview (02/21/2024): Last Assessment & Plan: Repeat EGD in 1 year for ongoing esophageal variceal surveillance. Melena 09/08/2021 Overview (02/21/2024): Last Assessment & Plan: He denies any further melena. I will obtain a CBC, CMP today. I will also consider obtaining a colonoscopy if his melena were to change or his hemoglobin were to be lower. He describes having a colonoscopy in [place] less than 5 years ago and was normal. Hepatic cirrhosis 09/08/2021 Overview (02/21/2024): Last Assessment & Plan: MELD 3.0: 15 at 09/05/2023 10:47 AM [...] will reach out to the [facility] program. 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 [phone] Bonifacio Pratt, PharmD 11/26/2024 Telephone [facility] [address] [phone] Bonifacio Pratt, PharmD 11/15/2024 Refill [facility] [address] [phone] Sowmya Doe PA 11/06/2024 Telephone [facility] [address] [phone] Bonifacio Pratt, PharmD 10/30/2024 Orders Only [facility] [address] [phone] Bonifacio Pratt, PharmD 10/29/[address] [facility] [address] [place] [phone] Ita Crane 10/25/2024 Telephone [facility] [address] [phone] Bonifacio Pratt, PharmD 10/23/2024 Telephone [facility] [address] [place] [phone] Shanice Nowak RN 10/21/2024 Telephone [facility] [address] [phone] Diana Arriola RN 10/21/2024 Orders Only [facility] [address] [phone] Diana Arriola, nuclear control operator atrial fibrillation (CMS/HCC) (Primary Dx) 10/09/2024 10:40 AM EDT Office Visit [facility] [address] [phone] Abbi Smith MD Persistent atrial fibrillation (CMS/HCC) (Primary Dx); Primary hypertension 10/09/2024 Travel 10/08/[address] [facility] [address] [place] [phone] Ita Crane 10/07/[address] [facility] [address] [place] [phone] Kerry Carrizales, RN 10/07/[address] [facility] [address] [place] [address] Ita Crane 10/04/[address] [facility] [place] [address] [place] [address], [place] [phone] Kerry Carrizales, RN 10/03/2024 Orders Only [facility] [address] [place] [phone] Afsaneh Chinchilla, PharmD Atrial fibrillation, unspecified type (CMS/HCC) (Primary Dx) 10/02/2024 Telephone [facility] [address] [place] [phone] Abbi Smith MD HCN Clinical Concern/Question 09/20/2024 10:20 AM EDT Office Visit [facility] [place] [address] [place] [phone] Magdaleno Cote MD Hepatic cirrhosis, unspecified hepatic cirrhosis type, unspecified whether ascites present (CMS/HCC) (Primary Dx); End-stage liver disease (CMS/HCC); Other ascites; Intrahepatic bile duct dilation; Current use of fdc anticoagulation; Atrial fibrillation, unspecified type (CMS/HCC); Umbilical hernia without obstruction and without gangrene; Decompensated hepatic cirrhosis (CMS/HCC); SBP (spontaneous bacterial peritonitis) (CMS/HCC) 09/20/2024 10:00 AM EDT Office Visit [facility] [place] [address] [place] [phone] Chalo Estrada MD Unilateral inguinal hernia without obstruction (Primary Dx); Decompensated cirrhosis (CMS/HCC) 09/20/2024 Travel 09/19/2024 12:27 PM EDT - 09/19/2024 11:59 PM EDT Hospital Encounter [facility] Imaging [address] [place] [address] Hepatic cirrhosis, unspecified hepatic cirrhosis type, unspecified whether ascites present (CMS/HCC); Hepatic encephalopathy (CMS/HCC); End-stage liver disease (CMS/HCC) Discharge Disposition: Home or Self Care 09/19/2024 12:27 PM EDT - 09/19/2024 11:59 PM EDT Hospital Encounter [facility] Imaging [address] [place] [phone] Discharge Disposition: Home or Self Care 09/19/2024 12:26 PM EDT Hospital Encounter [facility] Imaging [address] [place] [address] Hepatic cirrhosis, unspecified hepatic cirrhosis type, unspecified whether ascites present (CMS/HCC); Hepatic encephalopathy (CMS/HCC); End-stage liver disease (CMS/HCC) Discharge Disposition: Home or Self Care 09/19/2024 Travel 09/18/2024 Patient Outreach [facility] [address] [place] [address] Miracle Villanueva LPN TCM Call 09/16/[address] [facility] [address] [place] [address] Ita Crane Appointment from Last 3 Months Family History Medical History Relation Name Comments Heart Problem Father Lung cancer Mother Relation Name Status Comments Father Mother Social History Tobacco Use Types Packs/Day Years Used Date Smoking Tobacco: Never Passive Smoke Exposure: Never Smokeless Tobacco: Never Tobacco Cessation:Counseling Given: Not Answered Alcohol Use Standard Drinks/Week Comments Never 0 [...] any time in the past 12 m [facility], were you homeless or living in a jail (including now)? No 08/26/2024 Utilities Answer Date [...] Sign Reading Time Taken Comments Blood Pressure 104/68 10/09/2024 10:43 AM EDT Pulse 96 10/09/2024 10:43 AM EDT Temperature 36.3 C (97.4 F) 09/20/2024 9:25 AM EDT Respiratory Rate 16 09/20/2024 9:25 AM EDT Oxygen Saturation 95% 10/09/2024 10:43 AM EDT Inhaled Oxygen Concentration - - Weight 100 kg (220 lb 10.9 oz) 10/09/2024 10:43 AM EDT Height 180.3 cm (5' 11 ) 10/09/2024 10:43 AM EDT Body Mass Index 30.78 10/09/2024 10:43 AM EDT Plan of Treatment Health Maintenance Due Date Last Done Comments [facility]-Medicare Annual Wellness (AWV) 1960 [facility]-Infant/Child/Adol SDOH Screenings 1960 [facility]-Hepatitis A Vaccines (1 of 2 - Risk 2-dose series) 11/30/1979 [facility]-Pneumococcal Vaccine: 50+ Years (1 of 2 - PCV) 11/30/1979 [facility]-Zoster Vaccines (1 of 2) 11/30/1979 CT Colonography 2005 FIT-DNA 2005 FIT 2005 FOBT 2005 Sigmoidoscopy 2005 [facility]-RSV Vaccine: 60+ Years or (1 - Risk 60-74 years 1-dose series) 2020 [id number] Vaccine (3 - Moderna risk series) 12/02/2020 11/04/2020, 10/02/2020 [facility]-DTaP,Tdap,and Td Vaccines (2 - Td or Tdap) 10/26/2023 10/25/2013 [facility]- SDOH Screenings 02/23/2025 [facility]-Adult SDOH Screenings 02/23/2025 08/26/2024 [facility]-Influenza Vaccine (Season Ended) 2025 04/02/2012, 05/25/2011, 04/05/2010 [facility]-Depression Screening 10/09/2025 025, 10/09/2024, 03/18/2024 Colonoscopy 04/27/2033 04/27/2023 [facility]-Colorectal Cancer Screening 04/27/2033 [facility]-HIV Screening Completed 08/23/2024, 09/23/2022 [facility]-Hepatitis C Screening Completed 2024, 10/07/2022, 09/23/2022 [facility]-Obesity Intervention Completed 025, 09/20/2024, 09/20/2024, Additional history exists HPV Vaccines Aged Out No longer eligi ble based on patient's age to complete this topic [facility]-HIB Vaccines Aged Out No longer e ligible based on patient's age to complete this topic [facility]-IPV Vaccines Aged Out No longer e ligible based on patient's age to complete this topic [facility]-Rotavirus Vaccines Aged Out No lo nger eligible based on patient's age to complete this topic Procedures Procedure Name Priority Date/Time Associated Diagnosis Comments ECG ADULT Routine 10/09/2024 10:45 AM EDT CBC W/O DIFFERENTIAL Routine 09/20/2024 8:44 AM EDT Hepatic cirrhosis, unspecified hepatic cirrhosis type, unspecified whether ascites present (CMS/HCC) Hepatic encephalopathy (CMS/HCC) End-stage liver disease (CMS/HCC) COMPREHENSIVE METABOLIC PANEL, PLASMA Routine 09/20/2024 8:44 AM EDT Hepatic cirrhosis, unspecified hepatic cirrhosis type, unspecified whether ascites present (CMS/HCC) Hepatic encephalopathy (CMS/HCC) End-stage liver disease (CMS/HCC) NICOTINE AND COTININE METABOLITE, SERUM, QUANTITATIVE Routine 09/20/2024 8:44 AM EDT Hepatic cirrhosis, unspecified hepatic cirrhosis type, unspecified whether ascites present (CMS/HCC) Hepatic encephalopathy (CMS/HCC) End-stage liver disease (CMS/HCC) PROTHROMBIN TIME(PT) / INR Routine 09/20/2024 8:44 AM EDT Hepatic cirrhosis, unspecified hepatic cirrhosis type, unspecified whether ascites present (CMS/HCC) Hepatic encephalopathy (CMS/HCC) End-stage liver disease (CMS/HCC) ALPHA FETOPROTEIN, SERUM Routine 09/20/2024 8:44 AM EDT Hepatic cirrhosis, unspecified hepatic cirrhosis type, unspecified whether ascites present (CMS/HCC) Hepatic encephalopathy (CMS/HCC) End-stage liver disease (CMS/HCC) NM MYOCARDIAL SPECT REGADENOSON STRESS (MULTI STUDY) Routine 09/19/2024 2:19 PM EDT Hepatic cirrhosis, unspecified hepatic cirrhosis type, unspecified whether ascites present (CMS/HCC) Hepatic encephalopathy (CMS/HCC) End-stage liver disease (CMS/HCC) ECHO, ADULT TRANSTHORACIC COMPLETE Routine 09/19/2024 1:57 PM EDT Hepatic cirrhosis, unspecified hepatic cirrhosis type, unspecified whether ascites present (CMS/HCC) Hepatic encephalopathy (CMS/HCC) End-stage liver disease (CMS/HCC) HEPATITIS C ANTIBODY - ED W/REFLEX TO HCV QUANT PCR Routine 08/23/2024 6:19 PM EST ED HIV 1/2 ANTIBODY/ANTIGEN SCREEN WITH REFLEX TO HIV I/II DIFFERENTIATION Routine 08/23/2024 6:19 PM EST from Last 3 Months or Most Recently Relevant to Health Maintenance Results * ECG Adult (Now - Performed in your clinic) (10/09/2024 10:45 AM EDT) EKG DIAGNOSIS CLASS Abnormal MUSE ECG Ventricular Rate 100 BPM MUSE ECG QRSD Interval 90 ms MUSE ECG QT Interval 350 ms MUSE ECG QTC Interval 451 ms MUSE ECG R [place] 51 degrees MUSE ECG T Wave [place] -2 degrees MUSE ECG Diagnosis Atrial fibrillation MUSE ECG Diagnosis Nonspecific ST abnormality MUSE ECG Diagnosis Abnormal ECG MUSE ECG Diagnosis MUSE ECG Diagnosis Confirmed by Mina Jordan ([id number]) on 10/09/2024 11:44:06 AM MUSE ECG 10/09/2024 10:4 5 AM EDT 10/09/2024 11:44 AM EDT us Abbi Smith MD ECG ORDERABLES Final Result MUSE ECG * Alpha Fetoprotein, Serum (09/20/2024 8:44 AM EDT) Alpha Fetoprotein, Serum <2.3 <10.0 ng/mL 09/20/2024 3:06 PM EDT [facility] Blood Venous blood specimen / Unknown Venipuncture / Unknown 09/20/2024 8:44 AM EDT 09/20/2024 9:00 AM EDT Narrative [facility] - 09/20/2024 3:06 PM EDT Performed by Bill electrochemiluminescent immunoassay which is traceable to the [address] [place] [address] IRP WHO Reference standard 72/255. Results obtained with different test methods or kits cannot be used interchangeably. Li Francis APRN, DNP LAB BLOOD ORDERABLES Final Result Performing Organization Address [facility] Co de Phone Number [facility] [address] [place] [address] * Nicotine Cotinine Metabolite (09/20/2024 8:44 AM EDT) [facility] NICOTINE <5 <5 ng/mL 09/23/2024 9:0 0 AM EDT [facility] Cotinine <5 <5 ng/mL 09/23/2024 9:0 0 AM EDT [facility] Blood Venous blood specimen / Unknown Venipuncture / Unknown 09/20/2024 8:44 AM EDT 09/20/2024 9:01 AM EDT Narrative [facility] - 09/23/2024 9:00 AM EDT Testing performed by LC-MS/MS at the [facility] Special Chemistry/Toxicology Laboratory. This test was developed and its performance characteristics determined by [facility]. This assay has not been cleared by the FDA. The laboratory is regulated under CLIA as qualified to perform high-complexity testing. This test is used for clinical purposes. Li Francis APRN, DNP LAB BLOOD ORDERABLES Final Result Performing Organization Address [facility] Co de Phone Number [facility] [address] [place] [address] * (ABNORMAL) Protime-INR (09/20/2024 8:44 AM EDT) [facility] Prothrombin Time 42.8(H) 12.0 - 14.3 sec LAB COAGULATION METHOD 09/20/2024 9:20 AM EDT [facility] INR 4.5(H) 0.9 - 1.1 LAB COAGULATION METHOD 09/20/2024 9:20 AM EDT [facility] Blood Venous blood specimen / Unknown Venipuncture / Unknown 09/20/2024 8:44 AM EDT 09/20/2024 9:00 AM EDT Narrative [facility] - 09/20/2024 9:20 AM EDT OPTIMAL INR RANGES FOR PATIENT ON ORAL ANTICOAGULANT THERAPY Prevention of venous thromboembolism INR 2.0 to 3.0 In patients with heart disease: Atrial fibrillation INR 2.0 to 3.0 Valvular heart disease INR 2.0 to 3.0 Tissue heart valves INR 2.0 to 3.0 Mechanical prosthetic valves INR 2.5 to 3.5 Prevention of recurrent MN INR 2.5 to 3.5 Li Francis GUARD IMMIGRATION, DNP LAB BLOOD ORDERABLES Final Result [facility] [address] [place] [address] * (ABNORMAL) CBC w/o differential (09/20/2024 8:44 AM EDT) [facility] WBC Count 2.72(L) 3.70 - 10.30 10*3/uL LAB HEMATOLOGY METHOD 09/20/2024 9:11 AM EDT [facility] RBC Count 2.89(L) 4.60 - 6.10 10*6/uL LAB HEMATOLOGY METHOD 09/20/2024 9:11 AM EDT [facility] HGB 8.5(L) 13.7 - 17.5 g/dL LAB HEMATOLOGY METHOD 09/20/2024 9:11 AM EDT [facility] HCT 27.9(L) 40.0 - 51.0 % LAB HEMATOLOGY METHOD 09/20/2024 9:11 AM EDT [facility] Platelet Count 85(L) 155 - 369 10*3/uL LAB HEMATOLOGY METHOD 09/20/2024 9:11 AM EDT [facility] MCV 97 79 - 98 fL LAB HEMATOLOGY METHOD 09/20/2024 9:11 AM EDT [facility] MCH 29.4 26.0 - 32.0 pg LAB HEMATOLOGY METHOD 09/20/2024 9:11 AM EDT [facility] MCHC 30.5(L) 30.7 - 35.5 g/dL LAB HEMATOLOGY METHOD 09/20/2024 9:11 AM EDT [facility] RDW 16.4(H) 11.5 - 14.5 % LAB HEMATOLOGY METHOD 09/20/2024 9:11 AM EDT [facility] MPV 10.4 8.8 - 12.5 fL LAB HEMATOLOGY METHOD 09/20/2024 9:11 AM EDT [facility] nRBC 0.0 <=0.0 per 100 WBCs LAB HEMATOLOGY METHOD 09/20/2024 9:11 AM EDT [facility] Blood Venous blood specimen / Unknown Venipuncture / Unknown 09/20/2024 8:44 AM EDT 09/20/2024 8:59 AM EDT us Li Francis GUARD IMMIGRATION, DNP LAB BLOOD ORDERABLES Final Result [facility] [address] [place] [address] * (ABNORMAL) Comprehensive metabolic panel (09/20/2024 8:44 AM EDT) Glucose, Plasma 144(H) 74 - 99 mg/dL 09/20/2024 9:31 AM EDT [facility] BUN, Plasma 11 8 - 23 mg/dL 09/20/2024 9:31 AM EDT [facility] Creatinine, Plasma 0.81 0.70 - 1.20 mg/dL 09/20/2024 9:31 AM EDT [facility] BUN/Creatinine Ratio 09/20/2024 9:31 AM EDT [facility] Sodium, Plasma 133(L) 136 - 145 mmol/L 09/20/2024 9:31 AM EDT [facility] Potassium, Plasma 4.3 3.6 - 4.9 mmol/L 09/20/2024 9:31 AM EDT [facility] Chloride, Plasma 101 97 - 107 mmol/L 09/20/2024 9:31 AM EDT [facility] CO2, Plasma 26 22 - 29 mmol/L 09/20/2024 9:31 AM EDT [facility] Anion Gap 6 6 - 16 mmol/L 09/20/2024 9:31 AM EDT [facility] Total Calcium, Plasma 8.7(L) 8.9 - 10.2 mg/dL 09/20/2024 9:31 AM EDT [facility] Total Protein 6.8 6.3 - 7.9 g/dL 09/20/2024 9:31 AM EDT [facility] Albumin, Plasma 3.1(L) 3.5 - 5.2 g/dL 09/20/2024 9:31 AM EDT [facility] AST, Plasma 42 10 - 50 U/L 09/20/2024 9:31 AM EDT [facility] ALT, Plasma 18 10 - 50 U/L 09/20/2024 9:31 AM EDT [facility] Alkaline Phosphatase, Plasma 282(H) 40 - 115 U/L 09/20/2024 9:31 AM EDT [facility] Total Bilirubin, Plasma 1.2(H) 0.2 - 1.1 mg/dL 09/20/2024 9:31 AM EDT [facility] eGFRcr 99.1 mL/min/1.7 3m*2 09/20/2024 9:31 AM EDT [facility] Comment:Reported eGFRcr in m L/min/1.73m2 is based the CKD-EPI 2020 equation that does not use a race coefficient. Blood Venous blood specimen / Unknown Venipuncture / Unknown 09/20/2024 8:44 AM EDT 09/20/2024 9:00 AM EDT us Li Francis GUARD IMMIGRATION, DNP LAB BLOOD ORDERABLES Final Result [facility] [address] [place] [address] * NM MYOCARDIAL SPECT REGADENOSON STRESS (MULTI STUDY) (09/19/2024 2:19 PM EDT) Target HR 133 bpm MUSE MPHR 157 bpm MUSE Resting HR 98 bpm MUSE Baseline Systolic BP 100 MUSE Baseline Diastolic BP 70 MUSE Pharma PK HR 116 bpm MUSE Pharmacologic Peak BP Systolic 94 mmHg MUSE Pharmacologic Peak BP Diastolic 62 mmHg MUSE Anatomical Region Laterality Modality Nuclear Medicine Narrative 09/19/2024 4:03 PM EDT Combined ECG/SPECT: This is a normal nuclear stress test. Stress ECG: No ischemic ST segment changes occurred with stress. Perfusion: SPECT images demonstrate normal myocardial perfusion. Function: Normal left ventricular cavity size. Gated SPECT images demonstrate abnormal systolic function. LVEF 48%, but may be unreliable given underlying afib. There is no previous examination/report available for comparison or correlation. Technical Details A one-day protocol was followed. 6.8 mCi of Tc-99m sestamibi were injected intravenously at rest. After a waiting period of 40-60 minutes, SPECT imaging of the heart was performed in the sitting upright position with three-dimensional tomographic reconstructions. 0.4 mg of regadenoson was infused over 10-12 seconds followed by 20.5 mCi of Tc-99m sestamibi injected intravenously. After a waiting period of 40-60 minutes, post-stress SPECT imaging of the heart was performed in the sitting upright and supine positions with three-dimensional tomographic reconstructions. Gated SPECT data were obtained to calculate left ventricular volumes and ejection fraction post-stress. Motion correction was not applied to the rest and/or post-stress acquisitions. Patient History The patient's cardiac risk factors include: hyperlipidemia hypertension The patient's cardiac history includes: CAD The patient's current medications include: beta shanell anticoagulant Stress Findings A pharmacological stress test was performed. The pharmacologic test was performed using regadenoson. The patient started with a baseline heart rate of 98bpm, and increased to 116bpm with stress pharmacologic agent. The patient's baseline blood pressure was 100/70, and changed to 94/62 with stress medication. There was no change in BP during the pharmacological stress. The patient experienced no chest pain. The patient reached the end of the planned protocol. Stress ECG Baseline ECG: The baseline ECG shows atrial fibrillation and normal axis. Baseline ECG shows no ST segment deviation. Stress and Recovery ECG: No ischemic ST segment changes occurred. Arrhythmias during stress were atrial fibrillation (consistent from baseline). Arrhythmias during recovery were atrial fibrillation (consistent from baseline ECG). ECG Conclusion: No ischemic ST segment changes occurred with stress. The stress test was performed under direct supervision of the reading power hammer operator. Study Impression There is no significant patient motion noted. The SPECT images demonstrate a normal left ventricular cavity size with an estimated left ventricular end-diastolic volume of 116 mL (normal: <149 mL for males, < 102 mL for females, small: <45 mL). There is no stress-induced transient ischemic dilation (TID) of the left ventricular cavity. SPECT images demonstrate normal myocardial perfusion. There is a small, mild perfusion defect located in the distal apical and inferolateral myocardium. The perfusion defect is fixed. The perfusion finding is best explained by processing artifact related to extra-cardiac activity. There is arrhythmia resulting in suboptimal gating. The gated SPECT images demonstrate abnormal systolic function. Regional wall motion is normal. LV wall thickening appears concordantly normal. The calculated post-stress LVEF is 48%. Nuclear Conclusion Combined ECG/SPECT: This is a normal nuclear stress test. There is no previous examination/report available for comparison or correlation. Li Francis APRN, [place] CV STRESS PROCEDURES Final Result * ECHO, ADULT TRANSTHORACIC COMPLETE (09/19/2024 1:57 PM EDT) BSA 2.28 m2 HOLLIS ISCV Height 180.3 HOLLIS ISCV Weight 108.9 HOLLIS ISCV LVIDd 58 mm HOLLIS ISCV IVSd 10 mm HOLLIS ISCV LVPWd 10 mm HOLLIS ISCV LV MASS(C)D 226 g HOLLIS ISCV LV RWT 0.34 mm HOLLIS ISCV LVIDs 41 mm HOLLIS ISCV Ao Root Diam 35 mm HOLLIS ISCV LV Lat e' Velocity 20.0 cm/s HOLLIS ISCV LV Sept e' Jaime 14.9 cm/s HOLLIS ISCV RA MOD 4Ch 72 mL HOLLIS ISCV SID 32 mL/m2 HOLLIS ISCV LAV(MOD-4ch) 135 mL HOLLIS ISCV LAV(MOD-bp) Indexed 52 mL/m2 HOLLIS ISCV LAV(MOD-2ch) 101 mL HOLLIS ISCV PA acc time 110 msec HOLLIS ISCV mean PAP 30 mmHg HOLLIS ISCV PA TN(ACCEL) 30.4 mmHg HOLLIS ISCV PA acc slope 565.8 cm/s2 HOLLIS ISCV TR Vmax 193.9 cm/s HOLLIS ISCV TR Max PG 15 mmHG HOLLIS ISCV RVSP 18 mmHg HOLLIS ISCV RAP systole 3 mmHg HOLLIS ISCV RV base 45 mm HOLLIS ISCV RV Mid 31 mm HOLLIS ISCV Anatomical Region Laterality Modality Echocardiography Narrative 09/19/2024 2:58 PM EDT Left Ventricle: The left ventricle is normal size. There is normal left ventricular myocardial thickness and mass. The left ventricular systolic function is normal. The LVEF is variable due to arrhythmia but is visually estimated at 45 - 60%. The left ventricular filling pressure is normal. No regional wall motion abnormalities are seen. Right Ventricle: The right ventricle is mildly dilated. The right ventricular systolic function is normal. Right ventricular systolic pressure is normal (<35mmHg). Pericardium: No pericardial effusion. Intravenous injection of agitated saline demonstrates no evidence of intracardiac or intrapulmonary shunt. There is no recent study available for direct [id number] comparison. Left Ventricle The left ventricle is normal size. There is normal left ventricular myocardial thickness and mass. There is a false chord. The left ventricular systolic function is normal. The LVEF is variable due to arrhythmia but is visually estimated at 45 - 60%. The left ventricular filling pressure is normal. No regional wall motion abnormalities are seen. Right Ventricle The right ventricle is mildly dilated. The right ventricular systolic function is normal. Right ventricular systolic pressure is normal (<35mmHg). Left Atrium The left atrium is dilated by visual assessment. Intravenous injection of agitated saline demonstrates no evidence of intracardiac or intrapulmonary shunt. Right Atrium The right atrium is dilated by visual assessment. IVC/SVC Based on the IVC size and respiratory variation, the estimated right atrial pressure is 3mmHg. Mitral Valve There is mild mitral annular calcification. There is mild mitral regurgitation. There is no mitral stenosis. Tricuspid Valve The tricuspid valve is normal in appearance. There is mild tricuspid regurgitation. There is no tricuspid stenosis. Aortic Valve The aortic valve appears to be trileaflet. There is aortic annular calcification present. There is no valvular regurgitation. There is no hemodynamically significant valvular aortic stenosis. Pulmonic Valve The pulmonic valve was not well visualized. There is trace pulmonic regurgitation. There is no pulmonic stenosis. Pericardium No pericardial effusion. Great Vessels The aortic root is normal in size. The main pulmonary artery is normal in size. Study Details A complete transthoracic echocardiogram using two-dimensional (2D), m-mode, color and spectral flow Doppler imaging was performed. During the study the apical, parasternal, subcostal and suprasternal view was captured. Saline (bubble) contrast was used during the study. Overall the study quality was adequate. Height: 180.3 cm. Weight: 108.9 kg. BSA: 2.28 m2. The heart rhythm during this exam was most suggestive of atrial fibrillation/flutter. Study Recommendation There is no recent study available for direct [id number] comparison. us Li Francis GUARD IMMIGRATION, DNP CV ECHO PROCEDURES F inal Result * ED HIV 1/2 Antibody/Antigen Screen w/Reflex to HIV 1/2 Differentiation (08/23/2024 6:19 PM EST) HIV 1 & 2 Antibody/Antigen Screen Non Reactive Non Reactive 08/23/2024 7:27 PM EST [facility] Comment:Screening for HIV 1 & 2 antibodies, and P24 antigen is NONREACTIVE. No confirmatory testing is required. Blood Venous blood specimen / Unknown Venipuncture / Unknown 08/23/2024 6:19 PM EST 08/23/2024 6:45 PM EST Ash Durant MD LAB BLOOD ORDERABLES Final Resul t Performing Organization Address [facility] Co de Phone Number [facility] [address] [place] [address] * Hepatitis C Antibody - ED (08/23/2024 6:19 PM EST) Hepatitis C Antibody Negative Negative 08/23/2024 7:26 PM EST [facility] Blood Venous blood specimen / Unknown Venipuncture / Unknown 08/23/2024 6:19 PM EST 08/23/2024 6:46 PM EST Ash Durant MD LAB BLOOD ORDERABLES Final Resul t Performing Organization Address City/[facility] Co de Phone Number [facility] [address] [address] from Last 3 Months or Most Recently Relevant to Health Maintenance Insurance [employer]AGE [employer] Advance Directives * Full Code (Latest Code Status on File) Date Activated Date Inactivated Comments 08/22/2024 5:25 PM 08/27/2024 2:34 PM Question Answer Comments Patient has decision-making capacity? Yes * Full Code Date Activated Date Inactivated Comments 08/22/2024 4:32 PM 08/22/2024 5:25 PM Question Answer Comments Patient has decision-making capacity? Yes Care Teams Ell Teacher Relationship Specialty Start Date End Date Yunier Barrett MD PCP - General 10/04/22 Roni Burciaga MD [address] [place] [phone] Referring Physician Gastroenterology 10/04/22 Ace Campbell DO [address] [place] [address] Referring Physician General Surgery 05/15/24 Reema Sanchez, RN [facility] [address] [place], [place] [id number] Registered Nurse Transplant Surgery 05/15/24 Keesha Love [place] [id number] Registered Nurse Transplant Surgery 05/15/24
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
--- OUTSIDE RECORDS SUMMARY | 2024-12-17 15:22 | XMS_ITS | Encounter Summary ---
Author Organization [facility] Address [address] [place] [address] Care Team Providers Care Manager Radiation Name Role Phone Yunier Barrett MD Primary Care Provider [phone] Roni Burciaga MD Unavailable [phone] Ace Campbell DO Unavailable [phone] Reema Sanchez RN Unavailable [phone] Keesha Love Unavailable [phone] Encounter Details Date Type Department Care Team (Late st Contact Info) Description 11/26/2024 Telephone [facility] [place] [address] [facility]. [address] [place] [address] Bonifacio Pratt, PharmD [address] [place] [address] Social History Tobacco Use Types [...] any time in the past 12 m [facility], were you homeless or living in a fpc (including now)? No 08/26/2024 Utilities Answer Date Recorded In the past 12 months has th e Consult A Doctor, gas, oil, or water company threatened to [...] Telephone Encounter - Bonifacio Pratt, PharmD - 11/26/2024 11:23 AM EDT Mr Ruiz was contacted today to follow up on medical therapy. At this time, patient continues off of digoxin with a significant improvement in vision and back to baseline. He follow up with PCP and reported vision changes being related to low blood pressures. Blood pressure log as below. SBP DBP P 103 69 94 105 57 92 118 69 97 109 67 82 80 50 98 -> at PCP office A/P: Atrial Fibrillation: On carvedilol 25 mg BID alone and not on OAC as was stopped at last clinic visit 10/09/24. As previously discussed, patient self discontinued digoxin ~5/3 d/t waking up hypotensivewith vision changes. At this time, will decrease carvedilol d/t hypotension and will retrial digoxin as prior symptoms could have been caused by carvedilol as still having hypotensive episodes while off of digoxin. Patient aware to stop with any vision changes. Will plan to repeat a level once on target dose. Decrease carvedilol to 12.5 mg BID Start digoxin 125 mcg daily Recommended to check blood pressure and pulse and record in log Follow up: ~ 1 week to assess medication changes documented in this encounter Plan of Treatment [...] documented as of this encounter Care Teams Manager Radiation Relationship Specialty Start Date End Date Yunier Barrett MD PCP - General 10/04/22 Roni Burciaga MD [address] [place] [phone] Referring Physician Gastroenterology 10/04/22 Ace Campbell DO [address] [place] [address] Referring Physician General Surgery 05/15/24 Reema Sanchez RN [facility] [address] [place] [address] Registered Nurse Transplant Surgery 05/15/24 Keesha Love [place] [phone] Registered Nurse Transplant Surgery 05/15/24 documented as of this encounter
--- OUTSIDE RECORDS SUMMARY | 2024-12-17 15:22 | XMS_ITS | Encounter Summary ---
Author Organization [facility] Address [address] [place] [address] Care Team Providers Care Producer Director Name Role Phone Yunier Barrett MD Primary Care Provider [phone] Roni Burciaga MD Unavailable [phone] Ace Campbell DO Unavailable [phone] Reema Sanchez RN Unavailable [phone] Keesha Love Unavailable [phone] Encounter Details Date Type Department Care Team (Late st Contact Info) Description 11/06/2024 Telephone [facility] [place] [facility] [address] [facility]. [address] [place] [address] Ayde Jeter, PharmD [address] [place] [address] Social History Tobacco Use Types [...] any time in the past 12 m [facility] [place], were you homeless or living in a care home (including now)? No 08/26/2024 Utilities Answer [...] Addendum Note - Ayde Jeter, PharmD - 11/14/2024 2:20 PM EDTAddended by: AYDE JETER on: 11/14/2024 02:20 PM Modules accepted: Orders * Telephone Encounter - Ayde Jeter PharmD - 11/14/2024 2:17 PM EDT 11/14/24 Follow Up: Mr. Ruiz was contacted today to follow up on symptoms. Patient reports ongoing blurry vision in both eyes that is unchanged. Denies any other symptoms. Blood pressure last night of 118/69 p: 97 bpm.At this time, recommended patient to be evaluated by PCP. Will follow up next week to reevaluate. Of note, patient was on diltiazem prior but was stopped at time of initiation of carvedilol. Can consider diltiazem at follow up. * Telephone Encounter - Ayde Jeter PharmD - 11/11/2024 2:32 PM EDT 11/11/24 Follow up: Mr. Ruiz was contacted today to follow up on digoxin therapy. Patient stopped digoxin over the weekend with last dose on Monday. He reports Monday he woke up feeling tired, worsened vision, and low blood pressure ~70/37 from his recall and pulse of 77 bpm. He denies any other symptoms, including N/V or stroke symptoms. Today, still feels fatigued and vision has not improved. Blood pressure ~97/60s from recall. He spoke with PCP over the weekend about symptoms and no recommendations were provided but to follow regarding the digoxin. At this time, recommended to continue off of digoxin therapy. Will follow up in ~ 2 days to reevaluate. No digoxin level was completed as considering a doseincrease per last discussion. * Telephone Encounter - Ayde Jeter PharmD - 11/06/2024 10:40 AM EDT Mr. Ruiz was contacted today to follow up on digoxin therapy as recommended 10/29/24. Patient started digoxin as instructed with completion of load dose and now on 125 mcg maintenance with no problems tolerating. He was not with vital log at time of call and from recall pulse has decreased from 90sto 83-84 bpm. He takes his dose at 7-8pm. Per recommendations from Dr. Smith, to increase dose until at target pulse of <80 bpm. Will continue on current dose and review vitals early next week. Ifabove target will plan to increase digoxin dose. Will plan digoxin level pending dosage adjustment.Patient request order be sent to [facility]. documented in this encounter Plan of Treatment Scheduled Orders Name Type Priority Associated Diagnoses Orde r Schedule Digoxin level Lab Routine Chronic atrial fibrillation (CMS/HCC) Expected: 11/07/2024 (Approximate), Expires: 05/08/2026 documented as of this encounter Visit Diagnoses [...] documented as of this encounter Care Teams Producer Director Relationship Specialty Start Date End Date Yunier Barrett MD PCP - General 10/04/22 Roni Burciaga MD [address] [place] [phone] Referring Physician Gastroenterology 10/04/22 Ace Campbell DO [address] [place] [address] [place] [address] Referring Physician General Surgery 05/15/24 Reema Sanchez RN [facility] [address] [place] [address] Registered Nurse Transplant Surgery 05/15/24 Keesha Love [place] [phone] Registered Nurse Transplant Surgery 05/15/24 documented as of this encounter
--- OUTSIDE RECORDS SUMMARY | 2024-12-17 15:22 | XMS_ITS | Encounter Summary ---
Author Organization [facility] Address [address] [place] [address] Care Team Providers Care Supervisor Line Department Name Role Phone Yunier Barrett MD Primary Care Provider [phone] Roni Burciaga MD Unavailable [phone] Ace Campbell DO Unavailable [phone] Reema Sanchez RN Unavailable [phone] Keesha Love Unavailable [phone] Miracle Villanueva PRODUCT PROMOTER SALES PERSON Unavailable Unavailable Reason for Visit * Reason Comments Med Refill Encounter Details Date Type Department Care Team (Late st Contact Info) Description 10/26/2023 Refill [facility] [address] [place] [address] Addie Hall, GREY INSPECTOR, DNP [address] [place] [address] Social History Tobacco Use Types [...] encounter Miscellaneous Notes * Telephone Encounter - Kerry Carrizales RN - 10/27/2023 10:15 AM EDT Not following - last seen by Addie hall in GI, not transplant * Telephone Encounter - Obie Segovia PharmD - 10/26/2023 9:36 AM EDT Routing refill request to appropriate [...] documented as of this encounter Care Teams Supervisor Line Department Relationship Specialty Start Date End Date Yunier Barrett MD PCP - General 10/04/22 Roni Burciaga MD [address] [place] [phone] Referring Physician Gastroenterology 10/04/22 Ace Campbell DO [address] [place] [address] Referring Physician General Surgery 05/15/24 Reema Sanchez, RN [facility] [address] [place] [address] Registered Nurse Transplant Surgery 05/15/24 [place] [address] Registered Nurse Transplant Surgery 05/15/24 Miracle Villanueva, [employer] [place] [address] TCM Nurse 08/28/24 09/25/24 documented as of this encounter
--- OUTSIDE RECORDS SUMMARY | 2024-12-17 15:22 | XMS_ITS | Encounter Summary ---
Author Organization [facility] Address [address] [place] [address] Care Team Providers Care Gold Layer Name Role Phone Yunier Barrett MD Primary Care Provider [phone] Roni Burciaga MD Unavailable [phone] Adrian Ace A DO Unavailable [phone] Reema Sanchez RN Unavailable [phone] Keesha Love Unavailable [phone] Encounter Details Date Type Department Care Team (Late st Contact Info) Description 10/21/2024 Telephone [facility] [place] [facility] [address] [place] [phone] Diana Arriola, RN [facility] Social History Tobacco Use Types Packs/Day Years [...] any time in the past 12 m [facility], were you homeless or living in a usp (including now)? No 08/26/2024 Utilities Answer Date [...] encounter Miscellaneous Notes * Telephone Encounter - Diana Arriola RN - 10/21/2024 12:12 PM EDT Received message from Dr. Smith requesting arrangements for patient to have EKG done at [facility] to check his AF rate. Order placed and faxed to [facility] Central Scheduling [phone]. Called and spoke with patient. Advised him of need for EKG. Patient states he does not want togo today and will go have it done tomorrow morning. documented in this encounter Plan of Treatment [...] documented as of this encounter Care Teams Gold Layer Relationship Specialty Start Date End Date Yunier Barrett MD PCP - General 10/04/22 Roni Burciaga MD [address] [place] [phone] Referring Physician Gastroenterology 10/04/22 Ace Campbell DO [address] [place] [address] Referring Physician General Surgery 05/15/24 Reema Sanchez RN [facility] [address] [place] [address] Registered Nurse Transplant Surgery 05/15/24 [place] [address] Registered Nurse Transplant Surgery 05/15/24 documented as of this encounter
--- OUTSIDE RECORDS SUMMARY | 2024-12-17 15:23 | XMS_ITS | Encounter Summary ---
Author Organization [facility] Address [address] [place] [address] Care Team Providers Care Meat Supervisor Name Role Phone Yunier Barrett MD Primary Care Provider [phone] Roni Burciaga MD Unavailable [phone] Ace Campbell DO Unavailable [phone] Reema Sanchez RN Unavailable [phone] Keesha Love Unavailable [phone] Reason for Visit * Reason Onset Date Comments HCN Clinical Concern/Question 10/02/2024 Encounter Details Date Type Department Care Team (Late st Contact Info) Description 10/02/2024 Telephone [facility] [address] [facility] [place] [address] Abbi Smith MD [address] [place] [address] HCN Clinical Concern/Question Social History Tobacco Use Types Packs/Day Years [...] any time in the past 12 m [facility], were you homeless or living in a assisted (including now)? No 08/26/2024 Utilities Answer Date Recorded In the past 12 months has th e [employer], gas, oil, or water [employer] threatened to shut off services in your home? No 08/26/2024 PHQ-2A Answer Date Recorded Depression Risk 0 03/18/2024 Sex and Gender Information Value Date Recorded Sex Assigned at Not on file Legal Sex Male 8:07 PM EDT Gender Identity Not on file Sexual Orientation Not on file documented as of this encounter Functional Status * Over the past 2 weeks, how often have you been bothered by any of the following problems? Question Answer Date of Assessment Author Little interest or pleasure in doing things Not at all 10/09/2024 10:46 AM Germain Colbert Feeling down, depressed, or hopeless Not at all 10/09/2024 10:46 AM Germain Colbert Patient Health Questionnaire-2 Score 0 10/09/2024 10:46 AM Ginger Colbert * Question Answer Date of Assessment Author Trouble falling or staying asleep, or sleeping too much Not at all 10/09/2024 10:46 AM Jose Colbert Feeling tired or having little energy Not at all 10/09/2024 10:46 AM Germain Colbert Poor appetite or overeating Not at all 10/09/2024 10 :46 AM Jose Colbert Feeling bad about yourself - or that you are a failure or have let yourself or your family down Not at all 10/09/2024 10:46 AM Germain Colbert Trouble concentrating on things, such as reading the newspaper or watching television Not at all 10/09/2024 10:46 AM Germain Colbert Moving or speaking so slowly that other people could have noticed? Or the opposite - being so fidgety or restless that you have been moving around a lot more than usual. Not at all 10/09/2024 10:46 AM Jose Otero Thoughts that you would be better off or hurting yourself in some way Not at all 10/09/2024 10:46 AM José Antonio Colbert Patient Health Questionnaire-9 Score 0 10/09/2024 10:46 AM Ginger Colbert * If you checked off any problems on this questionnaire so far, Question Answer Date of Assessment Author How difficult have these problems made it for you to do your work, take care of things at home, or get along with other people? Not difficult at all 10/09/2024 10:46 AM Jose Colbert documented as of this encounter Miscellaneous Notes * Telephone Encounter - Christel Reyna 10/02/2024 11:19 AM EDT Clinical Concern/Question Reason for Call: Luis patient is requesting a call to go over recent test results. Best contact number: [phone] (mobile) Optimal time of day to reach caller: ANYTIME Additional comments/information from caller: None Note: Please do not reply to this message. Follow-up communication and further actions as a result of this message need to be communicated with the patient directly, if the patient is not active onMyChart. If the patient is active on MyChart, they will receive notification of the communication/outcome via [employer] documented in this encounter Plan of Treatment Not on file documented as of this encounter Visit Diagnoses Not on filedocumented in this encounter Additional Health Concerns Assessment Noted Time A fall risk assessment has been complete d for the patient 09/20/2024 9:27 AM EDT A Body Mass Index follow-up plan has been documented for the patient 09/22/2024 4:35 PM EDT documented as of this encounter Care Teams Meat Supervisor Relationship Specialty Start Date End Date Yunier Barrett MD PCP - General 10/04/22 Roni Burciaga MD [address] [place] [address] Referring Physician Gastroenterology 10/04/22 Ace Campbell DO [address] [place] [address] [address] [place] [address] Referring Physician General Surgery 05/15/24 Reema Sanchez RN [facility] [address] [place] [address] Registered Nurse Transplant Surgery 05/15/24 [place] [address] Registered Nurse Transplant Surgery 05/15/24 documented as of this encounter
== END 2024-12-16 23:59 | disposition home or self-care (01) ==
LOC: LAB.DROPOF 12-17 15:16
PROVIDERS: PCP Family Medicine; Visit Provider Family Medicine
DX: K75.81 Nonalcoholic steatohepatitis (NASH) (principal); D68.9 Coagulation defect, unspecified
CPT/HCPCS: 80053; 83540; 83550; 85007; 85025

== ENCOUNTER 2025-01-29 08:17 | Outpatient (CLI) | payer MEDICARE, SELFPAY ==
--- NOTE | 2025-01-29 | CA_ITS ---
APPROVED REPORT EXAM: Comprehensive 2D, Doppler, and color-flow Echocardiogram [place] Joiner: Rossana Schmid PAULINO Ht: 5 ft 10 in Wt: 210lbs BSA: 2.13 BP: 101/65 mmHg Indications: A-FIB,PRE LIVER TRANSPLANT 2D Dimensions LA Volume 130.70 mL LA Volume Index 61.36 mL/m2 (M/F) 16-34 M-Mode Dimensions RVDd 2.88 cm (0.9-2.6) LA Diam 4.10 cm (1.9-4.0) LVDd 5.83 cm (3.5-5.7) LVDs 4.13 cm (3.5-5.7) IVSd 0.72 cm (0.6-1.1) PWd 0.49 cm (0.6-1.1) EF (Teich) 55.20% FS 29.20% EDV (Teich) 168.50 mL TAPSE 2.96 (<1.7) ESV (Teich) 75.50 mL Aortic Valve JUAN Index 0.76 cm2/m2 AoV Peak Jaime. 200.0 (50-130 cm/s) AO Peak GR. 16.00 mmHg AO Mean GR. 8.50 (<5 mmHg) AO VTI 38.8 (18-25 cm) JUAN (VTI) 1.66 (2.5-4.5 cm2) Pulmonary Valve PV Peak Velocity 60.0 (50-150 cm/s) Left Ventricle The left ventricle is normal size. The left ventricular systolic function is low-normal. There is increased LV wall thickness. The septum is asynchronous. Transmitral Doppler flow pattern suggests impaired LV relaxation. LVEF is 50%. Right Ventricle The right ventricle is normal size. The right ventricular systolic function is normal. Atria Left atrium is severely dilated. Right atrium is severely dilated. There is no Doppler evidence of interatrial shunt. Aortic Valve The aortic valve is mildly thickened. There is no aortic valvular stenosis. Trace aortic regurgitation. Mitral Valve The mitral valve is normal in structure. Mild mitral regurgitation. Tricuspid Valve Tricuspid valve is grossly normal in structure and function. Mild tricuspid regurgitation. RVSP is 20-25 mmHg. Pulmonic Valve The pulmonary valve is normal in structure. Mild pulmonic regurgitation. Great Vessels The aortic root is normal in size. Pericardium A localized, moderate sized, anterior pericardial effusion is present. The largest pocket measures 1.5 cm in its largest dimension. There is slight invagination of the RV during diastole, but no clear evidence of chamber collapse. Pleural effusion is present. Ascites is present. Other Information Study Quality: Fair Conclusion Low-normal LV systolic function (LVEF 50%). Asynchronous septum. Severe biatrial dilation. Mild MR, mild TR, mild PI. Pleural effusion. Ascites. A localized, moderate sized, anterior pericardial effusion is present. The largest pocket measures 1.5 cm in its largest dimension. There is slight invagination of the RV during diastole, but no clear evidence of chamber collapse. In the setting of pericardial effusion, serial limited TTE may be suggested to evaluate for progression vs. resolution. Clinical correlation is recommended. Electronically signed by : Jayla Rasheed MD 02/02/2025 11:26:02
--- OUTSIDE RECORDS SUMMARY | 2025-01-29 08:24 | XMS_ITS | Encounter Summary ---
Author Organization [facility] Address [address] [place] [address] Care Team Providers Care Jewel Staker Name Role Phone Yunier Barrett MD Primary Care Provider [phone] Roni Burciaga MD Unavailable [phone] Ace Campbell DO Unavailable [phone] Reema Sanchez RN Unavailable [phone] Keesha Love Unavailable [phone] Miracle Villanueva LPN Unavailable Unavailable Encounter Details Date Type Department Care Team (Late st Contact Info) Description 05/18/2023 Orders Only External Location [address] [place] [address] Provider, External Social History Tobacco Use Types [...] documented as of this encounter Care Teams Jewel Staker Relationship Specialty Start Date End Date Yunier Barrett MD PCP - General 10/04/22 Roni Burciaga MD [address] [place] [address] Referring Physician Gastroenterology 10/04/22 Ace Campbell DO [address] [place] [address] Referring Physician General Surgery 05/15/24 Reema Sanchez, RN [facility] [address] [place] [address] Registered Nurse Transplant Surgery 05/15/24 [place] [address] Registered Nurse Transplant Surgery 05/15/24 Miracle Villanueva LPN [employer]UE[employer] [place] [address] TCM Nurse 08/28/24 09/25/24 documented as of this encounter
--- OUTSIDE RECORDS SUMMARY | 2025-01-29 08:24 | XMS_ITS | Clinical Summary ---
Author Organization [facility] Address [address] [facility] [address] [place] [address] Phone Care Team Providers Care Milk Hauler Name Role Phone Jeff Gallardo MD Conditions [...] 1 po tid prn pain 8 IBUPROFEN [id number] Jeff Gallardo MD FENOFIBRIC ACID 135 MG CPDR 1 daily Non-Moon 8 CHOLINE FENOFIBRATE [id number] Jeff Gallardo MD CRESTOR 20 MG TABS 1 daily Non-Moon 8 ROSUVASTATIN CALCIUM [id number] Jeff Gallardo MD LISINOPRIL 10 MG TABS 1 daily Non-[place] 8 LISINOPRIL [id number] Jeff Gallardo MD GABAPENTIN 400 MG CAPS 1 po five times per day [facility]-Moon 8 GABAPENTIN [id number] Jeff Gallardo MD SOMA 350 MG TABS 1 qid Non-[place] 8 CARISOPRODOL [id number] Jeff Gallardo MD PERCOCET 10-325 MG TABS 1 qid [facility]-[place] 8 OXYCODONE-ACETA MINOPHEN [id number] Jeff Gallardo MD Medications Administered No information [...] Procedures Code Procedure Name Date Entry Date [facility]-[id number] Medications Documented 1124F No ACP/POA documented but discussed 10/15 G8483 No flu shot received; allergy etc. 10/15 [id number] No pneumococcal vaccine received; no reas on [...]
--- OUTSIDE RECORDS SUMMARY | 2025-01-29 08:24 | XMS_ITS ---
Author Organization [facility] Address [address] [place] [address] Care Team Providers Care Rotoprinter Name Role Phone Yunier Barrett MD Primary Care Provider [phone] Roni Burciaga MD Unavailable [phone] Adrian Ace A DO Unavailable [phone] Reema Sanchez RN Unavailable [phone] Keesha Love Unavailable [phone] Transplant Episode Liver Candidate [facility] ([place], [place]) - [facility] Referred on 10/03/2022 Marked as Active on 10/03/2022 Liver CoordinatorKerry Carrizales RN Fax: N/A Email: N/A Scores Score Value Updated Expires Exceptions/[place] sons CPRA Not available MELD (Calc) 24 09/20/2024 [place]incon Organ Diagnosis Organ Primary 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
--- OUTSIDE RECORDS SUMMARY | 2025-01-29 08:24 | XMS_ITS | Encounter Summary ---
Author Organization [facility] Address [address] [place] [address] Care Team Providers Care Crown Presser Name Role Phone Roni Burciaga MD Primary Care Provider [phone] Yunier Barrett MD Primary Care Provider [phone] Roni Burciaga MD Unavailable [phone] Ace Campbell DO Unavailable [phone] Reema Sanchez RN Unavailable [phone] Keesha Love Unavailable [phone] Miracle Villanueva LPN Unavailable Unavailable Encounter Details Date Type Department Care Team (Late st Contact Info) Description 05/12/2022 Orders Only External Location [address] [place] [address] Provider, External Social History Tobacco Use Types [...] on filedocumented in this encounter Care Teams Crown Presser Relationship Specialty Start Date End Date Roni Burciaga MD [address] [place] [address] PCP - General 09/23/22 10/03/22 Yunier Barrett MD [address] [place] [address] PCP - General 10/04/22 Roni Burciaga MD [address] [place] [address] Referring Physician Gastroenterology 10/04/22 Ace Campbell DO [address] [place] [address] Referring Physician General Surgery 05/15/24 Reema Sanchez, RN [facility] [address] [place] [address] Registered Nurse Transplant Surgery 05/15/24 Keesha Love [place] [id number] Registered Nurse Transplant Surgery 05/15/24 Miracle Villanueva LPN VALUE-BASED TRANSFORMATION PROGRAM [place] [id number] TCM Nurse 08/28/24 09/25/24 documented as of this encounter
--- OUTSIDE RECORDS SUMMARY | 2025-01-29 08:24 | XMS_ITS | Encounter Summary ---
Author Organization [facility] Address [address] [place] [address] Care Team Providers Care Oracle Distribution Consultant Name Role Phone Yunier Barrett MD Primary Care Provider [phone] Roni Burciaga MD Unavailable [phone] Ace Campbell DO Unavailable [phone] Reema Sanchez RN Unavailable [phone] Keesha Love Unavailable [phone] Encounter Details Date Type Department Care Team (Late st Contact Info) Description 11/26/2024 Telephone [facility] [place] Fl[facility]io [address] [facility] [place] [address] Bonifacio Pratt, PharmD [address] [place] [address] Social History Tobacco Use Types [...] any time in the past 12 m [facility], were you homeless or living in a assisted (including now)? No 08/26/2024 Utilities Answer Date Recorded In the past 12 months has th e [employer], gas, oil, or water company threatened to [...] documented as of this encounter Care Teams Oracle Distribution Consultant Relationship Specialty Start Date End Date Yunier Barrett MD PCP - General 10/04/22 Roni Burciaga MD [address] [place] [address] Referring Physician Gastroenterology 10/04/22 Ace Campbell DO [address] [place] [address] Referring Physician General Surgery 05/15/24 Reema Sanchez, RN [facility] [address] [place] [address] Registered Nurse Transplant Surgery 05/15/24 Keesha Love [place] [id number] Registered Nurse Transplant Surgery 05/15/24 documented as of this encounter
--- OUTSIDE RECORDS SUMMARY | 2025-01-29 08:24 | XMS_ITS | Clinical Summary ---
Author Organization [facility] Address [address] [place] [address] Care Team Providers Care Academic Associate Name Role Phone Yunier Barrett MD Primary Care Provider [phone] Roni Burciaga MD Unavailable [phone] Adrian Ace A DO Unavailable [phone] Reema Sanchez RN Unavailable [phone] Keesha Love Unavailable [phone] Allergies Active Allergy Reactions Criticality Noted Date Comments Clobetasol Rash Low 04/08/2013 Throat swelling Codeine Nausea And Vomiting Medium 04/25/2011 Cortisone Hives High 04/25/2011 Iodinated Contrast Media Swelling High 04/25/2011 Per patient throat swelled cant breathe even wit pre medication Morphine Hives High 02/06/2013 Medications Xifaxan 550 MG tablet Take 1 tablet (550 mg) by mouth 2 (two) times a day. 08/26/19 23 Active Multiple Vitamin (multivitamin) tablet Take 1 tablet by mouth daily. Active nutrional drink glucose control (Boost Glucose Control) liquid liquid Take 237 mL by mouth 4 (four) times a day. Drink 1 supplement up to 3 times a day or As Directed as a nutritional supplement. Flavor preference: per patient. Please dispense up to 4 cases at a time per patient request [id number] mL 3 03/13/20 24 025 Active ciprofloxacin (Cipro) 500 MG tabletIndications: SBP (spontaneous bacterial peritonitis) (CMS/HCC) Take 1 tablet (500 mg) by mouth 1 (one) time each day. 90 tablet 3 03/13/20 24 025 Active furosemide (Lasix) 20 MG tablet Take 3 tablets (60 mg) by mouth daily. 90 tablet 2 08/28/19 25 Active lactulose (Chronulac) 10 GM/15ML oral solutionIndication s:Decompensated hepatic cirrhosis (CMS/HCC),Hepatic encephalopathy (CMS/HCC) Take 15 mL (10 g) by mouth 3 (three) times a day. Titrate to goal 2-3 bowel movements a day 4050 mL 3 08/27/19 25 026 Active aMILoride (Midamor) 5 MG tablet Take 4 tablets (20 mg) by mouth daily. 120 tablet 2 08/28/19 25 Active naloxone (Narcan) 4 mg/0.1 mL nasal spray 1. Give 1 spray in nostril for no/slow breathing or cannot wake after opioid use 2. Call 911 3. Repeat in other nostril if symptoms continue 1 each 08/27/19 25 Active Blood Pressure Monitoring (Advanced One Step BP Monitor) mis 1 each daily. Use to check blood pressure once daily as instructed. 1 each 10/31/19 25 Active carvedilol (Coreg) 12.5 MG tablet Take 1 tablet by mouth 2 times a day with meals. 60 tablet 11 11/27/19 25 Active digoxin (Lanoxin) 125 MCG tablet Take 1 tablet by mouth daily. 30 tablet 11 11/27/19 25 026 Active Active Problems Problem Noted Date Diagnosed [...] 10/23/2023 Presence of right artificial hip joint 4 Unilateral primary osteoarthritis, right hip Edema [...] Liver disease 09/21/2021 Overview (02/21/2024): fatty liver VA (myocardial infarction) 09/21/2021 Overview (02/21/2024): X2 when [...] lower. 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 [place] [address] Diana Arriola RN Persistent atrial fibrillation (CMS/HCC) (Primary Dx) 01/16/2025 Telephone [facility] [address] [place] [address] Bonifacio Pratt, PharmD 12/04/2024 Telephone [facility] [address] [place] [address] Bonifacio Pratt, PharmD 11/26/2024 Telephone [facility] [address] [facility] [place] [address] Bonifacio Pratt, PharmD 11/15/2024 Refill [facility] [address] [place] [address] Sowmya Doe PA 11/06/2024 Telephone [facility] [address] [facility] [place] [address] Bonifacio Pratt, PharmD 10/30/2024 Orders Only [facility] [address] [facility] [place] [address] Bonfiacio Pratt, PharmD from Last 3 Months Family History Medical [...] were you homeless or living in a custodial (including now)? No 08/26/2024 Utilities Answer Date [...] Done Comments [facility]-Medicare Annual Wellness (AWV) 1960 [facility]-/Child/Adol SDOH Screenings 1960 [facility]-Hepatitis A Vaccines (1 of 2 - Risk 2-dose series) 11/30/1979 [facility]-Pneumococcal Vaccine: 50+ Years (1 of 2 - PCV) 11/30/1979 [facility]-Zoster Vaccines (1 of 2) 11/30/1979 CT Colonography 2005 FIT-DNA 2005 FIT 2005 FOBT 2005 Sigmoidoscopy 2005 [facility]-RSV Vaccine: 60+ Years or (1 - Risk 60-74 years 1-dose series) 2020 [id number] Vaccine (3 - Moderna risk series) 12/02/2020 11/04/2020, 10/02/2020 [facility]-DTaP,Tdap,and Td Vaccines (2 - Td or Tdap) 10/26/2023 10/25/2013 [facility]- SDOH Screenings 02/23/2025 [facility]-Adult SDOH Screenings 02/23/2025 08/26/2024 [facility]-Influenza Vaccine (#1) 03/10/202504/02, 05/25/2011, 04/05/2010 [facility]-Depression Screening 10/09/2025 025, 10/09/2024, [...] Procedure Name Priority Date/Time Associated Diagnosis Comments HEPATITIS C ANTIBODY - ED W/REFLEX TO HCV QUANT PCR Routine 08/23/2024 6:19 PM EST ED HIV 1/2 ANTIBODY/ANTIGEN SCREEN WITH REFLEX TO HIV I/II DIFFERENTIATION Routine 08/23/2024 6:19 PM EST from Last 3 Months or Most Recently Relevant to Health Maintenance Results * ED HIV 1/2 Antibody/Antigen Screen w/Reflex to HIV 1/2 Differentiation (08/23/2024 6:19 PM EST) Pathologist [facility] HIV 1 & 2 Antibody/Antigen Screen Non Reactive Non Reactive 08/23/2024 7:27 PM EST [facility] Comment:Screening for HIV 1 & 2 antibodies, and P24 antigen is NONREACTIVE. No confirmatory testing is required. Blood Venous blood specimen / Unknown Venipuncture / Unknown 08/23/2024 6:19 PM EST 08/23/2024 6:45 PM EST us Ash Durant MD LAB BLOOD ORDERABLES Final Resul t Performing Organization Address City/[facility]/ZIP Co de Phone Number [facility] [address] [place] [address] * Hepatitis C Antibody - ED (08/23/2024 6:19 PM EST) Pathologist [facility] Hepatitis C Antibody Negative Negative 08/23/2024 7:26 PM EST [facility] Blood Venous blood specimen / Unknown Venipuncture / Unknown 08/23/2024 6:19 PM EST 08/23/2024 6:46 PM EST us Ash Durant MD LAB BLOOD ORDERABLES Final Resul t [facility] [address] [place] [address] from Last 3 Months or Most Recently [...] Patient has decision-making capacity? Yes Care Teams Academic Associate Relationship Specialty Start Date End Date Yunier Barrett MD PCP - General 10/04/22 Roni Burciaga MD [address] [place] [address] Referring Physician Gastroenterology 10/04/22 Ace Campbell DO [address] [place] [address] Referring Physician General Surgery 05/15/24 Reema Sanchez RN [facility] [address] [place] [address] Registered Nurse Transplant Surgery 05/15/24 [place] [address] Registered Nurse Transplant Surgery 05/15/24
--- OUTSIDE RECORDS SUMMARY | 2025-01-29 08:24 | XMS_ITS | Clinical Summary ---
Author Organization [facility] Address [address] [place] [address] Care Team Providers Care Liner Machine Operator Helper Name Role Phone Yunier Barrett MD Primary Care Provider [phone] Source Comments This information has been disclosed [...] therelease of HIV test results or diagnoses. [id number] Allergies Active Allergy Reactions Criticality Noted Date [...] MEDICAID [place] MEDICARE A AND B MEDICAID [place] Care Teams Liner Machine Operator Helper Relationship Specialty Start Date End Date Yunier Barrett MD [address] [place] [address] PCP - General Family Medicine 12/17/12
--- OUTSIDE RECORDS SUMMARY | 2025-01-29 08:24 | XMS_ITS | Encounter Summary ---
Author Organization [facility] Address [address] [place] [address] Care Team Providers Care Color Repairer Name Role Phone Roni Burciaga MD Primary Care Provider [phone] Yunier Barrett MD Primary Care Provider [phone] Roni Burciaga MD Unavailable [phone] [place] Campbell DO Unavailable [phone] Reema Sanchez RN Unavailable [phone] Keesha Love Unavailable [phone] Miracle Villanueva LPN Unavailable Unavailable Encounter Details Date Type Department Care Team (Late st Contact Info) Description 03/07/2022 Orders Only External Location [address] [place] [address] Provider, External Social History Tobacco Use Types [...] on filedocumented in this encounter Care Teams Color Repairer Relationship Specialty Start Date End Date Roni Burciaga MD [address] [place] [address] PCP - General 09/23/22 10/03/22 Yunier Barrett MD [address] [place] [address] PCP - General 10/04/22 Roni Burciaga MD [address] [place] [address] Referring Physician Gastroenterology 10/04/22 [place] Campbell DO [address] [place] [address] Referring Physician General Surgery 05/15/24 Reema Sanchez RN [facility] [address] [place] [address] Registered Nurse Transplant Surgery 05/15/24 Keesha Love [place] [id number] Registered Nurse Transplant Surgery 05/15/24 Miracle Villanueva LPN [employer]ED TRANSFORMATION PROGRAM [place] [id number] TCM Nurse 08/28/24 09/25/24 documented as of this encounter
--- OUTSIDE RECORDS SUMMARY | 2025-01-29 08:24 | XMS_ITS | Encounter Summary ---
Author Organization [facility] Address [address] [place] [address] Care Team Providers Care Brick Handler Name Role Phone Roni Burciaga MD Primary Care Provider [phone] Yunier Barrett MD Primary Care Provider [phone] Roni Burciaga MD Unavailable [phone] [place] Campbell DO Unavailable [phone] Reema Sanchez RN Unavailable [phone] Keesha Love Unavailable [phone] Miracle Villanueva LPN Unavailable Unavailable Encounter Details Date Type Department Care Team (Late st Contact Info) Description 07/13/2022 Orders Only External Location [address] [place] [address] Provider, External Social History Tobacco Use Types [...] on filedocumented in this encounter Care Teams Brick Handler Relationship Specialty Start Date End Date Roni Burciaga MD [address] [place] [address] PCP - General 09/23/22 10/03/22 Yunier Barrett MD [address] [place] [address] PCP - General 10/04/22 Roni Burciaga MD [address] [place] [address] Referring Physician Gastroenterology 10/04/22 [place] Campbell DO [address] [place] [address] Referring Physician General Surgery 05/15/24 Reema Sanchez, RN [facility] [address] [place] [address] Registered Nurse Transplant Surgery 05/15/24 Keesha Love [place] [id number] Registered Nurse Transplant Surgery 05/15/24 Miracle Villanueva LPN VALUE-BASED TRANSFORMATION PROGRAM [place] [id number] TCM Nurse 08/28/24 09/25/24 documented as of this encounter
--- OUTSIDE RECORDS SUMMARY | 2025-01-29 08:24 | XMS_ITS | Encounter Summary ---
Author Organization [facility] Address [address] [place] [address] Care Team Providers Care Import And Export Clerk Name Role Phone Yunier Barrett MD Primary Care Provider [phone] Roni Burciaga MD Unavailable [phone] [place] Campbell DO Unavailable [phone] Reema Sanchez RN Unavailable [phone] Keesha Love Unavailable [phone] Encounter Details Date Type Department Care Team (Late st Contact Info) Description 12/04/2024 Telephone [facility] [place] [facility] [address] [facility]. [address] [place] [address] Bonifacio Pratt, PharmD [address] [place] [address] Social History Tobacco Use Types [...] any time in the past 12 m [facility], were you homeless or living in a [facility] (including now)? No 08/26/2024 Utilities Answer Date Recorded In the past 12 months has th e RUN, gas, oil, or water company threatened to [...] Telephone Encounter - Bonifacio Pratt, PharmD - 01/08/2025 3:52 PM EDT 01/08/25 Addendum: Contacted patients daughter (emergency contact). Daughter reports patient is doing okay. Daughter to pass along message to contact clinic. * Telephone Encounter - Bonifacio Pratt PharmD - 12/04/2024 11:52 AM EDT Mr. [...] documented as of this encounter Care Teams Import And Export Clerk Relationship Specialty Start Date End Date Yunier Barrett MD PCP - General 10/04/22 Roni Burciaga MD [address] [place] [address] Referring Physician Gastroenterology 10/04/22 [place] Campbell DO [address] [place] [address] Referring Physician General Surgery 05/15/24 Reema Sanchez, RN [facility] [address] [place], [place] [id number] Registered Nurse Transplant Surgery 05/15/24 [place] [address] Registered Nurse Transplant Surgery 05/15/24 documented as of this encounter
--- OUTSIDE RECORDS SUMMARY | 2025-01-29 08:25 | XMS_ITS | Encounter Summary ---
Author Organization [facility] Address [address] [place] [address] Care Team Providers Care Isolation Washer Name Role Phone Yunier Barrett MD Primary Care Provider [phone] Roni Burciaga MD Unavailable [phone] [place] Campbell DO Unavailable [phone] Reema Sanchez RN Unavailable [phone] Keesha Love Unavailable [phone] Miracle Villanueva BEARINGIZER Unavailable Unavailable Reason for Visit * Reason Comments Med Refill Encounter Details Date Type Department Care Team (Late st Contact Info) Description 10/26/2023 Refill [facility] [address] [place] [address] Addie Hall, WELDING MACHINE FEEDER, DNP [address] [place] [address] Social History Tobacco Use Types [...] documented as of this encounter Care Teams Isolation Washer Relationship Specialty Start Date End Date Yunier Barrett MD PCP - General 10/04/22 Roni Burciaga MD [address] [place] [address] Referring Physician Gastroenterology 10/04/22 [place] Campbell DO [address] [place] [address] Referring Physician General Surgery 05/15/24 Reema Sanchez, RN [facility] [address] [place] [address] Registered Nurse Transplant Surgery 05/15/24 [place] [address] Registered Nurse Transplant Surgery 05/15/24 Miracle Villanueva LPN [employer] [place] [address] TCM Nurse 08/28/24 09/25/24 documented as of this encounter
--- OUTSIDE RECORDS SUMMARY | 2025-01-29 08:25 | XMS_ITS | Data Portability ---
Author Organization [facility], [facility] Address [address] [place] [address] Care Team Providers Care Director Of Food And Beverage Services Name Role Phone NAKIA GARZA Primary Care Provider [phone] NAKIA GARZA Referring Provider [phone] Assessment Encounter Date Assessment Date Assessment LastModified by Organization Details LastModified Time 04/19/2023 04/19/2023 Interval Hx: Mr. Ruiz is a 62-year-old male who returns the office today for evaluation of his chronic lower back pain.He experiences a moderate to severe axial type pain in his lumbar spine. He Denies any radiation of pain. His symptoms are aggravated by repetitive movements, overexertion, bending, lifting, rotation and weather changes. He does experience intermittent radiation of pain into bilateral legs which his PCP believes is coming from his hips. He is scheduled for bilateral hip CT on 05/18/2023. Please note, patient also underwent an upper EGD on 10/21/2022 with his GI. No obvious mass or bile or stones identified. May consider ERCP. 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 Ascites. They are presuming obstruction of the left ampulla with no discrete mass. HPI: This is a 61-year-old gentleman with chronic low back pain, has been present for over 20 years. He has been seen in the past at several pain management clinics, was a longtime patient of Dr. Donohue, was transferred to a pain management clinic in [place] after his prior clinic was shut down. At his new clinic, he had issues with their scheduling, was often waiting several hours per day before his appointment. He self discharged and transferred to his primary care doctor. IMAGING: LUMBAR SPINE, AP, LAT, FLEX/EXT, 05/12/2022 FINDINGS: There are 5 nonrib-bearing lumbar-type vertebral bodies with transitional lumbosacral anatomy and sacralization of L5. Mild anterior wedging of the T11 and T12 vertebral bodies, similar to the prior CT and likely degenerative. The remaining vertebral body heights are preserved. No evidence of acute fracture. Straightening of the normal lumbar lordosis. Mild retrolisthesis at L1-L2, L2-L3, L3-L4, and L4-L5. This is similar in flexion and extension views. Multilevel moderate to severe intervertebral disc space loss, with associated endplate sclerosis and hypertrophic change, most evident at L2-L3 and L4-L5. Bulky anterior osteophytes are present at T12-L1, and L1-L2. Multilevel facet arthrosis, severe at L4-L5, and L5-S1 with suspected moderate to severe bony foraminal narrowing. Cholecystectomy clips project over the right upper quadrant. IMPRESSION: 1. Transitional lumbosacral anatomy with sacralization of L5. 2. No evidence of acute fracture or instability. 3. Moderate to severe multilevel degenerative disc disease and facet arthrosis. 4. Mild retrolisthesis at L1-L2, L2-L3, L3-L4, and L4-L5 similar in flexion and extension views. Anticoagulants: ASA 81 mg, Xarelto PMHx: A. fib, hyperlipidemia, hypertension, chronic cirrhosis (unknown origin) INJ Hx: Lumbar RFA in the past that was beneficial PSHx/Surgical Evaluation: None Conservative: PT Not beneficial for back pain in the past, was discharged after 3 visits Medication: Percocet 10/325 mg 3 times daily prescribed Tizanidine 4 mg 1 to 3 tablets as needed started 12/22/2022 Oxycodone 10 mg 3 times daily-discontinued Medications reviewed today. No aberrant behaviors noted. His Percocet is well-tolerated and offers 50% improvement in symptoms for about 3 hours with each dose. This allows him to maintain functionality and maintain hobbies. No side effects. Compliance: UDS was not obtained at today's visit Most recent UDS confirmation from 12/22/2022 is appropriate Marshal reviewed and is appropriate He is considered to be at low risk for abuse/diversion PHQ-9: 0 Plan: Unfortunately, he remains uninterested in injection therapy. 1. Continue current medication regimen without change 2. He is scheduled for bilateral hip CT in May Follow-up in 60 days christiano Not available 04/19/2023 08:45:20 06/20/2023 06/20/2023 Interval Hx: Mr. Ruiz is a 62-year-old male who presents to the office today with chronic lower back pain. His pain is primarily axial in nature, extending into bilateral paraspinal regions. He denies any radiation of pain into the lower extremities. His pain is moderate to severe and described as a constant aching, sharp, stabbing and throbbing pain. His symptoms are made worse with any type of activity, bending, lifting, rotation of the body and weather changes. He does also continue to experience pain in bilateral hips. His PCP recently ordered a bilateral hip CT which has already been reviewed with the patient. I did go over the results again today. The patient states that his PCP has sent a referral to Dr. Sullivan with [facility] to discuss bilateral hip replacements. Please note, patient also underwent an upper EGD on 10/21/2022 with his GI. No obvious mass or bile or stones identified. May consider ERCP. 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 Ascites. They are presuming obstruction of the left ampulla with no discrete mass. HPI: This is a 61-year-old gentleman with chronic low back pain, has been present for over 20 years. He has been seen in the past at several pain management clinics, was a longtime patient of Dr. Donohue, was transferred to a pain management clinic in [place] after his prior clinic was shut down. At his new clinic, he had issues with their scheduling, was often waiting several hours per day before his appointment. He self discharged and transferred to his primary care doctor. IMAGING: MRI HIP BILATERAL WO CONTRAST, 05/18/2023 FINDINGS: RIGHT HIP JOINT: Severe degenerative changes include marginal osteophyte formation with broad deep partial/full-thick ness cartilage defects and subchondral edema and cyst formation on both sides of the joint. The labrum is diffusely torn. There is a large joint effusion with reactive synovitis. LEFT HIP JOINT: Mild to moderate degenerative changes with marginal osteophyte formation, generalized cartilage thinning on both sides of the joint, and an anterosuperior labral tear. There is trace joint fluid. OTHER BONES AND JOINTS: There is transitional lumbosacral anatomy. A prior lumbar spine radiograph showed sacralization of the L5 vertebral body. With this numbering, L4 superior endplate fracture is evident with edema tracking along the fracture line. There is minimal height loss. The bony pelvis and proximal femora are intact. There is no dislocation. MUSCLES/TENDONS: No high-grade tendon tears or fluid bursal distention. OTHER: Large amount of fluid extending into a left inguinal hernia measuring over 20 cm longitudinally and 7 x 6 mm in transverse and anteroposterior dimensions. IMPRESSION: 1. L4 superior endplate compression fracture with minimal height loss, likely subacute in age. 2. Severe right hip osteoarthritis with a large joint effusion and reactive synovitis. 3. Mild to moderate left hip osteoarthritis. 4. Large amount of fluid extending into a left inguinal hernia. LUMBAR SPINE, AP, LAT, FLEX/EXT, 05/12/2022 FINDINGS: There are 5 nonrib-bearing lumbar-type vertebral bodies with transitional lumbosacral anatomy and sacralization of L5. Mild anterior wedging of the T11 and T12 vertebral bodies, similar to the prior CT and likely degenerative. The remaining vertebral body heights are preserved. No evidence of acute fracture. Straightening of the normal lumbar lordosis. Mild retrolisthesis at L1-L2, L2-L3, L3-L4, and L4-L5. This is similar in flexion and extension views. Multilevel moderate to severe intervertebral disc space loss, with associated endplate sclerosis and hypertrophic change, most evident at L2-L3 and L4-L5. Bulky anterior osteophytes are present at T12-L1, and L1-L2. Multilevel facet arthrosis, severe at L4-L5, and L5-S1 with suspected moderate to severe bony foraminal narrowing. Cholecystectomy clips project over the right upper quadrant. IMPRESSION: 1. Transitional lumbosacral anatomy with sacralization of L5. 2. No evidence of acute fracture or instability. 3. Moderate to severe multilevel degenerative disc disease and facet arthrosis. 4. Mild retrolisthesis at L1-L2, L2-L3, L3-L4, and L4-L5 similar in flexion and extension views. Anticoagulants: ASA 81 mg, Xarelto PMHx: A. fib, hyperlipidemia, hypertension, chronic cirrhosis (unknown origin) INJ Hx: Lumbar RFA in the past that was beneficial PSHx/Surgical Evaluation: None Conservative: PT Not beneficial for back pain in the past, was discharged after 3 visits Medication: Percocet /325 mg 3 times daily prescribed Tizanidine 4 mg 1 to 3 tablets as needed started 12/22/2022 Oxycodone 10 mg 3 times daily-discontinued Compliance: UDS was not obtained at today's visit Most recent UDS confirmation from 12/22/2022 is appropriate Marshal reviewed and is appropriate He is considered to be at low risk for abuse/diversion PHQ-9: 0 Plan: He continues to utilize his Percocet 10/325 mg tabs as prescribed. He takes medication 3 times daily and reports 50% relief of pain for at least 3 hours with each dose. This allows him to maintain an active lifestyle and complete household activities without limitation. No side effects. His PCP recently ordered a bilateral hip CT which has already been reviewed with the patient. I did go over the results again today. The patient states that his PCP has sent a referral to Dr. Sullivan with [facility] to discuss bilateral hip replacements. I did discuss possible treatment options, including bilateral intra-articular hip injections to address his ongoing hip pain. Unfortunately, he does not wish to proceed with injection therapy as he would prefer to consider hip replacement surgery as soon as possible. 1. Continue current medication regimen without change 2. Bilateral hip CT reviewed today Follow-up in 60 days christiano Not available 06/20/2023 09:54:37 08/22/2023 08/22/2023 Interval Hx: Mr. Ruiz is a 62-year-old male who is in office today for evaluation of his ongoing lower back pain. He denies any changes in his pain condition since last visit. The pain is nonradiating and axial in nature. He describes the pain as an aching, sharp, stiff, stabbing and throbbing pain that is aggravated with repetitive movements, overexertion, rotation of the body and cold weather. He also continues to experience significant pain in bilateral hips, the right side is worse than the left. He is scheduled for a total right hip replacement on October [address] Toney. He is aware of our postop pain medication policy. Please note, patient also underwent an upper EGD on 10/21/2022 with his GI. No obvious mass or bile or stones identified. May consider ERCP. 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 Ascites. They are presuming obstruction of the left ampulla with no discrete mass. HPI: This is a 61-year-old gentleman with chronic low back pain, has been present for over 20 years. He has been seen in the past at several pain management clinics, was a longtime patient of Dr. Donohue, was transferred to a pain management clinic in [place] after his prior clinic was shut down. At his new clinic, he had issues with their scheduling, was often waiting several hours per day before his appointment. He self discharged and transferred to his primary care doctor. IMAGING: MRI HIP BILATERAL WO CONTRAST, 05/18/2023 FINDINGS: RIGHT HIP JOINT: Severe degenerative changes include marginal osteophyte formation with broad deep partial/full-thick ness cartilage defects and subchondral edema and cyst formation on both sides of the joint. The labrum is diffusely torn. There is a large joint effusion with reactive synovitis. LEFT HIP JOINT: Mild to moderate degenerative changes with marginal osteophyte formation, generalized cartilage thinning on both sides of the joint, and an anterosuperior labral tear. There is trace joint fluid. OTHER BONES AND JOINTS: There is transitional lumbosacral anatomy. A prior lumbar spine radiograph showed sacralization of the L5 vertebral body. With this numbering, L4 superior endplate fracture is evident with edema tracking along the fracture line. There is minimal height loss. The bony pelvis and proximal femora are intact. There is no dislocation. MUSCLES/TENDONS: No high-grade tendon tears or fluid bursal distention. OTHER: Large amount of fluid extending into a left inguinal hernia measuring over 20 cm longitudinally and 7 x 6 mm in transverse and anteroposterior dimensions. IMPRESSION: 1. L4 superior endplate compression fracture with minimal height loss, likely subacute in age. 2. Severe right hip osteoarthritis with a large joint effusion and reactive synovitis. 3. Mild to moderate left hip osteoarthritis. 4. Large amount of fluid extending into a left inguinal hernia. LUMBAR SPINE, AP, LAT, FLEX/EXT, 05/12/2022 FINDINGS: There are 5 nonrib-bearing lumbar-type vertebral bodies with transitional lumbosacral anatomy and sacralization of L5. Mild anterior wedging of the T11 and T12 vertebral bodies, similar to the prior CT and likely degenerative. The remaining vertebral body heights are preserved. No evidence of acute fracture. Straightening of the normal lumbar lordosis. Mild retrolisthesis at L1-L2, L2-L3, L3-L4, and L4-L5. This is similar in flexion and extension views. Multilevel moderate to severe intervertebral disc space loss, with associated endplate sclerosis and hypertrophic change, most evident at L2-L3 and L4-L5. Bulky anterior osteophytes are present at T12-L1, and L1-L2. Multilevel facet arthrosis, severe at L4-L5, and L5-S1 with suspected moderate to severe bony foraminal narrowing. Cholecystectomy clips project over the right upper quadrant. IMPRESSION: 1. Transitional lumbosacral anatomy with sacralization of L5. 2. No evidence of acute fracture or instability. 3. Moderate to severe multilevel degenerative disc disease and facet arthrosis. 4. Mild retrolisthesis at L1-L2, L2-L3, L3-L4, and L4-L5 similar in flexion and extension views. Anticoagulants: ASA 81 mg, Xarelto PMHx: A. fib, hyperlipidemia, hypertension, chronic cirrhosis (unknown origin) INJ Hx: Lumbar RFA in the past that was beneficial PSHx/Surgical Evaluation: None Conservative: PT Not beneficial for back pain in the past, was discharged after 3 visits Medication: Percocet 10/325 mg 3 times daily prescribed Tizanidine 4 mg 1 to 3 tablets as needed started 12/22/2022 Oxycodone 10 mg 3 times daily-discontinued Compliance: UDS was obtained at today's visit. Will send off results. Most recent UDS confirmation from 12/22/2022 is appropriate Marshal reviewed and is appropriate He is considered to be at low risk for abuse/diversion PHQ-9: 0 Plan: He is currently prescribed Percocet 10/325 mg tabs which she takes 3 times daily as needed. The medication is well-tolerated and offers 50% improvement in symptoms. The relief he receives allows him to maintain his current activity level and care for his grandchildren who he has custody of. No side effects. He is scheduled for a total right hip replacement on October [address] Toney. He is aware of our postop pain medication policy. He will call to let us know what is prescribed postoperatively. He would like to hold off on lumbar injections until he has recovered from his hip replacement surgery. 1. Continue current medication regimen without change Follow-up in 60 days christiano Not available 08/22/2023 09:47:28 10/25/2023 10/25/2023 Interval Hx: Mr. Ruiz is a 62-year-old male who is in office today for evaluation of his ongoing lower back pain. His back pain has been aggravated but he does just undergo a right total hip replacement on 10/04/2023 Dr. Toney. He states they did not tell me that my back pain will be aggravated after this hip surgery. They told him he can take up to 3 months to feel better. He did also develop a blister on the top of his right foot about 3 days after surgery. The blister did burst and he has been treating with oral antibiotics by his primary care. They have sent out for culture. He did not injure the foot so he is unsure why the blister formed as he has not had this occur before. He is keeping a close eye on this is able to be sure the infection does not lead to further complications. Did have a follow-up with surgery yesterday. He states they did send another postop prescription for oxycodone 5 mg which she does not plan to miner pick as he did rather pick back up taking her medication. Orthopedic notes reviewed. Back pain at this time is nonradiating and axial in nature. He describes the pain as an aching, sharp, stiff, stabbing and throbbing pain that is aggravated with any motion. With use of his normal medication we prescribed you to remain functional and active. HPI: This is a 61-year-old gentleman with chronic low back pain, has been present for over 20 years. He has been seen in the past at several pain management clinics, was a longtime patient of Dr. Donohue, was transferred to a pain management clinic in [place] after his prior clinic was shut down. At his new clinic, he had issues with their scheduling, was often waiting several hours per day before his appointment. He self discharged and transferred to his primary care doctor. IMAGING: MRI HIP BILATERAL WO CONTRAST, 05/18/2023 FINDINGS: RIGHT HIP JOINT: Severe degenerative changes include marginal osteophyte formation with broad deep partial/full-thick ness cartilage defects and subchondral edema and cyst formation on both sides of the joint. The labrum is diffusely torn. There is a large joint effusion with reactive synovitis. LEFT HIP JOINT: Mild to moderate degenerative changes with marginal osteophyte formation, generalized cartilage thinning on both sides of the joint, and an anterosuperior labral tear. There is trace joint fluid. OTHER BONES AND JOINTS: There is transitional lumbosacral anatomy. A prior lumbar spine radiograph showed sacralization of the L5 vertebral body. With this numbering, L4 superior endplate fracture is evident with edema tracking along the fracture line. There is minimal height loss. The bony pelvis and proximal femora are intact. There is no dislocation. MUSCLES/TENDONS: No high-grade tendon tears or fluid bursal distention. OTHER: Large amount of fluid extending into a left inguinal hernia measuring over 20 cm longitudinally and 7 x 6 mm in transverse and anteroposterior dimensions. IMPRESSION: 1. L4 superior endplate compression fracture with minimal height loss, likely subacute in age. 2. Severe right hip osteoarthritis with a large joint effusion and reactive synovitis. 3. Mild to moderate left hip osteoarthritis. 4. Large amount of fluid extending into a left inguinal hernia. LUMBAR SPINE, AP, LAT, FLEX/EXT, 05/12/2022 FINDINGS: There are 5 nonrib-bearing lumbar-type vertebral bodies with transitional lumbosacral anatomy and sacralization of L5. Mild anterior wedging of the T11 and T12 vertebral bodies, similar to the prior CT and likely degenerative. The remaining vertebral body heights are preserved. No evidence of acute fracture. Straightening of the normal lumbar lordosis. Mild retrolisthesis at L1-L2, L2-L3, L3-L4, and L4-L5. This is similar in flexion and extension views. Multilevel moderate to severe intervertebral disc space loss, with associated endplate sclerosis and hypertrophic change, most evident at L2-L3 and L4-L5. Bulky anterior osteophytes are present at T12-L1, and L1-L2. Multilevel facet arthrosis, severe at L4-L5, and L5-S1 with suspected moderate to severe bony foraminal narrowing. Cholecystectomy clips project over the right upper quadrant. IMPRESSION: 1. Transitional lumbosacral anatomy with sacralization of L5. 2. No evidence of acute fracture or instability. 3. Moderate to severe multilevel degenerative disc disease and facet arthrosis. 4. Mild retrolisthesis at L1-L2, L2-L3, L3-L4, and L4-L5 similar in flexion and extension views. Anticoagulants: ASA 81 mg, Xarelto PMHx: A. fib, hyperlipidemia, hypertension, chronic cirrhosis (unknown origin) INJ Hx: Lumbar RFA in the past that was beneficial PSHx/Surgical Evaluation: None Conservative: PT Not beneficial for back pain in the past, was discharged after 3 visits Medication: Percocet 10/325 mg 3 times daily prescribed Tizanidine 4 mg 1 to 3 tablets as needed started 12/22/2022 Oxycodone 10 mg 3 times daily-discontinued Compliance: Most recent UDS confirmation from August 2023 is appropriate Marshal reviewed and is appropriate. He did fill 2 postop prescriptions for oxycodone 5 mg. A third prescription was sent to the pharmacy 10/24/23. We will cancel this as he wants to pick back up taking her medication. He is considered to be at low risk for abuse/diversion PHQ-9: 0 Plan: He is currently prescribed Percocet 10/325 mg tabs which she takes 3 times daily as needed. The medication is well-tolerated and offers 50% improvement in symptoms. The relief he receives allows him to maintain his current activity level and care for his grandchildren who he has custody of. No side effects. Right total hip replacement 10/04/2023. Patient is healing from this but has significant pain in his back he feels due to the surgery. He also developed a blister on the top of his right foot which is a surgical side. They are unsure why this formed he is being treated with antibiotics and a culture has been sent. He has not noticed any signs of infection at the site of surgery. He would like to hold off on lumbar injections until he has recovered from his hip replacement surgery. 1. Orthopedic notes reviewed from recent hip surgery last month. 2. Continue medication as prescribed. Will allow him to fill today as long as the postop prescription sent yesterday is canceled. Follow-up in 60 days This dictation is generated using voice recognition technology. There may be unintended errors. [email or web address] Not available 10/25/2023 09:16:27 12/13/2023 12/13/2023 Interval Hx: Mr. Ruiz is a 63-year-old male who is a pain management patient who has been established with the practice since 2021. He presents today for evaluation of his chronic lower back pain. Stable and unchanged since last visit. His pain is primarily axial in nature, extending to bilateral paraspinal regions. He does not experience any radiation of pain into his lower extremities. Symptoms are made worse with overexertion, bending lifting, rotation of body and weather change. Please note, he did recently undergo a right total hip replacement on 10/04/[address] Toney. He also currently has a left sided inguinal and umbilical hernia. He recently followed up with [facility] to discuss possible treatment options however, they referred him back to to speak with their surgeons. Please note, he saw a surgeon in the past at [facility] who declined to perform surgery. HPI: This is a 61-year-old gentleman with chronic low back pain, has been present for over 20 years. He has been seen in the past at several pain management clinics, was a longtime patient of Dr. Donohue, was transferred to a pain management clinic in [place] after his prior clinic was shut down. At his new clinic, he had issues with their scheduling, was often waiting several hours per day before his appointment. He self discharged and transferred to his primary care doctor. IMAGING: MRI HIP BILATERAL WO CONTRAST, 05/18/2023 FINDINGS: RIGHT HIP JOINT: Severe degenerative changes include marginal osteophyte formation with broad deep partial/full-thick ness cartilage defects and subchondral edema and cyst formation on both sides of the joint. The labrum is diffusely torn. There is a large joint effusion with reactive synovitis. LEFT HIP JOINT: Mild to moderate degenerative changes with marginal osteophyte formation, generalized cartilage thinning on both sides of the joint, and an anterosuperior labral tear. There is trace joint fluid. OTHER BONES AND JOINTS: There is transitional lumbosacral anatomy. A prior lumbar spine radiograph showed sacralization of the L5 vertebral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
--- OUTSIDE RECORDS SUMMARY | 2025-01-29 08:25 | XMS_ITS | Encounter Summary ---
Author Organization [facility] Address [address] [place] [address] Care Team Providers Care Inoculator Name Role Phone Yunier Barrett MD Primary Care Provider [phone] Roni Burciaga MD Unavailable [phone] Ace Campbell DO Unavailable [phone] Reema Sanchez RN Unavailable [phone] Keesha Love Unavailable [phone] Reason for Referral * Imaging (Routine) - Authorized Specialty Diagnoses / Procedures Referred By Contac t Referred To Contact Cardiology Diagnoses Persistent atrial fibrillation (CMS/HCC) Procedures Echo, Adult Transthoracic Complete Abbi Smith MD [address] [place] [address] Phone: tel: fax: Referral ID Status Reason Start Date Expiration Date Visits Requested Visits Authorized [id number] Authorized Perform Procedure 01/20/2025 07/22/2026 1 1 Encounter Details Date Type Department Care Team (Late st Contact Info) Description 01/20/2025 Orders Only [facility] [place] [address] [facility] [place] [address] Diana Arriola, RN [facility] Persistent atrial fibrillation (CMS/HCC) (Primary Dx) Social History [...] any time in the past 12 m [facility], were you homeless or living [...] Type Priority Associated Diagnoses Orde r Schedule Echo, Adult Transthoracic Complete Echocardiography Routine Persistent atrial fibrillation (CMS/HCC) 1 Occurrences starting 01/20/2025 until 07/24/2026 documented as of this encounter Visit Diagnoses Diagnosis Persistent atrial fibrillation (CMS/HCC)- Primary Atrial fibrillation documented [...] documented as of this encounter Care Teams Inoculator Relationship Specialty Start Date End Date Yunier Barrett MD PCP - General 10/04/22 Roni Burciaga MD [address] [place] [address] Referring Physician Gastroenterology 10/04/22 Ace Campbell DO [address] [place] [address] Referring Physician General Surgery 05/15/24 Reema Sanchez RN [facility] [address] [place] [address] Registered Nurse Transplant Surgery 05/15/24 [place] [address] Registered Nurse Transplant Surgery 05/15/24 documented as of this encounter
--- OUTSIDE RECORDS SUMMARY | 2025-01-29 08:25 | XMS_ITS | Encounter Summary ---
Author Organization [facility] Address [address] [place] [address] Care Team Providers Care Commercial Door Installer Name Role Phone Yunier Barrett MD Primary Care Provider [phone] Roni Burciaga MD Unavailable [phone] Ace Campbell DO Unavailable [phone] Reema Sanchez RN Unavailable [phone] Keesha Love Unavailable [phone] Miracle Villanueva GAS MANAGER Unavailable Unavailable Reason for Referral * Consultation (Routine) - Closed Specialty Diagnoses / Procedures Referred By Osbaldo archer Referred To Contact Cardiology Diagnoses Coagulation defect (CMS/HCC) Yuiner Barrett MD [address] [place] [id number] Phone: tel: fax: Referral ID Status Reason Start Date Expiration Date V isits Requested Visits Authorized [id number] Closed Specialty Services Required 01/19/2024 07/20/2025 1 1 Encounter Details Date Type Department Care Team (Late st Contact Info) Description 01/19/2024 Community [facility] [address] [place] [address] Yunier Barrett MD [address] [place] [id number] Coagulation defect (CMS/HCC) (Primary Dx) Social [...] documented as of this encounter Care Teams Commercial Door Installer Relationship Specialty Start Date End Date Yunier Barrett MD PCP - General 10/04/22 Roni Burciaga MD [address] [place] [address] Referring Physician Gastroenterology 10/04/22 Ace Campbell DO [address] [place] [address] Referring Physician General Surgery 05/15/24 Reema Sanchez RN [facility] [address] [place] [address] Registered Nurse Transplant Surgery 05/15/24 [place] [address] Registered Nurse Transplant Surgery 05/15/24 Miracle Villanueva LPN VALUE-BASED TRANSFORMATION PROGRAM [place] [id number] [facility] Nurse 08/28/24 09/25/24 documented as of this encounter
--- OUTSIDE RECORDS SUMMARY | 2025-01-29 08:25 | XMS_ITS | Encounter Summary ---
Author Organization [facility] Address [address] [place] [address] Care Team Providers Care Beauty Advisor Name Role Phone Yunier Barrett MD Primary Care Provider [phone] Roni Burciaga MD Unavailable [phone] Ace Campbell DO Unavailable [phone] Reema Sanchez RN Unavailable [phone] Keesha Love Unavailable [phone] Miracle Villanueva ELEVATORS INSPECTOR Unavailable Unavailable Reason for Visit * Reason Comments Med Refill Encounter Details Date Type Department Care Team (Late st Contact Info) Description 11/20/2023 Refill [facility] [address] [place] [address] Addie Hall, DIRECTOR HOUSEKEEPING, DNP [address] [place] [address] Social History Tobacco Use Types [...] documented as of this encounter Care Teams Beauty Advisor Relationship Specialty Start Date End Date Yunier Barrett MD PCP - General 10/04/22 Roni Burciaga MD [address] [place] [address] Referring Physician Gastroenterology 10/04/22 Ace Campbell DO [address] [place] [address] Referring Physician General Surgery 05/15/24 Reema Sanchez RN [facility] [address] [place] [address] Registered Nurse Transplant Surgery 05/15/24 [place] [address] Registered Nurse Transplant Surgery 05/15/24 Miracle Villanueva LPN VALUE-BASED TRANSFORMATION PROGRAM [place] [id number] [facility] Nurse 08/28/24 09/25/24 documented as of this encounter
--- OUTSIDE RECORDS SUMMARY | 2025-01-29 08:25 | XMS_ITS | Data Portability ---
Author Organization On license of [facility] Address [address] [place] [address] Care Team Providers Care Cafeteria Clerk Name Role Phone YUNIER BARRETT Primary Care Provider AYDEN MCGHEE After School Caregiver Assessment Encounter Date Assessment Date Assessment LastModified [...] replacement May [address] Bonifacio [email or web address] Not available 07/24/2017 14:05:05 08/09/2017 08/09/2017 Recent [...] l 2017 018 [facility], [address] [facility], [place], [address], 8 16:35:38 Procedures None recorde d. Surgeries None recorde d. Imaging None recorde d. Medication Orders rosuvas tatin 20 mg tablet 2017 018 sneus Not available 8 07:42:52 Soma 350 mg tablet 2017 018 ngallenstein Not available 8 09:27:26 lisinop ril 10 mg tablet 2017 018 sneus Not available 8 07:42:52 buspiro ne 10 mg tablet 2017 018 sneus [facility], [address] [place] [address], [address], 8 20:04:44 Soma 350 mg tablet 2016 017 [email or web address] Not available 7 18:33:45 Soma 350 mg tablet 2016 017 [email or web address] Not available 7 20:00:56 Patient TargetsNo targets recorded. Patient Instructions Encounter Date Encounter Id Patient Instructions Last Modified By Organization Details Last Modified Time 02/10/2017 [id number] high blood pressure: care instructions Not available 03/01/2017 14:44:28 learning about high blood pressure Not available 03/01/2017 14:44:28 joint pain: care instructions Not available 03/01/2017 14:44:28 06/07/2017 [id number] joint pain: care instructions sneus Not available 06/14/2017 08:55:55 07/24/2017 [id number] leg pain: care instructions sneus Not available 07/25/2017 11:39:50 influenza (flu) vaccine: care instructions sneus Not available 07/25/2017 11:39:50 08/09/2017 [id number] high blood pressure: care instructions sneus Not available 08/09/2017 20:04:44 learning about high blood pressure sneus Not available 08/09/2017 20:04:44 grief (actual/anticipat ed): care instructions sneus Not available 08/09/2017 20:04:44 10/03/2017 [id number] high blood pressure: care instructions sneus Not [...] contr ast No observ ation record ed. [address] , [place], [address], 10/16/2017 09:06:45 Result Notes None recorded. Problems Name Problem SNOMED Code Status Onset Date Resolution Date Notes Provider Name and Address Organization Details Recorded Time Anxiety 04891972 Active 2015 [place] [facility] 6 15:10:45 Chronic back pain 822688639 Active 2015 Tracy quintero [place] - [facility] 6 15:10:57 Gout 71620249 Active 2015 Tracy quintero [place] - [facility] 6 15:11:13 Hyperlipide taryn 24380571 Completed 201509/28/2016 Judith Anderson null, [place] - [facility] 7 18:40:57 Insomnia 010518968 Active 2015 Tracy quintero [place] - [facility] 6 15:11:35 Ischemic heart disease 932665651 Completed 201504/26/2016 Yunier quintero [place] - [facility] 6 16:15:31 Pain of joint 62274948 Active 2015 [place] [facility] 6 15:12:00 Pain in limb 93279007 Active 2015 [place] [facility] 6 15:12:10 Neoplasm of lung 675447461 Completed 201504/26/2016 Yunier quintero [facility] 6 16:15:19 Neuropathy 464132808 Active 2015 [place] [facility] 6 15:13:00 Slowing of urinary stream 87540843 Completed 201509/28/2016 Judith quintero [facility] 7 18:39:54 Delay when starting to pass urine 2133520 Active 2016 Judith quintero [facility] 7 18:40:49 Mixed hyperlipide taryn 181792146 Active 2016 Judith quintero [facility] 7 18:41:05 Spasm of back muscles 488835847 Active 2016 Juanis Gallenste in [facility] 7 11:47:39 Essential hypertensio n 38793193 Active 2016 Juanis Gallenste in [facility] 7 11:54:56 Renewal of prescriptio n Completed 201607/24/2017 Juanis Gallenste in [facility] 8 09:46:19 Problem Notes None recorded. Procedures Surgical History [...] Name and Address Organization Details Recorded Time 85153 Iodinated contrast media (substanc e) medicatio n Not available Not available Not available 04/15/20162009 79591 2003 SNOMED Not Available [facility] 6 08:48:39 13131 cortisone acetate medicatio n anaphylax is Not available Not available 04/15/20162007 79652 RxNorm React ion: Anaph dandrei s; Comme nt: jalil carty; Not Available [facility] 6 09:23:57 07146 morphine medicatio n hives Not available Not [...] nued on: 08/12/19 10 10:38AM; User: Vernell chaudhari Completi on: 11/23/19 09;Indic ation: Oral Candidia sis - ();Prin ming: 11/13/19 09 Not Available Not Available Not Available Protonix 40 mg tablet,de layed release take 1 tablet (40 mg) by oral route once daily for 30 days 11/14 completed Protonix 40 mg oral tablet,d elayed release (DR/EC); Recorded Status: Recorded on: 08/05/19 12 3:30PM;D [...] 11/20/19 09;Indic ation: Oral Candidia sis - (01.1120 00);Prin ming: 11/13/19 09 Not Available Not Available [...] nued on: 11/11/19 10 4:17PM;U ser: leah Est. Completi on: 07/11/19 09;Indic ation: Pain - [...] Disconti nued on: 08/12/19 10 10:38AM; User: [email or web address]; Est. Completi on: 11/18/19 09;Indic ation: Pharyngi [...] 11 10:08AM; User: leah Est. Completi on: 06/17/20 10;Indic ation: Acute [...] 05/09/20 11;Indic ation: Mixed Hyperlip idemia - () Not Available Not Available Not Available oxycodone [...] Completi on: 08/22/19 10;Indic ation: Cough - (0202 );Prin ming: 08/12/19 10 Not Available Not [...] 1 po q 8 hours, called to Ronksmary Barrett 05/26 completed Valium 5 mg oral [...] nued on: 01/19/20 11 10:08AM; User: michael; EstDonnie Completi on: 06/22/20 10;Print ed: 06/15/20 10 [...] le 20 mg oral capsule, delayed release( DR/EC);R ecorded Status: Recorded on: 03/16/20 10 5:50PM;U ser: bishopk; Indicati on: Gastroes ophageal Reflux - (.5308 10) Not Available Not Available Not Available etodolac 400 mg tablet take 1 tablet by oral route 2 times a day 02/01 completed etodolac 400 mg oral tablet;R ecorded Status: Recorded on: 01/07/20 10 10:27AM; Disconti nued Status: Disconti nued on: 02/02/20 10 6:44PM;U ser: [email or web address]; Est. Completi on: 01/16/20 10;Indic ation: Pain [...] Disconti nued on: 05/26/20 08 3:47PM;U ser: baker Not Available Not Available Not Available piroxicam 20 mg capsule take 1 capsule (20 mg) by oral route once daily 06/15 completed piroxica m 20 mg oral capsule; comment: not availabl e;Record ed Status: Recorded on: 06/15/20 10 8:25AM;D iscontin ued Status: Disconti nued on: 06/15/20 10 2:04PM;U ser: [email or web address]; Est. Completi on: 09/14/19 11;Indic ation: Osteoart hritis - (.6565 00);Prin ming: 06/15/20 10 Not Available Not [...] on: 12/29/19 16;Indic ation: Allergic Rhinitis - (08.4402 00) Not Available Not Available Not Available loratadin e 10 mg tablet take 1 tablet (10 mg) by oral route once daily for 30 days 08/12 completed loratadi ne 10 mg oral tablet;R ecorded Status: Recorded on: 11/13/19 09 2:17PM;D iscontin ued Status: Disconti nued on: 08/12/19 10 10:38AM; User: Vernell stDonnie Veronicaphi on: 01/12/20 09;Print ed: 11/13/19 09 Not [...] nued on: 11/11/19 10 4:18PM;U ser: fam Melo on: 08/22/19 10;Print ed: 08/12/19 Not Available [...] nued on: 08/12/19 10 10:38AM; User: Delicia ramirez Completphi on: 11/07/19 09 Not Available Not Available [...] Disconti nued on: 11/15/19 13 11:05AM; User: [email or web address] Melo on: 02/06/20 10 Not Available Not Available [...] Disconti nued on: 01/01/20 16 3:00PM;U ser: Delicia Melo on: 09/17/19 15 Not Available Not Available Not Available Vitals Date Recorded Body height Body mass index (BMI) Body weight Heart rate Oxygen saturation Oxygen saturation in Arterial blood by Pulse oximetry Respiratory rate Body temperature Systolic And Diastolic Provider Name and Address Organization Details Last Updated DateTime 8 182.88 cm 34.6 kg/m2 784835. 05 g 70 /min 96 % 96 % 18 /min 98.2 [degF] 132/74 mm[Hg] Crystal Fifi [place] - [facility] 8 09:28:20 Date Recorded Body height Body mass index (BMI) Body weight Heart rate Respiratory rate Systolic And Diastolic Provider Name and Address Organization Details Last Updated DateTime 8 182.88 cm 33.5 kg/m2 044420. 32 g 64 /min 18 /min 126/78 mm[Hg] Judith Anderson [facility] 8 15:40:56 Date Recorded Body height Body mass index (BMI) Body weight Heart rate Respiratory rate Systolic And Diastolic Provider Name and Address Organization Details Last Updated DateTime 8 182.88 cm 33 kg/m2 239503. 95 g 68 /min 18 /min 138/80 mm[Hg] Judith Anderson [facility] 8 17:13:58 Date Recorded Body height Body mass index (BMI) Body weight Heart rate Respiratory rate Systolic And Diastolic Provider Name and Address Organization Details Last Updated DateTime 7 182.88 cm 32.1 kg/m2 851937. 39 g 84 /min 18 /min 126/76 mm[Hg] Judith Anderson [facility] 7 16:30:55 Date Recorded Body height Body mass index (BMI) Body weight Heart rate Oxygen saturation Oxygen saturation in Arterial blood by Pulse oximetry Respiratory rate Systolic And Diastolic Provider Name and Address Organization Details Last Updated DateTime 7 182.88 cm 33.2 kg/m2 213707. 13 g 62 /min 98 % 98 % 18 /min 122/74 mm[Hg] Judith Anderson [facility] 7 17:59:10 Social History Question Answer Notes LastModified by Organizat ion Details LastModified Time Tobacco Smoking Status [facility] 04/26/2016 15:15:34 What Was The Date Of Your Most Recent Tobacco Screening? 07/24/2017 Information n ot available 01/30/2019 Sex: Male Functional Status None recorded. Mental Status None recorded. Family History Relationship Description Onset Age of this Age Resolved Age Notes LastModified by Organization Details LastModified Time Mother Arthritis [email or web address] Not availabl e 04/26/2016 15:13:35 Mother Neoplasm of breast Not available 2015 15:13:56 Mother Cataract [email or web address] Not available 04/26/2016 15:14:09 Mother Osteoporosis [email or web address] Not avail able 04/26/2016 15:14:48 Father Heart disease Not available 2015 15:14:23 Brother Myocardial infarction Not available 04/26 15:14:36 Medical History Condition Response Lumbago Y Anxiety Disorder Y Muscle, Joint, or Bone Problems Y Hyperlipidemia Y Insomnia Y Immunizations Vaccine Type Date Status Note Provider Name and Address Organization Details Recorded Time influenza, unspecified formulation 04/05/20 10 completed Not Available [facility] 08/10/2019 02:21:49 influenza, unspecified formulation 05/25/20 11 completed Not Available [facility] 08/10/2019 02:21:49 influenza, unspecified formulation 04/02/20 12 completed Not Available [facility] 08/10/2019 02:21:49 Tdap 10/26/19 14 completed Not Available [facility] 08/10/2019 02:21:49 Influenza, split virus, quadrivalent, preservative 07/24/19 18 cancelled patient objection Not Available [facility] 07/27/2019 03:54:49 Past Encounters Encounter ID Performer Location Encounter Start Date Encounter Closed Date Diagnosis/Indication Diagnosis SNOMED-CT Code Diagnosis ICD10 Code Diagnosis Note [id number] [facility] [address] [place] [address] 11/14/2012 00:00:00 [id number] [facility] [address] [place] [address] [address] 02/13/2013 00:00:00 [id number] [facility] [address] [place] [address] [address] 06/30/2014 00:00:00 [id number] [facility] [address] [place] [address] [address] 07/28/2014 00:00:00 [id number] [facility] [address] [place] [place] [address] [address] 05/14/2013 00:00:00 [id number] [facility] [address] [address] 11/07/2014 00:00:00 [id number] [facility] [address] [place] [address] 06/18/2013 00:00:00 [id number] [facility] [address] [address] 02/24/2015 00:00:00 [id number] [facility] [address] [place] [address] 10/07/2013 00:00:00 [id number] [facility] [address] [address] 10/25/2013 00:00:00 [id number] [facility] [address] [address] 06/15/2015 00:00:00 [id number] [facility] [address] [place] [address] [address] 01/28/2014 00:00:00 [id number] [facility] [address] [address] 07/07/2015 00:00:00 [id number] [facility] [address] [address] 05/19/2014 00:00:00 [id number] [facility] [address] [place] [address] 08/31/2015 00:00:00 [id number] [facility] [address] [address] 06/30/2014 00:00:00 [id number] [facility] [address] [address] 01/01/2016 00:00:00 [id number] [facility] [address] [place] [address] 04/02/2012 00:00:00 [id number] [facility] [address] [place] [address] 06/26/2012 00:00:00 [id number] [facility] [address] [place] [address] 08/08/2012 00:00:00 [id number] [facility] [address] [place] [address] 09/18/2012 00:00:00 [id number] [facility] [address] [place] [address] 10/24/2012 00:00:00 [id number] [facility] [address] [place] [address] 03/16/2010 00:00:00 [id number] [facility] [address] [place] [address] 10/03/2007 00:00:00 [id number] [facility] [address] [address] [address] 10/24/2012 00:00:00 [id number] [facility] [address] [address] 11/02/2007 00:00:00 [id number] [facility] [address] [address] 11/14/2012 00:00:00 [id number] [facility] [address] [address] 12/05/2007 00:00:00 [id number] [facility] [address] [address] 03/07/2011 00:00:00 [id number] [facility] [address] [address] 04/12/2011 00:00:00 [id number] [facility] [address] [address] 01/07/2008 00:00:00 [id number] [facility] [address] [address] 05/25/2011 00:00:00 [id number] [facility] [address] [address] 08/23/2010 00:00:00 [id number] [facility] [address] [address] 05/26/2008 00:00:00 [id number] [facility] [address] [place] [address] 08/05/2011 00:00:00 [id number] [facility] [address] [place] [address] 10/05/2010 00:00:00 [id number] [facility] [address] [address] 10/29/2010 00:00:00 [id number] [facility] [address] [address] 06/03/2008 00:00:00 [id number] [facility] [address] [address] 01/11/2011 00:00:00 [id number] [facility] [address] [address] 08/27/2008 00:00:00 [id number] [facility] [address] [address] 01/18/2011 00:00:00 [id number] [facility] [address] [address] 10/07/2008 00:00:00 [id number] [facility] [address] [address] 08/12/2009 00:00:00 [id number] [facility] [address] [address] 11/12/2008 00:00:00 [id number] [facility] [address] [place] [address] 09/22/2009 00:00:00 [id number] [facility] [address] [place] [address] 12/30/2008 00:00:00 [id number] [facility] [address] [address] 09/28/2009 00:00:00 [id number] [facility] [address] [place] [address] 04/17/2009 00:00:00 [id number] [facility] [address] [place] [address] 06/03/2009 00:00:00 [id number] [facility] [address] [address] 09/16/2011 00:00:00 [id number] [facility] [address] [place] [address] 07/27/2009 00:00:00 [id number] [facility] [address] [address] 11/25/2011 00:00:00 [id number] [facility] [address] [place] [address] 12/19/2011 00:00:00 [id number] [facility] [address] [place] [address] 07/31/2009 00:00:00 [id number] [facility] [address] [place] [address] 08/12/2009 00:00:00 [id number] [facility] [address] [place] [address] 02/07/2011 00:00:00 [id number] [facility] [address] [place] [address] 02/21/2011 00:00:00 [id number] [facility] [address] [place] [address] 11/10/2009 00:00:00 [id number] [facility] [address] [place] [address] 04/05/2010 00:00:00 [id number] [facility] [address] [place] [address] 12/16/2009 00:00:00 [id number] [facility] [address] [place] [address] 01/06/2010 00:00:00 [id number] [facility] [address] [place] [address] 02/01/2010 00:00:00 [id number] [facility] [address] [place] [address] 03/16/2010 00:00:00 [id number] Yunier Barrett MD [address] [place] [address] 04/26/2016 14:30:42 04/26/2016 17:13:49 Pain in left knee 3273436751 88246 M25.562 Neuropathy 743213333 G62 .9 Pain in limb 14982680 M7 9.609 Hyperlipidemia 79679342 E78.5 Chronic back pain 171592 002 G89.29 Pre-surger y evaluation 071601206 Z01.745 [id number] Rashida Horton APRN [address] [place] [address] 08/24/2016 10:26:20 08/25/2016 08:47:17 Hyperlipidemia 30719632 E78.5 Chronic back pain 967346 002 R52 Pain of joint 21132979 M 25.50 Renewal of prescription 169297352 Z76.0 [id number] Yunier Barrett MD [address] [place] [address] 09/28/2016 16:04:57 09/29/2016 10:07:43 Upper respiratory infection 19206298 J06.9 Mixed hyperlipidemia 267 402484 E78.2 Delay when starting to pass urine 2398102 R39.11 [id number] Yunier Barrett MD [address] [place] [address] 11/21/2016 10:31:01 11/21/2016 12:02:34 Pain of joint 26966389 M25.50 Chronic back pain 292905 002 G89.29 Renewal of prescription 401289772 Z76.0 Spasm of back muscles 20 9864281 M62.830 Essential hypertension 92868316 I10 [id number] Yunier Barrett MD [address] [address] 02/10/2017 15:13:27 02/10/2017 17:04:27 Spasm of back muscles 662987412 M62.830 Mixed hyperlipidemia 267 548236 E78.2 Essential hypertension 16949532 I10 Pain of joint 58157368 M 25.50 [id number] Yunier Barrett MD [address] [address] 06/07/2017 17:38:31 06/07/2017 19:27:24 Pain of joint 81883601 M25.50 Chronic back pain 239957 002 G89.29 Spasm of back muscles 20 2790742 M62.282 [id number] Yunier Barrett MD [address] [place] [address] 07/24/2017 09:16:12 07/24/2017 11:13:42 Administration of influenza vaccine 54681364 Z23 Pain in limb 94311614 M7 9.075 [id number] Yunier Barrett MD [address] [place] [address] 08/09/2017 14:43:08 08/09/2017 16:49:38 Essential hypertension 67421806 I10 Anxiety 73331007 F41.9 Bereavement 02537199 Z63 .4 [id number] Yunier Barrett MD [address] [place] [address] 10/03/2017 16:37:09 10/03/2017 18:24:52 Spasm of back muscles 817851219 M62.830 Essential hypertension 40131508 I10 Mixed hyperlipidemia 267 884082 E78.2 Pain of joint 01079900 M 25.50 Anxiety 13955968 F41.9 Health Concerns Section Related Observation LastModified by Organization Detai ls LastModified Time None Recorded Concern Status LastModified by Organization Details LastModified Time None Recorded Advance Directives Directive None Recorded Payers Insurance Date Sequence Insurance Name Policy Number Policy Whitt Covered Member ID Whitt Member ID Guarantor Name 02/18/2018 [employer] [id number] Brandyn Ruiz [id number] Brandyn Ruiz 12/07/2016 GARITA Brandyn Ruiz 02/18/2018 1 [place] Brandyn Ruiz [id number] Brandyn Ruiz 02/18/2018 2 MEDICAID-[facility] CHOICES - FFS/TRADITIO NAL Brandyn Ruiz [id number] Brandyn Ruiz Notes Date Note Type Note Provider Name and Address Organization Details Recorded Time 7 text/html Musculoskeletal PainReported by PatientHPIFor severity, patient reportssame. For duration, patient reportspresent for >12 months. For context, patient reportsprior back problemsandused medication for back pain. For alleviating factors, patient reportsrest. For aggravating factors, patient reportsbending overandtwisting. For associated symptoms, patient reportsno feverandno incontinence. For adl (activities of daily living), patient reportsimprove with medication. For location, (chronic joint and back pain). For quality, (varies). For timing, (chronic with intermittent worsening). Hypertension F/UReported by PatientHPIFor medications, patient reportstaking medications as directedandno side effects from medication. For associated symptoms, patient reportsno lightheadedness,no chest pain,no shortness of breath,no palpitations,no edema,no calf pain with exertion, andno headache. Care Management - HyperlipidemiaReported by PatientHPIFor control, patient reportsnot at goal(states medication may be causing increased muscle pain wants to discuss medications). For prognosis, patient reportsexpected outcome: improveandprognosis: guarded. For self care, patient reportsusing viagra, levitra, or cialisandusing an charles inhibitor. For complications, patient reportsno coronary artery disease,no heart attack,no cardiovascular disease,no pancreatitis, andno stroke. Yunier quintero, [place] - [facility] 03/01/2017 14:30:58 7 text/html Musculoskeletal PainReported by PatientHPIFor context, patient reportsprior back problemsandused medication for back pain. For alleviating factors, patient reportsrest. For aggravating factors, patient reportsmovement/positioning ,bending over, andtwisting. For adl (activities of daily living), patient reportsimprove with medication. For location, (chronic joint and back pain with knee worsening since replacement and defective joint l knee). For quality, (varies). For severity, (chronic back pain and joint pain but since l knee replacement worsening l knee pain). For duration, (chronic). Juanis quintero, [place] - [facility] 06/12/2017 13:55:25 8 text/html Left knee and thigh pain Juanis quintero, ROCÍ[place] - [facility] 07/24/2017 14:05:35 8 text/html Anxiety/DepressionReported by PatientHPIFor quality, patient reportsmood worseandincreased anxiety. For context, patient reportsmajor life stressorsandbereavement. For associated symptoms, patient reportsanxiety,depression, andgrievingbut reportsdenies homicidal ideations,no significant weight gain,no significant weight loss,no visual/auditory hallucinations,no delusions, andno shortness of breath. For severity, patient reportsdenies suicidal ideationsandable to maintain relationships(recent of spouse). For onset/timing, patient reportssudden. For duration, (symptoms started after of spouse). Care Management - HypertensionReported by PatientHPIFor prognosis, patient reportsexpected outcome: no changeandprognosis: good. For self care, patient reportsusing an charles inhibitor. For severity, patient reportsno change since last visit. For associated symptoms, patient reportsno dizziness,no lightheadedness,no chest pain,no shortness of breath,no palpitations,no edema,no calf muscle cramps,no blurred vision,no confusion,no headaches, andno fatigue. Yunier Willieching leon, [place] - [facility] 08/11/2017 10:44:23 8 text/html Musculoskeletal PainReported by PatientHPIFor associated symptoms, patient reportstingling(some neuropathy and muscle spasmns). For severity, patient reportssame. For duration, patient reportspresent for >12 months. For context, patient reportsprior back problems,used medication for back pain,had evaluations by back specialist, andprevious epidural(sees pain management with epidurals as needed and allowed). For alleviating factors, patient reportsrestandrelieved by changing position. For aggravating factors, patient reportsbending overandtwisting. For location, (chronic joint and back pain). For quality, (varies). For timing, (chronic with intermittent worsening). Care Management - HypertensionReported by PatientHPIFor prognosis, patient reportsexpected outcome: improveandprognosis: good. For self care, patient reportsnot under emotional stressandusing an charles inhibitor. For severity, patient reportsdoes not interfere with daily activities. For associated symptoms, patient reportsno dizziness,no lightheadedness,no chest pain,no shortness of breath,no palpitations,no edema,no calf muscle cramps,no blurred vision,no confusion,no headaches, andno fatigue. Juanis quintero, [place] - [facility] 10/16/2017 09:29:18
--- OUTSIDE RECORDS SUMMARY | 2025-01-29 08:25 | XMS_ITS | Encounter Summary ---
Author Organization [facility] Address [address] [place] [address] Care Team Providers Care Writer Technical Publications Name Role Phone Yunier Barrett MD Primary Care Provider [phone] Roni Burciaga MD Unavailable [phone] Ace Campbell DO Unavailable [phone] Reema Sanchez RN Unavailable [phone] Keesha Love Unavailable [phone] Encounter Details Date Type Department Care Team (Late st Contact Info) Description 01/16/2025 Telephone [facility] [place] [facility] [address] [place] [address] Bonifacio Pratt, PharmD [address] [place] [address] Social History Tobacco Use Types [...] any time in the past 12 m [facility], were you homeless or living in a long term (including now)? No 08/26/2024 Utilities Answer Date Recorded In the past 12 months has th e [employer], gas, oil, or water company threatened to [...] Telephone Encounter - Bonifacio Pratt, PharmD - 01/16/2025 2:54 PM EDT Mr. Ruiz was contacted today to follow up on symptoms and vitals as discussed 12/04/24. Patient reports he has been on vacation for the last month down in [place] and just returned. Confirms still taking carvedilol 12.5 mg BID. He is checking blood pressure but is not writing them down. From recall, BP average of ~105/80 and pulse of 90-93 bpm and notes he still has occasional systolic readings down in the 80s and 90s. Lightheadedness at times but no syncope. Fatigue is improved off of digoxin. Options limited d/t low blood pressure and fatigue with digoxin. Will review with Dr. Smith. Discussed transplant follow up with patient and is awaiting cardiology recommendations. documented in this encounter Plan of Treatment [...] documented as of this encounter Care Teams Writer Technical Publications Relationship Specialty Start Date End Date Yunier Barrett MD PCP - General 10/04/22 Roni Burciaga MD [address] [place] [address] Referring Physician Gastroenterology 10/04/22 Ace Campbell DO [address] [place] [address] Referring Physician General Surgery 05/15/24 Reema Sanchez RN [facility] [address] [place] [address] Registered Nurse Transplant Surgery 05/15/24 [place] [address] Registered Nurse Transplant Surgery 05/15/24 documented as of this encounter
--- OUTSIDE RECORDS SUMMARY | 2025-01-29 08:25 | XMS_ITS | Clinical Summary ---
Author Organization [id number] Address [address], [address] [place] [address] Care Team Providers Care Supply Chain Engineer Name Role Phone Yunier Barrett MD Primary Care Provider [phone] Allergies Active Allergy Reactions Criticality Noted Date [...] Additional Information Patient not taking.Reported on 12/08/2023 [id number] cce-IwUp-JHw-asb -C (PLENVU) 140-9-5.2 gram Oral Powder in [...] Liver disease 09/21/2021 Overview (09/21/2021): fatty liver [place] (myocardial infarction) 09/21/2021 Overview (09/21/2021): X2 when [...] lower. He describes having a colonoscopy in [place] less than 5 years ago and was [...] this time. He needs to follow-up with [facility]. His right upper quadrant ultrasound is due, I will order that at this time. He also needs to be vaccinated against hepatitis B. He has immunity to hepatitis A. I am concerned about his social status in regards to his transplant. Unfortunately we cannot have him see [facility] given his insurance provided by the [facility]. I will repeat his EGD at [...] encephalopathy. I will also have him see [facility] transplant center. I will also perform an [...] memory or confusion. 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, had guillain barre Allergy Chronic atrial fibrillation (HCC) History of CVA (cerebrovascu lar accident) Cardiac dysrhythmia a fib Cirrhosis (HCC) on [place] transplant list Encounter for blood transfusion 1991 related to Guillain [place]inton Family History Medical History Relation Name Comments [...] this topic Medical Devices Implanted Type Area Mission Worker Device Identifier Shelf Expiration Date Model / Serial / Lot Left Knee Replacement Insert O Degree Trident X 3 36mm Code F - [id number] Implanted:Qty: 1 on 10/04/2023 by Mikal Toney MD at [facility] Right: Hip [employer] [id number] 05/15/2028 723-00-36 F / / [id number] Cup Actb Trident Ii Sz-F 56mm Clstr Scr 5hl Tritan Hap Prim - [id number] Implanted:Qty: 1 on 10/04/2023 by Mikal Toney MD at [facility] Right: Hip [employer] [id number] 07/24/2028 702-04-56 F / / [id number] Head Fem V-40 36mm-2.5mm Nk Biolox Delta Cerm Tapr Prim Mod - [id number] Implanted:Qty: 1 on 10/04/2023 by Mikal Toney MD at [facility] Right: Hip [employer] [id number] 05/11/2028 6570-0-43 6 / / [id number] Stem Hip Insignia High Offset 38.5mm X 107mm Size 6 - [id number] Implanted:Qty: 1 on 10/04/2023 by Mikal Toney MD at [facility] Right: Hip [employer] [id number] 07/16/2028 4802-9991 / / [id number] Procedures Procedure Name Priority Date/Time Associated Diagnosis [...] 4 weeks, please call the office at [phone]. Hold anticoagulation for now, may resume on 04/30. Indication Personal history of colonic polyps, Esophageal varices without bleeding, unspecified esophageal varices type (HCC) Staff Staff Role Lenin Agarwal CRNA CSM CONSULTANT Roni Burciaga MD Performing Provider Nima Melton, [place] Nurse Nusrat Cunha, [place] Nurse Medications See Anesthesia Record. Preprocedure A [...] Non-Reacti ve 07/06/2021 9:08 PM EST PREFERRED [facility] Blood Venipuncture / Unknown 07/06/2021 7:47 PM EST 07/06/2021 7:58 PM EST us Isauro Hector DIRECTOR FINANCIAL PLANNING IMMUNOLOGY ORDERABLES Fin al Result PREFERRED [facility] [address] [facility] [address] [place] [id number] from Last 3 Months or Most Recently Relevant to Health Maintenance Insurance [facility] DUAL COMPLETE HMO [place] COM[place]TE [place] [facility] DUAL COMPLETE O [place] Advance Directives For more information, please contact: [phone] * Full Code (Latest Code Status on File) Date Activated Date Inactivated Comments 07/07/2021 6:11 AM 07/07/2021 8:29 PM Care Teams Supply Chain Engineer Relationship Specialty Start Date End Date Yunier Barrett MD PCP - General Family Medicine 07/10/00
== END 2025-01-29 23:59 | disposition home or self-care (01) ==
LOC: RT 08:18
PROVIDERS: PCP Family Medicine; Visit Provider Internal Medicine
DX: Z01.810 Encounter for preprocedural cardiovascular examination (principal); I08.8 Other rheumatic multiple valve diseases; J90 Pleural effusion, not elsewhere classified; I31.39 Other pericardial effusion (noninflammatory); R18.8 Other ascites; R93.1 Abnormal findings on diagnostic imaging of heart and coronary circulation; I48.19 Other persistent atrial fibrillation
CPT/HCPCS: 93306

== ENCOUNTER 2025-05-05 10:30 | Outpatient (CLI) | payer MEDICARE, SELFPAY ==
--- OUTSIDE RECORDS SUMMARY | 2025-03-18 07:48 | XMS_ITS | Encounter Summary ---
Author Organization [facility] Address [address] [place] [address] Care Team Providers Care Supervisor Compounding And Finishing Name Role Phone Yunier Barrett MD Primary Care Provider [phone] Roni Burciaga MD Unavailable [phone] Adrian Ace A DO Unavailable [phone] Reema Sanchez RN Unavailable [phone] Keesha Love Unavailable [phone] Reason for Referral * Imaging (Routine) - Closed Specialty Diagnoses / Procedures Referred By Contac t Referred To Contact Radiology Diagnoses Hepatic cirrhosis, unspecified hepatic cirrhosis type, unspecified whether ascites present End-stage liver disease (CMS/HCC) Hepatic encephalopathy (CMS/HCC) Procedures MRCP w and wo IV Contrast MR Abdomen w and wo IV Contrast Magdaleno Chávez MD [address] [facility] [address] [place] [address] Phone: tel: fax: Referral ID Status Reason Start Date Expiration Date Visits Re quested Visits Authorized [id number] Closed 02/25/2025 08/27/2026 1 1 Reason for Visit * Imaging (Routine) - Closed Specialty Diagnoses / Procedures Referred By Contac t Referred To Contact Radiology Diagnoses Hepatic cirrhosis, unspecified hepatic cirrhosis type, unspecified whether ascites present End-stage liver disease (CMS/HCC) Hepatic encephalopathy (CMS/HCC) Procedures MRCP w and wo IV Contrast MR Abdomen w and wo IV Contrast Magdaleno Chávez MD [address] [place] [address] Phone: tel: fax: Referral ID Status Reason Start Date Expiration Date Visits Re quested Visits Authorized [id number] Closed 02/25/2025 08/27/2026 1 1 Encounter Details Date Type Department Care Team (Latest Contact Info) Description 03/18/2025 7:48 AM EDT - 03/18/2025 11:59 PM EDT Hospital Encounter [facility] [address] [place] [id number] Hepatic cirrhosis, unspecified hepatic cirrhosis type, unspecified whether ascites present (CMS/HCC); End-stage liver disease (CMS/HCC); Hepatic encephalopathy (CMS/HCC) Discharge Disposition: Home or Self Care Social History Tobacco Use Types Packs/Day Years [...] Date Recorded Patient Health Questionnaire-2 Score 0 03/18/2025 Hunger Vital Sign Answer Date Recorded Within [...] any time in the past 12 m [facility], were you homeless or living [...] pleasure in doing things Not at all 03/18/2025 10:41 AM Linda Dupree Feeling down, depressed, or hopeless Not at all 03/18/2025 10:41 AM Linda Dupree Patient Health Questionnaire -2 Score 0 03/18/2025 10:41 AM Linda Dupree * How difficult have these problems made it for you to do your work, take care of things at home, or get along with other people? Answer Date of Assessment Author Not difficult at all 03/18/2025 10:41 AM Timo Roy documented as of this encounter Medications at Time of Discharge Blood Pressure Monitoring (Advanced One Step BP Monitor) misc 1 each daily. Use to check blood pressure once daily as instructed. 1 each 10/30/2024 carvedilol (Coreg) 12.5 MG tablet Take 1 tablet by mouth 2 times a day with meals. 60 tablet 11 11/26/2024 ciprofloxacin (Cipro) 500 MG tablet Take 1 tablet by mouth daily. 02/03/2025 digoxin (Lanoxin) 125 MCG tablet Take 1 tablet by mouth daily. 30 tablet 11 11/26/2024 gabapentin (Neurontin) 300 MG capsule Take 1 capsule by mouth 3 times a day. 03/03/2025 lactulose (Chronulac) 10 GM/15ML oral solutionIndications: Decompensated hepatic cirrhosis (CMS/HCC),Hepatic encephalopathy (CMS/HCC) Take 15 mL (10 g) by mouth 3 (three) times a day. Titrate to goal 2-3 bowel movements a day 4050 mL 3 08/27/2024 Multiple Vitamin (multivitamin) tablet Take 1 tablet by mouth daily. naloxone (Narcan) 4 mg/0.1 mL nasal spray 1. Give 1 spray in nostril for no/slow breathing or cannot wake after opioid use 2. Call 911 3. Repeat in other nostril if symptoms continue 1 each 08/27/2024 oxyCODONE-acetaminop hen (Percocet) 5-325 MG tablet Take 1 tablet by mouth every 6 hours as needed. 02/20/2025 pantoprazole (Protonix) 40 MG EC tablet Take 1 tablet by mouth daily. 12/16/2024 Xifaxan 550 MG tablet Take 1 tablet (550 mg) by mouth 2 (two) times a day. 08/26/2022 documented as of this encounter Miscellaneous Notes * Ann-Marie Marvin - 03/18/2025 8:52 AM EDT Images from the original note were not included. 1639 Caring for Yourself after Contrast Imaging If you had ORAL contrast: ? You can go back to your normal diet and activities as tolerated. ? Drink plenty of fluids, unless told otherwise. If you had IV contrast: ? You can go back to your normal diet and activities as tolerated. ? Drink plenty of fluids, unless told otherwise. ? Leave a bandage on the site for 30 minutes (where the IV was inserted or blood was drawn). If you had Intravesical (bladder) contrast: ? Return to normal diet and activity. What you need to know about delayed reaction to IV contrast What is IV Contrast? ? Contrast is a dye that is put into your body through an IV. ? It is used for imaging scans such as CT scans and MRIs. ? The contrast makes blood vessels, organs and other parts of your body show up better on the scan. What do I need to do after IV contrast? ? Drink lots of fluids. This will help flush the contrast out of your system. ? Drink 2-3 extra glasses or bottles of water within 4 hours of your scan. What is a contrast reaction? ? A contrast reaction is a bad side effect from the contrast dye. ? It is rare but it does happen. ? They can be mild - such as sneezing, itching, or hives. ? They can be severe - such as trouble breathing, throat swelling, and irregular heart beat. When do these reactions happen? ? They often happen right after the contrast is injected. ? Some happen hours after going home. Go to the nearest Emergency Department right away if you have any of these symptoms after you leavethe clinic or hospital. ? Sneezing ? Itching in your mouth, throat, eyes, ears, or skin ? Rash or hives ? Throwing up or stomach sickness ? High heart rate or ?racing? of your heart ? Feeling dizzy or woozy ? Feeling short of breath or like you can?t take a deep breath ? Feeling very anxious for no other reason It is very important that these reactions be treated. Tell the doctor or nurse that you are having a reaction to IV contrast dye. Do not ignore any sign of a reaction! All reactions must be assessed by a doctor. Call 911 if you are alone and your reaction is more than mild sneezing or itching. If you have a mild reaction, call to speak with a Radiologist, explain that you havehad a contrast reaction, as this needs to be added to your medical record. documented in this encounter Plan of Treatment Not on file documented as of this encounter Procedures Procedure Name Priority Date/Time Associated Diagnosis Comments MRCP W AND WO IV CONTRAST Routine 03/18/2025 8:56 AM EDT Hepatic cirrhosis, unspecified hepatic cirrhosis type, unspecified whether ascites present (CMS/HCC) End-stage liver disease (CMS/HCC) Hepatic encephalopathy (CMS/HCC) documented in this encounter Results * MRCP w and wo IV Contrast (03/18/2025 8:56 AM EDT) Anatomical Region Laterality Modality Abdomen Magnetic Resonan ce Impressions 03/18/2025 10:44 AM EDT 1. 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 Cirrhosis with sequela of portal hypertension including splenomegaly, portosystemic collaterals and moderate ascites. No suspicious focal hepatic lesion. LI-RADS negative. 3. Unchanged dilated biliary tree and bile dilation of the main pancreatic duct. No evidence of choledocholithiasis or extrinsic compression. This may be sequela of sphincter of Oddi dysfunction or related to postcholecystectomy status. ERCP may be helpful if clinically indicated. 4. Moderate ascites. Loculated likely ascitic fluid collection extending into the left inguinal canal. CRITICAL RESULT: No. COMMUNICATION: Finding #1 was discussed via secure chat with MAGDALENO CHÁVEZ on 03/18/2025 10:42 AM by Alondra Rodriguez MD with acknowledgment of the results . By electronically signing this report, I, the attending physician, attest that I have personally reviewed the images/data for the above examination(s) and agree with the final edited report. Drafted by Nima Christian MD on 03/18/2025 9:02 AM Final report signed by Alondra Rodriguez MD on 03/18/2025 10:44 AM Narrative 03/18/2025 10:44 AM EDT CLINICAL INDICATION: Liver Transplant evaluation TECHNIQUE: MR imaging of the abdomen was performed with and without intravenous contrast material using the following sequences: coronal single shot T2 weighted fast spin echo, axial T2 weighted sequences with and without fat saturation, axial dual phase gradient echo, pre and dynamic postcontrast 3-D T1 weighted gradient echo with fat saturation (axial and coronal), and axial diffusion. Heavily T2-weighted 2D MRCP sequences were acquired. In addition, advanced 3D workstation manipulation and review of the data set was performed by the interpreting physician to further define anatomy and possible pathology. Images of areas of interest were created utilizing various techniques. These images were saved and transferred to PACS if significant. 9.8 mL of Elucirem was administered. COMPARISON: MRI abdomen with and without IV contrast from 03/13/2024, CT abdomen pelvis from 03/22/2023 FINDINGS: Gallbladder: Gallbladder surgically absent. Biliary tree: Moderate intra and extrahepatic surgical dilatation is similar to previous examination. The common bile duct measures up to 16 mm (series 20, image 40). This is similar to previous examination and may be secondary to prior cholecystectomy. No evidence of choledocholithiasis, stricture, epithelial thickening or abnormal enhancement. Pancreas: Normal signal and enhancement. No acute or chronic inflammation. No mass. There is mild pancreatic ductal dilation of the proximal and pancreas to the level of the ampulla, unchanged. No definite filling defect. Liver: Cirrhotic morphology. No evidence of fat or iron deposition. No suspicious focal lesion. Spleen: Splenomegaly measuring up to 17.2 cm long axis (series 13, image 13). No suspicious focal splenic lesion. Adrenal Glands: No suspicious findings. Kidneys: No suspicious renal lesion. No hydronephrosis. Fluid Survey: Moderate upper abdominal ascites. Moderate left and small right pleural effusions. Diffuse mesenteric and subperitoneal space edema. Vasculature: The IVC and aorta are normal in caliber. 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 Patent right and left portal veins. The vasculature appears patent. Extensive venous collaterals including perisplenic, perigastric and paraesophageal varices. Lymph Nodes: Interval increase in size of a perigastric lymph node in the anterior abdomen measuring 1.6 cm, previously 1.3 cm (series 24, image 63), likely reactive. Redemonstration of upper abdominal lymph nodes secondary to parenchymal disease of the liver. Stable size of nonenlarged cardiophrenic lymph nodes, conspicuous in number. Musculoskeletal: No acute or aggressive lesions. Redemonstrated fat-containing umbilical hernia. Loculated ascitic collection extending into the left inguinal canal. Procedure Note Alondra Rodriguez MD - 03/18/2025 CLINICAL INDICATION: Liver Transplant evaluation TECHNIQUE: MR imaging of the abdomen was performed with and without intravenouscontrast material using the following sequences: coronal single shot [id number] fast spin echo, axial T2 weighted sequences with and without fatsaturation, axial dual phase gradient echo, pre and dynamic postcontrast3-D T1 weighted gradient echo with fat saturation (axial and coronal), andaxial diffusion. Heavily T2-weighted 2D MRCP sequences were acquired. Inaddition, advanced 3D workstation manipulation and review of the data setwas performed by the interpreting physician to further define anatomy andpossible pathology. Images of areas of interest were created utilizingvarious techniques. These images were saved and transferred to PACS ifsignificant. 9.8 mL of Elucirem was administered. COMPARISON: MRI abdomen with and without IV contrast from 03/13/2024, CT abdomen pelvisfrom 03/22/2023 FINDINGS: Gallbladder: Gallbladder surgically absent. Biliary tree: Moderate intra and extrahepatic surgical dilatation issimilar to previous examination. The common bile duct measures up to 16 mm(series 20, image 40). This is similar to previous examination and may besecondary to prior cholecystectomy. No evidence of choledocholithiasis,stricture, epithelial thickening or abnormal enhancement. Pancreas: Normal signal and enhancement. No acute or chronic inflammation.No mass. There is mild pancreatic ductal dilation of the proximal andpancreas to the level of the ampulla, unchanged. No definite fillingdefect. Liver: Cirrhotic morphology. No evidence of fat or iron deposition. Nosuspicious focal lesion. Spleen: Splenomegaly measuring up to 17.2 cm long axis (series 13, image13). No suspicious focal splenic lesion. Adrenal Glands: No suspicious findings. Kidneys: No suspicious renal lesion. No hydronephrosis. Fluid Survey: Moderate upper abdominal ascites. Moderate left and smallright pleural effusions. Diffuse mesenteric and subperitoneal spaceedema. Vasculature: The IVC and aorta are normal in caliber. Nonocclusivethrombus extending from the portal venous confluence involving theextrahepatic portal vein (series 15, image 37). Patent right and leftportal veins. The vasculature appears patent. Extensive venous collateralsincluding perisplenic, perigastric and paraesophageal varices. Lymph Nodes: Interval increase in size of a perigastric lymph node in theanterior abdomen measuring 1.6 cm, previously 1.3 cm (series 24, image63), likely reactive. Redemonstration of upper abdominal lymph nodessecondary to parenchymal disease of the liver. Stable size of nonenlargedcardiophrenic lymph nodes, conspicuous in number. Musculoskeletal: No acute or aggressive lesions. Redemonstratedfat-containing umbilical hernia. Loculated ascitic collection extendinginto the left inguinal canal. IMPRESSION: 1.Nonocclusive thrombus extending from the portal venous confluenceinvolving the extrahepatic portal vein 2.Cirrhosis with sequela of portal hypertension including splenomegaly,portosystemic collaterals and moderate ascites. No suspicious focalhepatic lesion. LI-RADS negative. 3.Unchanged dilated biliary tree and bile dilation of the main pancreaticduct. No evidence of choledocholithiasis or extrinsic compression. Thismay be sequela of sphincter of Oddi dysfunction or related topostcholecystectomy status. ERCP may be helpful if clinically indicated. 4.Moderate ascites. Loculated likely ascitic fluid collection extendinginto the left inguinal canal. CRITICAL RESULT: No. COMMUNICATION: Finding #1 was discussed via secure chat with MAGDALENO CHÁVEZ on 510:42 AM by Alondra Rodriguez MD with acknowledgment of the results . By electronically signing this report, I, the attending physician, attestthat I have personally reviewed the images/data for the aboveexamination(s) and agree with the final edited report. Drafted by Nima Christian MD on 03/18/2025 9:02 AM Final report signed by Alondra Rodriguez MD on 03/18/2025 10:44 AM Magdaleno Chávez MD IMG MRI PROCEDURES Final Resul t documented in this encounter Visit Diagnoses Diagnosis Hepatic cirrhosis, unspecified hepatic cirrhosis type, unspecified whether ascites present End-stage liver disease (CMS/HCC) Other sequelae of chronic liver disease Hepatic encephalopathy (CMS/HCC) Hepatic encephalopathy documented in this encounter Administered Medications Inactive Administered Medications - up to 3 most recent administrations Medication Order MAR Action Action Date Dose Rate Site Gadopiclenol (Elucirem) injection 9.8 mL 9.8 mL (rounded from 9.81 mL = 0.1 mL/kg 98.1 kg), Intravenous, Once in imaging, 1 dose, Starting on Mon03/18/25 at 0801, Until 03/18/25 at 0850, Routine, Imaging Protocol Orders Given 03/18/2025 8:50 AM EDT 9.8 mL documented in this encounter Additional Health Concerns Assessment Noted Time PHQ-9 Depression Total Score: 0 10/10/19 10:46 AM EDT A fall risk assessment has been complete d for the patient 03/18/2025 10:41 AM EDT A Body Mass Index follow-up plan has been documented for the patient 03/24/2025 1:00 PM EDT documented as of this encounter Care Teams Supervisor Compounding And Finishing Relationship Specialty Start Date End Date Yunier Barrett MD PCP - General 10/04/22 Roni Burciaga MD [address] [place] [address] Referring Physician Gastroenterology 10/04/22 Ace Campbell DO [address] [place] [address] Referring Physician General Surgery 05/15/24 Reema Sanchez, RN [facility] [address] [place] [id number] Registered Nurse Transplant Surgery 05/15/24 Keesha Love [place] [id number] Registered Nurse Transplant Surgery 05/15/24 documented as of this encounter
--- OUTSIDE RECORDS SUMMARY | 2025-03-18 11:00 | XMS_ITS | Encounter Summary ---
Author Organization [facility] Address [address] [place] [address] Care Team Providers Care Ship Wirer Name Role Phone Yunier Barrett MD Primary Care Provider [phone] Roni Burciaga MD Unavailable [phone] Ace Campbell DO Unavailable [phone] Reema Sanchez RN Unavailable [phone] Keesha Love Unavailable [phone] Reason for Visit * Reason Comments Pre-Liver Txp Follow-up Immunosuppression Encounter Details Date Type Department Care Team (Latest Contact Info) Description 03/18/2025 11:00 AM EDT Office Visit [facility] [address] [facility] [address] [place] [address] Rakan Hansen MD [address] [facility] [address] [place] [address] Hepatic cirrhosis, unspecified hepatic cirrhosis type, unspecified whether ascites present (CMS/HCC) (Primary Dx); Hepatic encephalopathy (CMS/HCC); Decompensated cirrhosis (CMS/HCC); Other ascites; 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 No 08/26/2024 Utilities Answer [...] on file documented as of this encounter Last Filed Vital Signs Vital Sign Reading Time Taken Comments Blood Pressure 103/67 03/18/2025 10:36 AM EDT Pulse 89 03/18/2025 10:36 AM EDT Temperature 36.3 C (97.4 F) 03/18/2025 10:36 AM EDT Respiratory Rate 18 03/18/2025 10:36 AM EDT Oxygen Saturation 97% 03/18/2025 10:36 AM EDT Inhaled Oxygen Concentration - - Weight 96.9 kg (213 lb 10 oz) 03/18/2025 10:36 A M EDT Height 180.3 cm (5' 11 ) 03/18/2025 10:36 AM EDT Body Mass Index 29.79 03/18/2025 10:36 AM EDT documented in this encounter Functional Status * Over the past 2 weeks, how often have you been bothered by any of the following problems? Question Answer Date of Assessment Author Little interest or pleasure in doing things Not at all 03/18/2025 10:41 AM EDT Linda Rivera Feeling down, depressed, or hopeless Not at all 03/18/2025 10:41 AM EDT Linda Rivera Patient Health Questionnaire -2 Score 0 03/18/2025 10:41 AM EDT Linda Rivera * How difficult have these problems made it for you to do your work, take care of things at home, or get along with other people? Answer Date of Assessment Author Not difficult at all 03/18/2025 10:41 AM EDT Gerson Timo jett documented as of this encounter Miscellaneous Notes * Progress Notes - Rakan Hansen MD - 03/18/2025 11:00 AM EDT Subjective Patient ID: Brandyn Ruiz is a 64 y.o. male. Pre transplant follow up. HPI Patient is a 64-year-old male with a past medical history of decompensated cryptogenic cirrhosis. Patient presents today for follow-up. He reports that his fluid retention is intermittent and is currently managed with Lasix 60 mg and spironolactone 100 mg. His urination is normal. He was previously on Xarelto for a heart condition but was switched to another medication, which he believes has improved his condition. He has discontinued lactulose as it was only needed on an as-needed basis. He has not experienced any confusion. An endoscopy was planned but has not yet been scheduled. He has no history of bleeding from varices buthas undergone banding of varices once, less than a year ago. He also mentions swelling in his scrotum, which his hernia doctor suggested could be alleviated by a liver transplant. Patient was last seen in the clinic on 07/31/[address] Hansen, noted meld score of 10. As of last visit he was on Lasix 60 mg per day and amiloride 10 mg per day. Reported urinary output as of last visit. On Xarelto for anticoagulation. Patient was being evaluated for tips given left inguinal hernia with tracking of ascites fluid intoscrotum resulting in scrotal edema. As of last visit patient was supposed to undergo an echocardiogram for tips evaluation but did not realize that is he had an appointment, as such missed it. Unfortunately the patient was admitted to the hospital from 06/21/2025- 06/26/2025 secondary to 2 episodes of hematemesis and abdominal pain. Underwent EGD 08/23/2024 which showed multiple small tortuous varices in 3rd of esophagus and lower 3rd of esophagus with red Murali signs. Underwent band x3 resulting in complete eradication. Also had SBP with no growth on culture. Received 5 days of Rocephin. Repeat paracentesis showed improving SBP. Patient was discharged on ciprofloxacin for secondary SBP prophylaxis. Diuretics on discharge were changed to Lasix 60 mg per day and amiloride 20 mg every day. Patient presents today by himself. Says that since hospitalization he has been doing well. Has been requiring paracentesis every 3 weeks. Says that he does feel some fluid buildup however. Due to go in for a repeat paracentesis next week. Otherwise no active complaints on today's visit. Also note that since hospital discharge he has been put on Xarelto for history of atrial fibrillation. I saw and evaluated the patient with the fellow. I discussed the case with the fellow and agree with the findings and plan as documented. The following portions of the chart were reviewed this encounter and updated as appropriate: Review of Systems 14 point ROS negative except for HPI Objective Visit Vitals BP 103/67 (BP Location: Right arm, Patient Position: Sitting, BP Cuff Size: Adult) Pulse 89 Temp 36.3 ??C (97.4 ??F) (Oral) Ht 1.803 m (5' 11 ) Wt 96.9 kg (213 lb 10 oz) SpO2 97% BMI 29.79 kg/m?? Physical Exam Constitutional: General: He is not in acute distress. Appearance: Normal appearance. He is well-developed. He is not ill-appearing. HENT: Head: Normocephalic and atraumatic. Nose: Nose normal. Eyes: General: No scleral icterus. Cardiovascular: Rate and Rhythm: Normal rate and regular rhythm. Pulmonary: Effort: Pulmonary effort is normal. Abdominal: General: Bowel sounds are normal. There is no distension. Tenderness: There is no abdominal tenderness. Musculoskeletal: General: Normal range of motion. Cervical back: Normal range of motion. Right lower leg: No edema. Left lower leg: No edema. Skin: General: Skin is warm. Neurological: General: No focal deficit present. Mental Status: He is alert and oriented to person, place, and time. Mental status is at baseline. Psychiatric: Mood and Affect: Mood normal. Behavior: Behavior normal. Current Medications[1] Laboratory values CBC: WBC Count Date/Time Value Ref Range Status 03/18/2025 09:25 AM 2.07 (L) 3.70 - 10.30 10*3/uL Preliminary 09/20/2024 08:44 AM 2.72 (L) 3.70 - 10.30 10*3/uL Final 08/27/2024 03:47 AM 3.61 (L) 3.70 - 10.30 10*3/uL Final HGB Date/Time Value Ref Range Status 03/18/2025 09:25 AM 8.6 (L) 13.7 - 17.5 g/dL Preliminary 09/20/2024 08:44 AM 8.5 (L) 13.7 - 17.5 g/dL Final 08/27/2024 03:47 AM 8.9 (L) 13.7 - 17.5 g/dL Final HCT Date/Time Value Ref Range Status 03/18/2025 09:25 AM 25.9 (L) 40.0 - 51.0 % Preliminary 09/20/2024 08:44 AM 27.9 (L) 40.0 - 51.0 % Final 08/27/2024 03:47 AM 29.0 (L) 40.0 - 51.0 % Final Platelet Count Date/Time Value Ref Range Status 09/20/2024 08:44 AM 85 (L) 155 - 369 10*3/uL Final 08/27/2024 03:47 AM 87 (L) 155 - 369 10*3/uL Final 08/26/2024 03:34 AM 96 (L) 155 - 369 10*3/uL Final CMP: Sodium, Plasma Date/Time Value Ref Range Status 03/18/2025 09:25 AM 138 136 - 145 mmol/L Final 09/20/2024 08:44 AM 133 (L) 136 - 145 mmol/L Final 08/27/2024 03:47 AM 131 (L) 136 - 145 mmol/L Final Potassium, Plasma Date/Time Value Ref Range Status 03/18/2025 09:25 AM 3.9 3.6 - 4.9 mmol/L Final 09/20/2024 08:44 AM 4.3 3.6 - 4.9 mmol/L Final 08/27/2024 03:47 AM 4.9 3.6 - 4.9 mmol/L Final Chloride, Plasma Date/Time Value Ref Range Status 03/18/2025 09:25 AM 103 97 - 107 mmol/L Final 09/20/2024 08:44 AM 101 97 - 107 mmol/L Final 08/27/2024 03:47 AM 95 (L) 97 - 107 mmol/L Final CO2, Plasma Date/Time Value Ref Range Status 03/18/2025 09:25 AM 27 22 - 29 mmol/L Final 09/20/2024 08:44 AM 26 22 - 29 mmol/L Final 08/27/2024 03:47 AM 29 22 - 29 mmol/L Final BUN, Plasma Date/Time Value Ref Range Status 03/18/2025 09:25 AM 14 8 - 23 mg/dL Final 09/20/2024 08:44 AM 11 8 - 23 mg/dL Final 08/27/2024 03:47 AM 23 8 - 23 mg/dL Final Creatinine, Plasma Date/Time Value Ref Range Status 03/18/2025 09:25 AM 0.92 0.70 - 1.20 mg/dL Final 09/20/2024 08:44 AM 0.81 0.70 - 1.20 mg/dL Final 08/27/2024 03:47 AM 1.01 0.70 - 1.20 mg/dL Final Total Calcium, Plasma Date/Time Value Ref Range Status 03/18/2025 09:25 AM 8.2 (L) 8.9 - 10.2 mg/dL Final 09/20/2024 08:44 AM 8.7 (L) 8.9 - 10.2 mg/dL Final 08/27/2024 03:47 AM 8.0 (L) 8.9 - 10.2 mg/dL Final Total Bilirubin, Plasma Date/Time Value Ref Range Status 03/18/2025 09:25 AM 1.3 (H) 0.2 - 1.1 mg/dL Final 09/20/2024 08:44 AM 1.2 (H) 0.2 - 1.1 mg/dL Final 08/27/2024 03:47 AM 1.0 0.2 - 1.1 mg/dL Final Alkaline Phosphatase, Plasma Date/Time Value Ref Range Status 03/18/2025 09:25 AM 248 (H) 40 - 115 U/L Final 09/20/2024 08:44 AM 282 (H) 40 - 115 U/L Final 08/27/2024 03:47 AM 246 (H) 40 - 115 U/L Final ALT, Plasma Date/Time Value Ref Range Status 03/18/2025 09:25 AM 14 10 - 50 U/L Final 09/20/2024 08:44 AM 18 10 - 50 U/L Final 08/27/2024 03:47 AM 18 10 - 50 U/L Final AST, Plasma Date/Time Value Ref Range Status 03/18/2025 09:25 AM 41 10 - 50 U/L Final 09/20/2024 08:44 AM 42 10 - 50 U/L Final 08/27/2024 03:47 AM 36 10 - 50 U/L Final Glucose, Plasma Date/Time Value Ref Range Status 03/18/2025 09:25 AM 105 (H) 74 - 99 mg/dL Final 09/20/2024 08:44 AM 144 (H) 74 - 99 mg/dL Final 08/27/2024 03:47 AM 117 (H) 74 - 99 mg/dL Final Imaging/Radiology No images are attached to the encounter or orders placed in the encounter. Assessment/Plan There are no diagnoses linked to this encounter. Patient is a 64 year old male with a past medical history of decompensated cirrhosis. MELD 3.0: 12 at 03/18/2025 9:25 AM MELD-Na: 12 at 03/18/2025 9:25 AM Calculated from: Serum Creatinine: 0.92 mg/dL (Using min of 1 mg/dL) at 03/18/2025 9:25 AM Serum Sodium: 138 mmol/L (Using max of 137 mmol/L) at 03/18/2025 9:25 AM Total Bilirubin: 1.3 mg/dL at 03/18/2025 9:25 AM Serum Albumin: 3 g/dL at 03/18/2025 9:25 AM INR(ratio): 1.5 at 03/18/2025 9:25 AM Age at listing (hypothetical): 64 years Sex: Male at 03/18/2025 9:25 AM MELD 12 off anticoagulation, # Decompensated cryptogenic cirrhosis Complications of liver disease include: Ascites and HE History of: Atrial fibrillation, [place] Chemical dependency: None --Counseled on the nature, symptoms & signs, and complications of cirrhosis. --Advised to avoid NSAIDS, can take acetaminophen but not to exceed 2000 mg a day. - MRI indicates stable bile duct dilation with no worsening since the last imaging. - No immediate intervention required as the condition is stable. - Regular monitoring through imaging every 6 months is recommended. # Ascites - uncontrolled, distended abdomen, getting paracentesis weekly, average 6-9 L drained every session. However since the last 3 weeks he hasn't required any paracentesis. # hx of SBP ( 08/2024) # LE edema - significant #scrotal swelling: significant Increased dosage of spironolactone to 150 mg is expected to help manage this condition. - Monitor symptoms and follow up with the local finishing frame runner. # Hepatic Encephalopathy: Not an issue right now. On lactulose and xifaxan # Esophageal varices screening- EGD 03/30/2022: 3 cords of grade 1 esophageal varices in lower 3rd of esophagus. Non bleeding. EGD 04/27/23 - The duodenal bulb, 1st part of the duodenum and 2nd part of the duodenum appeared normal. Moderate and diffuse portal hypertensive gastropathy in the fundus of the stomach and body of the stomach; no bleeding was identified; performed, cold forceps biopsy One grade I varix (no red murali sign) in the lower third of the esophagus; no bleeding was identified. Baveno grade 1 varix EGD 08/23/2024: Multiple small tortuous varices in middle 3rd of esophagus and lower 3rd of esophagus s/p band x3. (stigmata of recent hemorrhage noted including red Murali sign). Needs repeat EGD in 4-6 weeks --Educated on S/S of GI bleed and advised to go to ER if any occurs. --HgB is stable, on xarelto with elevated INR but no signs of bleeding # HCC surveillance: CT Abd wo contrast 04/25/23 - cirrhosis and portal HTN AFP - WNL MRI 03/13/24 - LR Negative; moderate intra and extrahepatic biliary ductal dilation. While the may besequela of prior cholecystectomy. Given the extrahepatic common bile duct measuring up to 21 mm andhe has chronic ALP elevation discussed his MRI with Dr. Hayes and plan to proceed with ERCP once watchman procedure is done CT 08/2024 (non contrast) - no suspicious liver lesions. Will need repeat imaging with MRI. --continue q6 monthly surveillance per primary GI # Atrial fibrillation on anticoagulation On long-term anticoagulation with Xarelto. Likely causing elevation in INR. Follows with Dr. Cain at [facility] Saw cardiology 03/2024. Concerned about contrast other review as contrast will be needed further Watchman procedure. Was referred to Allergy and immunology which he was seen on 07/25/2024. Patient isreaction to iodinated contrast smoke consistent with physiologic rather than anaphylactoid reaction. Per immunology note patient will need aggressive premedication with antihistamines and steroids atleast 1 day prior to contrast administration. - echocardiogram 09/10/2024 showing LVEF 45-60%, RVSP < 35 mmHg. Nuclear stress to 09/2024 alsoshowing no reversible perfusion defect. - his testing will be reviewed in the transplant committee meeting. # chronic Pain Notes that his pain management provider no longer wants to prescribe pain medication with tylenol in it. He follows with Dr. Augustin's team at [facility] pain management ([phone]) --from a hepatology perspective, patient is OKAY to take tylenol up to 2000 mg daily and okay for him to continue on percocet # left inguinal hernia Scrotal edema He recognizes he has been told by several providers it's a very high risk surgery but he's also concerned about incarceration and the daily pain he has. Discussed again high risk of worsening decompensation and recurrence of hernia and infection - Likely due to fluid seeping down from the abdomen. - Increase spironolactone dosage to 150 mg. - Use a hernia belt and elevate the scrotum with a pillow while lying down to manage this issue. Health Maintenance: Colonoscopy 04/01/22: polys (3 to 8 mm) in the ascending colon, descending colon and transverse colon. Repeat colonoscopy in 1 year (TA x 4 and one hyperplastic polyp) 04/27/23 Colonscopy - Localized erythematous and granular mucosa in the [...] complete en bloc removal and retrieved specimen RTC if MELD is > 14 [1] Current Outpatient Medications: aMILoride (Midamor) 5 MG tablet, Take 4 tablets (20 mg) by mouth daily., Disp: 120 tablet, Rfl: 2 Blood Pressure Monitoring (Advanced One Step BP Monitor) misc, 1 each daily. Use to check blood pressure once daily as instructed., Disp: 1 each, Rfl: 0 carvedilol (Coreg) 12.5 MG tablet, Take 1 tablet by mouth 2 times a day with meals., Disp: 60 tablet, Rfl: 11 ciprofloxacin (Cipro) 500 MG tablet, Take 1 tablet by mouth daily., Disp: , Rfl: furosemide (Lasix) 20 MG tablet, Take 3 tablets (60 mg) by mouth daily., Disp: 90 tablet, Rfl: 2 gabapentin (Neurontin) 300 MG capsule, Take 1 capsule by mouth 3 times a day., Disp: , Rfl: Multiple Vitamin (multivitamin) tablet, Take 1 tablet by mouth daily., Disp: , Rfl: naloxone (Narcan) 4 mg/0.1 mL nasal spray, 1. Give 1 spray in nostril for no/slow breathing or cannot wake after opioid use 2. Call 911 3. Repeat in other nostril if symptoms continue, Disp: 1 each, Rfl: 0 nutrional drink glucose control (Boost Glucose Control) liquid liquid, Take 237 mL by mouth 4 (four) times a day. Drink 1 supplement up to 3 times a day or As Directed as a nutritional supplement. Flavor preference: per patient. Please dispense up to 4 cases at a time per patient request, Disp: 67024 mL, Rfl: 3 oxyCODONE-acetaminophen (Percocet) 5-325 MG tablet, Take 1 tablet by mouth every 6 hours as needed., Disp: , Rfl: pantoprazole (Protonix) 40 MG EC tablet, Take 1 tablet by mouth daily., Disp: , Rfl: Xifaxan 550 MG tablet, Take 1 tablet (550 mg) by mouth 2 (two) times a day., Disp: , Rfl: digoxin (Lanoxin) 125 MCG tablet, Take 1 tablet by mouth daily. (Patient not taking: Reported on 03/18/2025), Disp: 30 tablet, Rfl: 11 lactulose (Chronulac) 10 GM/15ML oral solution, Take 15 mL (10 g) by mouth 3 (three) times a day. Titrate to goal 2-3 bowel movements a day (Patient not taking: Reported on 03/18/2025), Disp: 4050 mL, Rfl: 3 No current facility-administered medications for this visit. 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 documented in this encounter Additional Health Concerns Assessment Noted Time PHQ-9 Depression Total Score: 0 10/10/19 25 10:46 AM EDT A fall risk assessment has been complete d for the patient 03/18/2025 10:41 AM EDT A Body Mass Index follow-up plan has been documented for the patient 03/24/2025 1:00 PM EDT documented as of this encounter Care Teams Ship Wirer Relationship Specialty Start Date End Date Yunier Barrett MD PCP - General 10/04/22 Roni Burciaga MD [address] [place] [address] Referring Physician Gastroenterology 10/04/22 Ace Campbell DO [address] [place] [address] Referring Physician General Surgery 05/15/24 Reema Sanchez, RN [facility] [address] [place] [id number] Registered Nurse Transplant Surgery 05/15/24 [place] [address] Registered Nurse Transplant Surgery 05/15/24 documented as of this encounter
[2025-05-05 16:21] LABS: Hematocrit 32.0 % (42.0-52.0); Hemoglobin 10.5 g/dL (14.1-18.0); Immature Granulocytes % 0 %; Mean Corpuscular HGB Conc 32.8 g/dL (31.8-35.4); Mean Corpuscular Hemoglobin 33.0 pg (27.0-31.2); Mean Corpuscular Volume 100.6 fl (80-94); Nucleated Red Blood Cells % 0 %; Platelet Count 77 K/mm3 (142-424); Red Blood Count 3.18 M/mm3 (4.60-6.20); Red Cell Distribution Width-SD 49.5 fL; White Blood Count 3.7 K/mm3 (4.8-10.8)
[2025-05-05 17:32] LABS: Macrocytosis 1+; Total Cells Counted 100
[2025-05-05 17:37] LABS: Alanine Aminotransferase 19 U/L (12-78); Albumin Level 2.7 g/dl (3.5-5.0); Albumin/Globulin Ratio 0.7 (1.1-1.8); Alkaline Phosphatase 326 U/L (38-126); Anion Gap 9.5 mEq/L (5-15); Aspartate Amino Transferase 47 U/L (17-59); Bilirubin,Total 1.7 mg/dl (0.2-1.3); Blood Urea Nitrogen 14 mg/dl (9-20); Calcium 8.6 mg/dl (8.4-10.2); Carbon Dioxide 27 mmol/L (22.0-30.0); Chloride 103 mmol/L (98-107); Creatinine,Serum 0.80 mg/dl (0.66-1.25); Estimated Glomerular Filt Rate 97 ml/min (>60); GFR (African American) 118 ML/MIN (>60); Globulin 3.9 g/dL (1.3-3.2); Glucose 77 mg/dl (74-100); Potassium 4.5 mmoL/L (3.5-5.1); Sodium 135 mmol/L (136-145); Total Protein,Serum 6.6 g/dl (6.3-8.2)
[2025-05-06 04:37] LABS: Iron 75 ug/dL (49-181)
[2025-05-06 04:55] LABS: Total Iron Binding Capacity 323 ug/dL (261-462)
--- OUTSIDE RECORDS SUMMARY | 2025-05-06 11:18 | XMS_ITS | Continuity of Care Document ---
Author Organization [place] - [facility] - [facility], [facility] Address [address] [facility] [address] Emma gutier[address] [place] [address] Assessment No assessment recorded. Plan of Treatment Reminders Order Date Submit Date Provider Last Modified By Organization Details Last Modified Time Details Appointments None recorded. Lab drug screen, urine - [place] LC 873605 Urine or blood. If unable to obtain specimen, they will need to drink fluids and wait three hours. Do not let them leave the facility. If still unable to get specimen after 3 hours call the office or it's a failed UDS. [address] (Registration ), [address], [place], [address], 13:52:53 pregabalin , QL, screen, urine [address] (Registration ), [address], [place], [address], 13:52:53 gabapentin , QL, urine [address] (Registration ), [place], [address], 13:52:53 Referral pain management referral 2024 025 SIDDHARTH Nunez MD, [address] [facility] [address], [place], [address], 16:03:14 pain management referral - Chronic back pain, on oxycodone which I cannot fill. He has cirrhosis and cannot take Tylenol. 2024 025 [email or web address] Not available 14:49:04 Procedures None recorded. Surgeries None recorded. Imaging None recorded. Medication Orders None recorded. Patient TargetsNo targets recorded. Patient Instructions Encounter Date Encounter Id Patient Instructions Last Modified By Organization Details Last Modified Time 04/15/2025 Pt was advised that I cannot write his oxycodone but will refer him to [facility] which is closer than [place] for him. [email or web address] Not available 04/15/2025 15:02:09 Reason for Referral Pain Management Referral for Chronic low back pain Referring Physician: Nikole Barton, Pain Management, Encounter Date: 04/15/2025 Pain Management Referral for Chronic low back pain Chronic back pain, on oxycodone which I cannot fill. He has cirrhosis and cannot take Tylenol. Referring Physician: Nikole Barton, Pain Management, Encounter Date: 04/15/2025 Medical Equipment None Reported. Allergies Allergen ID Allergen Name Allergen Category Reaction Reaction Severity Criticality Documentation Date Start Date Code Code System Note Provider Name and Address Organization Details Recorded Time [id number] morphine medicatio n hives moderate high 04/15/2025 7052 RxNorm Stefani quintero, ROCÍO - LPNT [facility] & [place] 14:28:18 055241 cortisone medicatio n Not available Not available unabletoasse ss 04/15/2025 2878 RxNorm Stefani Ruelas null, ROCÍO - LPNT [facility] & [place] 14:28:46 520688 Iodinated contrast media (substanc e) medicatio n fever Not available Not available 04/15/2025 58696 2004 SNOMED Stefani quintero, [place] - LPNT [facility] & [place] 14:31:01 397929 acetamino phen / hydrocodo ne medicatio n vomiting Not available Not available 04/15/2025 50921 2 RxNorm Stefani quintero, ROCÍO Hines LPNT [facility] & [place] 14:31:26 Medications Name Sig Start Date Stop Date Status Note LastModified by Organization Details LastModified Time furosemide 40 mg tablet take ONE AND ONE-HALF TABLETS BY MOUTH DAILY active Not Available Not Available No t Available carvedilol 12.5 mg tablet Take 1 tablet twice a day by oral route. active Not Available Not Available No t Available diltiazem CD 240 mg capsule,ext ended release 24 hr TAKE ONE CAPSULE BY MOUTH EVERY DAY 04/15 completed Not Available Not Available Not Available spironolact one 100 mg tablet take ONE AND ONE-HALF TABLETS BY MOUTH DAILY 04/15 completed Not Available Not Available Not Available amiloride 5 mg tablet TAKE TWO TABLETS BY MOUTH DAILY 2024 active Not Available Not Available Not Avai lable pantoprazol e 40 mg tablet,oswaldo yed release TAKE ONE TABLET BY MOUTH AT BEDTIME active Not Available Not Available No t Available gabapentin 300 mg capsule Take 1 capsule 3 times a day by oral route. active Not Available Not Available No t Available lactulose 10 gram/15 mL oral solution Take 15 ML by MOUTH THREE (three) times a DAY. Titrate TO goal 2-3 bowel movements a DAY 04/15 completed Not Available Not Available Not Available oxycodone 5 mg QID active Not Available Not A vailable Not Available ciprofloxac in 500 mg daily active Not Available Not Available No t Available Xifaxan 550 mg tablet Take 1 tablet twice a day by oral route. active Not Available Not Available No t Available Xarelto 20 mg tablet TAKE ONE TABLET BY MOUTH IN THE EVENING WITH A MEAL 04/15 completed Not Available Not Available Not Available Vitals Date Recorded Body height Body mass index (BMI) Body weight Body temperature Oxygen saturation Oxygen saturation in Arterial blood by Pulse oximetry Heart rate Pain severity - 0-10 verbal numeric rating [Score] - Reported Respiratory rate Systolic And Diastolic Provider Name and Address Organization Details Last Updated DateTime 177.8 cm 30.1 kg/m2 61464.4 g 97.1 [degF] 100 % 100 % 98 /min 8 16 /min 104/60 mm[Hg] Stefani Suraj ROCÍO Hines LPNT [facility] & [place] 14:27:15 Social History None recorded. Functional Status None recorded. Mental Status None recorded. Family History Nothing Reported. Medical History No medical history recorded. Past Encounters Encounter ID Performer Location Encounter Start Date Encounter Closed Date Diagnosis/Indication Diagnosis SNOMED-CT Code Diagnosis ICD10 Code Diagnosis IMO Codes Diagnosis Note MD [facility] [place] [address] [employer] [address] [address] 04/15/2025 14:12:30 04/15/2025 15:09:43 Chronic low back pain 548965816 G89.29 M54.50 [id number] Cirrhosis of liver 007 K74.60 776573165 Health Concerns Section Related Observation LastModified by Organization Detai ls LastModified Time None Recorded Concern Status LastModified by Organization Details LastModified Time None Recorded Payers Encounter Date Sequence Insurance Name Policy Number Policy Whitt Covered Member ID Whitt Member ID Guarantor Name 04/15/2025 1 [facility] (MEDICARE REPLACEMENT/A DVANTAGE - HMO) Brandyn Ruiz [id number] Garett Larsonry Notes Date Note Type Note Provider Name and Address Organization Details Recorded Time 04/15/2025 text/html ROS as noted in the HPI 64 yo male in today as a new patient for neck, left hip, bilateral knee and low back pain. Pain is rated at 8/10, and has gotten up to 10/10 in the last month. Pt describes pain as constant, aching, throbbing and shooting. Walking an lying down makes pain worse, medication makes it better. Pain radiates down LLE and causes weakness. Does not cause loss of bowel or bladder. Has seen pain management in [place]. Had PT in the past with no relief. Pain level at rest: 7/10Pain level w/activity: 9/10Feeling down depressed or hopeless: NoAre you having little interest or pleasure in doing things: NoHave you had any falls with injury in the past year: NoDo you use any illicit or recreation drugs: NoDo you or have you ever smoked tobacco: NoWhat is your level of alcohol consumption: None Brandyn Ruiz presents with chronic pain and a history of liver cirrhosis requiring ongoing pain management. Mr. Ruiz reports a history of cirrhosis and has been evaluated by the liver transplant team. He mentions that his liver function has improved significantly, with his numbers decreasing from 19 to 9. The liver transplant team has advised against any surgeries or injections until his liver has fully healed. The patient's pain management has been complicated by his liver condition. He was previously on plain oxycodone but was switched back to Percocet by his previous pain management provider. Mr. Ruiz states that he cannot take Tylenol alone due to his liver condition, but his previous liver doctor indicated that the amount in Percocet would not significantly affect his liver. Mr. Ruiz mentions that he has had a radio-frequency ablation procedure on his back in the past, which provided some relief. However, no recent procedures have been performed due to the liver transplant team's recommendation to wait until his liver has fully healed. The patient reports difficulty in accessing consistent pain management care. He states that he has not seen his previous pain management doctor, Dr. Hunter Augustin, in three years. He also mentions that his family doctor, Dr. Barrett, is limited in what he can prescribe through [facility]. Medical History: - Cirrhosis of the liver, with improving liver function - Chronic pain condition requiring ongoing pain management Surgical History: - Radiofrequency ablation on the back Medications and Supplements: - Percocet 5 mg - Recently switched back to this from plain oxycodone - Oxycodone - Was taking this before being switched back to Percocet Social History: - Substance Use: Unable to take Tylenol due to liver issues NIKOLE BARTON, KEVIN [address] [facility] , [place], [address], [facility] - NT - [place] & [place] 05/05/2025 13:48:15
--- OUTSIDE RECORDS SUMMARY | 2025-05-06 11:18 | XMS_ITS | Encounter Summary ---
Author Organization [facility] Address [address] [place] [address] Care Team Providers Care Forensic Sergeant Name Role Phone Roni Burciaga MD Primary Care Provider [phone] Yunier Barrett MD Primary Care Provider [phone] Roni Burciaga MD Unavailable [phone] Ace Campbell DO Unavailable [phone] Reema Sanchez RN Unavailable [phone] Keesha Love Unavailable [phone] Miracle Villanueva LPN Unavailable Unavailable Encounter Details Date Type Department Care Team (Late st Contact Info) Description 05/12/2022 Orders Only External Location [address] [place] [address] Provider, External Social History Tobacco Use Types [...] on filedocumented in this encounter Care Teams Forensic Sergeant Relationship Specialty Start Date End Date Roni Burciaga MD [address] [place] [address] PCP - General 09/23/22 10/03/22 Yunier Barrett MD [address] [place] [address] PCP - General 10/04/22 Roni Burciaga MD [address] [place] [address] Referring Physician Gastroenterology 10/04/22 Ace Campbell DO [address] [place] [address] Referring Physician General Surgery 05/15/24 Reema Sanchez, RN [facility] [address] [place] [address] Registered Nurse Transplant Surgery 05/15/24 Keesha Love [place] [id number] Registered Nurse Transplant Surgery 05/15/24 Miracle Villanueva LPN VALUE-BASED TRANSFORMATION PROGRAM [place] [id number] TCM Nurse 08/28/24 09/25/24 documented as of this encounter
--- OUTSIDE RECORDS SUMMARY | 2025-05-06 11:18 | XMS_ITS | Clinical Summary ---
Author Organization [facility] Address [address] [facility] [address] [place] [address] Phone Care Team Providers Care Paper Machine Back Tender Name Role Phone Jeff Gallardo MD Conditions [...] 1 po tid prn pain 8 IBUPROFEN [id number] Jeff Gallardo MD FENOFIBRIC ACID 135 MG CPDR 1 daily Non-Moon 8 CHOLINE FENOFIBRATE [id number] Jeff Gallardo MD CRESTOR 20 MG TABS 1 daily Non-Moon 8 ROSUVASTATIN CALCIUM [id number] Jeff Gallardo MD LISINOPRIL 10 MG TABS 1 daily Non-[place] 8 LISINOPRIL [id number] Jeff Gallardo MD GABAPENTIN 400 MG CAPS 1 po five times per day [facility] [place] 8 GABAPENTIN [id number] Jeff Gallardo MD SOMA 350 MG TABS 1 qid Non-[place] 8 CARISOPRODOL [id number] Jeff Gallardo MD PERCOCET 10-325 MG TABS 1 qid [facility] [place] 8 OXYCODONE-ACETA MINOPHEN [id number] Jeff Gallardo MD Medications Administered No information [...] Procedures Code Procedure Name Date Entry Date [facility]-[id number] Medications Documented 1124F No ACP/POA documented but discussed 10/15 G8483 No flu shot received; allergy etc. 10/15 8034D9D No pneumococcal vaccine received; no reas on [...]
--- OUTSIDE RECORDS SUMMARY | 2025-05-06 11:18 | XMS_ITS | Encounter Summary ---
Author Organization [facility] Address [address] [place] [address] Care Team Providers Care Reports Analysis Manager Name Role Phone Roni Burciaga MD Primary Care Provider [phone] Yunier Barrett MD Primary Care Provider [phone] Roni Burciaga MD Unavailable [phone] Ace Campbell DO Unavailable [phone] Reema Sanchez RN Unavailable [phone] Keesha Love Unavailable [phone] Miracle Villanueva LPN Unavailable Unavailable Encounter Details Date Type Department Care Team (Late st Contact Info) Description 07/13/2022 Orders Only External Location [address] [place] [address] Provider, External Social History Tobacco Use Types [...] on filedocumented in this encounter Care Teams Reports Analysis Manager Relationship Specialty Start Date End Date Roni Burciaga MD [address] [place] [address] PCP - General 09/23/22 10/03/22 Yunier Barrett MD [address] [place] [address] PCP - General 10/04/22 Roni Burciaga MD [address] [place] [address] Referring Physician Gastroenterology 10/04/22 Ace Campbell DO [address] [place] [address] Referring Physician General Surgery 05/15/24 Reema Sanchez, RN [facility] [address] [place] [address] Registered Nurse Transplant Surgery 05/15/24 Keesha Love [place] [id number] Registered Nurse Transplant Surgery 05/15/24 Miracle Villanueva LPN VALUE-BASED TRANSFORMATION PROGRAM [place] [id number] TCM Nurse 08/28/24 09/25/24 documented as of this encounter
--- OUTSIDE RECORDS SUMMARY | 2025-05-06 11:18 | XMS_ITS | Encounter Summary ---
Author Organization [facility] Address [address] [place] [address] Care Team Providers Care Tow Motor Operator Name Role Phone Roni Burciaga MD Primary Care Provider [phone] Yunier Barrett MD Primary Care Provider [phone] Roni Burciaga MD Unavailable [phone] Ace Campbell DO Unavailable [phone] Reema Sanchez RN Unavailable [phone] Keesha Love Unavailable [phone] Miracle Villanueva LPN Unavailable Unavailable Encounter Details Date Type Department Care Team (Late st Contact Info) Description 03/07/2022 Orders Only External Location [address] [place] [address] Provider, External Social History Tobacco Use Types [...] on filedocumented in this encounter Care Teams Tow Motor Operator Relationship Specialty Start Date End Date Roni Burciaga MD [address] [place] [place] [address] PCP - General 09/23/22 10/03/22 Yunier Barrett MD [address] [place] [place] [address] PCP - General 10/04/22 Roni Burciaga MD [address] [place] [place] [address] Referring Physician Gastroenterology 10/04/22 Ace Campbell DO [address] [place] [place] [address] Referring Physician General Surgery 05/15/24 Reema Sanchez RN [facility] [address] [place] [address] Registered Nurse Transplant Surgery 05/15/24 Keesha Love [place] [id number] Registered Nurse Transplant Surgery 05/15/24 Miracle Villanueva LPN VALUE-BASED TRANSFORMATION PROGRAM [place] [id number] TCM Nurse 08/28/24 09/25/24 documented as of this encounter
--- OUTSIDE RECORDS SUMMARY | 2025-05-06 11:18 | XMS_ITS ---
Author Organization [facility] Address [address] [place] [address] Care Team Providers Care Environmental Service Aide Name Role Phone Yunier Barrett MD Primary Care Provider [phone] Roni Burciaga MD Unavailable [phone] Adrian Ace A DO Unavailable [phone] Reema Sanchez RN Unavailable [phone] Keesha Love Unavailable [phone] Transplant Episode Liver Candidate [facility] ([place], [place]) - [facility] Referred on 10/03/2022 Marked as Ineligible on 03/24/2025 Reason: Referred too Early Liver CoordinatorKerry Carrizales RN Fax: N/A Email: N/A Scores Score Value Updated Expires Exceptions/Alyson sons CPRA Not available MELD (Calc) 12 03/18/2025 [place] Organ Diagnosis Organ Primary 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
--- OUTSIDE RECORDS SUMMARY | 2025-05-06 11:19 | XMS_ITS | Clinical Summary ---
Author Organization [facility] Address [address] [facility], [address] [place] [address] Care Team Providers Care Fishing Vessel Deckhand Name Role Phone Yunier Barrett MD Primary Care Provider [phone] Allergies Active Allergy Reactions Criticality Noted Date [...] Additional Information Patient not taking.Reported on 12/08/2023 [id number]-asb -C (PLENVU) 140-9-5.2 gram Oral Powder in [...] Liver disease 09/21/2021 Overview (09/21/2021): fatty liver OR (myocardial infarction) 09/21/2021 Overview (09/21/2021): X2 when [...] lower. He describes having a colonoscopy in [place] less than 5 years ago and was [...] this time. He needs to follow-up with [facility]. His right upper quadrant ultrasound is due, I will order that at this time. He also needs to be vaccinated against hepatitis B. He has immunity to hepatitis A. I am concerned about his social status in regards to his transplant. Unfortunately we cannot have him see [facility] given his insurance provided by the [facility]. I will repeat his EGD at [...] encephalopathy. I will also have him see [facility] transplant center. I will also [...] memory or confusion. 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, had guillain barre Allergy Chronic atrial fibrillation (HCC) History of CVA (cerebrovascu lar accident) Cardiac dysrhythmia a fib Cirrhosis (HCC) on [place] transplant list Encounter for blood transfusion 1991 related to Guillain [place] Family History Medical History Relation Name Comments [...] FIT 2005 Sigmoidoscopy 2005 Virtual Colonography 2005 RSV or 60+ (1 - Ris k 50-74 years 1-dose series) 2010 Zoster (1 of 2) 2010 Hepatitis B Vaccine (1 of 3 - Risk 3-dose series) 2020 DTaP/TDaP/Td (2 - Td or Tdap) 10/26/2023 10/25/2013 Colon Cancer Screening 04/26/2024 Colonoscopy 04/26/2024 04/27/2023, 03/30/2022 COVID-19 Vaccine (3 - 2024-2 6 season) 2025 11/04/2020, 10/02/2020 Hepatitis C Screening Completed 07/06/2021 , 07/06/2021 Meningococcal B Vaccine Aged Out No l onger eligible based on patient's age to complete this topic Medical Devices Implanted Type Area Shell Trim Tool Setter Device Identifier Shelf Expiration Date Model / Serial / Lot Left Knee Replacement Insert O Degree Trident X 3 36mm Code F - [id number] Implanted:Qty: 1 on 10/04/2023 by Mikal Toney MD at [facility] Right: Hip EDUARDO:[employer] [id number] 05/15/2028 723-00-36 F / / [id number] Cup Actb Trident Ii Sz-F 56mm Clstr Scr 5hl Tritan Hap Prim - [id number] Implanted:Qty: 1 on 10/04/2023 by Mikal Toney MD at [facility] Right: Hip [employer] [id number] 07/24/2028 702-04-56 F / / [id number] Head Fem V-40 36mm-2.5mm Nk Biolox Delta Cerm Tapr Prim Mod - [id number] Implanted:Qty: 1 on 10/04/2023 by Mikal Toney MD at [facility] Right: Hip [employer] [id number] 05/11/2028 6570-0-43 6 / / [id number] Stem Hip Insignia High Offset 38.5mm X 107mm Size 6 - [id number] Implanted:Qty: 1 on 10/04/2023 by Mikal Toney MD at [facility] Right: Hip EDUARDO:[employer]CS [id number] 07/16/2028 9046-9825 / / [id number] Procedures Procedure Name Priority Date/Time Associated Diagnosis [...] 4 weeks, please call the office at [phone]. Hold anticoagulation for now, may resume on 04/30. Indication Personal history of colonic polyps, Esophageal varices without bleeding, unspecified esophageal varices type (HCC) Staff Staff Role LORE Carlin CRNA, MD Performing Provider Nima Melton RN Nurse Nusrat Cunha RN Nurse Medications See [...] Non-Reacti ve 07/06/2021 9:08 PM EST PREFERRED Wi3 Blood Venipuncture / Unknown 07/06/2021 7:47 PM EST 07/06/2021 7:58 PM EST us Isauro Hector SUSTAINABLE SYSTEMS ANALYST IMMUNOLOGY ORDERABLES Fin al Result PREFERRED LAB Tech urSelf [address] [facility] , [address] [address] from Last 3 Months or Most Recently Relevant to Health Maintenance Insurance [facility] DUAL COMPLETE HMO [place] [facility] DUAL COMPLETE [place] Member Subscriber Plan / Payer (Ef fective 2022-Present) Name:Brandyn Ruiz Relation to Subscriber:Self Name:Brandyn Ruiz Payer ID:[id number] ([facility]) Group ID:[id number] Type:Not on file Address: [place] [id number] MEDICAID [place] Advance Directives For more information, please contact: [phone] * Full Code (Latest Code Status on File) Date Activated Date Inactivated Comments 07/07/2021 6:11 AM 07/07/2021 8:29 PM Care Teams Fishing Vessel Deckhand Relationship Specialty Start Date End Date Yunier Barrett MD PCP - General Family Medicine 07/10/00
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
--- OUTSIDE RECORDS SUMMARY | 2025-05-06 11:19 | XMS_ITS | Clinical Summary ---
Author Organization [facility] Address [address] [place] [address] Care Team Providers Care Enrollment Management Director Name Role Phone Yunier Barrett MD Primary Care Provider [phone] Roni Burciaga MD Unavailable [phone] Ace Campbell DO Unavailable [phone] Reema Sanchez RN Unavailable [phone] Keesha Love Unavailable [phone] Allergies Active Allergy Reactions Criticality Noted [...] Take 1 tablet by mouth daily. Active furosemide (Lasix) 20 MG tablet Take 3 tablets (60 mg) by mouth daily. 90 tablet 2 08/28/19 25 Active lactulose (Chronulac) 10 GM/15ML oral solutionIndication s:Decompensated hepatic cirrhosis (CMS/HCC),Hepatic encephalopathy (CMS/HCC) Take 15 mL (10 g) by mouth 3 (three) times a day. Titrate to goal 2-3 bowel movements a day 4050 mL 3 08/27/19 25 026 Active Additional Information Patient not taking.Reported on 03/18/2025 aMILoride (Midamor) 5 MG tablet Take 4 [...] 30 tablet 11 11/27/19 25 026 Active Additional Information Patient not taking.Reported on 03/18/2025 ciprofloxacin (Cipro) 500 MG tablet Take 1 tablet by mouth daily. 02/04/20 25 Active gabapentin (Neurontin) 300 MG capsule Take 1 capsule by mouth 3 times a day. 03/03/20 25 Active oxyCODONE-acetamin ophen (Percocet) 5-325 MG tablet Take 1 tablet by mouth every 6 hours as needed. 02/21/20 25 Active pantoprazole (Protonix) 40 MG EC tablet Take 1 tablet by mouth daily. 12/17/19 25 Active Active Problems Problem Noted Date Diagnosed [...] Liver disease 09/21/2021 Overview (02/21/2024): fatty liver [place] (myocardial infarction) 09/21/2021 Overview (02/21/2024): X2 when in 20's Esophageal varices 09/08/2021 Overview (02/21/2024): Last Assessment & Plan: Repeat EGD in 1 year for ongoing esophageal variceal surveillance. Hepatic cirrhosis 09/08/2021 Overview (02/21/2024): Last Assessment [...] advice. He will reach out to the program. 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 I will obtain a CBC, CMP today. I will also consider obtaining a colonoscopy if his melena were to change or his hemoglobin were to be lower. He describes having a colonoscopy in [place] less than 5 years ago and was normal. Generalized abdominal pain 07/05/2021 0 03/30/2025 Insomnia 04/26/2016 03/30/2025 Encounters Date Type Department Care Team Description 03/18/2025 11:00 AM EDT Office Visit [facility] [address] [place] [address] Rakan Hansen MD Hepatic cirrhosis, unspecified hepatic cirrhosis type, unspecified whether ascites present (CMS/HCC) (Primary Dx); Hepatic encephalopathy (CMS/HCC); Decompensated cirrhosis (CMS/HCC); Other ascites; Current use of jail anticoagulation 03/18/2025 7:48 AM EDT - 03/18/2025 11:59 PM EDT Hospital Encounter [facility] Radiology [address] [place] [address] Hepatic cirrhosis, unspecified hepatic cirrhosis type, unspecified whether ascites present (CMS/HCC); End-stage liver disease (CMS/HCC); Hepatic encephalopathy (CMS/HCC) Discharge Disposition: Home or Self Care 03/18/2025 Results Follow-Up [facility] [address] [address] Kerry Carrizales, RN 03/18/2025 Travel 02/20/2025 Telephone [facility] [place] [address] [address] Kerry Carrizales, RN 02/04/2025 Telephone [facility] [place] [address] [address] Reema Sanchez insurance sales manager Only from Last 3 Months Family History Medical [...] were you homeless or living in a fci (including now)? No 08/26/2024 Utilities Answer Date [...] Mass Index 29.79 03/18/2025 10:36 AM EDT Plan of Treatment Health Maintenance [...] - Risk 60-74 years 1-dose series) 2020 [id number] Vaccine (3 - Moderna risk series) 12/02/2020 11/04/2020, 10/02/2020 [facility]-DTaP,Tdap,and Td Vaccines (2 - Td or Tdap) 10/26/2023 10/25/2013 [facility]- SDOH Screenings 02/23/2025 [facility]-Adult SDOH Screenings 02/23/2025 08/26/2024 [facility]-Influenza Vaccine (#1) 03/10/202504/02, 05/25/2011, 04/05/2010 [facility]-Depression Screening 03/18/2026 025, 10/09/2024, 03/18/2024 Colonoscopy 04/27/2033 04/27/2023 [facility]-Colorectal Cancer Screening 04/27/2033 [facility]-HIV Screening Completed 08/23/2024, 09/23/2022 [facility]-Hepatitis C Screening Completed 2024, 10/07/2022, 09/23/2022 [facility]-Obesity Intervention Completed 025, 10/09/2024, 09/20/2024, Additional history exists HPV Vaccines Aged [...] Procedure Name Priority Date/Time Associated Diagnosis Comments CBC W/O DIFFERENTIAL Routine 03/18/2025 9:25 AM EDT Hepatic cirrhosis, unspecified hepatic cirrhosis type, unspecified whether ascites present (CMS/HCC) End-stage liver disease (CMS/HCC) Hepatic encephalopathy (CMS/HCC) COMPREHENSIVE METABOLIC PANEL, PLASMA Routine 03/18/2025 9:25 AM EDT Hepatic cirrhosis, unspecified hepatic cirrhosis type, unspecified whether ascites present (CMS/HCC) End-stage liver disease (CMS/HCC) Hepatic encephalopathy (CMS/HCC) NICOTINE AND COTININE METABOLITE, SERUM, QUANTITATIVE Routine 03/18/2025 9:25 AM EDT Hepatic cirrhosis, unspecified hepatic cirrhosis type, unspecified whether ascites present (CMS/HCC) End-stage liver disease (CMS/HCC) Hepatic encephalopathy (CMS/HCC) PROTHROMBIN TIME(PT) / INR Routine 03/18/2025 9:25 AM EDT Hepatic cirrhosis, unspecified hepatic cirrhosis type, unspecified whether ascites present (CMS/HCC) End-stage liver disease (CMS/HCC) Hepatic encephalopathy (CMS/HCC) ALPHA FETOPROTEIN, SERUM Routine 025 9:25 AM EDT Hepatic cirrhosis, unspecified hepatic cirrhosis type, unspecified whether ascites present (CMS/HCC) End-stage liver disease (CMS/HCC) Hepatic encephalopathy (CMS/HCC) PHOSPHATIDYLETHANOL (PETH), WHOLE BLOOD, QUANTITATIVE (SO) Routine 03/18/2025 9:25 AM EDT Hepatic cirrhosis, unspecified hepatic cirrhosis type, unspecified whether ascites present (CMS/HCC) End-stage liver disease (CMS/HCC) Hepatic encephalopathy (CMS/HCC) MRCP W AND WO IV CONTRAST Routine 2024 8:56 AM EDT Hepatic cirrhosis, unspecified hepatic cirrhosis type, unspecified whether ascites present (CMS/HCC) End-stage liver disease (CMS/HCC) Hepatic encephalopathy (CMS/HCC) HEPATITIS C ANTIBODY - ED W/REFLEX TO HCV QUANT PCR Routine 08/23/2024 6:19 PM EST ED HIV 1/2 ANTIBODY/ANTIGEN SCREEN WITH REFLEX TO HIV I/II DIFFERENTIATION Routine 08/23/2024 6:19 PM EST from Last 3 Months or Most Recently Relevant to Health Maintenance Results * Phosphatidylethanol (PEth), Whole Blood, Quantitative (SO) (03/18/2025 9:25 AM EDT) PEth 16:0/18:2 (PLPEth) <10 ng/mL 03/20/2025 9:30 PM EDT [facility] ([employer]) PEth 16:0/18:1 (POPEth) <10 ng/mL 03/20/2025 9:30 PM EDT [facility] ([employer]) EER Peth See Note 03/20/2025 9:30 PM EDT [facility] ([employer]) PEth Interpretation See Comment 03/20/2025 9:30 PM EDT [facility] ([employer]) Blood Venous blood specimen / Unknown Venipuncture / Unknown 03/18/2025 9:25 AM EDT 03/18/2025 9:49 AM EDT Narrative [facility] ([employer]) - 03/20/2025 9:30 PM EDT PEth 16:0/18:1 (POPEth) Less than 10 ng/mL............Not detected Less than 20 ng/mL............Abstinence or light alcohol consumption 20 - 200 ng/mL................Moderate alcohol consumption Greater than 200 ng/mL........Heavy alcohol consumption or chronic alcohol use (Reference: Angelita Ontiveros and Jose Alberto Orozco 2018 J. Forensic Sci) Reference ranges are not well established. Authorized individuals can access the [employer] Enhanced Report with an [employer] Connect account using the following link. Your local lab can assist you in obtaining the patient report if you don't have a Connect account. [email or web address] Phosphatidylethanol (PEth) is a group of phospholipids formed in the presence of ethanol, phospholipase D and phosphatidylcholine. PEth is known to be a direct alcohol biomarker. The predominant PEth homologues are PEth 16:0/18:1 (POPEth) and PEth 16:0/18:2 (PLPEth), which account for 37-46% and 26-28% of the total PEth homologues, respectively. PEth is incorporated into the phospholipid membrane of red blood cells and has a general half-life of 4-10 days and a window of detection of 2-4 weeks. However, the window of detection is longer in individuals who chronically or excessively consume alcohol. The limit of quantification is 10 ng/mL. Serial monitoring of PEth may be helpful in monitoring alcohol abstinence over time. PEth results should be interpreted in the context of the patient's clinical and behavioral history. Patients with advanced liver disease may have falsely elevated PEth concentrations (Keyana CLEARY et al 2018, Alcoholism Clinical & Experimental Research). This test was developed and its performance characteristics determined by [facility] [facility] It has not been cleared or approved by the U.S. Food and Drug Administration. This test was performed in a CLIA-certified laboratory and is intended for clinical purposes. Performed By: [facility] [address] [place] [address] Boilermaker Helper: Bonifacio Rojas MD, PhD CLIA Number: [id number] Magdaleno Chávez MD LAB REF LAB BLOOD AND FLUID OR D Final Result [facility] ([facility]) [address] [place] [id number] * Alpha Fetoprotein, Serum (03/18/2025 9:25 AM EDT) Alpha Fetoprotein, Serum <2.3 <10.0 ng/mL 03/18/2025 10:[address] [facility] Blood Venous blood specimen / Unknown Venipuncture / Unknown 03/18/2025 9:25 AM EDT 03/18/2025 9:[address] [facility] - 03/18/2025 10:30 AM EDT Performed by Bill electrochemiluminescent immunoassay which is traceable to the [address] [place] [address] IRP WHO Reference standard 72/255. Results obtained with different test methods or kits cannot be used interchangeably. Magdaleno Chávez MD LAB BLOOD ORDERABLES Final Res ult Performing Organization Address [facility] de Phone Number [facility] [address] [place] [address] * Nicotine Cotinine Metabolite (03/18/2025 9:25 AM EDT) NICOTINE <5 <5 ng/mL 03/20/2025 11:[address] [facility] Cotinine <5 <5 ng/mL 03/20/2025 11:[address] [facility] Blood Venous blood specimen / Unknown Venipuncture / Unknown 03/18/2025 9:25 AM EDT 03/18/2025 9:[address] [facility] - 03/20/2025 11:37 AM EDT Testing performed by LC-MS/MS at the [facility]oxic[facility]. This test was developed and its performance characteristics determined by [facility]. This assay has not been cleared by the FDA. The laboratory is regulated under CLIA as qualified to perform high-complexity testing. This test is used for clinical purposes. Magdaleno Chávez MD LAB BLOOD ORDERABLES Final Res ult Performing Organization Address [facility] de Phone Number [facility] [address] [place] [address] * (ABNORMAL) Protime-INR (03/18/2025 9:25 AM EDT) Prothrombin Time 18.4(H) 12.0 - 14.3 sec LAB COAGULATION METHOD 03/18/2025 10:[address] [facility] INR 1.5(H) 0.9 - 1.1 LAB COAGULATION METHOD 03/18/2025 10:[address] [facility] Blood Venous blood specimen / Unknown Venipuncture / Unknown 03/18/2025 9:25 AM EDT 03/18/2025 9:[address] [facility] - 03/18/2025 10:21 AM EDT OPTIMAL INR RANGES FOR PATIENT ON ORAL ANTICOAGULANT THERAPY Prevention of venous thromboembolism INR 2.0 to 3.0 In patients with heart disease: Atrial fibrillation INR 2.0 to 3.0 Valvular heart disease INR 2.0 to 3.0 Tissue heart valves INR 2.0 to 3.0 Mechanical prosthetic valves INR 2.5 to 3.5 Prevention of recurrent FL INR 2.5 to 3.5 us Magdaleno Chávez MD LAB BLOOD ORDERABLES Final Res ult [facility] [address] [place] [address] * (ABNORMAL) CBC w/o differential (03/18/2025 9:25 AM EDT) WBC Count 2.07(L) 3.70 - 10.30 10*3/uL LAB HEMATOLOGY METHOD 03/18/2025 1:[address] [facility] RBC Count 2.59(L) 4.60 - 6.10 10*6/uL LAB HEMATOLOGY METHOD 03/18/2025 1:[address] [facility] HGB 8.6(L) 13.7 - 17.5 g/dL LAB HEMATOLOGY METHOD 03/18/2025 1:[address] [facility] HCT 25.9(L) 40.0 - 51.0 % LAB HEMATOLOGY METHOD 03/18/2025 1:[address] [facility] Platelet Count 57(L) 155 - 369 10*3/uL LAB HEMATOLOGY METHOD 03/18/2025 1:[address] [facility] MCV 100(H) 79 - 98 fL LAB HEMATOLOGY METHOD 03/18/2025 1:[address] [facility] MCH 33.2(H) 26.0 - 32.0 pg LAB HEMATOLOGY METHOD 03/18/2025 1:[address] [facility] MCHC 33.2 30.7 - 35.5 g/dL LAB HEMATOLOGY METHOD 03/18/2025 1:[address] [facility] RDW 14.0 11.5 - 14.5 % LAB HEMATOLOGY METHOD 03/18/2025 1:[address] [facility] MPV 10.1 8.8 - 12.5 fL LAB HEMATOLOGY METHOD 03/18/2025 1:[address] [facility] nRBC 0.0 <=0.0 per 100 WBCs LAB HEMATOLOGY METHOD 03/18/2025 1:[address] [facility] Blood Venous blood specimen / Unknown Venipuncture / Unknown 03/18/2025 9:25 AM EDT 03/18/2025 9:55 AM EDT us Magdaleno Chávez MD LAB BLOOD ORDERABLES Final Res ult [facility] [address] [place] [address] * (ABNORMAL) Comprehensive metabolic panel (03/18/2025 9:25 AM EDT) Glucose, Plasma 105(H) 74 - 99 mg/dL 03/18/2025 10:[address] [facility] BUN, Plasma 14 8 - 23 mg/dL 03/18/2025 10:[address] [facility] Creatinine, Plasma 0.92 0.70 - 1.20 mg/dL 03/18/2025 10:[address] [facility] BUN/Creatinine Ratio 15 03/18/2025 10:[address] [facility] Sodium, Plasma 138 136 - 145 mmol/L 03/18/2025 10:[address] [facility] Potassium, Plasma 3.9 3.6 - 4.9 mmol/L 03/18/2025 10:[address] [facility] Chloride, Plasma 103 97 - 107 mmol/L 03/18/2025 10:[address] [facility] CO2, Plasma 27 22 - 29 mmol/L 03/18/2025 10:[address] [facility] Anion Gap 8 6 - 16 mmol/L 03/18/2025 10:[address] [facility] Total Calcium, Plasma 8.2(L) 8.9 - 10.2 mg/dL 03/18/2025 10:[address] [facility] Total Protein 6.3 6.3 - 7.9 g/dL 03/18/2025 10:[address] [facility] Albumin, Plasma 3.0(L) 3.5 - 5.2 g/dL 03/18/2025 10:[address] [facility] AST, Plasma 41 10 - 50 U/L 03/18/2025 10:[address] [facility] ALT, Plasma 14 10 - 50 U/L 03/18/2025 10:[address] [facility] Alkaline Phosphatase, Plasma 248(H) 40 - 115 U/L 03/18/2025 10:[address] [facility] Total Bilirubin, Plasma 1.3(H) 0.2 - 1.1 mg/dL 03/18/2025 10:[address] [facility] eGFRcr 92.9 mL/min/1.7 3m*2 03/18/2025 10:[address] [facility] Comment:Reported eGFRcr in m L/min/1.73m2 is based the CKD-EPI 2020 equation that does not use a race coefficient. Blood Venous blood specimen / Unknown Venipuncture / Unknown 03/18/2025 9:25 AM EDT 03/18/2025 9:53 AM EDT us Magdaleno Chávez MD LAB BLOOD ORDERABLES Final Res ult [facility] [address] [place] [address] * MRCP w and wo IV Contrast [...] using the following sequences: coronal single shot [id number] fast spin echo, axial T2 weighted sequences [...] MD IMG MRI PROCEDURES Final Resul t * ED HIV 1/2 Antibody/Antigen Screen w/Reflex to HIV 1/2 Differentiation (08/23/2024 6:19 PM EST) HIV 1 & 2 Antibody/Antigen Screen Non Reactive Non Reactive 08/23/2024 7:[address] [facility] Comment:Screening for HIV 1 & 2 antibodies, and P24 antigen is NONREACTIVE. No confirmatory testing is required. Blood Venous blood specimen / Unknown Venipuncture / Unknown 08/23/2024 6:19 PM EST 08/23/2024 6:45 PM EST us Ash Durant MD LAB BLOOD ORDERABLES Final Resul t Performing Organization Address City/[facility]/ZIP Co de Phone Number [facility] [address] [place] [address] * Hepatitis C Antibody - ED (08/23/2024 6:19 PM EST) Hepatitis C Antibody Negative Negative 08/23/2024 7:[address] [facility] Blood Venous blood specimen / Unknown Venipuncture / Unknown 08/23/2024 6:19 PM EST 08/23/2024 6:46 PM EST Ash Durant MD LAB BLOOD ORDERABLES Final Resul t Performing Organization Address City/[facility]/ZIP Co de Phone Number [facility] [address] [place] [address] from Last 3 Months or Most Recently Relevant to Health Maintenance Insurance [employer] Member Subscriber Plan / Payer (Ef fective 2022-Present) Name:JosephBrandyn daley Relation to Subscriber:Self Name:Brandyn Ruiz Silvana Payer ID:Not on file Group ID:Not on file Type:Not on file Address: [address] [place] [phone] [employer] Advance Directives * Full Code (Latest Code Status on File) Date Activated Date Inactivated Comments 08/22/2024 5:25 PM 08/27/2024 2:34 PM Question Answer Comments Patient has decision-making capacity? Yes * Full Code Date Activated Date Inactivated Comments 08/22/2024 4:32 PM 08/22/2024 5:25 PM Question Answer Comments Patient has decision-making capacity? Yes Care Teams Enrollment Management Director Relationship Specialty Start Date End Date Yunier Barrett MD PCP - General 10/04/22 Roni Burciaga MD [address] [place] [address] Referring Physician Gastroenterology 10/04/22 Ace Campbell DO [address] [place] [address] Referring Physician General Surgery 05/15/24 Reema Sanchez, RN [facility] [address] [place], [place] [id number] Registered Nurse Transplant Surgery 05/15/24 [place] [address] Registered Nurse Transplant Surgery 05/15/24
--- OUTSIDE RECORDS SUMMARY | 2025-05-06 11:19 | XMS_ITS | Encounter Summary ---
Author Organization [place] [address] Care Team Providers Care Head Of Digital Name Role Phone Yunier Barrett MD Primary Care Provider [phone] Reason for Visit * Reason Onset Date Comments New Patient 04/16/2025 Encounter Details Date Type Department Care Team (Late st Contact Info) Description 04/16/[address] [address] Katy Savage MA New Patient Social History Tobacco Use Types Packs/Day Years [...] as of this encounter Functional Status * Is the person deaf or does he/she have serious difficulty hearing? Answer Date of Assessment Author No 07/07/2021 4:02 PM Jose Alberto Cordova RN * Is the person blind or does he/she have serious difficulty seeing even when wearing glasses? Answer Date of Assessment Author No 07/07/2021 4:02 PM Jose Alberto Cordova RN * Does this person have serious difficulty walking or climbing stairs? Answer Date of Assessment Author No 07/07/2021 4:02 PM Jose Alberto Cordova RN * Does this person have difficulty dressing or bathing? Answer Date of Assessment Author No 07/07/2021 4:02 PM Jose Alberto Cordova RN * Because of a physical, mental or emotional condition, does this person have difficulty doing errands alone such as visiting a doctor's office or shopping? Answer Date of Assessment Author No 07/07/2021 4:02 PM Jose Alberto Cordova RN documented as of this encounter Mental Status * Because of a physical, mental or emotional condition, does this person have serious difficulty concentrating, remembering or making decisions? Answer Entry Date Author No 07/07/2021 4:02 PM Jose Alberto Cordova RN documented in this encounter Miscellaneous Notes * Telephone Encounter - Alona Orlando RN - 04/16/2025 11:29 AM EDT Patient contacted the office to schedule a New Patient appointment again. Advised patient that he contacted the office earlier today and was advised that we would need medical records from previous pain specialist in [place], [place]. Patient stated that he will try to contact Nikole Barton from [facility] and have records faxed to our office. FYI. Patient does not want injections, medications only. Marshal reviewed: Patient is being prescribed gabapentin 300MG by PCP, Yunier Barrett MD and Percocet 5/325MG QID prn by Dr. Charli Harrison in [place], [place]. We would need those records too. * Telephone Encounter - Katy Savage MA - 04/16/2025 10:44 AM EDT patient called wanting to make a RETAIL MARKETING SPECIALIST appointment however patient has been to the pain specialist down in [place], [place]. Informed patient that we will need records before scheduling. documented in this encounter Plan of Treatment Not on file documented as of this encounter Visit Diagnoses Not on filedocumented in this encounter Care Teams Head Of Digital Relationship Specialty Start Date End Date Yunier Barrett MD PCP - General Family Medicine 07/10/00 documented as of this encounter
--- OUTSIDE RECORDS SUMMARY | 2025-05-06 11:19 | XMS_ITS | Encounter Summary ---
Author Organization [facility] Address [address] [place] [address] Care Team Providers Care Machine Tool Technician Instructor Name Role Phone Yunier Barrett MD Primary Care Provider [phone] Roni Burciaga MD Unavailable [phone] Ace Campbell DO Unavailable [phone] Reema Sanchez RN Unavailable [phone] Keesha Love Unavailable [phone] Miracle Villanueva PRODUCT EXPERT Unavailable Unavailable Reason for Visit * Reason Comments Med Refill Encounter Details Date Type Department Care Team (Late st Contact Info) Description 11/20/2023 Refill [place] [facility] [address] [place] [address] Addie Hall, SAND SHOVELER, DNP [address] [place] [address] Social History Tobacco Use Types [...] documented as of this encounter Care Teams Machine Tool Technician Instructor Relationship Specialty Start Date End Date Yunier Barrett MD PCP - General 10/04/22 Roni Burciaga MD [address] [place] [address] Referring Physician Gastroenterology 10/04/22 Ace Campbell DO [address] [place] [address] Referring Physician General Surgery 05/15/24 Reema Sanchez RN [facility] [address] [place] [address] Registered Nurse Transplant Surgery 05/15/24 [place] [address] Registered Nurse Transplant Surgery 05/15/24 Miracle Villanueva LPN VALUE[employer]BASED TRANSFORMATION PROGRAM [place] [id number] [facility] Nurse 08/28/24 09/25/24 documented as of this encounter
--- OUTSIDE RECORDS SUMMARY | 2025-05-06 11:19 | XMS_ITS | Encounter Summary ---
Author Organization Healthcare Address [address] [place] [address] Care Team Providers Care Insert Molding Operator Name Role Phone Yunier Barrett MD Primary Care Provider [phone] Roni Burciaga MD Unavailable [phone] Ace Campbell DO Unavailable [phone] Reema Sanchez RN Unavailable [phone] Keesha Love Unavailable [phone] Encounter Details Date Type Department Care Team (Late st Contact Info) Description 03/18/2025 Results Follow-Up [facility] [address] [place] [id number] Kerry Carrizales, RN [id number] [address] [place] [address] Social History Tobacco Use Types Packs/Day Years [...] any time in the past 12 m [facility], were you homeless or living in a [place] [facility] facility (including now)? No 08/26/2024 Utilities Answer Date Recorded In the past 12 months has th e [employer], gas, oil, or water company threatened to [...] as of this encounter Miscellaneous Notes * Result Encounter Note - Kerry Carrizales RN - 03/24/2025 9:40 AM EDT MRCP results * Result Encounter Note - Kerry Carrizales RN - 03/18/2025 1:48 PM EDT [facility]CP results documented in this encounter Plan of Treatment [...] documented as of this encounter Care Teams Insert Molding Operator Relationship Specialty Start Date End Date Yunier Barrett MD PCP - General 10/04/22 Roni Burciaga MD [address] [place] [address] Referring Physician Gastroenterology 10/04/22 Ace Campbell DO [address] [place] [address] Referring Physician General Surgery 05/15/24 Reema Sanchez RN [facility] [address] [place] [address] Registered Nurse Transplant Surgery 05/15/24 [place] [address] Registered Nurse Transplant Surgery 05/15/24 documented as of this encounter
--- OUTSIDE RECORDS SUMMARY | 2025-05-06 11:19 | XMS_ITS | Encounter Summary ---
Author Organization [facility] [place] [facility] Address [address] [place] [address] Care Team Providers Care Renovator Machine Operator Name Role Phone Yunier Barrett MD Primary Care Provider [phone] Roni Burciaga MD Unavailable [phone] Ace Campbell DO Unavailable [phone] Reema Sanchez RN Unavailable [phone] Keesha Love Unavailable [phone] Miracle Villanueva WOODWORK SALVAGE INSPECTOR Unavailable Unavailable Reason for Visit * Reason Comments Med Refill Encounter Details Date Type Department Care Team (Late st Contact Info) Description 10/26/2023 Refill MD [facility] [address] [place] [address] Addie Hall, CATALYST UNIT OPERATOR, DNP [address] [place] [address] Social History Tobacco Use Types [...] documented as of this encounter Care Teams Renovator Machine Operator Relationship Specialty Start Date End Date Yunier Barrett MD PCP - General 10/04/22 Roni Burciaga MD [address] [place] [address] Referring Physician Gastroenterology 10/04/22 Ace Campbell DO [address] [place] [address] Referring Physician General Surgery 05/15/24 Reema Sanchez, RN [facility] [address] [place] [address] Registered Nurse Transplant Surgery 05/15/24 [place] [address] Registered Nurse Transplant Surgery 05/15/24 Miracle Villanueva LPN VALUE-BASED [place] [address] TCM Nurse 08/28/24 09/25/24 documented as of this encounter
--- OUTSIDE RECORDS SUMMARY | 2025-05-06 11:19 | XMS_ITS | Encounter Summary ---
Author Organization [facility] Address [address] [place] [address] Care Team Providers Care Packing And Stamping Machine Operator Name Role Phone Yunier Barrett MD Primary Care Provider [phone] Roni Burciaga MD Unavailable [phone] Ace Campbell DO Unavailable [phone] Reema Sanchez RN Unavailable [phone] Keesha Love Unavailable [phone] Miracle Villanueva LPN Unavailable Unavailable Encounter Details Date Type Department Care Team (Late st Contact Info) Description 05/18/2023 Orders Only External Location [address] [place] [address] Provider, External Social History Tobacco Use Types [...] documented as of this encounter Care Teams Packing And Stamping Machine Operator Relationship Specialty Start Date End Date Yunier Barrett MD PCP - General 10/04/22 Roni Burciaga MD [address] [place] [address] Referring Physician Gastroenterology 10/04/22 Ace Campbell DO [address] [place] [address] Referring Physician General Surgery 05/15/24 Reema Sanchez, RN [facility] [address] [place] [address] Registered Nurse Transplant Surgery 05/15/24 [place] [address] Registered Nurse Transplant Surgery 05/15/24 Miracle Villanueva LPN VALUE-[place] [place] [address] TCM Nurse 08/28/24 09/25/24 documented as of this encounter
--- OUTSIDE RECORDS SUMMARY | 2025-05-06 11:19 | XMS_ITS | Data Portability ---
Author Organization [facility] Address [address] [place] [address] Assessment No assessment recorded. Plan of Treatment Reminders Order Date Submit Date Provider Last Modified By Organization Details Last Modified Time Details Appointments None recorded. Lab drug screen, [place] - [place] [id number] Urine or blood. If unable to obtain specimen, they will need to drink fluids and wait three hours. Do not let them leave the facility. If still unable to get specimen after 3 hours call the office or it's a failed UDS. [address] (Registration ), [address], [place], [address], 13:52:53 pregabalin , QL, screen, urine [address] (Registration ), [address], [place], [address], 13:52:53 gabapentin , QL, urine [address] (Registration ), [address], [place], [address], 13:52:53 Referral pain management referral 2024 025 SIDDHARTH Nunez MD, [address] [address], [facility] [address], [place], [address], 16:03:14 pain management referral - Chronic back pain, on oxycodone which I cannot fill. He has cirrhosis and cannot take Tylenol. 2024 025 [email or web address] Not available 14:49:04 Procedures None recorded. Surgeries None recorded. Imaging None recorded. Medication Orders None recorded. Patient TargetsNo targets recorded. Patient InstructionsNo instructions recorded. Reason for Referral Pain Management Referral for [...] n hives moderate high 04/15/2025 7052 RxNorm ROCÍO Farr [facility] [place] 14:28:18 315740 cortisone medicatio n Not available Not available unabletoasse ss 04/15/2025 2878 RxNorm ROCÍO Farr [facility] [place] 14:28:46 192099 Iodinated contrast media (substanc e) medicatio n fever Not available Not available 04/15/2025 25780 2004 SNOMED ROCÍO Farr [facility] [place] 14:31:01 497649 acetamino phen / hydrocodo ne medicatio n vomiting Not available Not available 04/15/2025 63457 2 RxNorm ROCÍO Farr [facility] [place] 14:31:26 Medications Name Sig Start Date Stop [...] and Address Organization Details Last Updated DateTime 5 177.8 cm 30.1 kg/m2 72046.4 g 97.1 [degF] 100 % 100 % 98 /min 8 16 /min 104/60 mm[Hg] Stefani Sweet [place] - [place] - [place] & [place] 5 14:27:15 Social History None recorded. Functional Status None recorded. Mental Status None recorded. Family History Nothing Reported. Medical History No medical history recorded. Past Encounters Encounter ID Performer Location Encounter Start Date Encounter Closed Date Diagnosis/Indication Diagnosis SNOMED-CT Code Diagnosis ICD10 Code Diagnosis IMO Codes Diagnosis Note MD GRISELDA [facility]ccle[facility]an [facility] [address] [address] 04/15/2025 14:12:30 04/15/2025 15:09:43 Chronic low back pain 908868065 G89.29 M54.50 [id number] Cirrhosis of liver 007 K74.60 728761420 Health Concerns Section Related Observation LastModified by Organization Detai ls LastModified Time None Recorded Concern Status LastModified by Organization Details LastModified Time None Recorded Advance Directives Directive None Recorded Payers Insurance Date Sequence Insurance Name Policy Number Policy Whitt Covered Member ID Whitt Member ID Guarantor Name 04/15/2025 1 [facility] (HMO) Brandyn Ruiz [id number] Garett Joseph 04/15/2025 1 [facility] Brandyn Ruiz [id number] Garett Joseph 04/28/2025 1 [facility] (MEDICARE REPLACEMENT/A DVANTAGE - HMO) Brandyn Ruiz [id number] Garett Joseph 04/15/2025 3 [facility] (HMO) Brandyn Ruiz [id number] Garett Joseph 04/15/2025 2 [place] Brandyn Ruiz [id number] Garett Joseph 04/15/2025 1 [facility] Brandyn Ruiz [id number] Garett Joseph 04/15/2025 2 [facility] (MEDICARE REPLACEMENT/A DVANTAGE - HMO) Brandyn Ruiz [id number] Garett Joseph Notes Date Note Type Note Provider Name [...] or bladder. Has seen pain management in [place]. Had PT in the past with no relief. Pain level at rest: 10Pain level w/activity: 03/19Feeling down depressed or hopeless: NoAre you having [...] limited in what he can prescribe through [facility]. Medical History: - Cirrhosis of the liver, [...] Tylenol due to liver issues NIKOLE BARTON, COPY WORKER [address] [facility] , [place], [address], [facility] - [facility] - [place] & [place] 05/05/2025 13:48:15
--- OUTSIDE RECORDS SUMMARY | 2025-05-06 11:19 | XMS_ITS | Encounter Summary ---
Author Organization [facility] Address [address] [place] [address] Care Team Providers Care Quality Process Engineer Name Role Phone Yunier Barrett MD Primary Care Provider [phone] Roni Burciaga MD Unavailable [phone] Ace Campbell DO Unavailable [phone] Reema Sanchez RN Unavailable [phone] Keesha Love Unavailable [phone] Encounter Details Date Type Department Care Team (Latest Contact Info) Description 03/18/2025 Travel Social History Tobacco Use Types Packs/Day Years [...] any time in the past 12 m [facility], were you homeless or living [...] Timo jett documented as of this encounter Plan of [...] documented as of this encounter Care Teams Quality Process Engineer Relationship Specialty Start Date End Date Yunier Barrett MD PCP - General 10/04/22 Roni Burciaga MD [address] [place] [address] Referring Physician Gastroenterology 10/04/22 Ace Campbell DO [address] [place] [address] Referring Physician General Surgery 05/15/24 Reema Sanchez RN [facility] [address] [place] [address] Registered Nurse Transplant Surgery 05/15/24 [place] [address] Registered Nurse Transplant Surgery 05/15/24 documented as of this encounter
--- OUTSIDE RECORDS SUMMARY | 2025-05-06 11:19 | XMS_ITS | Encounter Summary ---
Author Organization [facility] Address [address] [id number] Care Team Providers Care Assistant Professor Of Education Name Role Phone Yunier Barrett MD Primary Care Provider [phone] Roni Burciaga MD Unavailable [phone] Ace Campbell DO Unavailable [phone] Reema Sanchez RN Unavailable [phone] Keesha Love Unavailable [phone] Miracle Villanueva ASSEMBLER CONVERTIBLE TOP Unavailable Unavailable Reason for Referral * Consultation (Routine) - Closed Specialty Diagnoses / Procedures Referred By Osbaldo archer Referred To Contact Cardiology Diagnoses Coagulation defect Yunier Barrett MD [address] [place] [address] Phone: tel: fax: Referral ID Status Reason Start Date Expiration Date V isits Requested Visits Authorized [id number] Closed Specialty Services Required 01/19/2024 07/20/2025 1 1 Encounter Details Date Type Department Care Team (Late st Contact Info) Description 01/19/2024 [facility] [address] [place] [address] Yunier Barrett MD [address] [place] [address] Coagulation defect (CMS/HCC) (Primary Dx) Social [...] of this encounter Visit Diagnoses Diagnosis Coagulation defect- Primary Other and unspecified coagulation defects documented in this encounter Additional Health Concerns Assessment Noted Time A fall risk assessment has been complete d for the patient 05/09/2023 11:30 AM EDT A Body Mass Index follow-up plan has been documented for the patient 05/10/2023 12:12 PM EDT documented as of this encounter Care Teams Assistant Professor Of Education Relationship Specialty Start Date End Date Yunier Barrett MD PCP - General 10/04/22 Roni Burciaga MD [address] [place] [address] Referring Physician Gastroenterology 10/04/22 Ace Campbell DO [address] [place] [address] Referring Physician General Surgery 05/15/24 Reema Sanchez, RN [facility] [address] [place] [address] Registered Nurse Transplant Surgery 05/15/24 [place] [address] Registered Nurse Transplant Surgery 05/15/24 Miracle Villanueva LPN VALUE-BASED TR[place]FORMATION [place] [address] TCM Nurse 08/28/24 09/25/24 documented as of this encounter
== END 2025-05-05 23:59 ==
LOC: LAB.DROPOF 05-06 11:16
PROVIDERS: PCP Family Medicine; Visit Provider Family Medicine
DX: K75.81 Nonalcoholic steatohepatitis (NASH) (principal); K74.69 Other cirrhosis of liver; I10 Essential (primary) hypertension; D64.9 Anemia, unspecified; Z12.5 Encounter for screening for malignant neoplasm of prostate
CPT/HCPCS: 80053; 83540; 83550; 85007; 85025; G0103